=== PATIENT | female | born 1960 | race Two or more races ===

== ENCOUNTER 2024-10-13 14:08 | Outpatient (AMB) | payer MEDICARE, SELFPAY ==
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
[2024-10-13 14:12] VITALS: BP 139/61; PULSE 82; O2SAT 99; BMI 36.8
--- OUTSIDE RECORDS SUMMARY | 2024-10-13 17:10 | XMS_ITS | Encounter Summary ---
Author Organization [facility] Address [address] [place] [address] Care Team Providers Care Senior Staff Consultant Name Role Phone Milka Cueva APRN Primary Care Provider [phone] Vilma Hollis Unavailable Milka Cueva APRN Unavailable [phone] Raisa Pittman MD Primary Care Provid er Anay Chandra MD Primary Care Provider [phone] Andrei Ruby APRN Unavailable Unavailabl e Barry Cornell MD Unavailable [phone] Bakari Camilo MD Unavailable Brenda Almeida APRN Primary Care Provider [phone] Anay Chandra MD Unavailable [phone] Anay Chandra MD Primary Care Provider [phone] Brenda Almeida APRN Unavailable [phone] Babak Pickard MD Unavailable [phone] Anay Chandra MD Primary Care Provider [phone] Encounter Details Date Type Department Care Team (Late st Contact Info) Description 05/14/2018 Scanned Document [address] [address] Wound Care, Scan Social History Tobacco Use Types Packs/Day Years Used Date Smoking Tobacco: Former Cigarettes 1 30 0 04/02/1988 - 04/02/2018 Smokeless Tobacco: Never Alcohol Use Standard Drinks/Week Comments No 0 (1 standard drink = 0.6 oz pur e alcohol) Sex and Gender Information Value Date Recorded Sex Assigned at Female 12/16/2022 9:28 AM EDT Gender Identity Female 12/16/2022 9:28 AM EDT Sexual Orientation Heterosexual (straight) 12/16 9:28 AM EDT documented as of this encounter Plan of Treatment Upcoming Encounters Date Type Department Care Team (Late st Contact Info) Description 12/05/2024 1:30 PM EDT Office Visit [address] [address] Anay Chandra MD [address] [place] [address] 01/04/2025 1:00 PM EDT Office Visit [facility] Endocrinology [place] [address] [phone] Vishnu Hernandez MD [address] [address] documented as of this encounter Visit Diagnoses Not on filedocumented in this encounter Care Teams Senior Staff Consultant Relationship Specialty Start Date End Date Milka Cueva APRN [address] [place] [address] PCP - General Internal Medicine 03/10/17 05/22/19 Milka Cueva APRN 5 [facility] [address] [address] PCP - MSSP Attributed 02/14/19 9 Raisa Pittman MD [address] [place] [address] PCP - General Family Medicine 05/23/19 06/28/19 Anay Chandra MD [address] [place] [address] PCP - General Internal Medicine 06/29/19 10/22/21 Brenda Almeida, HAND PAINTER [address] [place], [place] [address] PCP - General Adult Health - PA/APNP/PRODUCTION DESIGNER/HAND PAINTER 10/23/21 12/25/21 Anay Chandra MD [address] [place] [address] PCP - [facility]+ Attributed 08/17/21 2 Anay Chandra MD [address] [place] [address] PCP - General Family Medicine 12/26/21 12/30/23 Brenda Almeida, HAND PAINTER [address] [place], [place] [id number] PCP - [facility] [place] Attributed 09/17/22 06/16/23 Anay Chandra MD [address] [place] [address] PCP - General Family Medicine 12/31/23 Vilma Hollis [facility] [phone] Emergency Medicine 04/28/18 Andrei Ruby APRN 5 [facility] [address] [place] [address] Nurse Practitioner Endocrinology 07/21/19 12/29/23 Barry Cornell MD 5 [facility] [address] [place] [address] Anesthesiologist Anesthesiology 10/03/19 10/03/19 Bakari Camilo MD 5 [facility] [address] [place] [address] Physician Ophthalmology 01/10/20 Babak Pickard MD [address] [place] [address] [place] [address] Surgery, Neurosurgery 02/16/23 documented as of this encounter
--- OUTSIDE RECORDS SUMMARY | 2024-10-13 17:10 | XMS_ITS | Encounter Summary ---
Author Organization [facility] Address [address] [place] [address] Care Team Providers Care Research Quality Assurance Specialist Name Role Phone Vilma Hollis Unavailable Andrei Ruby EVENT CREW TECHNICIAN Unavailable Unavailabl e Bakari Camilo MD Unavailable [phone] Anay Chandra MD Primary Care Provider [phone] Brenda Almeida EVENT CREW TECHNICIAN Unavailable [phone] Babak Pickard MD Unavailable [phone] Anay Chandra MD Primary Care Provider [phone] Encounter Details Date Type Department Care Team (Late st Contact Info) Description 09/11/2022 Scanned Document [facility] PRIMARY CARE SCAN Primary Care, Scan Social History Tobacco Use Types Packs/Day Years Used Date Smoking Tobacco: Former Cigarettes 1 30 Smokeless Tobacco: Former Alcohol Use Standard Drinks/Week Comments No 0 (1 standard drink = 0.6 oz pur e alcohol) Sex and Gender Information Value Date Recorded Sex Assigned at Female 12/16/2022 9:28 AM EDT Gender Identity Female 12/16/2022 9:28 AM EDT Sexual Orientation Heterosexual (straight) 12/16 9:28 AM EDT COVID-19 Exposure Response Date Recorded In the last 10 days, have yo u been in contact with someone who was confirmed or suspected to have Coronavirus/COVID-19? No / Unsure 09/12/2022 2:29 PM EST documented as of this encounter Plan of Treatment Upcoming Encounters Date Type Department Care Team (Late st Contact Info) Description 12/05/2024 1:30 PM EDT Office Visit [facility] [address] [facility] [place] [phone] Anay Chandra MD 445 [facility], [place] [id number] 01/04/2025 1:00 PM EDT Office Visit [facility] Endocrinology [place] [address] [place] [address] Vishnu Hernandez MD [address] [place] [address] [place] [address] documented as of this encounter Goals Goal Patient Goal Type Associated Problems Recent Progress Patient-Stated? Author <enter goal here> General On track(2018 2:36 PM EST) Yes Norma Junior RN Note: Problem- smoking on Chantix- down to 5 cigarettes per day. Goal- Pt's quit date is 08/17/18 Intervention- continue on Chantix per prescribing by Milka Cueva APRN. <enter goal here> General Improving( 2:36 PM EST) Yes Norma Junior RN Note: Problem- new onset of pain where closed wound is. Goal- concerns of pain to be addressed CICI. Intervention- to be seen today by INGE and appt at the wound clinic in [place] on 08/23/18. OT LTG 1 Occupational Therapy No Karina Pendleton, MICHAEL Note: Patient will demonstrate 10 lb increase in hospital wellness coordinator strength B for improved ability to open containers in 6 weeks. OT LTG 2 Occupational Therapy No Karina Pendleton, MICHAEL Note: QD score will improve by 10% in 6 weeks. OT LTG 3 Occupational Therapy No Karina Pendleton, MICHAEL Note: Patient will demonstrate independence with HEP including education in 6 weeks. documented as of this encounter Visit Diagnoses Not on filedocumented in this encounter Care Teams Research Quality Assurance Specialist Relationship Specialty Start Date End Date Anay Chandra MD PCP - General Family Medicine 12/26/21 12/30/23 Brenda Almeida APRN [address] [place] [address] PCP - [facility] Attributed 09/17/22 06/16/23 Anay Chandra MD [address] [place] [address] PCP - General Family Medicine 12/31/23 Vilma Hollis Emergency Medicine 04/28/18 Andrei Ruby APRN Nurse Practitioner Endocrinology 07/21/19 12/29/23 Bakari Camilo MD Physician Ophthalmology 01/10/20 Babak Pickard MD [address] [place] [address] [place] [address] Surgery, Neurosurgery 02/16/23 documented as of this encounter
--- OUTSIDE RECORDS SUMMARY | 2024-10-13 17:10 | XMS_ITS | Encounter Summary ---
Author Organization [facility] Address [address] [place] [address] Care Team Providers Care Reel Repairer Name Role Phone Vilma Hollis Unavailable Andrei Ruby COLLECTION DEVELOPMENT LIBRARIAN Unavailable Unavailabl e Bakari Camilo MD Unavailable [phone] Anay Chandra MD Primary Care Provider [phone] Brenda Almeida COLLECTION DEVELOPMENT LIBRARIAN Unavailable [phone] Babak Pickard MD Unavailable [phone] Anay Chandra MD Primary Care Provider [phone] Encounter Details Date Type Department Care Team (Late st Contact Info) Description 05/22/[address] [facility] PRIMARY CARE SCAN Primary Care, Scan Social History Tobacco Use Types Packs/Day Years Used Date Smoking Tobacco: Every Day Cigarettes 1 30 Smokeless Tobacco: Former Alcohol [...] Description 12/05/2024 1:30 PM EDT Office Visit [address] [address] Anay Chandra MD [address] [place] [address] 01/04/2025 1:00 PM EDT Office Visit [facility] Endocrinology [place] [address] [place] [address] Vishnu Hernandez MD [address] [place] [address] documented as of this encounter Goals Goal Patient Goal Type Associated Problems Recent Progress Patient-Stated? Author <enter goal here> General On track(2018 2:36 PM EST) Yes Norma Junior, RN Note: Problem- smoking on Chantix- down to 5 cigarettes per day. Goal- Pt's quit date is 08/17/18 Intervention- continue on Chantix per prescribing by Milka Cueva APRN. <enter goal here> General Improving( 2:36 PM EST) Yes Norma Junior, RN Note: Problem- new onset of pain where closed wound is. Goal- concerns of pain to be addressed CICI. Intervention- to be seen today by COLLECTION DEVELOPMENT LIBRARIAN and appt at the wound clinic in [place] on 08/23/18. OT LTG 1 Occupational Therapy No Karina Pendleton, MICHAEL Note: Patient will demonstrate 10 lb increase in winderman strength B for improved ability to open [...] on filedocumented in this encounter Care Teams Reel Repairer Relationship Specialty Start Date End Date Anay Chandra MD PCP - General Family Medicine 12/26/21 12/30/23 Brenda Almeida APRN [address] [place] [address] PCP - [facility] Attributed 09/17/22 06/16/23 Anay Chandra MD [address] [place] [address] PCP - General Family Medicine 12/31/23 Vilma Hollis Emergency Medicine 04/28/18 Andrei Ruby APRN Nurse Practitioner Endocrinology 07/21/19 12/29/23 Bakari Camilo MD Physician Ophthalmology 01/10/20 Babak Pickard MD [address] [place] [address] Surgery, Neurosurgery 02/16/23 documented as of this encounter
--- OUTSIDE RECORDS SUMMARY | 2024-10-13 17:10 | XMS_ITS | Encounter Summary ---
Author Organization [facility] Address [address] [place] [address] Care Team Providers Care Buffing Line Set Up Worker Name Role Phone Milka Cueva APRN Primary Care Provider [phone] Vilma Hollis Unavailable Milka Cueva APRN Unavailable [phone] Raisa Pittman MD Primary Care Provid er Anay Chandra MD Primary Care Provider [phone] Andrei Ruby APRN Unavailable Unavailabl e Barry Cornell MD Unavailable [phone] Bakari Camilo MD Unavailable [phone] Brenda Almeida APRN Primary Care Provider [phone] Anay Chandra MD Unavailable [phone] Anay Chandra MD Primary Care Provider [phone] Brenda Almeida APRN Unavailable [phone] Babak Pickard MD Unavailable [phone] Anay Chandra MD Primary Care Provider [phone] Encounter Details Date Type Department Care Team (Late st Contact Info) Description 04/12/2018 Scanned Document [address] [address] Provider, Generic Social History Tobacco Use Types Packs/Day Years [...] Description 12/05/2024 1:30 PM EDT Office Visit [address] [address] Anay Chandra MD [address] [place] [address] 01/04/2025 1:00 PM EDT Office Visit [facility] Endocrinology [place] [address] [phone] Vishnu Hernandez MD [address] [address] documented as of this encounter Visit Diagnoses Not on filedocumented in this encounter Care Teams Buffing Line Set Up Worker Relationship Specialty Start Date End Date Milka Cueva APRN [address] [place] [address] PCP - General Internal Medicine 03/10/17 05/22/19 Milka Cueva APRN 5 [facility] [address] [address] PCP - MSSP Attributed 02/14/19 9 Raisa Pittman MD [address] [place] [address] PCP - General Family Medicine 05/23/19 06/28/19 Anay Chandra MD [address] [place] [address] PCP - General Internal Medicine 06/29/19 10/22/21 Brenda Almeida, PATIENT FINANCIAL SERVICES MANAGER [address] [place], [place] [address] PCP - General Adult Health - PA/APNP/WREATH MACHINE OPERATOR/PATIENT FINANCIAL SERVICES MANAGER 10/23/21 12/25/21 Anay Chandra MD [address] [place] [id number] PCP - [facility]+ Attributed 08/17/21 2 Anay Chandra MD [address] [place] [address] PCP - General Family Medicine 12/26/21 12/30/23 Brenda Almeida, PATIENT FINANCIAL SERVICES MANAGER [address] [place], [place] [phone] PCP - [facility] [place] Attributed 09/17/22 06/16/23 Anay Chandra MD [address] [place] [address] PCP - General Family Medicine 12/31/23 Vilma Hollis [address], [place] [id number] Emergency Medicine 04/28/18 Andrei Ruby APRN 5 [facility] [address] [place] [address] Nurse Practitioner Endocrinology 07/21/19 12/29/23 Barry Cornell MD 5 [facility] [address] [place] [address] Anesthesiologist Anesthesiology 10/03/19 10/03/19 Bakari Camilo MD 5 [facility] [address] [place] [address] Physician Ophthalmology 01/10/20 Babak Pickard MD [address] [place] [address] [address] [place] [address] Surgery, Neurosurgery 02/16/23 documented as of this encounter
--- OUTSIDE RECORDS SUMMARY | 2024-10-13 17:10 | XMS_ITS | Encounter Summary ---
Author Organization [facility] Address [address] [place] [address] Care Team Providers Care Mold Operator Name Role Phone Vilma Hollis Unavailable Andrei Ruby WORKERS COMPENSATION EXAMINER Unavailable Unavailabl e Bakari Camilo MD Unavailable [phone] Anay Chandra MD Primary Care Provider Brenda Almeida WORKERS COMPENSATION EXAMINER Unavailable [phone] Babak Pickard MD Unavailable [phone] Anay Chandra MD Primary Care Provider [phone] Reason for Visit * Reason Comments Medication Refill Encounter Details Date Type Department Care Team (Late st Contact Info) Description 08/27/[address] [phone] Anay Chandra MD [address] [place] [phone] Gastroesophageal reflux disease, unspecified whether esophagitis present Social History Tobacco Use Types Packs/Day Years [...] suspected to have Coronavirus/COVID-19? No / Unsure 08/29/2022 2:07 PM EST documented as of this encounter Plan of Treatment Upcoming Encounters Date Type Department Care Team (Late st Contact Info) Description 12/05/2024 1:30 PM EDT Office Visit [address] [address] Anay Chandra MD [address] [place] [address] 01/04/2025 1:00 PM EDT Office Visit [facility] 100 [facility] [address] [place] [address] Vishnu Hernandez MD [address] [place] [address] documented as of this encounter Goals Goal [...] Improving( 2:36 PM EST) Yes Norma Junior, ISIDRA Note: Problem- new onset of pain where closed wound is. Goal- concerns of pain to be addressed CICI. Intervention- to be seen today by WORKERS COMPENSATION EXAMINER and appt at the wound clinic in [place] on 08/23/18. OT LTG 1 Occupational Therapy No Karina Pendleton, MICHAEL Note: Patient will demonstrate 10 lb increase in senior business process analyst strength B for improved ability to open containers in 6 weeks. OT LTG 2 Occupational Therapy No Karina Pendleton OT Note: QD score will improve by 10% in 6 weeks. OT LTG 3 Occupational Therapy No Karina Pendleton OT Note: Patient will demonstrate independence with HEP including education in 6 weeks. documented as of this encounter Visit Diagnoses Diagnosis Gastroesophageal reflux disease, unspecified whether esophagitis present documented in this encounter Care Teams Mold Operator Relationship Specialty Start Date End Date Anay Chandra MD PCP - General Family Medicine 12/26/21 12/30/23 Brenda Almeida APRN [address] [place] [address] PCP - [facility] MA Attributed 09/17/22 06/16/23 Anay Chandra MD [address] [place] [address] PCP - General Family Medicine 12/31/23 Vilma Hollis Emergency Medicine 04/28/18 Andrei Ruby APRN Nurse Practitioner Endocrinology 07/21/19 12/29/23 Bakari Camilo MD Physician Ophthalmology 01/10/20 Babak Pickard MD [address] [place] [address] Surgery, Neurosurgery 02/16/23 documented as of this encounter
--- OUTSIDE RECORDS SUMMARY | 2024-10-13 17:10 | XMS_ITS | Encounter Summary ---
Author Organization [facility] Address [address] [place] [address] Care Team Providers Care Stage Hand Name Role Phone Vilma Hollis Unavailable Anay Chandra MD Primary Care Provider [phone] Andrei Ruby APRN Unavailable Unavailabl Barry Ceron MD Unavailable [phone] Bakari Camilo MD Unavailable Brenda Almeida APRN Primary Care Provider Anay Chandra MD Unavailable [phone] Anay Chandra MD Primary Care Provider [phone] Brenda Almeida APRN Unavailable [phone] Babak Pickard MD Unavailable [phone] Anay Chandra MD Primary Care Provider [phone] Reason for Visit * Reason Comments Medication Refill Encounter Details Date Type Department Care Team (Late st Contact Info) Description 10/02/2019 Refill [facility] Endocrinology [address] [phone] Andrei Ruby APRN Type 2 diabetes mellitus without complication, without long-term current use of insulin (HCC) Social History Tobacco Use Types Packs/Day Years Used Date Smoking Tobacco: Some Days Cigarettes 09 15 Started: 04/02/1988; Last attempted to quit: 04/02/2018 Smokeless Tobacco: Former Alcohol Use Standard Drinks/Week [...] Description 12/05/2024 1:30 PM EDT Office Visit [address] [address] Anay Chandra MD [address] [place] [address] 01/04/2025 1:00 PM EDT Office Visit [facility] [address] [place] [address] Vishnu Hernandez MD [address] [place] [address] documented as of this encounter Goals Goal Patient Goal Type Associated Problems Recent Progress Patient-Stated? Author <enter goal here> General On track( 019 2:36 PM EST) Yes Norma Junior RN [...] and appt at the wound clinic in [place] on 08/23/18. documented as of this encounter Visit Diagnoses Diagnosis Type 2 diabetes mellitus without complication, without long-term current use of insulin (HCC) documented in this encounter Care Teams Stage Hand Relationship Specialty Start Date End Date Anay Chandra MD PCP - General Internal Medicine 06/29/19 10/22/21 Brenda Almeida, REFUGE WORKER [address] [place] [address] PCP - [facility] - PA/APNP/COOLER DELIVERER/REFUGE WORKER 10/23/21 12/25/21 Anay Chandra MD [address] [place] [address] PCP - [facility]+ Attributed 08/17/21 2 Anay Chandra MD PCP - General Family Medicine 12/26/21 12/30/23 Brenda Almeida, REFUGE WORKER [address] [place] [address] PCP - [facility] [place] Attributed 09/17/22 06/16/23 Anay Chandra MD [address] [place] [address] PCP - General Family Medicine 12/31/23 Vilma Hollis Emergency Medicine 04/28/18 Andrei Ruby APRN Nurse Practitioner Endocrinology 07/21/19 12/29/23 Barry Cornell MD Anesthesiologist Anesthesiology 10/03/19 10/03/19 Bakari Camilo MD Physician Ophthalmology 01/10/20 Babak Pickard MD [address] [place] [address] [place] [address] Surgery, Neurosurgery 02/16/23 documented as of this encounter
--- OUTSIDE RECORDS SUMMARY | 2024-10-13 17:10 | XMS_ITS | Encounter Summary ---
Author Organization [facility] Address [address] [place] [address] Care Team Providers Care Modeling Instructor Name Role Phone Vilma Hollis Unavailable Anay Chandra MD Primary Care Provider [phone] Andrei Ruby APRN Unavailable Unavailabl e Bakari Camilo MD Unavailable [phone] Brenda Almeida APRN Primary Care Provider Anay Chandra MD Unavailable [phone] Anay Chandra MD Primary Care Provider Brenda Almeida APRN Unavailable [phone] Babak Pickard MD Unavailable [phone] Anay Chandra MD Primary Care Provider [phone] Encounter Details Date Type Department Care Team (Late st Contact Info) Description 10/21/[address] [address] Anay Chandra MD [address] [place] [address] Social History Tobacco Use Types Packs/Day Years Used Date Smoking Tobacco: Some Days Cigarettes 1 30 Started: 04/02/1988; Last attempted to quit: 04/02/2018 Smokeless Tobacco: Former Alcohol Use Standard Drinks/Week Comments No 0 (1 standard drink = 0.6 oz pur e alcohol) Sex and Gender Information Value Date Recorded Sex Assigned at Female 12/16/2022 9:28 AM EDT Gender Identity Female 12/16/2022 9:28 AM EDT Sexual Orientation Heterosexual (straight) 12/16 9:28 AM EDT documented as of this encounter Miscellaneous Notes * Telephone Encounter - Ciarra Pathak - 10/21/2019 3:42 PM EST Pt is stating that her appt with Dermatology has been scheduled for 10/25/19 @ 9:30am. documented in this encounter Plan of Treatment Upcoming Encounters Date Type Department Care Team (Late st Contact Info) Description 12/05/2024 1:30 PM EDT Office Visit [address] [address] Anay Chandra MD [address] [place] [address] 01/04/2025 1:00 PM EDT Office Visit [address] [address] Vishnu Hernandez MD [address] [place] [address] documented as of this encounter Goals Goal Patient Goal Type Associated Problems Recent Progress Patient-Stated? Author <enter goal here> General On track( 019 2:36 PM EST) Yes Norma Junior, RN Note: Problem- smoking on Chantix- down to 5 cigarettes per day. Goal- Pt's quit date is 08/17/18 Intervention- continue on Chantix per prescribing by Milka Cueva APRN. <enter goal here> General Improving(01/ 2:36 PM EST) Yes Norma Junior, ISIDRA Note: Problem- new onset of pain where closed wound is. Goal- concerns of pain to be addressed CICI. Intervention- to be seen today by APPIAN DEVELOPER and appt at the wound clinic in [place] on 08/23/18. documented as of this encounter Visit Diagnoses Not on filedocumented in this encounter Care Teams Modeling Instructor Relationship Specialty Start Date End Date Anay Chandra MD PCP - General Internal Medicine 06/29/19 10/22/21 Brenda Almeida APRN [address] [place] [address] PCP - General Adult Health - PA/APNP/SAMPLE CARD MAKER/APPIAN DEVELOPER 10/23/21 12/25/21 Anay Chandra MD [address] [place] [address] PCP - [facility]+ Attributed 08/17/21 2 Anay Chandra MD PCP - General Family Medicine 12/26/21 12/30/23 Brenda Almeida APRN [address] [place] [address] PCP - [facility] [place] Attributed 09/17/22 06/16/23 Anay Chandra MD [address] [place] [address] PCP - General Family Medicine 12/31/23 Vilma Hollis Emergency Medicine 04/28/18 Andrei Ruby APRN Nurse Practitioner Endocrinology 07/21/19 12/29/23 Bakari Camilo MD Physician Ophthalmology 01/10/20 Babak Pickard MD [address] [place] [address] [place] [address] Surgery, Neurosurgery 02/16/23 documented as of this encounter
--- OUTSIDE RECORDS SUMMARY | 2024-10-13 17:10 | XMS_ITS | Encounter Summary ---
Author Organization [facility] Address [address] [place] [address] Care Team Providers Care Alligator Shear Operator Name Role Phone Vilma Hollis Unavailable Anay Chandra MD Primary Care Provider [phone] Andrei Ruby APRN Unavailable Unavailabl e Bakari Camilo MD Unavailable [phone] Brenda Almeida APRN Primary Care Provider Anay Chandra MD Unavailable [phone] Anay Chandra MD Primary Care Provider [phone] Brenda Almeida APRN Unavailable [phone] Babak Pickard MD Unavailable [phone] Anay Chandra MD Primary Care Provider [phone] Encounter Details Date Type Department Care Team (Late st Contact Info) Description 10/28/2019 Scanned Document [address] [address] Podiatry, Scan Social History Tobacco Use Types Packs/Day [...] Description 12/05/2024 1:30 PM EDT Office Visit [address] [place] [address] Anay Chandra MD [address] [place] [address], [place] [address] 01/04/2025 1:00 PM EDT Office Visit [facility] Endocrinology [place] [address] [facility] [address] [place] [address] Vishnu Hernandez MD [address] [place] [address] documented as of this encounter Goals Goal [...] and appt at the wound clinic in [place] on 08/23/18. 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 maid cleaning cooking strength B for improved ability to open [...] on filedocumented in this encounter Care Teams Alligator Shear Operator Relationship Specialty Start Date End Date Anay Chandra MD PCP - General Internal Medicine 06/29/19 10/22/21 Brenda Almeida APRN [address] [place] [address] PCP - General Adult Health - PA/APNP/ACUPUNCTURIST/CANAL EQUIPMENT MECHANIC 10/23/21 12/25/21 Anay Chandra MD [address] [place] [address] PCP - [facility]+ Attributed 08/17/21 2 Anay Chandra MD PCP - General Family Medicine 12/26/21 12/30/23 Brenda Almeida, INGE [address] [place] [address] PCP - [facility] [place] Attributed 09/17/22 06/16/23 Anay Chandra MD [address] [place] [address] PCP - General Family Medicine 12/31/23 Vilma Hollis Emergency Medicine 04/28/18 Andrei Ruby APRN Nurse Practitioner Endocrinology 07/21/19 12/29/23 Bakari Camilo MD Physician Ophthalmology 01/10/20 Babak Pickard MD [address] [place] [address] [place] [address] Surgery, Neurosurgery 02/16/23 documented as of this encounter
--- OUTSIDE RECORDS SUMMARY | 2024-10-13 17:10 | XMS_ITS | Encounter Summary ---
Author Organization [facility] Address [address] [place] [address] Care Team Providers Care Inhalation Therapy Teacher Name Role Phone Vilma Hollis Unavailable Anay Chandra MD Primary Care Provider [phone] Andrei Ruby APRN Unavailable Unavailabl e Bakari Camilo MD Unavailable [phone] Brenda Almeida APRN Primary Care Provider Anay Chandra MD Unavailable [phone] Anay Chandra MD Primary Care Provider [phone] Brenda Almeida APRN Unavailable [phone] Babak Pickrad MD Unavailable [phone] Anay Chandra MD Primary Care Provider [phone] Reason for Visit * Reason Comments Medication Refill Encounter Details Date Type Department Care Team (Late st Contact Info) Description 11/01/2019 Refill [facility] Endocrinology [address] [phone] Andrei Ruby APRN Type 2 diabetes mellitus [...] Description 12/05/2024 1:30 PM EDT Office Visit [address] [address] Anay Chandra MD [address] [place] [address] 01/04/2025 1:00 PM EDT Office Visit [facility] 100 [facility] [address] [place] [address] Vishnu Hernandez MD [address] [place] [address] documented as of this encounter Goals Goal [...] CICI. Intervention- to be seen today by AIRFIELD DEFENCE GUARD and appt at the wound clinic in [place] on 08/23/18. OT LTG 1 Occupational Therapy No Karina Pendleton, MICHAEL Note: Patient will demonstrate 10 lb increase in account consultant strength B for improved ability to open containers in 6 weeks. OT LTG 2 Occupational Therapy No Karina Pendleton OT Note: QD score will improve by 10% in 6 weeks. OT LTG 3 Occupational Therapy Karina Rodriguez OT Note: Patient will demonstrate independence with HEP including education in 6 weeks. documented as of this encounter Visit Diagnoses Diagnosis Type 2 diabetes mellitus without complication, without long-term current use of insulin (HCC) documented in this encounter Care Teams Inhalation Therapy Teacher Relationship Specialty Start Date End Date Anay Chandra MD PCP - General Internal Medicine 06/29/19 10/22/21 Brenda Almeida APRN [address] [place] [address] PCP - General Adult Health - PA/APNP/YOUTH DEVELOPMENT PROFESSIONAL/AIRFIELD DEFENCE GUARD 10/23/21 12/25/21 Anay Chandra MD [address] [place] [address] PCP - [facility]+ Attributed 08/17/21 2 Anay Chandra MD PCP - General Family Medicine 12/26/21 12/30/23 Brenda Almeida APRN [address] [place] [address] PCP - [facility] [place] Attributed 09/17/22 06/16/23 Anay Chandra MD [address] [place] [address] PCP - General Family Medicine 12/31/23 Vilma Hollis Emergency Medicine 04/28/18 Andrei Ruby APRN Nurse Practitioner Endocrinology 07/21/19 12/29/23 Bakari Camilo MD Physician Ophthalmology 01/10/20 Babak Pickard MD [address] [place] [address] [place] [address] Surgery, Neurosurgery 02/16/23 documented as of this encounter
--- OUTSIDE RECORDS SUMMARY | 2024-10-13 17:10 | XMS_ITS | Encounter Summary ---
Author Organization [facility] Address [address] [place] [address] Care Team Providers Care Retail Leader Name Role Phone Vilma Hollis Unavailable Anay Chandra MD Primary Care Provider [phone] Andrei Ruby APRN Unavailable Unavailabl e Bakari Camilo MD Unavailable [phone] Brenda Almeida APRN Primary Care Provider Anay Chandra MD Unavailable [phone] Anay Chandra MD Primary Care Provider [phone] Brenda Almeida APRN Unavailable [phone] Babak Pickard MD Unavailable [phone] Anay Chandra MD Primary Care Provider [phone] Reason for Visit * Reason Comments Medication Refill Encounter Details Date Type Department Care Team (Late st Contact Info) Description 11/22/2019 Refill [facility] Endocrinology [address] [phone] Andrei Ruby APRN Type 2 diabetes mellitus without complication, without long-term current use of insulin (HCC) (Primary Dx) Social History Tobacco Use Types Packs/Day Years [...] encounter Miscellaneous Notes * Telephone Encounter - Dulce Maria Montes De Oca LPN - 11/23/2019 8:52 AM EDT Telephone call to [facility] their phone system is down.Will try again later.Pt was using Accu-chek Softclix before. documented in this encounter Plan of Treatment Upcoming Encounters Date Type Department Care Team (Late st Contact Info) Description 12/05/2024 1:30 PM EDT Office Visit [address] [address] Anay Chandra MD [address] [place] [address] 01/04/2025 1:00 PM EDT Office Visit [facility] Endocrinology [address] [address] Vishnu Hernandez MD [address] [place] [address] documented as of this encounter Goals Goal Patient Goal Type Associated Problems Recent Progress Patient-Stated? Author <enter goal here> General On track(2018 2:36 PM EST) Yes Norma Junior RN Note: Problem- smoking on Chantix- down to 5 cigarettes per day. Goal- Pt's quit date is 08/17/18 Intervention- continue on Chantix per prescribing by Milka uCeva APRN. <enter goal here> General Improving( 2:36 PM EST) Yes Norma Junior, RN Note: Problem- new onset of pain where closed wound is. Goal- concerns of pain to be addressed CICI. Intervention- to be seen today by RECLAMATION SUPERVISOR and appt at the wound clinic in [place] on 08/23/18. 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 food and beverage coordinator strength B for improved ability to [...] complication, without long-term current use of insulin (HCC)- Primary documented in this encounter Care Teams Retail Leader Relationship Specialty Start Date End Date Anay Chandra MD PCP - General Internal Medicine 06/29/19 10/22/21 Brenda Almeida APRN [address] [place] [address] PCP - General Adult Health - PA/APALLIE/SENIOR NET SOFTWARE DEVELOPER/RECLAMATION SUPERVISOR 10/23/21 12/25/21 Anay Chandra MD [address] [place] [address] PCP - [facility]+ Attributed 08/17/21 2 Anay Chandra MD PCP - General Family Medicine 12/26/21 12/30/23 Brenda Almeida APRN [address] [place] [address] PCP - [facility] [place] Attributed 09/17/22 06/16/23 Anay Chandra MD [address] [place] [address] PCP - General Family Medicine 12/31/23 Vilma Hollis Emergency Medicine 04/28/18 Andrei Ruby APRN Nurse Practitioner Endocrinology 07/21/19 12/29/23 Bakari Camilo MD Physician Ophthalmology 01/10/20 Babak Pickard MD [address] [place] [address] [address] [place] [address] Surgery, Neurosurgery 02/16/23 documented as of this encounter
--- OUTSIDE RECORDS SUMMARY | 2024-10-13 17:10 | XMS_ITS | Encounter Summary ---
Author Organization [facility] Address [address] [place] [address] Care Team Providers Care Wares Sorter Name Role Phone Vilma Hollis Unavailable Andrei Ruby ANCHOR TACK PULLER Unavailable Unavailabl e Bakari Camilo MD Unavailable [phone] Anay Chandra MD Primary Care Provider [phone] Brenda Almeida ANCHOR TACK PULLER Unavailable [phone] Babak Pickard MD Unavailable [phone] Anay Chandra MD Primary Care Provider [phone] Encounter Details Date Type Department Care Team (Late st Contact Info) Description 06/09/2022 Scanned Document [facility] PRIMARY CARE SCAN Primary Care, Scan [...] suspected to have Coronavirus/COVID-19? No / Unsure 05/30/2022 11:14 AM EDT documented as of this encounter Plan of Treatment Upcoming Encounters Date Type Department Care Team (Late st Contact Info) Description 12/05/2024 1:30 PM EDT Office Visit [facility] [address] [place] [phone] Anay Chandra MD [address] [facility], [place] [address] 01/04/2025 1:00 PM EDT Office Visit [facility] Endocrinology [place] [address] [place] [address] Vishnu Hernandez MD [address] [place] [address] documented as of this encounter Goals Goal [...] CICI. Intervention- to be seen today by ANCHOR TACK PULLER and appt at the wound clinic in [place] on 08/23/18. OT LTG 1 Occupational Therapy No Karina Pendleton, MICHAEL Note: Patient will demonstrate 10 lb increase in district manager postal service strength B for improved ability to open [...] on filedocumented in this encounter Care Teams Wares Sorter Relationship Specialty Start Date End Date Anay Chandra MD PCP - General Family Medicine 12/26/21 12/30/23 Brenda Almeida APRN [address] [place] [address] PCP - [facility] Attributed 09/17/22 06/16/23 Anay Chandra MD [address] [place] [address] PCP - General Family Medicine 12/31/23 Vilma Hollis Emergency Medicine 04/28/18 Andrei Ruby APRN Nurse Practitioner Endocrinology 07/21/19 12/29/23 Bakari Camilo MD Physician Ophthalmology 01/10/20 Babak Pickard MD [address] [place] [address] [place] [address] Surgery, Neurosurgery 02/16/23 documented as of this encounter
--- OUTSIDE RECORDS SUMMARY | 2024-10-13 17:10 | XMS_ITS | Encounter Summary ---
Author Organization [facility] Address [address] [place] [address] Care Team Providers Care Logistics Clerk Name Role Phone Milka Cueva APRN Primary Care Provider [phone] Vilma Hollis Unavailable Milka Cueva APRN Unavailable [phone] Raisa Pittman MD Primary Care Provid er Anay Chandra MD Primary Care Provider [phone] Andrei Ruby APRN Unavailable Unavailabl e Barry Cornell MD Unavailable [phone] Bakari Camilo MD Unavailable [phone] Brenda Almeida APRN Primary Care Provider [phone] Anay Chandra MD Unavailable [phone] Anay Chandra MD Primary Care Provider [phone] Brenda Almeida APRN Unavailable [phone] Babak Pickard MD Unavailable [phone] Anay Chandra MD Primary Care Provider [phone] Encounter Details Date Type Department Care Team (Late st Contact Info) Description 03/28/2018 Scanned Document [address] [address] Provider, Generic Social History Tobacco Use Types Packs/Day Years Used Date Smoking Tobacco: Every Day Cigarettes 1 30 Smokeless Tobacco: Never Alcohol Use Standard Drinks/Week [...] Description 12/05/2024 1:30 PM EDT Office Visit [address] [address] Anay Chandra MD [address] [place] [address] 01/04/2025 1:00 PM EDT Office Visit [facility] Endocrinology [address] [address] Vishnu Hernandez MD [address] [place] [address] documented as of this encounter Visit Diagnoses Not on filedocumented in this encounter Care Teams Logistics Clerk Relationship Specialty Start Date End Date Milka Cueva APRN [address] [place] [address] PCP - General Internal Medicine 03/10/17 05/22/19 Milka Cueva APRN [address] [address] PCP - [facility] Attributed 02/14/19 9 Raisa Pittman MD [address] [address] PCP - General Family Medicine 05/23/19 06/28/19 Anay Chandra MD [address] [place] [address] PCP - General Internal Medicine 06/29/19 10/22/21 Brenda Almeida, CATERING STAFF MEMBER [address] [place], [place] [address] PCP - General Adult Health - PA/APNP/SUBSTITUTE NURSE/CATERING STAFF MEMBER 10/23/21 12/25/21 Anay Chandra MD [address] [place] [address] PCP - [facility]+ Attributed 08/17/21 2 Anay Chandra MD 5 [facility] [address] [address] PCP - General Family Medicine 12/26/21 12/30/23 Brenda Almeida, CATERING STAFF MEMBER [address] [place], [place] [address] PCP - [facility] [place] Attributed 09/17/22 06/16/23 Anay Chandra MD [address] [place] [address] PCP - General Family Medicine 12/31/23 Vilma Hollis [address] [place], [place] [id number] Emergency Medicine 04/28/18 Andrei Ruby APRN 5 [facility] [address] [place] [address] Nurse Practitioner Endocrinology 07/21/19 12/29/23 Barry Cornell MD 5 [facility] [address] [place] [address] Anesthesiologist Anesthesiology 10/03/19 10/03/19 Bakari Camilo MD 5 [facility] [address] [address] Physician Ophthalmology 01/10/20 Babak Pickard MD [address] [place] [address] [address] [place] [address] Surgery, Neurosurgery 02/16/23 documented as of this encounter
--- OUTSIDE RECORDS SUMMARY | 2024-10-13 17:10 | XMS_ITS | Encounter Summary ---
Author Organization [facility] Address [address] [place] [address] Care Team Providers Care Stapler Coil Unit Name Role Phone Milka Cueva APRN Primary Care Provider [phone] Vilma Hollis Unavailable Milka Cueva APRN Unavailable [phone] Raisa Pittman MD Primary Care Provid er Anay Chandra MD Primary Care Provider [phone] Andrei Ruby APRN Unavailable Unavailabl e Barry Cornell MD Unavailable [phone] Bakari Camilo MD Unavailable [phone] Brenda Almeida APRN Primary Care Provider [phone] Anay Chandra MD Unavailable [phone] Anay Chandra MD Primary Care Provider [phone] Brenda Almeida APRN Unavailable [phone] Babak Pickard MD Unavailable [phone] Anay Chandra MD Primary Care Provider [phone] Encounter Details Date Type Department Care Team (Late st Contact Info) Description 2018 Scanned Document [address] [address] Provider, Generic Social History Tobacco Use Types [...] Description 12/05/2024 1:30 PM EDT Office Visit [address] [address] Anay Chandra MD [address] [place] [address] 01/04/2025 1:00 PM EDT Office Visit [facility] Endocrinology [place] [address] [phone] Vishnu Hernandez MD [address] [address] documented as of this encounter Visit Diagnoses Not on filedocumented in this encounter Care Teams Stapler Coil Unit Relationship Specialty Start Date End Date Milka Cueva APRN [address] [place] [address] PCP - General Internal Medicine 03/10/17 05/22/19 Milka Cueva APRN 5 [facility] [address] [address] PCP - MSSP Attributed 02/14/19 9 Raisa Pittman MD [address] [place] [address] PCP - General Family Medicine 05/23/19 06/28/19 Anay Chandra MD [address] [place] [address] PCP - General Internal Medicine 06/29/19 10/22/21 Brenda Almeida, MANUFACTURING ASSOCIATE [address] [place], [place] [address] PCP - General Adult Health - PA/APNP/POOL FINISHER/MANUFACTURING ASSOCIATE 10/23/21 12/25/21 Anay Chandra MD [address] [place] [id number] PCP - PCMH+ Attributed 08/17/21 2 Anay Chandra MD [address] [place] [address] PCP - General Family Medicine 12/26/21 12/30/23 Brenda Almeida, MANUFACTURING ASSOCIATE [address] [place], [place] [id number] PCP - [facility] [place] Attributed 09/17/22 06/16/23 Anay Chandra MD [address] [place] [address] PCP - General Family Medicine 12/31/23 Vilma Hollis [address] [place], [place] [phone] Emergency Medicine 04/28/18 Andrei Ruby APRN 5 [facility] [address] [place] [address] Nurse Practitioner Endocrinology 07/21/19 12/29/23 Barry Cornell MD 5 [facility] [address] [place] [address] Anesthesiologist Anesthesiology 10/03/19 10/03/19 Bakari Camilo MD 5 [facility] [address] [place] [address] Physician Ophthalmology 01/10/20 Babak Pickard MD [address] [place] [address] [address] [place] [address] Surgery, Neurosurgery 02/16/23 documented as of this encounter
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
--- OUTSIDE RECORDS SUMMARY | 2024-10-13 17:10 | XMS_ITS | Encounter Summary ---
Author Organization [facility] Address [address] [place] [address] Care Team Providers Care Molder Automobile Carpets Name Role Phone Vilma Hollis Unavailable Anay Chandra MD Primary Care Provider [phone] Andrei Ruby APRN Unavailable Unavailabl e Bakari Camilo MD Unavailable [phone] Brenda Almeida APRN Primary Care Provider Anay Chandra MD Unavailable [phone] Anay Chandra MD Primary Care Provider [phone] Brenda Almeida APRN Unavailable [phone] Babak Pickard MD Unavailable [phone] Anay Chandra MD Primary Care Provider [phone] Encounter Details Date Type Department Care Team (Late st Contact Info) Description 10/07/2019 Scanned Document [address] [place] [address] Provider, Generic Social History Tobacco Use Types [...] Description 12/05/2024 1:30 PM EDT Office Visit [address] [address] Anay Chandra MD [address] [place] [address] 01/04/2025 1:00 PM EDT Office Visit [facility] Endocrinology [place] [address] [place] [address] Vishnu Hernandez MD [address] [place] [address] documented as of this encounter Goals Goal Patient Goal Type Associated Problems Recent Progress Patient-Stated? Author <enter goal here> General On track( 019 2:36 PM EST) Yes Norma Junior, ISIDRA Note: Problem- smoking on Chantix- down to [...] and appt at the wound clinic in [place] on 08/23/18. documented as of this encounter Procedures Procedure Name Priority Date/Time Associated Diagnosis Comments HOME CARE SIGNED ORDERS 10/07/2019 documented in this encounter Results * HOME CARE SIGNED ORDERS (10/07/2019) Narrative 10/07/2019 Ordered by an unspecified provider. Generic Provider HX AMB PROCEDURES NO RESULTS ROUTING documented in this encounter Visit Diagnoses Not on filedocumented in this encounter Care Teams Molder Automobile Carpets Relationship Specialty Start Date End Date Anay Chandra MD PCP - General Internal Medicine 06/29/19 10/22/21 Brenda Almeida, ELECTRONIC DEVICE REPAIRER [address] [place] [address] PCP - General Adult Health - PA/APNP/RESAW TAILER/ELECTRONIC DEVICE REPAIRER 10/23/21 12/25/21 Anay Chandra MD [address] [place], [place] [phone] PCP - PCMH+ Attributed 08/17/21 2 Anay Chandra MD PCP - General Family Medicine 12/26/21 12/30/23 Brenda Almeida, ELECTRONIC DEVICE REPAIRER [address] [place] [address] PCP - [facility] [place] Attributed 09/17/22 06/16/23 Anay Chandra MD [address] [place] [id number] PCP - General Family Medicine 12/31/23 Vilma Hollis Emergency Medicine 04/28/18 Andrei Ruby APRN Nurse Practitioner Endocrinology 07/21/19 12/29/23 Bakari Camilo MD Physician Ophthalmology 01/10/20 Babak Pickard MD [address] [place] [address] Surgery, Neurosurgery 02/16/23 documented as of this encounter
--- OUTSIDE RECORDS SUMMARY | 2024-10-13 17:10 | XMS_ITS | Encounter Summary ---
Author Organization [facility] Address [address] [place] [address] Care Team Providers Care Firer Retort Name Role Phone Milka Cueva APRN Primary Care Provider [phone] Vilma Hollis Unavailable Milka Cueva APRN Unavailable [phone] Raisa Pittman MD Primary Care Provid er Anay Chandra MD Primary Care Provider [phone] Andrei Ruby APRN Unavailable Unavailabl e Barry Cornell MD Unavailable [phone] Bakari Camilo MD Unavailable [phone] Brenda Almeida APRN Primary Care Provider [phone] Anay Chandra MD Unavailable [phone] Anay Chandra MD Primary Care Provider [phone] Brenda Almeida APRN Unavailable [phone] Babak Pickard MD Unavailable [phone] Anay Chandra MD Primary Care Provider [phone] Encounter Details Date Type Department Care Team (Late st Contact Info) Description 05/14/2018 Scanned Document [address] [address] Provider, Generic Social History Tobacco Use Types [...] Description 12/05/2024 1:30 PM EDT Office Visit [address] [address] Anay Chandra MD [address] [place] [address] 01/04/2025 1:00 PM EDT Office Visit [facility] Endocrinology [place] [address] [address] Vishnu Hernandez MD [address] [address] documented as of this encounter Visit Diagnoses Not on filedocumented in this encounter Care Teams Firer Retort Relationship Specialty Start Date End Date Milka Cueva APRN [address] [place] [address] PCP - General Internal Medicine 03/10/17 05/22/19 Milka Cueva APRN 5 [facility] [place] [address] [address] PCP - MSSP Attributed 02/14/19 9 Raisa Pittman MD [address] [place] [address] PCP - General Family Medicine 05/23/19 06/28/19 Anay Chandra MD [address] [place] [address] PCP - General Internal Medicine 06/29/19 10/22/21 Brenda Almeida, TODDLER LEAD TEACHER [address] [place], [place] [address] PCP - General Adult Health - PA/APNP/RETAIL COSMETICS SALES BEAUTY ADVISOR/TODDLER LEAD TEACHER 10/23/21 12/25/21 Anay Chandra MD [address] [place] [id number] PCP - PCMH+ Attributed 08/17/21 2 Anay Chandra MD [address] [place] [address] PCP - General Family Medicine 12/26/21 12/30/23 Brenda Almeida, TODDLER LEAD TEACHER [address] [place], [place] [phone] PCP - [facility] [place] Attributed 09/17/22 06/16/23 Anay Chandra MD [address] [place] [address] PCP - General Family Medicine 12/31/23 Vilma Hollis [address], [place] [address] Emergency Medicine 04/28/18 Andrei Ruby APRN 5 [facility] [place] [address] [place] [address] Nurse Practitioner Endocrinology 07/21/19 12/29/23 Barry Cornell MD 5 [facility] [place] [address] [place] [address] Anesthesiologist Anesthesiology 10/03/19 10/03/19 Bakari Camilo MD 5 [facility] [place] [address] [place] [address] Physician Ophthalmology 01/10/20 Babak Pickard MD [address] [place] [address] [address] [place] [address] Surgery, Neurosurgery 02/16/23 documented as of this encounter
--- OUTSIDE RECORDS SUMMARY | 2024-10-13 17:10 | XMS_ITS | Encounter Summary ---
Author Organization [facility] Address [address] [place] [address] Care Team Providers Care Mint Wafer Depositor Name Role Phone Milka Cueva APRN Primary Care Provider [phone] Vilma Hollis Unavailable Milka Cueva APRN Unavailable [phone] Raisa Pittman MD Primary Care Provid er Anay Chandra MD Primary Care Provider [phone] Andrei Ruby APRN Unavailable Unavailabl e Barry Cornell MD Unavailable [phone] Bakari Camilo MD Unavailable [phone] Brenda Almeida APRN Primary Care Provider [phone] Anay Chandra MD Unavailable [phone] Anay Chandra MD Primary Care Provider [phone] Brenda Almeida APRN Unavailable [phone] Babak Pickard MD Unavailable [phone] Anay Chandra MD Primary Care Provider [phone] Encounter Details Date Type Department Care Team (Late st Contact Info) Description 03/28/2018 Scanned Document [address] [address] Provider, Generic Social History Tobacco Use Types [...] Description 12/05/2024 1:30 PM EDT Office Visit [address] [address] Anay Chandra MD [address] [place] [address] 01/04/2025 1:00 PM EDT Office Visit [facility] Endocrinology [address] [address] Vishnu Hernandez MD [address] [place] [address] documented as of this encounter Visit Diagnoses Not on filedocumented in this encounter Care Teams Mint Wafer Depositor Relationship Specialty Start Date End Date Milka Cueva APRN [address] [place] [address] PCP - General Internal Medicine 03/10/17 05/22/19 Milka Cueva APRN [address] [address] PCP - MSSP Attributed 02/14/19 9 Raisa Pittman MD [address] [address] PCP - General Family Medicine 05/23/19 06/28/19 Anay Chandra MD [address] [place] [address] PCP - General Internal Medicine 06/29/19 10/22/21 Brenda Almeida, SOCIAL STUDIES TEACHER [address] [place], [place] [phone] PCP - General Adult Health - PA/APNP/CASHIER GREETER/SOCIAL STUDIES TEACHER 10/23/21 12/25/21 Anay Chandra MD [address] [place] [address] PCP - PCMH+ Attributed 08/17/21 2 Anay Chandra MD 5 [facility] [address] [address] PCP - General Family Medicine 12/26/21 12/30/23 Brenda Almeida, SOCIAL STUDIES TEACHER [address] [place], [place] [address] PCP - [facility] [place] Attributed 09/17/22 06/16/23 Anay Chandra MD [address] [place] [address] PCP - General Family Medicine 12/31/23 Vilma Hollis [address], [place] [id number] Emergency Medicine 04/28/18 Andrei Ruby APRN 5 [facility] [address] [place] [address] Nurse Practitioner Endocrinology 07/21/19 12/29/23 Barry Cornell MD 5 [facility] [address] [place] [address] Anesthesiologist Anesthesiology 10/03/19 10/03/19 Bakari Camilo MD 5 [facility] [address] [address] Physician Ophthalmology 01/10/20 Babak Pickard MD [address] [place] [address] [address] [place] [address] Surgery, Neurosurgery 02/16/23 documented as of this encounter
--- OUTSIDE RECORDS SUMMARY | 2024-10-13 17:10 | XMS_ITS | Encounter Summary ---
Author Organization [facility] Address [address] [place] [address] Care Team Providers Care Assembler Tester Name Role Phone Vilma Hollis Unavailable Andrei Ruby SIGN PAINTER HELPER Unavailable Unavailabl e Bakari Camilo MD Unavailable [phone] Anay Chandra MD Primary Care Provider [phone] Brenda Almeida SIGN PAINTER HELPER Unavailable [phone] Babak Pickard MD Unavailable [phone] Anay Chandra MD Primary Care Provider [phone] Encounter Details Date Type Department Care Team (Late st Contact Info) Description 08/29/2022 Scanned Document [facility] PRIMARY CARE SCAN Primary Care, Scan [...] Description 12/05/2024 1:30 PM EDT Office Visit [facility] 445 [place] [address] Anay Chandra MD 445 [facility], [place] [address] 01/04/2025 1:00 PM EDT Office Visit [facility] Endocrinology [place] [address] [place] [address] Vishnu Hernandez MD [address] [place] [address] documented as of this encounter Goals Goal [...] and appt at the wound clinic in [place] on 08/23/18. OT LTG 1 Occupational Therapy No Karina Pendleton, MICHAEL Note: Patient will demonstrate 10 lb increase in field artillery targeting technician strength B for improved ability to open [...] on filedocumented in this encounter Care Teams Assembler Tester Relationship Specialty Start Date End Date Anay Chandra MD PCP - General Family Medicine 12/26/21 12/30/23 Brenda Almeida APRN [address] [place] [address] PCP - [facility] Attributed 09/17/22 06/16/23 Anay Chandra MD [address] [place] [address] PCP - General Family Medicine 12/31/23 Vilma Hollis Emergency Medicine 04/28/18 Andrei Ruby APRN Nurse Practitioner Endocrinology 07/21/19 12/29/23 Bakair Camilo MD Physician Ophthalmology 01/10/20 Babak Pickard MD [address] [place] [address] [place] [address] Surgery, Neurosurgery 02/16/23 documented as of this encounter
--- OUTSIDE RECORDS SUMMARY | 2024-10-13 17:10 | XMS_ITS | Encounter Summary ---
Author Organization [facility] Address [address] [place] [address] Care Team Providers Care Biostatistics Teacher Name Role Phone Vilma Hollis Unavailable Anay Chandra MD Primary Care Provider Andrei Ruby APRN Unavailable Unavailabl e Bakari Camilo MD Unavailable Brenda Almeida APRN Primary Care Provider Anay Chandra MD Unavailable [phone] Anay Chandra MD Primary Care Provider Brenda Almeida APRN Unavailable [phone] Babak Pickard MD Unavailable [phone] Anay Chandra MD Primary Care Provider [phone] Encounter Details Date Type Department Care Team (Late st Contact Info) Description 11/15/[address] [address] Anay Chandra MD [address] [place] [address] Social History Tobacco Use Types Packs/Day [...] Description 12/05/2024 1:30 PM EDT Office Visit [address] [place] [address] Anay Chandra MD [address] [place] [address] 01/04/2025 1:00 PM EDT Office Visit [facility] 100 [facility] [address] [place] [address] Vishnu Hernandez MD [address] [place] [address] documented as of this encounter Goals Goal Patient Goal Type Associated Problems Recent Progress Patient-Stated? Author <enter goal here> General On track(2018 2:36 PM EST) Yes Norma Junior, ISIDRA [...] CICI. Intervention- to be seen today by TROLLEY CLEANER and appt at the wound clinic in [place] on 08/23/18. OT LTG 1 Occupational Therapy No Karina Pendleton, OT Note: Patient will demonstrate 10 lb increase in mine foreman strength B for improved ability to open [...] on filedocumented in this encounter Care Teams Biostatistics Teacher Relationship Specialty Start Date End Date Anay Chandra MD PCP - General Internal Medicine 06/29/19 10/22/21 Brenda Almeida, TROLLEY CLEANER [address] [place] [address] PCP - General Adult Health - PA/APNP/GLASS ETCHER HELPER/TROLLEY CLEANER 10/23/21 12/25/21 Anay Chandra MD [address] [place] [address] PCP - PCM+ Attributed 08/17/21 2 Anay Chandra MD PCP - General Family Medicine 12/26/21 12/30/23 Brenda Almeida, TROLLEY CLEANER [address] [place] [address] PCP - [facility] [place] Attributed 09/17/22 06/16/23 Anay Chandra MD [address] [place], [place] [address] PCP - General Family Medicine 12/31/23 Vilma Hollis Emergency Medicine 04/28/18 Andrei Ruby APRN Nurse Practitioner Endocrinology 07/21/19 12/29/23 Bakari Camilo MD Physician Ophthalmology 01/10/20 Babak Pickard MD [address] [place] [address] [place] [address] Surgery, Neurosurgery 02/16/23 documented as of this encounter
--- OUTSIDE RECORDS SUMMARY | 2024-10-13 17:11 | XMS_ITS | Encounter Summary ---
Author Organization [facility] Address [address] [place] [address] Care Team Providers Care Needle Loom Operator Helper Name Role Phone Vilma Hollis Unavailable Bakari Camilo MD Unavailable [phone] Babak Pickard MD Unavailable [phone] Anay Chandra MD Primary Care Provider [phone] Encounter Details Date Type Department Care Team (Late st Contact Info) Description 08/29/2024 Scanned Document [address] [phone] [facility] [address] [place] [address] Social History Tobacco Use Types Packs/Day Years Used Date Smoking Tobacco: Former Cigarettes 30 Passive Smoke Exposure: Current Smokeless Tobacco: Former Alcohol Use Standard Drinks/Week [...] Description 12/05/2024 1:30 PM EDT Office Visit [address] [place] [address] Anay Chandra MD [address] [place] [address] 01/04/2025 1:00 PM EDT Office Visit [facility] Endocrinology [place] [address] [place] [address] Vishnu Hernandez MD [address] [place] [address] documented as of this encounter Goals Goal [...] CICI. Intervention- to be seen today by CERTIFIED INDUSTRIAL HYGIENIST and appt at the wound clinic in [place] on 08/23/18. 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 radio time salesperson strength B for improved ability to open containers in 6 weeks. OT LTG 2 Occupational Therapy No Karina Pendleton OT Note: QD score will improve by 10% in 6 weeks. OT LTG 3 Occupational Therapy Karina Rodriguez, MICHAEL Note: Patient will demonstrate independence with HEP including education in 6 weeks. documented as of this encounter Visit Diagnoses Not on filedocumented in this encounter Care Teams Needle Loom Operator Helper Relationship Specialty Start Date End Date Anay Chandra MD [address] [place] [address] PCP - General Family Medicine 12/31/23 Vilma Hollis Emergency Medicine 04/28/18 Bakari Camilo MD Physician Ophthalmology 01/10/20 Babak Pickard MD [address] [place] [address] [place] [address] Surgery, Neurosurgery 02/16/23 documented as of this encounter
--- OUTSIDE RECORDS SUMMARY | 2024-10-13 17:11 | XMS_ITS | Encounter Summary ---
Author Organization [facility] Address [address] [place] [address] Care Team Providers Care Back Sewer Name Role Phone Vilma Hollis Unavailable Anay Chandra MD Primary Care Provider Andrei Ruby APRN Unavailable Unavailabl e Bakari Camilo MD Unavailable [phone] Brenda Almeida APRN Primary Care Provider Anay Chandra MD Unavailable [phone] Anay Chandra MD Primary Care Provider Brenda Almeida APRN Unavailable [phone] Babak Pickard MD Unavailable [phone] Anay Chandra MD Primary Care Provider [phone] Reason for Visit * Reason Comments Medication Refill Encounter Details Date Type Department Care Team ([facility] st Contact Info) Description 06/28/2021 Refill [facility] [place] [address] [place] [address] Bri Valdes PA-C [facility] 56 [facility] Dental infection Social History Tobacco Use Types Packs/Day Years [...] Exposure Response Date Recorded In the last month, have you been in contact with someone who was confirmed or suspected to have Coronavirus / COVID-19? Unable to assess 07/01/2021 3:06 PM EST documented as of this encounter Plan of Treatment Upcoming Encounters Date Type Department Care Team (Late st Contact Info) Description 12/05/2024 1:30 PM EDT Office Visit [address] [address] Anay Chandra MD [address] [place] [address] 01/04/2025 1:00 PM EDT Office Visit [facility] Endocrinology [place] 100 [facility] [address] [place] [address] Vishnu Hernandez MD [address] [facility] [address] [place] [address] documented as of this encounter Goals Goal [...] CICI. Intervention- to be seen today by DISPENSING LEAD and appt at the wound clinic in [place] on 08/23/18. 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 special procedure tech strength B for improved ability to open containers in 6 weeks. OT LTG 2 Occupational Therapy No Karina Pendleton OT Note: QD score will improve by 10% in 6 weeks. OT LTG 3 Occupational Therapy No Karina Pendleton OT Note: Patient will demonstrate independence with HEP including education in 6 weeks. documented as of this encounter Visit Diagnoses Diagnosis Dental infection documented in this encounter Care Teams Back Sewer Relationship Specialty Start Date End Date Anay Chandra MD PCP - General Internal Medicine 06/29/19 10/22/21 Brenda Almeida APRN [address] [place] [address] PCP - General Adult Health - PA/APNP/INSPECTOR STRUCTURAL BONDING/DISPENSING LEAD 10/23/21 12/25/21 Anay Chandra MD [address] [place] [address] PCP - PCMH+ Attributed 08/17/21 2 Anay Chandar MD PCP - General Family Medicine 12/26/21 12/30/23 Brenda Almeida APRN [address] [place] [address] PCP - [facility] [place] Attributed 09/17/22 06/16/23 Anay Chandra MD [address] [place] [address] PCP - General Family Medicine 12/31/23 Vilma Hollis Emergency Medicine 04/28/18 Andrei Ruby APRN Nurse Practitioner Endocrinology 07/21/19 12/29/23 Bakari Camilo MD Physician Ophthalmology 01/10/20 Babak Pickard MD [address] [place] [address] [address] [place] [address] Surgery, Neurosurgery 02/16/23 documented as of this encounter
--- OUTSIDE RECORDS SUMMARY | 2024-10-13 17:11 | XMS_ITS | Encounter Summary ---
Author Organization [facility] Address [address] [place] [address] Care Team Providers Care Academic Services Professional Name Role Phone Milka Cueva APRN Primary Care Provider [phone] Vilma Hollis Unavailable Milka Cueva APRN Unavailable [phone] Raisa Pittman MD Primary Care Provid er Anay Chandra MD Primary Care Provider [phone] Andrei Ruby APRN Unavailable Unavailabl e Barry Cornell MD Unavailable [phone] Bakari Camilo MD Unavailable Brenda Almeida APRN Primary Care Provider [phone] Anay Chandra MD Unavailable [phone] Anay Chandra MD Primary Care Provider [phone] Brenda Almeida APRN Unavailable [phone] Babak Pickard MD Unavailable [phone] Anay Chandra MD Primary Care Provider [phone] Encounter Details Date Type Department Care Team (Late st Contact Info) Description 11/26/2017 Scanned Document [address] [address] Provider, Generic Social History Tobacco Use Types [...] Description 12/05/2024 1:30 PM EDT Office Visit [address] [address] Anay Chandra MD [address] [place] [address] 01/04/2025 1:00 PM EDT Office Visit [facility] Endocrinology [address] [address] Vishnu Hernandez MD [address] [place] [address] documented as of this encounter Visit Diagnoses Not on filedocumented in this encounter Care Teams Academic Services Professional Relationship Specialty Start Date End Date Milka Cueva APRN [address] [place] [address] PCP - General Internal Medicine 03/10/17 05/22/19 Milka Cueva APRN [address] [address] PCP - [facility] Attributed 02/14/19 9 Raisa Pittman MD [address] [address] PCP - General Family Medicine 05/23/19 06/28/19 Anay Chandra MD [address] [place] [address] PCP - General Internal Medicine 06/29/19 10/22/21 Brenda Almeida, CHARGE ACCOUNT AUTHORIZER [address] [place], [place] [id number] PCP - General Adult Health - PA/APNP/OBSTETRICIAN GYNECOLOGIST/CHARGE ACCOUNT AUTHORIZER 10/23/21 12/25/21 Anay Chandra MD [address] [place] [address] PCP - PCMH+ Attributed 08/17/21 2 Anay Chandra MD 5 [facility] [address] [address] PCP - General Family Medicine 12/26/21 12/30/23 Brenda Almeida, CHARGE ACCOUNT AUTHORIZER [address] [place], [place] [id number] PCP - [facility] [place] Attributed 09/17/22 06/16/23 Anay Chandra MD [address] [place] [address] PCP - General Family Medicine 12/31/23 Vilma Hollis [address] [place], [place] [id number] Emergency Medicine 04/28/18 Andrei Ruby APRN 5 [facility] [address] [place] [address] Nurse Practitioner Endocrinology 07/21/19 12/29/23 Barry Cornell MD 5 [facility] [address] [place] [address] Anesthesiologist Anesthesiology 10/03/19 10/03/19 Bakari Camilo MD 5 [facility] [address] [address] Physician Ophthalmology 01/10/20 Babak Pickard MD [address] [place] [address] [address] [place] [address] Surgery, Neurosurgery 02/16/23 documented as of this encounter
--- OUTSIDE RECORDS SUMMARY | 2024-10-13 17:11 | XMS_ITS | Encounter Summary ---
Author Organization [facility] Address [address] [place] [address] Care Team Providers Care Roguer Name Role Phone Vilma Hollis Unavailable Bakari Camilo MD Unavailable [phone] Babak Pickard MD Unavailable [phone] Anay Chandra MD Primary Care Provider [phone] Reason for Visit * Reason Comments Referral Encounter Details Date Type Department Care Team (Late st Contact Info) Description 09/20/2024 Telephone [facility] [address] [place] [address] Anay Chandra MD [address] [place] [phone] Referral Social History Tobacco Use Types Packs/Day Years Used Date Smoking Tobacco: Former Cigarettes 1 30 Passive Smoke Exposure: Current Smokeless Tobacco: [...] encounter Miscellaneous Notes * Telephone Encounter - Zo Britton MA - 09/21/2024 1:15 PM EST Referral was placed, tried faxed it but fax not going through. Phone call placed to pain managementwas given email of receptionist/telephone operator [email or web address] Referral was emailed. Spoke with patient and let her know, she states that pain management in [place] was an 1 and half for her and was told if she didn't show tomorrow they won't be able to see her after that, which prompt patient to look for a closer office. * Telephone Encounter - Anay Chandra MD - 09/21/2024 12:22 PM EST Ok to send referral, diagnosis code--MS and lumbar radiculopathy Thanks * Telephone Encounter - Zo Britton MA - 09/21/2024 12:15 PM EST Ok to [address] referral? documented in this encounter Plan of Treatment Upcoming Encounters Date Type Department Care Team (Late st Contact Info) Description 12/05/2024 1:30 PM EDT Office Visit [address] [address] Anay Chandra MD [address] [place] [address] 01/04/2025 1:00 PM EDT Office Visit [facility] Endocrinology [address] [phone] Vishnu Hernandez MD [address] [place] [address] [address] [place] [address] documented as of this encounter Goals Goal [...] CICI. Intervention- to be seen today by ECONOMICS LECTURER and appt at the wound clinic in [place] on 08/23/18. 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 museum registrar strength B for improved ability to open [...] on filedocumented in this encounter Care Teams Roguer Relationship Specialty Start Date End Date Anay Chandra MD [address] [place] [address] PCP - General Family Medicine 12/31/23 Vilma Hollis Emergency Medicine 04/28/18 Bakari Camilo MD Physician Ophthalmology 01/10/20 Babak Pickard MD [address] [place] [address] Surgery, Neurosurgery 02/16/23 documented as of this encounter
--- OUTSIDE RECORDS SUMMARY | 2024-10-13 17:11 | XMS_ITS | Encounter Summary ---
Author Organization [facility] Address [address] [place] [address] Care Team Providers Care Senior Market Intelligence Consultant Name Role Phone Vilma Hollis Unavailable Anay Chandra MD Primary Care Provider [phone] Andrei Ruby APRN Unavailable Unavailabl e Bakari Camilo MD Unavailable [phone] Brenda Almeida APRN Primary Care Provider [phone] Anay Chandra MD Unavailable [phone] Anay Chandra MD Primary Care Provider [phone] Brenda Almeida APRN Unavailable [phone] Babak Pickard MD Unavailable [phone] Anay Chandra MD Primary Care Provider [phone] Encounter Details Date Type Department Care Team (Late st Contact Info) Description 10/21/2021 Scanned Document [facility] EMERGENCY [facility] SCAN Emergency Medicine, Scan Social History Tobacco Use Types Packs/Day [...] Description 12/05/2024 1:30 PM EDT Office Visit [address] [place] [address] Anay Chandra MD [address] [place] [address], [place] [address] 01/04/2025 1:00 PM EDT Office Visit [facility] Endocrinology [place] [address] [place] [address] Vishnu Hernandez MD [address] [place] [address] [place] [address] documented as of this encounter Goals Goal [...] CICI. Intervention- to be seen today by ELECTRONIC INSTRUMENT TRADES WORKER and appt at the wound clinic in [place] on 08/23/18. 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 generator repairer strength B for improved ability to open [...] filedocumented in this encounter Care Teams Senior Market Intelligence Consultant Relationship Specialty Start Date End Date Anay Chandra MD PCP - General Internal Medicine 06/29/19 10/22/21 Brenda Almeida, INGE [address] [place] [address] PCP - General Adult Health - PA/APNP/CAMPUS SUPERVISOR/ELECTRONIC INSTRUMENT TRADES WORKER 10/23/21 12/25/21 Anay Chandra MD [address] [place], [place] [id number] PCP - PC[facility]+ Attributed 08/17/21 2 Anay Chandra MD PCP - General Family Medicine 12/26/21 12/30/23 Brenda Almeida APRN [address] [place] [address] PCP - [facility] [place] Attributed 09/17/22 06/16/23 Anay Chandra MD [address] [place] [id number] PCP - General Family Medicine 12/31/23 Vilma Hollis Emergency Medicine 04/28/18 Andrei Ruby APRN Nurse Practitioner Endocrinology 07/21/19 12/29/23 Bakari Camilo MD Physician Ophthalmology 01/10/20 Babak Pickard MD [address] [place] [address] Surgery, Neurosurgery 02/16/23 documented as of this encounter
--- OUTSIDE RECORDS SUMMARY | 2024-10-13 17:11 | XMS_ITS | Encounter Summary ---
Author Organization [facility] Address [address] [place] [address] Care Team Providers Care Automatic Drilling Machine Operator Name Role Phone Vilma Hollis Unavailable Bakari Camilo MD Unavailable [phone] Babak Pickard MD Unavailable [phone] Anay Blair MD Primary Care Provider [phone] Encounter Details Date Type Department Care Team (Late st Contact Info) Description 10/07/2024 Orders Only [facility] [address] [place] [address] Jesusita Neff MD [address] [place] [address] Social History Tobacco Use Types Packs/Day Years [...] 12/05/2024 1:30 PM EDT Office Visit [address] [address] Anay Blair MD [address] [place] [address] 01/04/2025 1:00 PM EDT Office Visit [facility] Endocrinology [place] [address] [place] [address] [place] [address] Vishnu Hernandez MD [address] [place] [address] [place] [address] documented as of this encounter Goals Goal [...] CICI. Intervention- to be seen today by AUTOMOTIVE SERVICE MANAGEMENT TEACHER and appt at the wound clinic in [place] on 08/23/18. OT LTG 1 Occupational Therapy No Karina Pendleton, MICHAEL Note: Patient will demonstrate 10 lb increase in information systems operator strength B for improved ability to open containers in 6 weeks. OT LTG 2 Occupational Therapy No Karina Pendleton, MICHAEL Note: QD score will improve by 10% in 6 weeks. OT LTG 3 Occupational Therapy No Karina Pendleton, MICHAEL Note: Patient will demonstrate independence with HEP including education in 6 weeks. documented as of this encounter Procedures Procedure Name Priority Date/Time Associated Diagnosis Comments MG SCREENING DIGITAL BREAST VINCENT- BILATERAL Routine 10/07/2024 11:45 AM EST documented in this encounter Results * MG SCREENING DIGITAL BREAST VINCENT- BILATERAL (10/07/2024 11:45 AM EST) Anatomical Region Laterality Modality Other 10/07/2024 11:3 0 AM EST 10/07/2024 11:30 AM EST Impressions 10/10/2024 1:01 PM EST NO EVIDENCE OF MALIGNANCY IN EITHER BREAST. ??SCREENING MAMMOGRAPHY IN ONE YEAR IS RECOMMENDED. BI-RADS CATEGORY 1: NEGATIVE This examination was interpreted by a fellowship-trained breast data processing specialist. Information is entered into a reminder system for a target due date for the next mammogram. The results and recommendations were sent to the patient by mail. Physician/Physician offices only: ??We appreciate the opportunity to participate in the care of your patient. ??Patients should contact the referring physician that ordered their exam for clarification or questions concerning their report. ?? Electronically signed by: ??Talha Gonzalez MD ??10/10/2024 01:01 PM EST Thank you for referring your patient to us, Talha Gonzalez MD [id number] (Electronically Signed - 10/10/2024 13:01) Copy: ANAY BLAIR MD [facility]- [address] [address] Narrative 10/10/2024 1:01 PM EST BILATERAL SCREENING MAMMOGRAM ??DIGITAL WITH CAD WITH 3D TOMOSYNTHESIS INDICATION: Screening. COMPARISONS: Multiple prior breast images with most recent performed in 2022 FINDINGS: 2D and 3D craniocaudal and mediolateral oblique views of both breasts were obtained utilizing digital acquisition. There are scattered areas of fibroglandular density. No suspicious findings are noted in either breast. There is no change from prior. In addition to standard review, the examination was analyzed for possible abnormalities using a computer-assisted detection device. Procedure Note Talha Gonzalez MD - 10/10/2024 BILATERAL SCREENING MAMMOGRAM DIGITAL WITH CAD WITH 3D TOMOSYNTHESIS INDICATION: Screening. COMPARISONS: Multiple prior breast images with most recent performed [id number] FINDINGS: 2D and 3D craniocaudal and mediolateral oblique views of bothbreasts were obtained utilizing digital acquisition. There are scattered areas of fibroglandular density. No suspicious findings are noted in either breast. There is no change from prior. In addition to standard review, the examination was analyzed for possibleabnormalities using a computer-assisted detection device. IMPRESSION: NO EVIDENCE OF MALIGNANCY IN EITHER BREAST. SCREENING MAMMOGRAPHY IN ONEYEAR IS RECOMMENDED. BI-RADS CATEGORY 1: NEGATIVE This examination was interpreted by a fellowship-trained breast imagingspecialist. Information is entered into a reminder system for a target due date forthe next mammogram. The results and recommendations were sent to thepatient by mail. Physician/Physician offices only: We appreciate the opportunity toparticipate in the care of your patient. Patients should contact thereferring physician that ordered their exam for clarification or questionsconcerning their report. Electronically signed by: Talha Gonzalez MD 10/10/2024 01:01 PM EST RPWorkstation: [id number] Thank you for referring your patient to us, Talha Gonzalez MD [id number] (Electronically Signed - 10/10/2024 13:01) Copy: ANAY BLAIR MD [facility]- [address] [address] Generic Provider IMG LEGACY PROCEDURE S documented in this encounter Visit Diagnoses Not on filedocumented in this encounter Care Teams Automatic Drilling Machine Operator Relationship Specialty Start Date End Date Anay Blair MD [address] [place] [address] PCP - General Family Medicine 12/31/23 Vilma Hollis Emergency Medicine 04/28/18 Bakari Camilo MD Physician Ophthalmology 01/10/20 Babak Pickard MD [address] [place] [address] [place], [place] [id number] Surgery, Neurosurgery 02/16/23 documented as of this encounter
--- OUTSIDE RECORDS SUMMARY | 2024-10-13 17:11 | XMS_ITS | Encounter Summary ---
Author Organization [facility] Address [address] [place] [address] Care Team Providers Care Cognos Architect Name Role Phone Vilma Hollis Unavailable Anay Chandra MD Primary Care Provider [phone] Andrei Ruby APRN Unavailable Unavailabl e Bakari Camilo MD Unavailable [phone] Brenda Almeida APRN Primary Care Provider Anay Chandra MD Unavailable [phone] Anay Chandra MD Primary Care Provider [phone] Brenda Almeida APRN Unavailable [phone] Babak Pickrad MD Unavailable [phone] Anay Chandra MD Primary Care Provider [phone] Encounter Details Date Type Department Care Team (Late st Contact Info) Description 09/21/2021 Scanned Document [address] [address] Primary Care, Scan Social History Tobacco Use [...] Description 12/05/2024 1:30 PM EDT Office Visit [address] [place] [address] Anay Chandra MD [address] [place] [address], [place] [address] 01/04/2025 1:00 PM EDT Office Visit [facility] [address] [place] [address] Vishnu Hernandez MD [address] [place] [address] [place] [address] documented as of this encounter Goals Goal [...] CICI. Intervention- to be seen today by MEDIATOR and appt at the wound clinic in [place] on 08/23/18. OT LTG 1 Occupational Therapy No Karina Pendleton, MICHAEL Note: Patient will demonstrate 10 lb increase in collar turner strength B for improved ability to open [...] on filedocumented in this encounter Care Teams Cognos Architect Relationship Specialty Start Date End Date Anay Chandra MD PCP - General Internal Medicine 06/29/19 10/22/21 Brenda Almeida, MEDIATOR [address] [place] [address] PCP - General Adult Health - PA/APNP/CHEMICAL DETECTION EXPERT/MEDIATOR 10/23/21 12/25/21 Anay Chandra MD [address] [place] [address] PCP - [facility]+ Attributed 08/17/21 2 Anay Chandra MD PCP - General Family Medicine 12/26/21 12/30/23 Brenda Almeida, MEDIATOR [address] [place] [address] PCP - [facility] [place] Attributed 09/17/22 06/16/23 Anay Chandra MD [address] [place], [place] [address] PCP - General Family Medicine 12/31/23 Vilma Hollis Emergency Medicine 04/28/18 Andrei Ruby APRN Nurse Practitioner Endocrinology 07/21/19 12/29/23 Bakari Camilo MD Physician Ophthalmology 01/10/20 Babak Pickard MD [address] [place] [address] Surgery, Neurosurgery 02/16/23 documented as of this encounter
--- OUTSIDE RECORDS SUMMARY | 2024-10-13 17:11 | XMS_ITS | Encounter Summary ---
Author Organization [facility] Address [address] [place] [address] Care Team Providers Care Comber Operator Name Role Phone Vilma Hollis Unavailable Bakari Camilo MD Unavailable [phone] Babak Pickard MD Unavailable [phone] Anay Chandra MD Primary Care Provider [phone] Encounter Details Date Type Department Care Team (Late st Contact Info) Description 09/27/[address] [address] Anay Chandra MD [address] [place] [phone] Social History Tobacco Use Types Packs/Day Years [...] Telephone Encounter - Zo Britton MA - 09/27/2024 3:23 PM EST Form was faxed (confirmed), scanned. Spoke with patient and let her know form was faxed. Patient will be calling [place] tomorrow to verify if received. * Telephone Encounter - Anay Chandra MD - 09/27/2024 2:53 PM EST Form signed, back in my blue folder/outbox * Telephone Encounter - Zo Britton MA - 09/27/2024 2:38 PM EST I will leave in your blue folder for review and signature. * Telephone Encounter - Esdras Cooper - 09/27/2024 1:36 PM EST Forms faxed in Type of form:NEMT Form Location of form in office:red folder Date requested to be completed by:with in 5 days How to process form once completed ( fax , pickling drum operator, mail):fax Contact name and number for any questions: patient front desk coordinator- please make sure the patient has completed their section of the form prior to dropping it off. documented in this encounter Plan of Treatment Upcoming Encounters Date Type Department Care Team (Late st Contact Info) Description 12/05/2024 1:30 PM EDT Office Visit [address] [address] Anay Chandra MD [address] [place] [address] 01/04/2025 1:00 PM EDT Office Visit [facility] Endocrinology [address] [address] Vishnu Hernandez MD [address] [place] [address] documented as of this encounter Goals Goal [...] CICI. Intervention- to be seen today by LOG CLERK and appt at the wound clinic in [place] on 08/23/18. 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 brickmason helper strength B for improved ability to open [...] on filedocumented in this encounter Care Teams Comber Operator Relationship Specialty Start Date End Date Anay Chandra MD [address] [place] [address] PCP - General Family Medicine 12/31/23 Vilma Hollis Emergency Medicine 04/28/18 Bakari Camilo MD Physician Ophthalmology 01/10/20 Babak Pickard MD [address] [place] [address] Surgery, Neurosurgery 02/16/23 documented as of this encounter
--- OUTSIDE RECORDS SUMMARY | 2024-10-13 17:11 | XMS_ITS | Encounter Summary ---
Author Organization Formerly [facility] Address [address] [place] [address] Care Team Providers Care Plc Engineer Name Role Phone Vilma Hollis Unavailable Bakari Camilo MD Unavailable Babak Pickard MD Unavailable [phone] Anay Chandra MD Primary Care Provider [phone] Reason for Referral * Pain Management (Routine) - Authorized Specialty Diagnoses / Procedures Referred By Contac t Referred To Contact Pain Medicine Diagnoses MS (multiple sclerosis) (HCC) Lumbar radiculopathy Anay Chandra MD [address] [place] [phone] Hunter Qiu MD [address] [place] [address] Referral ID Status Reason Start Date Expiration Date V isits Requested Visits Authorized [id number] Authorized Consult 09/21/2024 09/22/2025 1 1 Question Answer Is the patient? s pain related to an ACTIVE cancer diagnosis? No Comments [facility] Pain Management [address] [facility], [address] [place] [address] Encounter Details Date Type Department Care Team (Late st Contact Info) Description 09/21/2024 Orders Only [address] [place] [address] Anay Chandra MD [address] [place] [phone] MS (multiple sclerosis) (HCC) (Primary Dx); Lumbar radiculopathy Social History Tobacco Use Types Packs/Day Years [...] 12/05/2024 1:30 PM EDT Office Visit [address] [place] [address] Anay Chandra MD [address] [place] [phone] 01/04/2025 1:00 PM EDT Office Visit [facility] Endocrinology [address] [phone] Vishnu Hernandez MD [address] [place] [phone] Scheduled Referrals Name Type Priority Associated Diagnoses Orde r Schedule Amb referral to Pain Management Outpatient Referral Routine MS (multiple sclerosis) (HCC) Lumbar radiculopathy Ordered: 09/21/2024 documented as of this encounter Goals Goal [...] and appt at the wound clinic in [place] on 08/23/18. 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 buyer grain strength B for improved ability to open containers in 6 weeks. OT LTG 2 Occupational Therapy No Karina Pendleton OT Note: QD score will improve by 10% in 6 weeks. OT LTG 3 Occupational Therapy No Karina Pendleton OT Note: Patient will demonstrate independence with HEP including education in 6 weeks. documented as of this encounter Visit Diagnoses Diagnosis MS (multiple sclerosis) (HCC)- Primary Multiple sclerosis Lumbar radiculopathy Thoracic or lumbosacral neuritis or radiculitis, unspecified documented in this encounter Care Teams Plc Engineer Relationship Specialty Start Date End Date Anay Chandra MD [address] [place] [address] PCP - General Family Medicine 12/31/23 Vilma Hollis Emergency Medicine 04/28/18 Bakari Camilo MD Physician Ophthalmology 01/10/20 Babak Pickard MD [address] [place] [address] Surgery, Neurosurgery 02/16/23 documented as of this encounter
--- OUTSIDE RECORDS SUMMARY | 2024-10-13 17:11 | XMS_ITS | Encounter Summary ---
Author Organization [facility] Address [address] [place] [address] Care Team Providers Care Manager Of Procurement Name Role Phone Prateek Anay Primary Care Provider [phone] Latrice Norris MD Unavailable [phone] Tom Adame MD Unavailable [phone] Anay Chandra Unavailable Encounter Details Date Type Department Care Team (Late st Contact Info) Description 12/07/2020 Orders Only [facility] Department of Women's Health Services [place] [address] [facility] [address] [place] [address] Latrice Norris MD [address] [facility] [address] [facility] [place] [address] Social History Tobacco Use Types Packs/Day Years Used Date Smoking Tobacco: Former Cigarettes Q uit: 02/29/2020 Smokeless Tobacco: Never Alcohol Use Standard Drinks/Week Comments Yes 0 (1 standard drink = 0.6 oz pur e alcohol) seldomly Comments No Sex and Gender Information Value Date Recorded Sex Assigned at Not on file Legal Sex Female 1:54 AM EST Gender Identity Not on file Sexual Orientation Not on file COVID-19 Exposure Response Date Recorded In the last month, have you been in contact with someone who was confirmed or suspected to have Coronavirus / COVID-19? No / Unsure 12/06/2020 12:56 PM EDT documented as of this encounter Plan of Treatment Upcoming Encounters Date Type Department Care Team (Late st Contact Info) Description 11/29/2024 1:20 PM EDT Office Visit [facility] Department of Neurology [address] [place] [address] Tom Adame MD [address] [place] [address] [place] [address] documented as of this encounter Visit Diagnoses Not on filedocumented in this encounter Additional Health Concerns Infection Onset Date Last Indicated Resolved Time (Rule out) COVID-19 03/26/2021 03/26/2021 03/26/20 10:51 PM EDT documented as of this encounter Care Teams Manager Of Procurement Relationship Specialty Start Date End Date Anay Chandra [address] [place] [phone] PCP - General 09/01/19 Anay Chandra [address] [place] [phone] PCP - Insurance Payer PCP 06/15/23 Latrice Norris MD [address] [place] [address] Consulting Physician Obstetrics and Gynecology 04/19/21 Tom Adame MD [address] [place] [address] [place] [address] Consulting Physician Neurology 08/19/21 documented as of this encounter
--- OUTSIDE RECORDS SUMMARY | 2024-10-13 17:11 | XMS_ITS | Clinical Summary ---
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 (10/07/2024 11:45 AM EST) Anatomical Region Laterality Modality Other 10/07/2024 11:3 0 AM EST 10/07/2024 11:30 AM EST Impressions 10/10/2024 1:01 PM EST NO EVIDENCE OF MALIGNANCY IN EITHER BREAST. ??SCREENING MAMMOGRAPHY IN ONE YEAR IS RECOMMENDED. BI-RADS CATEGORY 1: NEGATIVE This examination was interpreted by a fellowship-trained breast sales product specialist. Information is entered into a reminder [...] your patient to us, Talha Gonzalez MD [phone] (Electronically Signed - 10/10/2024 13:01) Copy: ANAY BLAIR MD [facility]- [address] [address] Narrative 10/10/2024 1:01 PM EST BILATERAL SCREENING [...] prior breast images with most recent performed [id number] FINDINGS: 2D and 3D craniocaudal and mediolateral [...] Gonzalez MD 10/10/2024 01:01 PM EST RPWorkstation: [id number] Thank you for referring your patient to us, Talha Gonzalez MD [phone] (Electronically Signed - 10/10/2024 13:01) Copy: ANAY BLAIR MD [address] [address] Generic Provider IMG LEGACY PROCEDURE S * ThinPrep Pap Test (Perch Machine Inspector) (09/13/2024 1:49 PM EST) 09/13/2024 1:49 PM EST Narrative PC - 09/20/2024 5:27 PM EST To view the final report click the scan hyperlink below. Edi Fountain MD LAB AMB PATH/CYTO O RDERABLES [facility] [address] [place] [address], * Physician Order (08/02/2024 3:45 PM EST) External Provider HX AMB PROCEDURES * Lipid Panel Reflex Direct LDL (04/05/2024 3:36 PM EDT) Cholesterol, Total 123 <200 mg/dL [facility] Cholesterol, HDL 62 > OR = 50 mg/dL [facility] Triglycerides 108 <150 mg/dL [facility] LDL Cholesterol 42 mg/dL (calc) [facility] Comment: Reference range: <100 Desirable range <100 mg/dL for primary prevention; ?? <70 mg/dL for patients with CHD or diabetic patients with > or = 2 CHD risk factors. LDL-C is now calculated using the Kenny-Arceo calculation, which is a validated novel method providing better accuracy than the Friedewald equation in the estimation of LDL-C. Kenny SS et al. GISELA. 2013;310(19): 2066-5326 (http://education.Socset./faq/FAM680) Cholesterol/HDL Ratio 2.0 <5.0 (calc) [facility] Non HDL Chol. (LDL+VLDL) 61 <130 mg/dL (calc) [facility] Comment: For patients with diabetes plus 1 major ASCVD risk factor, treating to a non-HDL-C goal of <100 mg/dL (LDL-C of <70 mg/dL) is considered a therapeutic option. Blood specimen (specimen) Blood specimen / Unknown 04/05/2024 3:36 PM EDT 04/05/2024 3:36 PM EDT Narrative [facility] - 04/06/2024 8:39 PM EDT FASTING:YES FASTING: YES Vishnu Hernandez MD LAB BLOOD ORDERABLES [facility] [address] [place] [phone] * Microalbumin, Creatinine, Urine, Random (04/05/2024 3:36 PM EDT) Creatinine, Urine, Random 162 20 - 275 mg/dL [facility] Microalbumin, Urine, Random 0.2 See Note: mg/dL [facility] Comment: Reference Range: Reference Range Not established Microalbumin/Creat inine Ratio 1 <30 mg/g creat [facility] Comment: NOTE: The urine albumin value is less than 0.2 mg/dL therefore we are unable to calculate excretion and/or creatinine ratio. The ADA defines abnormalities in albumin excretion as follows: Albuminuria Category ?Result (mg/g creatinine) Normal to Mildly increased ?? <30 Moderately increased ? 30-299 Severely increased ? > OR = 300 The ADA recommends that at least two of three specimens collected within a 3-6 month period be abnormal before considering a patient to be within a diagnostic category. Urine Voided urine specimen / Unknown 04/05/2024 3:36 PM EDT 04/05/2024 3:36 PM EDT Narrative [facility] - 04/06/2024 8:39 PM EDT FASTING:YES FASTING: YES Vishnu Hernandez MD URINE ORDERABLES Performing Organization Address City/State/[facility] Co de Phone Number [facility] [address] [place] [phone] * (ABNORMAL) Hemoglobin A1C (04/05/2024 3:36 PM EDT) Hemoglobin A1C 5.7(H) <5.7 % of total Hgb [facility] Comment: For someone without known diabetes, a hemoglobin A1c value between 5.7% and 6.4% is consistent with prediabetes and should be confirmed with a follow-up test. For someone with known diabetes, a value <7% indicates that their diabetes is well controlled. A1c targets should be individualized based on duration of diabetes, age, comorbid conditions, and other considerations. This assay result is consistent with an increased risk of diabetes. Currently, no consensus exists regarding use of hemoglobin A1c for diagnosis of diabetes for children. ? This test was performed on the Justin masood c503 platform. Effective 10/19/23, a change in test platforms from the Maria Rotary Saw Operator to the Justin masood c503 may have shifted HbA1c results compared to historical results. Based on laboratory validation testing conducted at [facility], the Justin platform relative to the Maria platform had an average increase in HbA1c value of < or = 0.3%. This difference is within accepted variability established by the National Glycohemoglobin Standardization Program. Note that not all individuals will have had a shift in their results and direct comparisons between historical and current results for testing conducted on different platforms is not recommended. Blood specimen (specimen) Blood specimen / Unknown 04/05/2024 3:36 PM EDT 04/05/2024 3:36 PM EDT Narrative [facility] - 04/06/2024 8:39 PM EDT FASTING:YES FASTING: YES Vishnu Hernandez MD LAB BLOOD ORDERABLES [facility] [address] [place] [phone] * (ABNORMAL) Comprehensive Metabolic Panel (04/05/2024 3:36 PM EDT) Glucose 115(H) 65 - 99 mg/dL [facility] Comment: ? Fasting reference interval For someone without known diabetes, a glucose value between 100 and 125 mg/dL is consistent with prediabetes and should be confirmed with a follow-up test. Blood Urea Nitrogen (BUN) 13 7 - 25 mg/dL [facility] Creatinine 0.81 0.50 - 1.05 mg/dL [facility] Creatinine w/ eGFR 83 > OR = 60 mL/min/1. 73m2 [facility] BUN/Creatinine Ratio SEE NOTE: (calc) [facility] Comment: ?? Not Reported: BUN and Creatinine are within ?? reference range. ? Sodium 136 135 - 146 mmol/L [facility] Potassium 4.5 3.5 - 5.3 mmol/L [facility] Chloride 104 98 - 110 mmol/L [facility] CO2 25 20 - 32 mmol/L [facility] Calcium 9.3 8.6 - 10.4 mg/dL [facility] Protein, Total 6.3 6.1 - 8.1 g/dL [facility] Albumin 4.1 3.6 - 5.1 g/dL [facility] Globulin 2.2 1.9 - 3.7 g/dL (calc) [facility] Albumin/Globuli n Ratio 1.9 1.0 - 2.5 (calc) [facility] Bilirubin, Total 0.5 0.2 - 1.2 mg/dL [facility] Alkaline Phosphatase 61 37 - 153 U/L [facility] Aspartate Aminotrans (AST) 10 10 - 35 U/L [facility] Alanine Aminotrans (ALT) 14 6 - 29 U/L [facility] Blood specimen (specimen) Blood specimen / Unknown 04/05/2024 3:36 PM EDT 04/05/2024 3:36 PM EDT Narrative [facility] - 04/06/2024 8:39 PM EDT FASTING:YES FASTING: YES Vishnu Hernandez MD LAB BLOOD ORDERABLES Performing Organization Address City/State/[facility] Co de Phone Number [facility] [address] [place] [phone] * OPHTHALMOLOGY TESTING PROCEDURES (02/24/2023) Unknown HX AMB PROCEDURES * CT Thorax w/o contrast (08/09/2019 9:26 AM EST) Anatomical Region Laterality Modality Chest Computed Tomogra phy 08/09/2019 10:0 6 AM EST Impressions 08/09/2019 10:14 AM EST 1. Stable bilateral lung nodules. 2. No new significant thoracic abnormality. Narrative 08/09/2019 10:14 AM EST CLINICAL: History of pulmonary nodules COMPARISON: 05/17/2018 CT chest CONTRAST: None. TECHNIQUE: Axial CT images of the chest were obtained. Sagittal and coronal reformatted images were created. Iterative reconstruction was employed to reduce patient radiation exposure. FINDINGS: POULTRY PICKING MACHINE TENDER: Cervical fusion hardware AXILLAE: No axillary mass or pathologic adenopathy. MEDIASTINUM: No pathologic adenopathy or mass. HEART: ??Normal in size. No coronary artery calcification. No pericardial effusion. VASCULATURE: No thoracic aortic aneurysm. Main pulmonary artery caliber 2.6 cm. TRACHEA/BRONCHI: Normal in caliber. LUNGS: No focal infiltrate. No emphysematous changes. Medial right lower lobe lung nodule 4.8 x 8.3 mm (image 151 of 208). Unchanged from previous Stable left lower lobe 3.5 mm nodule medially (image 100 of 208). PLEURA: ??No effusion CHEST WALL: Chest wall without significant abnormality. BONES: ??Mild degenerative changes in the spine. UPPER ABDOMEN: No abnormality. Procedure Note Edi Sun MD - 08/09/2019 CLINICAL: History of pulmonary nodules COMPARISON: 05/17/2018 CT chest CONTRAST: None. TECHNIQUE: Axial CT images of the chest were obtained. Sagittal andcoronal reformatted images were created. Iterative reconstruction wasemployed to reduce patient radiation exposure. FINDINGS: POULTRY PICKING MACHINE TENDER: Cervical fusion hardware AXILLAE: No axillary mass or pathologic adenopathy. MEDIASTINUM: No pathologic adenopathy or mass. HEART: Normal in size. No coronary artery calcification. No pericardialeffusion. VASCULATURE: No thoracic aortic aneurysm. Main pulmonary artery caliber2.6 cm. TRACHEA/BRONCHI: Normal in caliber. LUNGS: No focal infiltrate. No emphysematous changes. Medial right lower lobe lung nodule 4.8 x 8.3 mm (image 151 of 208).Unchanged from previous Stable left lower lobe 3.5 mm nodule medially (image 100 of 208). PLEURA: No effusion CHEST WALL: Chest wall without significant abnormality. BONES: Mild degenerative changes in the spine. UPPER ABDOMEN: No abnormality. IMPRESSION: 1. Stable bilateral lung nodules. 2. No new significant thoracic abnormality. Anay Blair MD [facility] CT ORDERABLES * HIV 1/2 Ag/Ab CMIA Reflex to Confirmation (06/12/2017 12:24 PM EDT) HIV Ag/Ab, 4th Gen NON-REACT BENSON NON-REACT BENSON [facility] Comment: HIV-1 antigen and HIV-1/HIV-2 antibodies were not detected. There is no laboratory evidence of HIV infection. PLEASE NOTE: This information has been disclosed to you from records whose confidentiality may be protected by state law. ??If your state requires such protection, then the state law prohibits you from making any further disclosure of the information without the specific written consent of the person to whom it pertains, or as otherwise permitted by law. A general authorization for the release of medical or other information is NOT sufficient for this purpose. ?? For additional information please refer to http://education.NextDigest/faq/PQS002 (This link is being provided for informational/ educational purposes only.) The performance of this assay has not been clinically validated in patients less than 2 years old. 06/12/2017 12:2 4 PM EDT 06/12/2017 12:25 PM EDT Narrative [facility] - 06/13/2017 7:57 AM EDT FASTING:YES Resulting Agency Comment Performing Organization Information: ?Site ID: [id number] ?Name: [facility] ?Address: [address] [place] [phone] ?Director: Jonathan Serrano MD Milka Cueva APRN LAB BLOOD ORDERABLES Performing Organization Address [facility] de Phone Number [facility] [address] [place] [address] * Hepatitis C Virus (HCV) Antibody (06/12/2017 12:24 PM EDT) Hepatitis C Antibody NON-REACTI VE NON-REACT BENSON [facility] Hepatitis C Antibody (s/co) 0.03 <1.00 [facility] 06/12/2017 12:2 4 PM EDT 06/12/2017 12:25 PM EDT Narrative [facility] - 06/13/2017 7:57 AM EDT FASTING:YES Resulting Agency Comment Performing Organization Information: ?Site ID: [id number] ?Name: [facility] ?Address: [address] [place] [phone] ?Director: Jonathan Serrano MD Milka Cueva APRN LAB BLOOD ORDERABLES [facility] [address] [facility] [address], [place] [address] from Last 3 Months or Most Recently Relevant to Health Maintenance Care Teams Band Saw Marker Relationship Specialty Start Date End Date Anay Blair MD [address] [place] [address] PCP - General Family Medicine 12/31/23 Vilma Hollis Emergency Medicine 04/28/18 Bakari Camilo MD Physician Ophthalmology 01/10/20 Babak Pickard MD [address] [place] [address] Surgery, Neurosurgery 02/16/23
--- OUTSIDE RECORDS SUMMARY | 2024-10-13 17:11 | XMS_ITS | Encounter Summary ---
Author Organization [facility] Address [address] [place] [address] Care Team Providers Care Automatic Seamer Name Role Phone Vilma Hollis Unavailable Anay Chandra MD Primary Care Provider [phone] Andrei Ruby APRN Unavailable Unavailabl e Bakari Camilo MD Unavailable [phone] Brenda Almeida APRN Primary Care Provider Anay Chandra MD Unavailable [phone] Anay Chandra MD Primary Care Provider [phone] Brenda Almeida APRN Unavailable [phone] Babak Pickard MD Unavailable [phone] Anay Chandra MD Primary Care Provider [phone] Encounter Details Date Type Department Care Team (Late st Contact Info) Description 07/02/2021 Scanned Document [facility] ENDOCRINOLOGY SCAN Endocrinology, Scan Social History Tobacco Use Types Packs/Day Years Used Date Smoking Tobacco: Every Day Cigarettes 1 30 Smokeless Tobacco: Former Alcohol Use Standard Drinks/Week Comments No 0 (1 standard drink = 0.6 oz pur e alcohol) Sex and Gender Information Value Date Recorded Sex Assigned at Female 12/16/2022 9:28 AM EDT Gender Identity Female 12/16/2022 9:28 AM EDT Sexual Orientation Heterosexual (straight) 05/02 /2023 9:28 AM EDT COVID-19 Exposure Response Date Recorded In the last month, have you been in contact with someone who was confirmed or suspected to have Coronavirus / COVID-19? Unable to assess 07/01/2021 3:06 PM EST documented as of this encounter Plan of Treatment Upcoming Encounters Date Type Department Care Team (Late st Contact Info) Description 12/05/2024 1:30 PM EDT Office Visit [address] [phone] Anay Chandra MD [address] [place] [address] 01/04/2025 1:00 PM EDT Office Visit [facility] [address] [place] [address] Vishnu Hernandez MD [address] [place] [address] documented as of this encounter Goals Goal [...] and appt at the wound clinic in [place] on 08/23/18. OT LTG 1 Occupational Therapy No Karina Pendleton, MICHAEL Note: Patient will demonstrate 10 lb increase in biopsychologist strength B for improved ability to open [...] filedocumented in this encounter Care Teams Automatic Seamer Relationship Specialty Start Date End Date Anay Chandra MD PCP - General Internal Medicine 06/29/19 10/22/21 Brenda Almeida, INGE [address] [place] [address] PCP - General Adult Health - PA/APNP/EVALUATION ADVISOR/CAR DUMPER OPERATOR 10/23/21 12/25/21 Anay Chandra MD [address] [place] [address] PCP - PCMH+ Attributed 08/17/21 2 Anay Chandra MD PCP - General Family Medicine 12/26/21 12/30/23 Brenda Almeida, CAR DUMPER OPERATOR [address] [place] [address] PCP - [facility] [place] Attributed 09/17/22 06/16/23 Anay Chandra MD [address] [place] [address] PCP - General Family Medicine 12/31/23 Vilma Hollis Emergency Medicine 04/28/18 Andrei Ruby APRN Nurse Practitioner Endocrinology 07/21/19 12/29/23 Bakari Camilo MD Physician Ophthalmology 01/10/20 Babak Pickard MD [address] [place] [address] [place] [address] Surgery, Neurosurgery 02/16/23 documented as of this encounter
--- OUTSIDE RECORDS SUMMARY | 2024-10-13 17:11 | XMS_ITS | Encounter Summary ---
Author Organization [facility] Address [address] [place] [address] Care Team Providers Care Seismograph Recorder Name Role Phone Vilma Hollis Unavailable Andrei Ruby CINDER SNAPPER Unavailable Unavailabl e Bakari Camilo MD Unavailable [phone] Anay Chandra MD Unavailable [phone] Anay Chandra MD Primary Care Provider Brenda Almeida CINDER SNAPPER Unavailable [phone] Babak Pickard MD Unavailable [phone] Anay Chandra MD Primary Care Provider [phone] Reason for Visit * Reason Comments Medication Refill Encounter Details Date Type Department Care Team (Late st Contact Info) Description 03/20/2022 Refill [facility] Endocrinology [address] [phone] Edi Blanchard MD Needs valid address Type 2 diabetes mellitus with hyperglycemia, without [...] encounter Miscellaneous Notes * Telephone Encounter - Laurita Araya MA - 03/21/2022 12:46 PM EDT Too soon documented in this encounter Plan of Treatment Upcoming Encounters Date Type Department Care Team (Late st Contact Info) Description 12/05/2024 1:30 PM EDT Office Visit [address] [address] Anay Chandra MD [address] [place] [address] 01/04/2025 1:00 PM EDT Office Visit [facility] [address] [facility] [address] [place] [address] Vishnu Hernandez MD [address] [place] [address] documented as of this encounter Goals Goal [...] CICI. Intervention- to be seen today by CINDER SNAPPER and appt at the wound clinic in [place] on 08/23/18. 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 cemetery manager strength B for improved ability to open containers in 6 weeks. OT LTG 2 Occupational Therapy No Karina Pendleton OT Note: QD score will improve by 10% in 6 weeks. OT LTG 3 Occupational Therapy No Karina Pendleton OT Note: Patient will demonstrate independence with HEP including education in 6 weeks. documented as of this encounter Visit Diagnoses Diagnosis Type 2 diabetes mellitus with hyperglycemia, without long-term current use of insulin (HCC) documented in this encounter Care Teams Seismograph Recorder Relationship Specialty Start Date End Date Anay Chandra MD [address] [place] [address] PCP - PCMH+ Attributed 08/17/21 2 Anay Chandra MD [address] [place] [address] PCP - General Family Medicine 12/26/21 12/30/23 Brenda Almeida APRN [address] [place] [address] PCP - [facility] Attributed 09/17/22 06/16/23 Anay Chandra MD [address] [place] [address] PCP - General Family Medicine 12/31/23 Vilma Hollis Emergency Medicine 04/28/18 Andrei Ruby APRN Nurse Practitioner Endocrinology 07/21/19 12/29/23 Bakari Camilo MD Physician Ophthalmology 01/10/20 Babak Pickard MD [address] [place] [address] Surgery, Neurosurgery 02/16/23 documented as of this encounter
--- OUTSIDE RECORDS SUMMARY | 2024-10-13 17:11 | XMS_ITS | Encounter Summary ---
Author Organization [facility] Address [address] [place] [address] Care Team Providers Care Jewel Staker Name Role Phone Vilma Hollis Unavailable Bakari Camilo MD Unavailable [phone] Babak Pickard MD Unavailable [phone] Anay Chandra MD Primary Care Provider [phone] Encounter Details Date Type Department Care Team (Late st Contact Info) Description 06/21/2024 Scanned Document [address] [phone] [facility] [address] [place] [address] Social History Tobacco Use Types Packs/Day Years [...] Description 12/05/2024 1:30 PM EDT Office Visit [address] [place] [address] Anay Chandra MD [address] [place] [address] 01/04/2025 1:00 PM EDT Office Visit [facility] Endocrinology [place] [address] [place] [address] Vishnu Hernandez MD [address] [place] [address] documented as of this encounter Goals Goal [...] CICI. Intervention- to be seen today by ADJUNCT INSTRUCTOR and appt at the wound clinic in [place] on 08/23/18. 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 grinder and plater strength B for improved ability to open [...] on filedocumented in this encounter Care Teams Jewel Staker Relationship Specialty Start Date End Date Anay Chandra MD [address] [place] [address] PCP - General Family Medicine 12/31/23 Vilma Hollis Emergency Medicine 04/28/18 Bakari Camilo MD Physician Ophthalmology 01/10/20 Babak Pickard MD [address] [place] [address] [place] [address] Surgery, Neurosurgery 02/16/23 documented as of this encounter
--- OUTSIDE RECORDS SUMMARY | 2024-10-13 17:11 | XMS_ITS | Encounter Summary ---
Author Organization [facility] Address [address] [place] [address] Care Team Providers Care Food Service Assistant Name Role Phone Vilma Hollis Unavailable Bakari Camilo MD Unavailable [phone] Babak Pickard MD Unavailable [phone] Anay Chandra MD Primary Care Provider [phone] Encounter Details Date Type Department Care Team (Late st Contact Info) Description 10/05/2024 Refill [facility] Crusher And Binder Operator [place] [address] [place] [address] Edi Fountain MD [address] [place] [address] Social History Tobacco Use Types Packs/Day Years [...] Description 12/05/2024 1:30 PM EDT Office Visit [address] [place] [address] Anay Chandra MD [address] [place] [address], [place] [address] 01/04/2025 1:00 PM EDT Office Visit [facility] Endocrinology [place] [address] [place] [phone] Vishnu Hernandez MD [address] [place] [address] documented as of this encounter Goals Goal [...] CICI. Intervention- to be seen today by PRE K TEACHER and appt at the wound clinic in [place] on 08/23/18. OT LTG 1 Occupational Therapy No Karina Pendleton, MICHAEL Note: Patient will demonstrate 10 lb increase in language pathologist strength B for improved ability to open [...] on filedocumented in this encounter Care Teams Food Service Assistant Relationship Specialty Start Date End Date Anay Chandra MD [address] [place] [address] PCP - General Family Medicine 12/31/23 Vilma Hollis Emergency Medicine 04/28/18 Bakari Camilo MD Physician Ophthalmology 01/10/20 Babak Pickard MD [address] [place] [address] [place] [address] Surgery, Neurosurgery 02/16/23 documented as of this encounter
--- OUTSIDE RECORDS SUMMARY | 2024-10-13 17:11 | XMS_ITS | Encounter Summary ---
Author Organization [facility] Address [address] [place] [address] Care Team Providers Care Three Dimensional Art Instructor Name Role Phone Vilma Hollis Unavailable Bakari Camilo MD Unavailable [phone] Babak Pickard MD Unavailable [phone] Anay Chandra MD Primary Care Provider [phone] Reason for Visit * Reason Comments Medication Refill Encounter Details Date Type Department Care Team (Late st Contact Info) Description 10/04/[address] [phone] Anay Chandra MD [address] [place] [address] Lumbar radiculopathy; Other chronic pain Social History Tobacco Use Types Packs/Day Years [...] Description 12/05/2024 1:30 PM EDT Office Visit [facility] [address] [place] [address] Anay Chandra MD [address] [facility] [place] [address] 01/04/2025 1:00 PM EDT Office Visit [facility] Endocrinology [place] [address] [place] [address] Vishnu Hernandez MD [address] [place] [address] documented as of this encounter Goals Goal [...] CICI. Intervention- to be seen today by SERVICE STATION CONSOLE OPERATOR and appt at the wound clinic in [place] on 08/23/18. OT LTG 1 Occupational Therapy No Karina Pendleton, MICHAEL Note: Patient will demonstrate 10 lb increase in mushroom laborer strength B for improved ability to open containers in 6 weeks. OT LTG 2 Occupational Therapy No Karina Pendleton OT Note: QD score will improve by 10% in 6 weeks. OT LTG 3 Occupational Therapy No Karina Pendleton, MICHAEL Note: Patient will demonstrate independence with HEP including education in 6 weeks. documented as of this encounter Visit Diagnoses Diagnosis Lumbar radiculopathy Thoracic or lumbosacral neuritis or radiculitis, unspecified Other chronic pain documented in this encounter Care Teams Three Dimensional Art Instructor Relationship Specialty Start Date End Date Anay Chandra MD [address] [place] [address] PCP - General Family Medicine 12/31/23 Vilma Hollis Emergency Medicine 04/28/18 Bakari Camilo MD Physician Ophthalmology 01/10/20 Babak Pickard MD [address] [place] [address] [place] [address] Surgery, Neurosurgery 02/16/23 documented as of this encounter
--- OUTSIDE RECORDS SUMMARY | 2024-10-13 17:11 | XMS_ITS | Encounter Summary ---
Author Organization [facility] Address [address] [place] [address] Care Team Providers Care Informatics Scientist Name Role Phone Vilma Hollis Unavailable Bakari Camilo MD Unavailable [phone] Babak Pickard MD Unavailable [phone] Anay Chandra MD Primary Care Provider [phone] Reason for Visit * Reason Comments Medication Refill Encounter Details Date Type Department Care Team (Late st Contact Info) Description 10/02/2024 Refill [facility] [place] [address] [facility] [address] [place] [phone] Edi Fountain MD [address] [place] [address] Encounter for surveillance of contraceptive pills Social History Tobacco Use Types Packs/Day Years [...] Description 12/05/2024 1:30 PM EDT Office Visit [facility] [address] [facility] [address] Anay Chandra MD [address] [place] [address] 01/04/2025 1:00 PM EDT Office Visit [facility] Endocrinology [place] [address] [place] [address] Vishnu Hernandez MD [address] [place] [address] documented as of this encounter Goals Goal [...] CICI. Intervention- to be seen today by TIRE RECAPPER and appt at the wound clinic in [place] on 08/23/18. OT LTG 1 Occupational Therapy No Karina Pednleton, MICHAEL Note: Patient will demonstrate 10 lb increase in pattern chain builder strength B for improved ability to open containers in 6 weeks. OT LTG 2 Occupational Therapy No Karina Pendleton OT Note: QD score will improve by 10% in 6 weeks. OT LTG 3 Occupational Therapy No Karina Pendleton, MICHAEL Note: Patient will demonstrate independence with HEP including education in 6 weeks. documented as of this encounter Visit Diagnoses Diagnosis Encounter for surveillance of contraceptive pills documented in this encounter Care Teams Informatics Scientist Relationship Specialty Start Date End Date Anay Chandra MD [address] [place] [address] PCP - General Family Medicine 12/31/23 Vilma Hollis Emergency Medicine 04/28/18 Bakari Camilo MD Physician Ophthalmology 01/10/20 Babak Pickard MD [address] [place] [address] Surgery, Neurosurgery 02/16/23 documented as of this encounter
--- OUTSIDE RECORDS SUMMARY | 2024-10-13 17:11 | XMS_ITS | Encounter Summary ---
Author Organization [facility] Address [address] [place] [address] Care Team Providers Care Hog Scalder Name Role Phone Milka Cueva APRN Primary Care Provider [phone] Vilma Hollis Unavailable Milka Cueva APRN Unavailable [phone] Raisa Pittman MD Primary Care Provid er Anay Chandra MD Primary Care Provider [phone] Andrei Ruby APRN Unavailable Unavailabl e Barry Cornell MD Unavailable [phone] Bakari Camilo MD Unavailable [phone] Brenda Almeida APRN Primary Care Provider [phone] Anay Chandra MD Unavailable [phone] Anay Chandra MD Primary Care Provider [phone] Brenda Almeida APRN Unavailable [phone] Babak Pickard MD Unavailable [phone] Anay Chandra MD Primary Care Provider [phone] Encounter Details Date Type Department Care Team (Late st Contact Info) Description 11/26/2017 Scanned Document [address] [address] Provider, Generic Social History Tobacco Use Types [...] 12/05/2024 1:30 PM EDT Office Visit [address] [address] Anay Chandra MD [address] [place] [address] 01/04/2025 1:00 PM EDT Office Visit [facility] Endocrinology [address] [address] Vishnu Hernandez MD [address] [place] [address] documented as of this encounter Visit Diagnoses Not on filedocumented in this encounter Care Teams Hog Scalder Relationship Specialty Start Date End Date Milka Cueva APRN [address] [place] [address] PCP - General Internal Medicine 03/10/17 05/22/19 Milka Cueva APRN [address] [address] PCP - MSSP Attributed 02/14/19 9 Raisa [place] MD [address] [address] PCP - General Family Medicine 05/23/19 06/28/19 Anay Chandra MD [address] [place] [address] PCP - General Internal Medicine 06/29/19 10/22/21 Brenda Almeida, MASK DESIGNER [address] [place], [place] [id number] PCP - General Adult Health - PA/APNP/EXECUTIVE STAFF ASSISTANT/MASK DESIGNER 10/23/21 12/25/21 Anay Chandra MD [address] [place] [address] PCP - [facility]+ Attributed 08/17/21 2 Anay Chandra MD [address] [address] PCP - General Family Medicine 12/26/21 12/30/23 Brenda Almeida, MASK DESIGNER [address] [place], [place] [id number] PCP - [facility] [place] Attributed 09/17/22 06/16/23 Anay Chandra MD [address] [place] [address] PCP - General Family Medicine 12/31/23 Vilma Hollis [address] [place], [place] [id number] Emergency Medicine 04/28/18 Andrei Ruby APRN [address] [place] [address] Nurse Practitioner Endocrinology 07/21/19 12/29/23 Barry Cornell MD [address] [place] [address] Anesthesiologist Anesthesiology 10/03/19 10/03/19 Bakari Camilo MD [address] [address] Physician Ophthalmology 01/10/20 Babak Pickard MD [address] [place] [address] [address] [place] [address] Surgery, Neurosurgery 02/16/23 documented as of this encounter
--- OUTSIDE RECORDS SUMMARY | 2024-10-13 17:11 | XMS_ITS | Encounter Summary ---
Author Organization [facility] Address [address] [place] [address] Care Team Providers Care System Trainer Name Role Phone Vilma Hollis Unavailable Bakari Camilo MD Unavailable [phone] Babak Pickard MD Unavailable [phone] Anay Chandra MD Primary Care Provider [phone] Reason for Visit * Reason Comments Follow-up Housing Accomodation - requesting letter Encounter Details Date Type Department Care Team (Late st Contact Info) Description 10/03/2024 10:00 AM EST Office Visit [address] [phone] Anay Chandra MD [address] [place] [address] Housing instability (Primary Dx) Social History Tobacco Use Types [...] AM EDT documented as of this encounter Last Filed Vital Signs Vital Sign Reading Time Taken Comments Blood Pressure 126/84 10/03/2024 9:39 AM EST Pulse 71 10/03/2024 9:39 AM EST Temperature 36.8 ??C (98.2 ??F) 10/03/2024 9:39 AM ES T Respiratory Rate - - Oxygen Saturation 95% 10/03/2024 9:39 AM EST Inhaled Oxygen Concentration - - Weight 103 kg (228 lb) 10/03/2024 9:39 AM EST Height - - Body Mass Index 36.8 06/14/2024 3:29 PM EDT documented in this encounter Progress Notes * Anay Chandra MD - 10/03/2024 9:57 AM EST [facility] - [address] [facility] Assessment & Plan Daysi Washburn was seen in the office today for Chief Complaint Patient presents with Follow-up Housing Accomodation- requesting letter 1. Housing instability Does not have appropriate paperwork with her today, will fax to us. I am not entirely sure what pt is referring to exactly however will review paperwork once received. Future Appointments Date Time Provider Department Center 12/05/2024 1:30 PM Anay Chandra MD MG [facility] AC [facility] R 01/04/2025 1:00 PM Vishnu Hernandez MD S ENDO [facility] Communication barriers and lifestyle preferences were addressed with the patient. The care plan including medications and self-management goals were reviewed to the best of the patient???s abilities.All questions and concerns were answered. Patient and/or family verbalized understanding of the plan of care. Subjective Subjective Chief Complaint Patient presents with Follow-up Housing Accomodation- requesting letter HPI Patient ID: Daysi Washburn is a 64 y.o. female who presents to clinic for housing accommodations - partner present during visit today. Received a notification last month that she would need to set up appropriate safety accommodations at home in order to remain in her current house (grab bars). Deadline for paperwork is at the end ofthis month. Additionally mentioning landlord cannot be living on the same premises. Rules/regulations seem to have changed several months ago. Lives in [place], has been in touch with a staff member through the Housing [employer]. If unable to appeal then pt will be evicted and possibly transferred to an assisted living facility. Did not pass initial home inspection however made appropriate updates and then passed - unclear if this is contributing? Is independent with bathing/grooming. Her partner helps to clasp her bra and put ointment on her feet and socks. Walks around the home w/ a cane, is able to stand at the kitchen sink and wash dishes. Had to reschedule hand procedure. Will be meeting with a new pain management provider in [place], currently seeing a pain management provider [place] however travels [address] [place] significantly closer. Review of Systems Constitutional: Negative for chills and fever. HENT: Negative for congestion and sore throat. Respiratory: Negative for cough and shortness of breath. Cardiovascular: Negative for chest pain. Gastrointestinal: Negative for abdominal pain, constipation and vomiting. Musculoskeletal: Negative for arthralgias. Skin: Negative for rash. Neurological: Negative for dizziness and weakness. Objective Objective Vitals: 10/03/24 0939 BP: 126/84 Pulse: 71 Temp: 98.2 ??F (36.8 ??C) SpO2: 95% Weight: 103 kg (228 lb) Physical Exam Vitals and nursing note reviewed. Constitutional: General: She is not in acute distress. Appearance: She is not diaphoretic. Comments: Seated in electric wheelchair HENT: Head: Atraumatic. Eyes: General: No scleral icterus. Conjunctiva/sclera: Conjunctivae normal. Pulmonary: Effort: Pulmonary effort is normal. No respiratory distress. Musculoskeletal: General: No deformity. Skin: General: Skin is warm and dry. Neurological: Mental Status: She is alert and oriented to person, place, and time. Psychiatric: Behavior: Behavior normal. Thought Content: Thought content normal. Anay Chandra MD Family Medicine [facility] Primary Care documented in this encounter Plan of Treatment Upcoming Encounters Date Type Department Care Team (Late st Contact Info) Description 12/05/2024 1:30 PM EDT Office Visit [facility] [address] [facility] [address] Anay Chandra MD [address] [place] [address], [place] [id number] 01/04/2025 1:00 PM EDT Office Visit [facility] Endocrinology [place] [address] [place] [address] Vishnu Hernandez MD [address] [place] [address] documented as of this encounter Goals Goal [...] CICI. Intervention- to be seen today by HORSER UP and appt at the wound clinic in [place] on 08/23/18. OT LTG 1 Occupational Therapy No Karina Pendleton, MICHAEL Note: Patient will demonstrate 10 lb increase in electrotherapist strength B for improved ability to open containers in 6 weeks. OT LTG 2 Occupational Therapy No Karina Pendleton, MICHAEL Note: QD score will improve by 10% in 6 weeks. OT LTG 3 Occupational Therapy No Karina Pendleton, MICHAEL Note: Patient will demonstrate independence with HEP including education in 6 weeks. documented as of this encounter Visit Diagnoses Diagnosis Housing instability- Primary documented in this encounter Care Teams System Trainer Relationship Specialty Start Date End Date Anay Chandra MD [address] [place] [address] PCP - General Family Medicine 12/31/23 Vilma Hollis Emergency Medicine 04/28/18 Bakari Camilo MD Physician Ophthalmology 01/10/20 Babak Pickard MD [address] [place] [address] [place] [address] Surgery, Neurosurgery 02/16/23 documented as of this encounter
--- OUTSIDE RECORDS SUMMARY | 2024-10-13 17:11 | XMS_ITS | Encounter Summary ---
Author Organization [facility] Address [address] [place] [address] Care Team Providers Care Bed And Breakfast Operator Name Role Phone Vilma Hollis Unavailable Anay Chandra MD Primary Care Provider Andrei Ruby APRN Unavailable Unavailabl e Bakari Camilo MD Unavailable [phone] Brenda Almeida APRN Primary Care Provider Anay Chandra MD Unavailable Anay Chandra MD Primary Care Provider Brenda Almeida APRN Unavailable [phone] Babak Pickard MD Unavailable [phone] Anay Chandra MD Primary Care Provider [phone] Encounter Details Date Type Department Care Team (Late st Contact Info) Description 07/26/2021 Scanned Document [facility] EMERGENCY MED SCAN Gennaro Silva PA [address] [place] [address] Social History Tobacco Use Types Packs/Day Years [...] have Coronavirus / COVID-19? No / Unsure 07/08/2021 9:45 AM EST documented as of this encounter Plan of Treatment Upcoming Encounters Date Type Department Care Team (Late st Contact Info) Description 12/05/2024 1:30 PM EDT Office Visit [address] [address] Anay Chandra MD [address] [place] [address] 01/04/2025 1:00 PM EDT Office Visit [facility] [address] [facility] [address] [place] [address] Vishnu Hernandez MD [address] [place] [address] documented as of this encounter Goals Goal [...] CICI. Intervention- to be seen today by TEMPLE MEAT CUTTER and appt at the wound clinic in [place] on 08/23/18. OT LTG 1 Occupational Therapy No Karina Pendleton, OT Note: Patient will demonstrate 10 lb increase in unit tender strength B for improved ability to open [...] on filedocumented in this encounter Care Teams Bed And Breakfast Operator Relationship Specialty Start Date End Date Anay Chandra MD PCP - General Internal Medicine 06/29/19 10/22/21 Brenda Almeida, TEMPLE MEAT CUTTER [address] [place] [address] PCP - General Adult Health - PA/APNP/HEAVY EQUIPMENT FIELD MECHANIC/TEMPLE MEAT CUTTER 10/23/21 12/25/21 Anay Chandra MD [address] [place] [address] PCP - PCM+ Attributed 08/17/21 2 Anay Chandra MD PCP - General Family Medicine 12/26/21 12/30/23 Brenda Almeida, TEMPLE MEAT CUTTER [address] [place] [address] PCP - [facility] [place] Attributed 09/17/22 06/16/23 Anay Chandra MD [address] [place], [place] [phone] PCP - General Family Medicine 12/31/23 Vilam Hollis Emergency Medicine 04/28/18 Andrei Ruby APRN Nurse Practitioner Endocrinology 07/21/19 12/29/23 Bakari Camilo MD Physician Ophthalmology 01/10/20 Babak Pickard MD [address] [place] [address] [place] [address] Surgery, Neurosurgery 02/16/23 documented as of this encounter
--- OUTSIDE RECORDS SUMMARY | 2024-10-13 17:11 | XMS_ITS | Encounter Summary ---
Author Organization [facility] Address [address] [place] [address] Care Team Providers Care Associate Sales Representative Name Role Phone Vilma Hollis Unavailable Anay Chandra MD Primary Care Provider Andrei Ruby APRN Unavailable Unavailabl e Bakari Camilo MD Unavailable [phone] Brenda Almeida APRN Primary Care Provider Anay Chandra MD Unavailable Anay Chandra MD Primary Care Provider Brenda Almeida APRN Unavailable [phone] Babak Pickard MD Unavailable [phone] Anay Chandra MD Primary Care Provider [phone] Encounter Details Date Type Department Care Team (Late st Contact Info) Description 06/18/2021 Scanned Document [facility] EMERGENCY MED SCAN Kye Lock MD [address] [place] [address] Social History Tobacco Use Types Packs/Day Years [...] have Coronavirus / COVID-19? No / Unsure 06/17/2021 10:34 AM EDT documented as of this encounter Plan of Treatment Upcoming Encounters Date Type Department Care Team (Late st Contact Info) Description 12/05/2024 1:30 PM EDT Office Visit [address] [address] Anay Chandra MD [address] [place] [address] 01/04/2025 1:00 PM EDT Office Visit [facility] 100 [facility] [address] [place] [address] Vishnu Hernandez MD [address] [place] [address] documented as of this encounter Goals Goal [...] CICI. Intervention- to be seen today by CRACKING MACHINE OPERATOR and appt at the wound clinic in [place] on 08/23/18. OT LTG 1 Occupational Therapy No Karina Pendleton, OT Note: Patient will demonstrate 10 lb increase in preparation supervisor freezing strength B for improved ability to open [...] on filedocumented in this encounter Care Teams Associate Sales Representative Relationship Specialty Start Date End Date Anay Chandra MD PCP - General Internal Medicine 06/29/19 10/22/21 Brenda Almeida, CRACKING MACHINE OPERATOR [address] [place] [address] PCP - General Adult Health - PA/APNP/TRACK SWEEPER/CRACKING MACHINE OPERATOR 10/23/21 12/25/21 Anay Chandra MD [address] [place] [address] PCP - PCM+ Attributed 08/17/21 2 Anay Chandra MD PCP - General Family Medicine 12/26/21 12/30/23 Brenda Almeida, CRACKING MACHINE OPERATOR [address] [place] [address] PCP - [facility] [place] Attributed 09/17/22 06/16/23 Anay Chandra MD [address] [place] [address] PCP - General Family Medicine 12/31/23 Vilma Hollis Emergency Medicine 04/28/18 Andrei Ruby APRN Nurse Practitioner Endocrinology 07/21/19 12/29/23 Bakari Camilo MD Physician Ophthalmology 01/10/20 Babak Pickard MD [address] [place] [address] [place] [address] Surgery, Neurosurgery 02/16/23 documented as of this encounter
--- OUTSIDE RECORDS SUMMARY | 2024-10-13 17:11 | XMS_ITS | Encounter Summary ---
Author Organization [facility] Address [address] [place] [address] Care Team Providers Care Special Officer Name Role Phone Vilma Hollis Unavailable Anay Chandra MD Primary Care Provider Andrei Ruby APRN Unavailable Unavailabl e Bakari Camilo MD Unavailable [phone] Brenda Almeida APRN Primary Care Provider Anay Chandra MD Unavailable Anay Chandra MD Primary Care Provider [phone] Brenda Almeida APRN Unavailable [phone] Babak Pickard MD Unavailable [phone] Anay Chandra MD Primary Care Provider [phone] Encounter Details Date Type Department Care Team (Late st Contact Info) Description 10/01/2021 Scanned Document [facility] ORTHO SURGERY SCAN Anay Chandra MD [address] [place] [address] Social History Tobacco Use Types Packs/Day Years [...] Description 12/05/2024 1:30 PM EDT Office Visit [address] [address] Anay Chandra MD [address] [place] [address] 01/04/2025 1:00 PM EDT Office Visit [facility] [address] [place] [address] Vishnu Hernandez MD [address] [place] [address] documented as of this encounter Goals Goal [...] CICI. Intervention- to be seen today by ANALOG IC DESIGN ARCHITECT and appt at the wound clinic in [place] on 08/23/18. OT LTG 1 Occupational Therapy No Karina Pendleton, MICHAEL Note: Patient will demonstrate 10 lb increase in systems integration engineer strength B for improved ability to open [...] on filedocumented in this encounter Care Teams Special Officer Relationship Specialty Start Date End Date Anay Chandra MD PCP - General Internal Medicine 06/29/19 10/22/21 Brenda Almeida, ANALOG IC DESIGN ARCHITECT [address] [place] [address] PCP - General Adult Health - PA/APNP/THROAT CUTTER/ANALOG IC DESIGN ARCHITECT 10/23/21 12/25/21 Anay Chandra MD [address] [place], [place] [phone] PCP - [facility]+ Attributed 08/17/21 2 Anay Chandra MD PCP - General Family Medicine 12/26/21 12/30/23 Brenda Almeida, ANALOG IC DESIGN ARCHITECT [address] [place] [address] PCP - [facility] [place] Attributed 09/17/22 06/16/23 Anay Chandra MD [address] [place], [place] [phone] PCP - General Family Medicine 12/31/23 Vilma Hollis Emergency Medicine 04/28/18 Andrei Ruby APRN Nurse Practitioner Endocrinology 07/21/19 12/29/23 Bakari Camilo MD Physician Ophthalmology 01/10/20 Babak Pickard MD [address] [place] [address] Surgery, Neurosurgery 02/16/23 documented as of this encounter
--- OUTSIDE RECORDS SUMMARY | 2024-10-13 17:11 | XMS_ITS | Encounter Summary ---
Author Organization [facility] Address [address] [place] [address] Care Team Providers Care Hand Wrapper Operator Name Role Phone Vilma Hollis Unavailable Bakari Camilo MD Unavailable [phone] Babak Pickard MD Unavailable [phone] Anay Chandra MD Primary Care Provider [phone] Reason for Visit * Reason Comments Medication Refill Encounter Details Date Type Department Care Team (Late Contact Info) Description 09/23/[address] [phone] Anay Chandra MD [address] [place] [address] [phone] Type 2 diabetes mellitus without complication, without [...] Description 12/05/2024 1:30 PM EDT Office Visit [facility] [address] [place] [phone] Anay Chandra MD [address] [place] [address] 01/04/2025 1:00 PM EDT Office Visit [facility] Endocrinology [place] [address] [place] [address] Vishnu Hernandez MD [address] [place] [address] documented as of this encounter Goals Goal [...] CICI. Intervention- to be seen today by INTERNATIONAL NURSE and appt at the wound clinic in [place] on 08/23/18. OT LTG 1 Occupational Therapy No Karina Pendleton, MICHAEL Note: Patient will demonstrate 10 lb increase in front man strength B for improved ability to open [...] (HCC) documented in this encounter Care Teams Hand Wrapper Operator Relationship Specialty Start Date End Date Anay Chandra MD [address] [place] [address] PCP - General Family Medicine 12/31/23 Vilma Hollis Emergency Medicine 04/28/18 Bakari Camilo MD Physician Ophthalmology 01/10/20 Babak Pickard MD [address] [place] [address] [place] [address] Surgery, Neurosurgery 02/16/23 documented as of this encounter
--- OUTSIDE RECORDS SUMMARY | 2024-10-13 17:11 | XMS_ITS | Encounter Summary ---
Author Organization [facility] Address [address] [place] [address] Care Team Providers Care Tafe Lecturer Name Role Phone Vilma Hollis Unavailable Bakari Camilo MD Unavailable [phone] Babak Pickard MD Unavailable [phone] Anay Chandra MD Primary Care Provider [phone] Reason for Visit * Reason Comments Gynecologic Exam Encounter Details Date Type Department Care Team (Latest Contact Info) Description 09/13/2024 2:00 PM EST Office Visit [facility] Department Of Stitching Department Supervisor [place] [address] [facility] [address] [place] [phone] Edi Fountain MD [address] [place] [address] Well female exam with routine gynecological exam (Primary Dx); Papanicolaou smear; Visit for screening mammogram Social History Tobacco Use Types Packs/Day Years [...] Sign Reading Time Taken Comments Blood Pressure 128/84 09/13/2024 1:58 PM EST Pulse - - Temperature - - Respiratory Rate - - Oxygen Saturation - - Inhaled Oxygen Concentration - - Weight - - Height - - Body Mass Index - - documented in this encounter Progress Notes * Edi Fountain MD - 09/13/2024 1:58 PM EST Images from the original note were not included. EX ASSISTANT/PROGRAM DIRECTOR Annual Visit Gynecologic Exam The patient's pertinent negatives include no pelvic pain. Pertinent negatives include no abdominal pain, back pain, constipation, diarrhea, dysuria, fever, frequency, headaches, rash or sore throat. 64-year-old female presents for annual EX ASSISTANT/PROGRAM DIRECTOR exam No LMP recorded. Patient is postmenopausal. OB History 0 Para 0 Term 0 0 AB 0 Living 0 SAB 0 IAB 0 Ectopic 0 Molar Multiple 0 Live Births Vitals: 09/13/24 1358 BP: 128/84 Review of Systems Constitutional: Negative for activity change, appetite change and fever. HENT: Negative for hearing loss and sore throat. Eyes: Negative for pain. Respiratory: Negative for apnea and cough. Cardiovascular: Negative for chest pain and palpitations. Gastrointestinal: Negative for abdominal pain, constipation and diarrhea. Endocrine: Negative. Genitourinary: Negative for dysuria, frequency, menstrual problem and pelvic pain. Musculoskeletal: Positive for gait problem. Negative for back pain. Skin: Negative for rash. Allergic/Immunologic: Negative for immunocompromised state. Neurological: Negative for seizures and headaches. Hematological: Does not bruise/bleed easily. Psychiatric/Behavioral: Negative for confusion, hallucinations and sleep disturbance. Physical Exam Constitutional: Appearance: Normal appearance. HENT: Head: Normocephalic. Nose: Nose normal. Mouth/Throat: Mouth: Mucous membranes are moist. Eyes: Pupils: Pupils are equal, round, and reactive to light. Cardiovascular: Rate and Rhythm: Normal rate and regular rhythm. Pulmonary: Effort: Pulmonary effort is normal. Breath sounds: Normal breath sounds. Abdominal: General: Abdomen is flat. Palpations: Abdomen is soft. Genitourinary: Labia: Right: No rash. Left: No rash. Urethra: No urethral pain. Vagina: Normal. Cervix: Normal. Uterus: Normal. Adnexa: Right adnexa normal and left adnexa normal. Rectum: Normal. Guaiac result negative. Musculoskeletal: General: Normal range of motion. Cervical back: Neck supple. Skin: General: Skin is warm and dry. Neurological: General: No focal deficit present. Mental Status: She is alert. Psychiatric: Mood and Affect: Mood normal. Past Medical History: Diagnosis Date Anxiety Arthritis Asthma Bladder incontinence Chronic pain Diabetes mellitus (HCC) Diabetes mellitus, type II (HCC) Morbid obesity with BMI of 45.0-49.9, adult (HCC) Multiple sclerosis (HCC) Schizoaffective disorder (HCC) Vision problems Past Surgical History: Procedure Laterality Date BACK SURGERY CHOLECYSTECTOMY LEG SURGERY NECK SURGERY ORTHOPEDIC SURGERY SPINE SURGERY Family History Problem Relation Age of Onset Cervical cancer Mother Depression Mother Heart disease Mother Hypertension Mother Stroke Father Diabetes Father Hypertension Father Lung cancer Sister Diabetes Sister Diabetes Brother Multiple sclerosis Sister Diabetes Sister Bipolar disorder Sister Skin cancer Brother Social History Social History Narrative Not on file Patient has no known allergies. Immunization History Administered Date(s) Administered Covid-19 MRNA Primary Series Vaccine - Pfizer 12+ Farzad-Sucrose 01/03/2022 Covid-19 MRNA Vaccine - Pfizer 12+ (Purple Cap) 09/30/2020, 11/07/2020, 11/28/2020, 06/24/2021 Covid-19 mRNA Bivalent Vaccine - Pfizer 30 mcg/0.3mL 12+ 05/28/2022 Covid-19 mRNA Farzad-sucrose Seasonal Vaccine - Pfizer 30 mcg/0.3 mL 12 years and older 06/25/2023 Influenza (AFLURIA/FLUZONE) Inactivated/Split Quadrivalent with Preservative IM 06/17/2017, 05/19/2018 Influenza Inactivated/Split Preservative Free IM 06/17/2017, 05/19/2018, 08/04/2019, 04/20/2020 Influenza Split Preservative Free ID 06/24/2021 Influenza Virus Trivalent Split Vaccine (MDV) IM 06/17/2017, 05/19/2018, 08/04/2019 Influenza, Quadrivalent (FLUAD) Adjuvanted Preservative Free IM 65 years and older 04/20/2020 Influenza, Quadrivalent (FLUARIX, AFLURIA, FLULAVAL, FLUZONE) Preservative Free IM 04/20/2020, 06/24/2021, 05/22/2022 Influenza, Quadrivalent (FLUCELVAX) MDCK, Preservative Free IM 05/22/2022, 06/25/2023 Influenza, Unspecified 07/17/2014, 05/26/2016 Pneumococcal Conjugate 13-Valent 05/26/2016, 12/20/2018 Pneumococcal Polysaccharide 23-Valent 07/08/2019 RSV, Recombinant, Protein Subunit RSV Prefusion F (AREXVY), Adjuvant Recon 0.5 mL PF 08/25/2023 Tdap 04/01/2021, 11/30/2023 Zoster Vaccine Recombinant (Shingrix) 08/08/2020, 12/31/2020 Daysi was seen today for gynecologic exam. Diagnoses and all orders for this visit: Well female exam with routine gynecological exam Papanicolaou smear - ThinPrep Pap Test (Funeral Home Makeup Artist) Visit for screening mammogram - MM Mammogram screening-Bilateral; Future - MM Mammogram screening-Bilateral ASSESSMENT Assessment Annual EX ASSISTANT/PROGRAM DIRECTOR Encounter for gynecological examination without abnormal finding Plan: Get mammogram and return to office in 1 year documented in this encounter Plan of Treatment Upcoming Encounters Date Type Department Care Team (Late st Contact Info) Description 12/05/2024 1:30 PM EDT Office Visit [address] [phone] Anay Chandra MD [address] [place] [address] 01/04/2025 1:00 PM EDT Office Visit [facility] Endocrinology [address] [place] [address] Vishnu Hernandez MD [address] [place] [address] Scheduled Orders Name Type Priority Associated Diagnoses Orde r Schedule MM Mammogram screening-Bilateral Imaging Routine Visit for screening mammogram Expected: 09/13/2024, Expires: 03/13/2026 documented as of this encounter Goals Goal [...] and appt at the wound clinic in [place] on 08/23/18. 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 seam stayer strength B for improved ability to open [...] Procedure Name Priority Date/Time Associated Diagnosis Comments THINPREP PAP TEST (PHARMACY OPERATIONS MANAGER) Routine 09/13/2024 1:49 PM EST Papanicolaou smear documented in this encounter Results * ThinPrep Pap Test (Funeral Home Makeup Artist) (09/13/2024 1:49 PM EST) 09/13/2024 1:49 PM EST Narrative [facility] - 09/20/2024 5:27 PM EST To view the final report click the scan hyperlink below. Edi Fountain MD LAB AMB PATH/CYTO O RDERABLES [facility] [address] [place] [address], documented in this encounter Visit Diagnoses Diagnosis Well female exam with routine gynecological exam- Primary Routine gynecological examination Papanicolaou smear Screening for malignant neoplasm of the cervix Visit for screening mammogram documented in this encounter Care Teams Tafe Lecturer Relationship Specialty Start Date End Date Anay Chandra MD [address] [place] [address] PCP - General Family Medicine 12/31/23 Vilma Hollis Emergency Medicine 04/28/18 Bakari Camilo MD Physician Ophthalmology 01/10/20 Babak Pickard MD [address] [place] [address] [place] [address] Surgery, Neurosurgery 02/16/23 documented as of this encounter
--- OUTSIDE RECORDS SUMMARY | 2024-10-13 17:11 | XMS_ITS | Encounter Summary ---
Author Organization [facility] Address [address] [place] [address] Care Team Providers Care Nursing Care Partner Name Role Phone Vilma Hollis Unavailable Bakari Camilo MD Unavailable [phone] Babak Pickard MD Unavailable [phone] Anay Chandra MD Primary Care Provider [phone] Encounter Details Date Type Department Care Team (Latest Contact Info) Description 10/03/2024 Travel Social History Tobacco Use Types Packs/Day Years Used Date Smoking Tobacco: Former Cigarettes 09 15 Passive Smoke Exposure: Current Smokeless Tobacco: Former [...] Description 12/05/2024 1:30 PM EDT Office Visit [address] [phone] Anay Chandra MD [address] [place] [address] 01/04/2025 1:00 PM EDT Office Visit [facility] Endocrinology [place] [address] [facility] [address] [place] [address] Vishnu Hernandez MD [address] [place] [address] documented as of this encounter Goals Goal [...] CICI. Intervention- to be seen today by DIGITAL COLOR PRESS OPERATOR and appt at the wound clinic in [place] on 08/23/18. 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 metal tank erector strength B for improved ability to open containers in 6 weeks. OT LTG 2 Occupational Therapy No Karina Pendleton OT Note: QD score will improve by 10% in 6 weeks. OT LTG 3 Occupational Therapy No Karina Pendleton, OT Note: Patient will demonstrate independence with HEP including education in 6 weeks. documented as of this encounter Visit Diagnoses Not on filedocumented in this encounter Care Teams Nursing Care Partner Relationship Specialty Start Date End Date Anay Chandra MD [address] [place] [address] PCP - General Family Medicine 12/31/23 Vilma Hollis Emergency Medicine 04/28/18 Bakari Camilo MD Physician Ophthalmology 01/10/20 Babak Pickard MD [address] [place] [address] [address] [place] [address] Surgery, Neurosurgery 02/16/23 documented as of this encounter
--- OUTSIDE RECORDS SUMMARY | 2024-10-13 17:11 | XMS_ITS | Encounter Summary ---
Author Organization [facility] Address [address] [place] [address] Care Team Providers Care Preparole Counseling Aide Name Role Phone Vilma Hollis Unavailable Andrei Ruby CAR TRIMMER Unavailable Unavailabl e Bakari Camilo MD Unavailable [phone] Anay Chandra MD Unavailable [phone] Anay Chandra MD Primary Care Provider Brenda Almeida CAR TRIMMER Unavailable [phone] Babak Pickard MD Unavailable [phone] Anay Chandra MD Primary Care Provider [phone] Encounter Details Date Type Department Care Team (Late st Contact Info) Description 05/02/2022 Scanned Document [address] [place] [phone] Gastroenterology, Scan Social History Tobacco Use Types Packs/Day [...] Description 12/05/2024 1:30 PM EDT Office Visit [facility] [address] [place] [phone] Anay Chandra MD [address] [place] [address] 01/04/2025 1:00 PM EDT Office Visit [facility] Endocrinology [place] [address] [place] [address] Vishnu Hernandez MD [address] [place] [address] documented as of this encounter Goals Goal [...] CICI. Intervention- to be seen today by CAR TRIMMER and appt at the wound clinic in [place] on 08/23/18. OT LTG 1 Occupational Therapy No Karina Pendleton, MICHAEL Note: Patient will demonstrate 10 lb increase in plumbing foreman strength B for improved ability to [...] Procedure Name Priority Date/Time Associated Diagnosis Comments HX GASTROENTEROLOGY OTHER TEST/PROCEDURES-SCAN 05/02/2022 HX GASTROENTEROLOGY OTHER TEST/PROCEDURES-SCAN 05/02/2022 documented in this encounter Results * HX GASTROENTEROLOGY OTHER TEST/PROCEDURES-SCAN (05/02/2022) 05/02/2022 Scan Gastroenterology HX AMB PROCEDURES * HX GASTROENTEROLOGY OTHER TEST/PROCEDURES-SCAN (05/02/2022) 05/02/2022 Scan Gastroenterology HX AMB PROCEDURES documented in this encounter Visit Diagnoses Not on filedocumented in this encounter Care Teams Preparole Counseling Aide Relationship Specialty Start Date End Date Anay Chandra MD [address] [place] [address] PCP - PCM+ Attributed 08/17/21 2 Anay Chandra MD [address] [place] [address] PCP - General Family Medicine 12/26/21 12/30/23 Brenda Almeida APRN [address] [place] [address] PCP - [facility] Attributed 09/17/22 06/16/23 Anay Chandra MD [address] [place] [address] PCP - General Family Medicine 12/31/23 Vilma Hollis Emergency Medicine 04/28/18 Andrei Ruby APRN Nurse Practitioner Endocrinology 07/21/19 12/29/23 Bakari Camilo MD Physician Ophthalmology 01/10/20 Babak Pickard MD [address] [place] [address] Surgery, Neurosurgery 02/16/23 documented as of this encounter
--- OUTSIDE RECORDS SUMMARY | 2024-10-13 17:11 | XMS_ITS | Encounter Summary ---
Author Organization [facility] Address [address] [place] [address] Care Team Providers Care Tea Plantation Worker Name Role Phone Vilma Hollis Unavailable Anay Chandra MD Primary Care Provider Andrei Ruby APRN Unavailable Unavailabl e Bakari Camilo MD Unavailable [phone] Brenda Almeida APRN Primary Care Provider [phone] Anay Chandra MD Unavailable [phone] Anay Chandra MD Primary Care Provider Brenda Almeida APRN Unavailable [phone] Babak Pickard MD Unavailable [phone] Anay Chandra MD Primary Care Provider [phone] Reason for Visit * Reason Comments Medication Refill Encounter Details Date Type Department Care Team (Late st Contact Info) Description 09/05/[address] [phone] Anay Chandra MD [address] [place] [phone] Tobacco use Social History Tobacco Use Types Packs/Day Years [...] have Coronavirus / COVID-19? No / Unsure 08/06/2021 4:34 PM EST documented as of this encounter Plan of Treatment Upcoming Encounters Date Type Department Care Team (Late st Contact Info) Description 12/05/2024 1:30 PM EDT Office Visit [address] [phone] Anay Chandra MD [address] [place] [address] 01/04/2025 1:00 PM EDT Office Visit [facility] [address] [facility] [address] [place] [phone] Vishnu Hernandez MD 100 [facility] [address] [place] [address] documented as of this encounter Goals Goal [...] CICI. Intervention- to be seen today by ENTRY LEVEL ELECTRICIAN and appt at the wound clinic in [place] on 08/23/18. 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 consulting business developer strength B for improved ability to open containers in 6 weeks. OT LTG 2 Occupational Therapy No Karina Pendleton OT Note: QD score will improve by 10% in 6 weeks. OT LTG 3 Occupational Therapy No Karina Pendleton OT Note: Patient will demonstrate independence with HEP including education in 6 weeks. documented as of this encounter Visit Diagnoses Diagnosis Tobacco use documented in this encounter Care Teams Tea Plantation Worker Relationship Specialty Start Date End Date Anay Chandra MD PCP - General Internal Medicine 06/29/19 10/22/21 Brenda Almeida APRN [address] [place] [address] PCP - General Adult Health - PA/APNP/SALES AND SERVICE TECHNICIAN/ENTRY LEVEL ELECTRICIAN 10/23/21 12/25/21 Anay Chandra MD [address] [place] [address] PCP - [facility]+ Attributed 08/17/21 2 Anay Chandra MD PCP - General Family Medicine 12/26/21 12/30/23 Brenda Almeida APRN [address] [place] [address] PCP - [facility] [place] Attributed 09/17/22 06/16/23 Anay Chandra MD [address] [place] [address] PCP - General Family Medicine 12/31/23 Vilma Hollis Emergency Medicine 04/28/18 Andrei Ruby APRN Nurse Practitioner Endocrinology 07/21/19 12/29/23 Bakari Camilo MD Physician Ophthalmology 01/10/20 Babak Pickard MD [address] [place] [address] [place] [address] Surgery, Neurosurgery 02/16/23 documented as of this encounter
--- OUTSIDE RECORDS SUMMARY | 2024-10-13 17:11 | XMS_ITS | Encounter Summary ---
Author Organization [facility] Address [address] [place] [address] Care Team Providers Care Ivory Polisher Name Role Phone Anay Chandra Primary Care Provider [phone] Latrice Norris MD Unavailable [phone] Tom Adame MD Unavailable [phone] Anay Chandra Unavailable Encounter Details Date Type Department Care Team (Late st Contact Info) Description 03/14/2021 Orders Only [facility] Department of Otolaryngology [address] [place] [address] [place], [place] [address] [place] [address] Oropharyngeal mass Social History Tobacco Use Types Packs/Day Years [...] have Coronavirus / COVID-19? No / Unsure 03/14/2021 10:39 AM EDT documented as of this encounter Plan of Treatment Upcoming Encounters Date Type Department Care Team (Late st Contact Info) Description 11/29/2024 1:20 PM EDT Office Visit [facility] Department of Neurology [address] [phone] Tom Adame MD [address] [facility] Neurology [place], [place] documented as of this encounter Procedures Procedure Name Priority Date/Time Associated Diagnosis Comments SURGICAL SPECIMEN EXAM Routine 03/14/2021 11:17 AM EDT Oropharyngeal mass documented in this encounter Results * Surgical Specimen Exam (03/14/2021 11:17 AM EDT) Case Report Surgical Pathology ?Case: [id number] ? Authorizing Provider: ??Kye Lock MD ?Collected: ? 03/14/2021 1117 ? Ordering Location: ? [facility] of Received: ?03/15/2021 0829 ? Otolaryngology ? Pathologist: ? Stuart Connolly MD ? Specimen: ?Oropharynx ? 03/18/2021 12:56 PM EDT [facility] Final Diagnosis A. (Lesion, Right Oropharynx, Excision): - Squamous papilloma. 03/18/2021 12:56 PM EDT [facility] Gross Description VE - The specimen is labeled with the patient's name. A. Received in formalin labeled oropharynx is a 0.8 x 0.7 x 0.5 cm rubbery, carter-evans, polypoid tissue. The resection margin is inked blue, the tissue is bisected, and entirely submitted as A1. 03/18/2021 12:56 PM EDT [facility] Embedded Images 03/18/2021 12:56 PM EDT [facility] Tissue specimen (specimen) Oropharyngeal structure / Unknown Non-blood Collection / Unknown 03/14/2021 11:17 AM EDT 03/15/2021 8:29 AM EDT Comment:Right tonsil wart us Kye Lock MD LAB PATHOLOGY (NO SOURCE) Jadyn brown Result [facility] [address] [place] [address], documented in this encounter Visit Diagnoses Diagnosis Oropharyngeal mass documented in this encounter Additional Health Concerns Infection Onset Date Last Indicated Resolved Time (Rule out) COVID-19 03/26/2021 03/26/2021 03/26/20 21 10:51 PM EDT documented as of this encounter Care Teams Ivory Polisher Relationship Specialty Start Date End Date Anay Chandra [address] [place] [address] PCP - General 09/01/19 Anay Chandra [address] [place] [address] PCP - Insurance Payer PCP 06/15/23 Latrice Norris MD [address] [place] [address] Consulting Physician Obstetrics and Gynecology 04/19/21 Tom Adame MD [address] [facility] [place] [address] Consulting Physician Neurology 08/19/21 documented as of this encounter
--- OUTSIDE RECORDS SUMMARY | 2024-10-13 17:11 | XMS_ITS | Encounter Summary ---
Author Organization [facility] Address [address] [place] [address] Care Team Providers Care Evaluation Advisor Name Role Phone Prateek Anay Primary Care Provider Latrice Norris MD Unavailable [phone] Tom Adame MD Unavailable [phone] Anay Chandra Unavailable Encounter Details Date Type Department Care Team (Late st Contact Info) Description 12/06/2020 Orders Only [facility] Department of Ultrasound Imaging [address] [facility] [place] [address] Edi Guzman MD [address] [facility] [place] [address] Social History Tobacco Use Types Packs/Day Years [...] Description 11/29/2024 1:20 PM EDT [facility] Visit [facility] Department of Neurology [address] [place] [address] Tom Adame MD [address] [facility] [place] [address] documented as of this encounter Visit Diagnoses Not on filedocumented in this encounter Additional Health Concerns Infection Onset Date Last Indicated Resolved Time (Rule out) COVID-19 03/26/2021 03/26/2021 03/26/20 10:51 PM EDT documented as of this encounter Care Teams Evaluation Advisor Relationship Specialty Start Date End Date Anay Chandra [address] [place] [phone] PCP - General 09/01/19 Anay Chandra [address] [place] [phone] PCP - Insurance Payer PCP 06/15/23 Latrice Norris MD [address] [place] [place] [address] Consulting Physician Obstetrics and Gynecology 04/19/21 Tom Adame MD [address] [place] [address] [place] [address] Consulting Physician Neurology 08/19/21 documented as of this encounter
--- OUTSIDE RECORDS SUMMARY | 2024-10-13 17:11 | XMS_ITS | Encounter Summary ---
Author Organization [facility] Address [address] [place] [address] Care Team Providers Care Exhaust And Muffler Fitter Name Role Phone Vilma Hollis Unavailable Anay Chandra MD Primary Care Provider [phone] Andrei Ruby APRN Unavailable Unavailabl e Bakari Camilo MD Unavailable [phone] Brenda Almeida APRN Primary Care Provider [phone] Anay Chandra MD Unavailable [phone] Anay Chandra MD Primary Care Provider [phone] Brenda Almeida APRN Unavailable [phone] Babak Pickard MD Unavailable [phone] Anay Chandra MD Primary Care Provider [phone] Encounter Details Date Type Department Care Team (Late st Contact Info) Description 09/12/2021 Erroneous Encounter [facility] [address] [place] [address] Provider, MD Mookie Social History Tobacco Use Types Packs/Day Years [...] Description 12/05/2024 1:30 PM EDT Office Visit [address] [place] [address] Anay Chandra MD [address] [place] [address] 01/04/2025 1:00 PM EDT Office Visit [facility] Endocrinology [place] [address] [place] [address] Vishnu Hernandez MD [address] [place] [address] documented as of this encounter Goals Goal [...] CICI. Intervention- to be seen today by WET END HELPER and appt at the wound clinic in [place] on 08/23/18. OT LTG 1 Occupational Therapy No Karina Pendleton, MICHAEL Note: Patient will demonstrate 10 lb increase in shop mechanic helper strength B for improved ability to [...] on filedocumented in this encounter Care Teams Exhaust And Muffler Fitter Relationship Specialty Start Date End Date Anay Chandra MD PCP - General Internal Medicine 06/29/19 10/22/21 Brenda Almeida, WET END HELPER [address] [place] [address] PCP - General Adult Health - PA/APNP/DRUM REEL CUTTER/WET END HELPER 10/23/21 12/25/21 Anay Chandra MD [address] [place], [place] [id number] PCP - PCMH+ Attributed 08/17/21 2 Anay Chandra MD PCP - General Family Medicine 12/26/21 12/30/23 Brenda Almeida, WET END HELPER [address] [place] [address] PCP - [facility] [place] Attributed 09/17/22 06/16/23 Anay Chandra MD [address] [place] [address] PCP - General Family Medicine 12/31/23 Vilma Hollis Emergency Medicine 04/28/18 Andrei Ruby APRN Nurse Practitioner Endocrinology 07/21/19 12/29/23 Bakari Camilo MD Physician Ophthalmology 01/10/20 Babak Pickard MD [address] [place] [address] Surgery, Neurosurgery 02/16/23 documented as of this encounter
--- OUTSIDE RECORDS SUMMARY | 2024-10-13 17:11 | XMS_ITS | Encounter Summary ---
Author Organization [facility] Address [address] [place] [address] Care Team Providers Care Registered Nurse Supervisor Name Role Phone Vilma Hollis Unavailable Bakari Camilo MD Unavailable [phone] Babak Pickard MD Unavailable [phone] Anay Chandra MD Primary Care Provider [phone] Encounter Details Date Type Department Care Team (Late st Contact Info) Description 08/05/2024 Scanned Document [facility] PULMONOLGY SCAN Pulmonary, Scan Social History Tobacco Use Types Packs/Day [...] 12/05/2024 1:30 PM EDT Office Visit [address] [phone] Anay Chandra MD [address] [place] [phone] 01/04/2025 1:00 PM EDT Office Visit [facility] Endocrinology [place] [address] [place] [phone] Vishnu Hernandez MD [address] [place] [address] documented as of this encounter Goals Goal [...] CICI. Intervention- to be seen today by SEAL EXTRUSION OPERATOR and appt at the wound clinic in [place] on 08/23/18. OT LTG 1 Occupational Therapy No Karina Pendleton, MICHAEL Note: Patient will demonstrate 10 lb increase in roller print tender strength B for improved ability to open containers in 6 weeks. OT LTG 2 Occupational Therapy No Karina Pendleton, OT Note: QD score will improve by 10% in 6 weeks. OT LTG 3 Occupational Therapy No Karina Pendleton, MICHAEL Note: Patient will demonstrate independence with HEP including education in 6 weeks. documented as of this encounter Visit Diagnoses Not on filedocumented in this encounter Care Teams Registered Nurse Supervisor Relationship Specialty Start Date End Date Anay Chandra MD [address] [place] [address] PCP - General Family Medicine 12/31/23 Vilma Hollis Emergency Medicine 04/28/18 Bakari Camilo MD Physician Ophthalmology 01/10/20 Babak Pickard MD [address] [place] [address] [place] [address] Surgery, Neurosurgery 02/16/23 documented as of this encounter
--- OUTSIDE RECORDS SUMMARY | 2024-10-13 17:11 | XMS_ITS | Encounter Summary ---
Author Organization [facility] Address [address] [place] [address] Care Team Providers Care Wallpaper Cleaner Name Role Phone Vilma Hollis Unavailable Bakari Camilo MD Unavailable [phone] Babak Pickard MD Unavailable [phone] Anay Chandra MD Primary Care Provider [phone] Encounter Details Date Type Department Care Team (Late st Contact Info) Description 09/27/[address] [address] Anay Chandra MD [address] [place] [phone] Social History Tobacco Use Types Packs/Day Years [...] encounter Miscellaneous Notes * Telephone Encounter - Cami Yung - 09/27/2024 1:49 PM EST error documented in this encounter Plan of Treatment Upcoming Encounters Date Type Department Care Team (Late st Contact Info) Description 12/05/2024 1:30 PM EDT Office Visit [address] [address] Anay Chandra MD [address] [place] [address] 01/04/2025 1:00 PM EDT Office Visit [facility] Endocrinology [place] [address] [place] [phone] Vishnu Hernandez MD [address] [place] [address] documented as of this encounter Goals Goal [...] CICI. Intervention- to be seen today by CARDIAC CATHETERIZATION TECHNICIAN and appt at the wound clinic in [place] on 08/23/18. 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 line maintainer section strength B for improved ability to open [...] on filedocumented in this encounter Care Teams Wallpaper Cleaner Relationship Specialty Start Date End Date Anay Chandra MD [address] [place] [address] PCP - General Family Medicine 12/31/23 Vilma Hollis Emergency Medicine 04/28/18 Bakari Camilo MD Physician Ophthalmology 01/10/20 Babak Pickard MD [address] [place] [address] [address] [place] [address] Surgery, Neurosurgery 02/16/23 documented as of this encounter
--- OUTSIDE RECORDS SUMMARY | 2024-10-13 17:11 | XMS_ITS | Encounter Summary ---
Author Organization [facility] Address [address] [place] [address] Care Team Providers Care Mutton Puncher Name Role Phone Vilma Hollis Unavailable Anay Chandra MD Primary Care Provider Andrei Ruby APRN Unavailable Unavailabl e Bakari Camilo MD Unavailable [phone] Brenda Almeida APRN Primary Care Provider Anay Chandra MD Unavailable [phone] Anay Chandra MD Primary Care Provider Brenda Almeida APRN Unavailable [phone] Babak Pickard MD Unavailable [phone] Anay Chandra MD Primary Care Provider [phone] Reason for Visit * Reason Comments Medication Refill Encounter Details Date Type Department Care Team ([facility] st Contact Info) Description 06/30/[address] [facility] [place] [address] [place] [address] Bri Valdes PA-C [place] [facility] Dental infection Social History Tobacco Use Types [...] Description 12/05/2024 1:30 PM EDT Office Visit [address] [address] Anay Chandra MD [address] [place] [address] 01/04/2025 1:00 PM EDT Office Visit [facility] Endocrinology [place] [address] [facility] [address] [place] [address] Vishnu Hernandez MD [address] [facility] [address] [place] [address] documented as of this encounter Goals Goal [...] CICI. Intervention- to be seen today by PILOT BOAT DECKHAND and appt at the wound clinic in [place] on 08/23/18. 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 hide sorter strength B for improved ability to open [...] infection documented in this encounter Care Teams Mutton Puncher Relationship Specialty Start Date End Date Anay Chandra MD PCP - General Internal Medicine 06/29/19 10/22/21 Brenda Almeida APRN [address] [place] [address] PCP - General Adult Health - PA/APNP/SENIOR SYSTEMS ARCHITECT/PILOT BOAT DECKHAND 10/23/21 12/25/21 Anay Chandra MD [address] [place] [address] PCP - PCMH+ Attributed 08/17/21 2 Anay Chandra MD PCP - General Family Medicine 12/26/21 12/30/23 Brenda Almeida APRN [address] [place] [address] PCP - [facility] [place] Attributed 09/17/22 06/16/23 Anay Chandra MD [address] [place] [address] PCP - General Family Medicine 12/31/23 Vilma Hollis Emergency Medicine 04/28/18 Andrei Ruby APRN Nurse Practitioner Endocrinology 07/21/19 12/29/23 Bakari Camilo MD Physician Ophthalmology 01/10/20 Babak Pickard MD [address] [place] [address] [address] [place] [address] Surgery, Neurosurgery 02/16/23 documented as of this encounter
--- OUTSIDE RECORDS SUMMARY | 2024-10-13 17:11 | XMS_ITS | Encounter Summary ---
Author Organization [facility] Address [address] [place] [address] Care Team Providers Care Balance Sheet Analyst Name Role Phone Prateek Anay Primary Care Provider Latrice Norris MD Unavailable [phone] Tom Adame MD Unavailable [phone] Anay Chandra Unavailable Encounter Details Date Type Department Care Team (Late st Contact Info) Description 11/09/2020 Orders Only [facility] Department of Ultrasound Imaging [address] [facility] [place] [address] Edi Guzman MD [address] [facility] [place] [address] Social History Tobacco Use Types Packs/Day Years [...] have Coronavirus / COVID-19? No / Unsure 11/09/2020 11:07 AM EDT documented as of this encounter Plan of Treatment Upcoming Encounters Date Type Department Care Team (Late st Contact Info) Description 11/29/2024 1:20 PM EDT Office Visit [facility] Department of Neurology [address] [place] [address] Tom Adame MD [address] [facility] [place] [address] documented as of this encounter Visit Diagnoses Not on filedocumented in this encounter Additional Health Concerns Infection Onset Date Last Indicated Resolved Time (Rule out) COVID-19 03/26/2021 03/26/2021 03/26/20 10:51 PM EDT documented as of this encounter Care Teams Balance Sheet Analyst Relationship Specialty Start Date End Date Anay Chandra [address] [place] [phone] PCP - General 09/01/19 Anay Chandra [address] [place] [phone] PCP - Insurance Payer PCP 06/15/23 Latrice Norris MD [address] [place] [address] Consulting Physician Obstetrics and Gynecology 04/19/21 Tom Adame MD [address] [place] [address] [place] [address] Consulting Physician Neurology 08/19/21 documented as of this encounter
--- OUTSIDE RECORDS SUMMARY | 2024-10-13 17:11 | XMS_ITS | Encounter Summary ---
Author Organization [facility] Address [address] [place] [address] Care Team Providers Care Network Lead Name Role Phone Vilma Hollis Unavailable Andrei Ruby DX BOARD OPERATOR Unavailable Unavailabl e Bakari Camilo MD Unavailable [phone] Anay Chandra MD Unavailable [phone] Anay Chandra MD Primary Care Provider Brenda Almeida DX BOARD OPERATOR Unavailable [phone] Babak Pickard MD Unavailable [phone] Anay Chandra MD Primary Care Provider [phone] Encounter Details Date Type Department Care Team (Late st Contact Info) Description 01/15/2022 Scanned Document [address] [phone] Provider, Generic Social History Tobacco Use Types [...] Recorded In the last 10 days, have mina u been in contact with someone who was confirmed or suspected to have Coronavirus/COVID-19? No / Unsure 12/26/2021 3:05 PM EDT documented as of this encounter Plan of Treatment Upcoming Encounters Date Type Department Care Team (Late st Contact Info) Description 12/05/2024 1:30 PM EDT Office Visit [address] [address] Anay Chandra MD [address] [place] [address] 01/04/2025 1:00 PM EDT Office Visit [facility] [address] [place] [address] Vishnu Hernandez MD [address] [place] [address] documented as of this encounter Goals Goal [...] CICI. Intervention- to be seen today by DX BOARD OPERATOR and appt at the wound clinic in [place] on 08/23/18. OT LTG 1 Occupational Therapy No Karina Pendleton, MICHAEL Note: Patient will demonstrate 10 lb increase in recruiting consultant strength B for improved ability to [...] Name Priority Date/Time Associated Diagnosis Comments HX OPHTHALMOLOGY TESTING PROCEDURES 01/15/2022 documented in this encounter Results * HX OPHTHALMOLOGY TESTING PROCEDURES (01/15/2022) 01/15/2022 Narrative Shawna Amador - 01/15/2022 Ordered by an unspecified provider. Generic Provider HX AMB PROCEDURES documented in this encounter Visit Diagnoses Not on filedocumented in this encounter Care Teams Network Lead Relationship Specialty Start Date End Date Anay Chandra MD [address] [place] [address] PCP - PCMH+ Attributed 08/17/21 2 Anay Chandra MD [address] [place] [address] PCP - General Family Medicine 12/26/21 12/30/23 Brenda Almeida APRN [address] [place] [address] PCP - [place] [facility] MA Attributed 09/17/22 06/16/23 Anay Chandra MD [address] [place] [address] PCP - General Family Medicine 12/31/23 Vilma Hollis Emergency Medicine 04/28/18 Andrei Ruby APRN Nurse Practitioner Endocrinology 07/21/19 12/29/23 Bakari Camilo MD Physician Ophthalmology 01/10/20 Babak Pickard MD [address] [place] [address] [place] [address] Surgery, Neurosurgery 02/16/23 documented as of this encounter
--- OUTSIDE RECORDS SUMMARY | 2024-10-13 17:12 | XMS_ITS | Encounter Summary ---
Author Organization [facility] Address [address] [place] [address] Care Team Providers Care Consumer Advocate Name Role Phone Milka Cueva APRN Primary Care Provider [phone] Vilma Hollis Unavailable Milka Cueva APRN Unavailable [phone] Raisa Pittman MD Primary Care Provid er Anay Chandra MD Primary Care Provider [phone] Andrei Ruby APRN Unavailable Unavailabl e Barry Cornell MD Unavailable [phone] Bakari Camilo MD Unavailable [phone] Brenda Almeida APRN Primary Care Provider [phone] Anay Chandra MD Unavailable [phone] Anay Chandra MD Primary Care Provider [phone] Brenda Almeida APRN Unavailable [phone] Babak Pickard MD Unavailable [phone] Anay Chandra MD Primary Care Provider [phone] Encounter Details Date Type Department Care Team (Late st Contact Info) Description 10/30/2017 Scanned Document [address] [address] Provider, Generic Social History Tobacco Use Types Packs/Day Years Used Date Smoking Tobacco: Former Cigarettes 1 30 Smokeless Tobacco: Never Alcohol [...] Description 12/05/2024 1:30 PM EDT Office Visit [address] [address] Anay Chandra MD [address] [place] [address] 01/04/2025 1:00 PM EDT Office Visit [facility] Endocrinology [address] [address] Vishnu Hernandez MD [address] [place] [address] documented as of this encounter Visit Diagnoses Not on filedocumented in this encounter Care Teams Consumer Advocate Relationship Specialty Start Date End Date Milka Cueva APRN [address] [place] [address] PCP - General Internal Medicine 03/10/17 05/22/19 Milka Cueva APRN [address] [address] PCP - [facility] Attributed 02/14/19 9 Raisa Pittman MD [address] [address] PCP - General Family Medicine 05/23/19 06/28/19 Anay Chandra MD 5 [facility] [address] [place] [address] PCP - General Internal Medicine 06/29/19 10/22/21 Brenda Almeida, RETURNED GOODS INSPECTOR [address] [place], [place] [phone] PCP - General Adult Health - PA/APNP/HAT BRUSHER MACHINE/RETURNED GOODS INSPECTOR 10/23/21 12/25/21 Anay Chandra MD [address] [place] [address] PCP - PCMH+ Attributed 08/17/21 2 Anay Chandra MD 5 [facility] [address] [place] [address] PCP - General Family Medicine 12/26/21 12/30/23 Brenda Almeida, RETURNED GOODS INSPECTOR [address] [place], [place] [phone] PCP - [facility] MA Attributed 09/17/22 06/16/23 Anay Chandra MD [address] [place] [address] PCP - General Family Medicine 12/31/23 Vilma Hollis [address] [place], [place] [phone] Emergency Medicine 04/28/18 Andrei Ruby APRN 5 [facility] [address] [place] [address] Nurse Practitioner Endocrinology 07/21/19 12/29/23 Barry Cornell MD 5 [facility] [address] [place] [address] Anesthesiologist Anesthesiology 10/03/19 10/03/19 Bakari Camilo MD 5 [facility] [address] [address] Physician Ophthalmology 01/10/20 Babak Pickard MD [address] [place] [address] [address] [place] [address] Surgery, Neurosurgery 02/16/23 documented as of this encounter
--- OUTSIDE RECORDS SUMMARY | 2024-10-13 17:12 | XMS_ITS | Clinical Summary ---
Author Organization [facility] Address [address] [place] [address] Phone Care Team Providers Care Exercise Rider Name Role Phone Anay Chandra MD Primary Care Provider [phone] Encounters Date Type Department Care Team Description 09/26/2024 1:00 PM EST - 09/26/2024 11:59 PM EST Hospital Encounter [facility] Pulmonary Lab [address] [place] [address] Asthma; COPD (chronic obstructive pulmonary disease) ([facility]) Discharge Disposition: Home or Self Care from Last 3 Months Immunizations Name Administration Dates Next Due Pfizer SARS-CoV-2 COVID-19, mRNA, LNP-S, preservative free 06/24/2021,11/28/2020,11/07/2020 Surgical History Surgery Date Site/Laterality Comments FRACTURE SURGERY PROCEDURE:FRACTURE SURGERY;COMMENT:reconstruction of face BACK SURGERY PROCEDURE:BACK SURGERY;COMMENT:total of 3 OTHER SURGICAL HISTORY PROCEDURE:vaginal cyst removal;COMMENT:20 REMOVED PER PATIENT OTHER SURGICAL HISTORY PROCEDURE:cyst removed on belly CHOLECYSTECTOMY PROCEDURE:CHOLECYSTECTOMY ULNAR NERVE TRANSPOSITION 04/08/2016 Right PROCEDURE:ULNAR NERVE TRANSPOSITION;COMMENT:Procedure: TRANSPOSITION ULNAR NERVE AT ELBOW; Surgeon: Edi Alcaraz MD; Location: [facility]; Service: Orthopedics; Laterality: Right; ULNAR NERVE TRANSPOSITION 09/25/2015 Left PROCEDURE:ULNAR NERVE TRANSPOSITION;COMMENT:Procedure: TRANSPOSITION ULNAR NERVE AT ELBOW; Surgeon: Edi Alcaraz MD; Location: [facility]; Service: Orthopedics; Laterality: Left; Medical History Medical History Date Comments MS (multiple sclerosis) ([facility]) 1992 DX:MS (multiple sclerosis) ([facility]) Depression DX:Depression Anxiety DX:Anxiety Gait difficulty DX:Gait difficul ty Hand numbness DX:Hand numbness Infection 04/07/2016 DX:Infection;COM MENT:Buttocks. Taking Cleocin 04/07/2016 Substance abuse ([facility]) DX:Sub stance abuse ([facility]) Family History Medical History Relation Name Comments Diabetes Brother 1 Harsha Stroke Father Juan Daniel Cancer Mother Syklar Arthritis Other Hypertension Other Cancer Sister 1 Gene Multiple sclerosis Sister 2 Yi Diabetes Sister 3 Leatha Relation Name Status Comments Brother 1 Harsha Alive Brother 2 Kyaw Alive Father Juan Daniel Mother Skylar Other Sister 1 Gene Alive Sister 2 Yi Alive Sister 3 Leatha Alive Social History Tobacco Use Types Packs/Day Years Used Date Smoking Tobacco: Former Cigarettes Smokeless Tobacco: Never Alcohol Use Standard Drinks/Week Comments Yes 0 (1 standard drink = 0.6 oz pur e alcohol) Comments Unknown Sex and Gender Information Value Date Recorded Sex Assigned at Female 09/21/2024 10:27 AM EST Legal Sex Female 4:22 AM EST Gender Identity Female 09/21/2024 10:27 AM EST Sexual Orientation Straight 09/21/2024 10 :27 AM EST Obstetrics History Last Filed Vital Signs Vital Sign Reading Time Taken Comments Blood Pressure 132/86 04/14/2022 11:00 AM EDT Pulse 75 04/09/2022 2:37 PM EDT Temperature - - Respiratory Rate - - Oxygen Saturation - - Inhaled Oxygen Concentration - - Weight 119 kg (261 lb 14.5 oz) 04/14/2022 10:50 AM EDT Height 167.6 cm (5' 6 ) 04/14/2022 10:50 AM EDT Body Mass Index 42.27 04/14/2022 10:50 AM EDT Plan of Treatment Health Maintenance Due Date Last Done Comments Diabetes: Annual Foot Exam 1972 Diabetes: Annual Retina Eye Exam 1972 Hepatitis A Vaccines (1 of 2 - Risk 2-dose series) 1981 Cholesterol Screening (Lipid Panel) 07/20/2022 Colorectal Cancer Screening: Colonoscopy 07/20/2022 Depression Screening 07/20/2022 HIV Screening 07/20/2022 Hepatitis C Screening 07/20/2022 Lung Cancer Screening (Low Dose CT) 07/20/2022 Medicare Annual Wellness Visit 07/20/2022 Social Influencers of Health Screening 07/20/2022 Diabetes: Blood Sugar Control Test (HGBA1C) 07/26/2022 COVID-19 Vaccine ( season) 2024 06/25/2023, 05/28/2022, 01/03/2022, Additional history exists Influenza Vaccine (#1) 2024 , 05/22/2022, 06/24/2021, Additional history exists Pneumococcal Vaccine: 50+ Years (3 of 3 - PCV20 or PCV21) 07/08/2024 07/08/2019, 12/20/2018, 05/26/2016 Pneumococcal Vaccine: Pediatrics (0 to 5 Years) and At-Risk Patients (6 to 64 Years) (3 of 3 - PCV20 or PCV21) 07/08/2024 07/08/2019, 12/20/2018, 05/26/2016 Cervical Cancer Screening: HPV 08/22/2024 08/22/2019 Diabetes: Annual Urine Albumin-Creatinine Ratio (uACR) 04/05/2025 04/05/2024, 08/27/2023, 10/17/2021, Additional history exists Diabetes: Annual GFR (Glomerular Filtration Rate) 04/05/2025 04/05/2024, 04/25/2022, 04/24/2022, Additional history exists Breast Cancer Screening 07/07/2025 07/07/2023 DTaP,Tdap,and Td Vaccines (3 - Td or Tdap) 11/29/2033 11/30/2023, 04/01/2021 Zoster Vaccines Completed 12/31/2020, 08/08/2020 RSV Immunization Patients 60+ Years Old Completed 08/25/2023 HIB Vaccines Aged Out No longer eligi ble based on patient's age to complete this topic HPV Vaccines Aged Out No longer eligi ble based on patient's age to complete this topic Hepatitis B Vaccines Aged Out No long er eligible based on patient's age to complete this topic IPV Vaccines Aged Out No longer eligi ble based on patient's age to complete this topic MMR Vaccines Aged Out No longer eligi ble based on patient's age to complete this topic Meningococcal ACWY Vaccine Aged Out N o longer eligible based on patient's age to complete this topic Meningococcal B Vacine Aged Out No lo nger eligible based on patient's age to complete this topic RSV Immunization Patients Under 20 months Aged Out No longer eligible based on patient's age to complete this topic Varicella Vaccines Aged Out No longer eligible based on patient's age to complete this topic Insurance [place]ICA[place] [address] Care Teams Exercise Rider Relationship Specialty Start Date End Date Anay Chandra MD [address] [facility] [address] [place] [address] PCP - General 12/16/19
--- OUTSIDE RECORDS SUMMARY | 2024-10-13 17:12 | XMS_ITS | Encounter Summary ---
Author Organization [facility] Address [address] [place] [address] Care Team Providers Care Aviation Safety Officer Name Role Phone Milka Cueva APRN Primary Care Provider [phone] Vilma Hollis Unavailable Milka Cueva APRN Unavailable [phone] Raisa Pittman MD Primary Care Provid er Anay Chandra MD Primary Care Provider [phone] Andrei Ruby APRN Unavailable Unavailabl e Barry Cornell MD Unavailable [phone] Bakari Camilo MD Unavailable [phone] Brenda Almeida APRN Primary Care Provider [phone] Anay Chandra MD Unavailable [phone] Anay Chandra MD Primary Care Provider [phone] Brenda Almeida APRN Unavailable [phone] Babak Pickard MD Unavailable [phone] Anay Chandra MD Primary Care Provider [phone] Encounter Details Date Type Department Care Team (Late st Contact Info) Description 07/27/2017 Scanned Document [address] [address] Provider, Generic Social History Tobacco Use Types [...] Description 12/05/2024 1:30 PM EDT Office Visit [address] [address] Anay Chandra MD [address] [place] [address] 01/04/2025 1:00 PM EDT Office Visit [facility] Endocrinology [address] [address] Vishnu Hernandez MD [address] [place] [address] documented as of this encounter Visit Diagnoses Not on filedocumented in this encounter Care Teams Aviation Safety Officer Relationship Specialty Start Date End Date Milka Cueva APRN [address] [place] [address] PCP - General Internal Medicine 03/10/17 05/22/19 Milka Cueva APRN [address] [address] PCP - MSSP Attributed 02/14/19 9 Raisa Pittman MD [address] [address] PCP - General Family Medicine 05/23/19 06/28/19 Anay Chandra MD 5 [facility] [address] [place] [address] PCP - General Internal Medicine 06/29/19 10/22/21 Brenda Almeida, MONITORING MANAGER [address] [place], [place] [address] PCP - General Adult Health - PA/APNP/BAR ASSISTANT/MONITORING MANAGER 10/23/21 12/25/21 Anay Chandra MD [address] [place] [address] PCP - PCMH+ Attributed 08/17/21 2 Anya Chandra MD 5 [facility] [address] [place] [address] PCP - General Family Medicine 12/26/21 12/30/23 Brenda Almeida, MONITORING MANAGER [address] [place], [place] [id number] PCP - [facility] [place] Attributed 09/17/22 06/16/23 Anay Chandra MD [address] [place] [address] PCP - General Family Medicine 12/31/23 Vilma Hollis [address], [place] [id number] Emergency Medicine 04/28/18 Andrei Ruby APRN 5 [facility] [address] [place] [address] Nurse Practitioner Endocrinology 07/21/19 12/29/23 Barry Cornell MD 5 [facility] [address] [place] [address] Anesthesiologist Anesthesiology 10/03/19 10/03/19 Bakari Camilo MD 5 [facility] [address] [address] Physician Ophthalmology 01/10/20 Babak Pickard MD [address] [place] [address] [address] [place] [address] Surgery, Neurosurgery 02/16/23 documented as of this encounter
--- OUTSIDE RECORDS SUMMARY | 2024-10-13 17:12 | XMS_ITS | Encounter Summary ---
Author Organization [facility] Address [address] [place] [address] Care Team Providers Care Forepart Laster Name Role Phone Milka Cueva APRN Primary Care Provider [phone] Vilma Hollis Unavailable Milka Cueva APRN Unavailable [phone] Raisa Pittman MD Primary Care Provid er Anay Chandra MD Primary Care Provider [phone] Andrei Ruby APRN Unavailable Unavailabl e Barry Cornell MD Unavailable [phone] Bakari Camilo MD Unavailable [phone] Brenda Almeida APRN Primary Care Provider [phone] Anay Chandra MD Unavailable [phone] Anay Chandra MD Primary Care Provider [phone] Brenda Almeida APRN Unavailable [phone] Babak Pickard MD Unavailable [phone] Anay Chandra MD Primary Care Provider [phone] Encounter Details Date Type Department Care Team (Late st Contact Info) Description 11/15/2017 Scanned Document [address] [address] Provider, Generic Social History Tobacco Use Types [...] 12/05/2024 1:30 PM EDT Office Visit [address] [address] Anay Chandra MD [address] [place] [address] 01/04/2025 1:00 PM EDT Office Visit [facility] Endocrinology [address] [address] Vishnu Hernandez MD [address] [place] [address] documented as of this encounter Visit Diagnoses Not on filedocumented in this encounter Care Teams Forepart Laster Relationship Specialty Start Date End Date Milka Cueva APRN [address] [place] [address] PCP - General Internal Medicine 03/10/17 05/22/19 Milka Cueva APRN [address] [address] PCP - MSSP Attributed 02/14/19 9 Raisa Pittman MD [address] [address] PCP - General Family Medicine 05/23/19 06/28/19 Anay Chandra MD [address] [place] [address] PCP - General Internal Medicine 06/29/19 10/22/21 Brenda Almeida, SUBSURFACE AUGMENTEE OPERATOR [address] [place], [place] [phone] PCP - General Adult Health - PA/APNP/NUTRITIONAL SERVICES HOST/SUBSURFACE AUGMENTEE OPERATOR 10/23/21 12/25/21 Anay Chandra MD [address] [place] [address] PCP - PCMH+ Attributed 08/17/21 2 Anay Chandra MD 5 [facility] [address] [address] PCP - General Family Medicine 12/26/21 12/30/23 Brenda Almeida, SUBSURFACE AUGMENTEE OPERATOR [address] [place], [place] [address] PCP - [facility] [place] Attributed 09/17/22 06/16/23 Anay Chandra MD [address] [place] [address] PCP - General Family Medicine 12/31/23 Vilma Hollis [address], [place] [phone] Emergency Medicine 04/28/18 Andrei Ruby APRN 5 [facility] [address] [place] [address] Nurse Practitioner Endocrinology 07/21/19 12/29/23 Barry Cornell MD 5 [facility] [address] [place] [address] Anesthesiologist Anesthesiology 10/03/19 10/03/19 Bakari Camilo MD 5 [facility] [address] [address] Physician Ophthalmology 01/10/20 Babak Pickard MD [address] [place] [address] [address] [place] [address] Surgery, Neurosurgery 02/16/23 documented as of this encounter
--- OUTSIDE RECORDS SUMMARY | 2024-10-13 17:12 | XMS_ITS | Encounter Summary ---
Author Organization [facility] Address [address] [place] [address] Care Team Providers Care Census Enumerator Name Role Phone Milka Cueva APRN Primary Care Provider [phone] Vilma Hollis Unavailable Milka Cueva APRN Unavailable [phone] Raisa Pittman MD Primary Care Provid er Anay Chandra MD Primary Care Provider [phone] Andrei Ruby APRN Unavailable Unavailabl e Barry Cornell MD Unavailable [phone] Bakari Camilo MD Unavailable [phone] Brenda Almeida APRN Primary Care Provider [phone] Anay Chandra MD Unavailable [phone] Anay Chandra MD Primary Care Provider [phone] Brenda Almeida APRN Unavailable [phone] Babak Pickard MD Unavailable [phone] Anay Chandra MD Primary Care Provider [phone] Encounter Details Date Type Department Care Team (Late st Contact Info) Description 11/05/2017 Scanned Document [address] [address] Provider, Generic Social History Tobacco Use Types [...] Description 12/05/2024 1:30 PM EDT Office Visit [address] [address] Anay Chandra MD [address] [place] [address] 01/04/2025 1:00 PM EDT Office Visit [facility] Endocrinology [address] [address] Vishnu Hernandez MD [address] [place] [address] documented as of this encounter Visit Diagnoses Not on filedocumented in this encounter Care Teams Census Enumerator Relationship Specialty Start Date End Date Milka Cueva APRN [address] [place] [address] PCP - General Internal Medicine 03/10/17 05/22/19 Milka Cueva APRN [address] [address] PCP - MSSP Attributed 02/14/19 9 Raisa Pittman MD [address] [address] PCP - General Family Medicine 05/23/19 06/28/19 Anay Chandra MD [address] [address] [place] [address] PCP - General Internal Medicine 06/29/19 10/22/21 Brenda Almeida, TEXTILE SCIENCE TECHNICIAN [address] [place], [place] [address] PCP - General Adult Health - PA/APNP/MEDICAL OFFICE ASSISTANT/TEXTILE SCIENCE TECHNICIAN 10/23/21 12/25/21 Anay Chandra MD [address] [place] [address] PCP - PCMH+ Attributed 08/17/21 2 Anay Chandra MD 5 [facility] [address] [address] PCP - General Family Medicine 12/26/21 12/30/23 Brenda Almeida, TEXTILE SCIENCE TECHNICIAN [address] [place], [place] [address] PCP - [facility] [place] Attributed 09/17/22 06/16/23 Anay Chandra MD [address] [place] [address] PCP - General Family Medicine 12/31/23 Vilma Hollis [address], [place] [phone] Emergency Medicine 04/28/18 Andrei Ruby APRN 5 [facility] [address] [place] [address] Nurse Practitioner Endocrinology 07/21/19 12/29/23 Barry Cornell MD 5 [facility] [address] [place] [address] Anesthesiologist Anesthesiology 10/03/19 10/03/19 Bakari Camilo MD 5 [facility] [address] [address] Physician Ophthalmology 01/10/20 Babak Pickard MD [address] [place] [address] [address] [place] [address] Surgery, Neurosurgery 02/16/23 documented as of this encounter
--- OUTSIDE RECORDS SUMMARY | 2024-10-13 17:12 | XMS_ITS | Encounter Summary ---
Author Organization [facility] Address [address] [place] [address] Care Team Providers Care Regional Psychiatric Director Name Role Phone Milka Cueva APRN Primary Care Provider [phone] Vilma Hollis Unavailable Milka Cueva APRN Unavailable [phone] Raisa Pittman MD Primary Care Provid er Anay Chandra MD Primary Care Provider [phone] Andrei Ruby APRN Unavailable Unavailabl e Barry Cornell MD Unavailable [phone] Bakari Camilo MD Unavailable [phone] Brenda Almeida APRN Primary Care Provider [phone] Anay Chandra MD Unavailable [phone] Anay Chandra MD Primary Care Provider [phone] Brenda Almeida APRN Unavailable [phone] Babak Pickard MD Unavailable [phone] Anay Chandra MD Primary Care Provider [phone] Encounter Details Date Type Department Care Team (Late st Contact Info) Description 12/14/2017 Scanned Document [address] [address] Milka Cueva APRN 5 [facility] [address] [address] Social History Tobacco Use Types Packs/Day Years [...] Description 12/05/2024 1:30 PM EDT Office Visit [address] [address] Anay Chandra MD [address] [place] [address] 01/04/2025 1:00 PM EDT Office Visit [facility] Endocrinology [address] [phone] Vishnu Hernandez MD [address] [address] documented as of this encounter Visit Diagnoses Not on filedocumented in this encounter Care Teams Regional Psychiatric Director Relationship Specialty Start Date End Date Milka Cueva APRN [address] [place] [address] PCP - General Internal Medicine 03/10/17 05/22/19 Milka Cueva APRN 5 [facility] [address] [address] PCP - MSSP Attributed 02/14/19 9 Raisa Pittman MD [address] [place] [address] PCP - General Family Medicine 05/23/19 06/28/19 Anay Chandra MD [address] [facility] [address] [place] [address] PCP - General Internal Medicine 06/29/19 10/22/21 Brenda Almeida, SUPPORT TECHNICIAN [address] [place] [address] PCP - General Adult Health - PA/APNP/TEST DRIVER/SUPPORT TECHNICIAN 10/23/21 12/25/21 Anay Chandra MD [address] [place], [place] [address] PCP - PCMH+ Attributed 08/17/21 2 Anay Chandra MD [address] [facility] [address] [place] [address] PCP - General Family Medicine 12/26/21 12/30/23 Brenda Almeida, SUPPORT TECHNICIAN [address] [place], [place] [address] PCP - [facility] [place] Attributed 09/17/22 06/16/23 Anay Chandra MD [address] [place] [address] PCP - General Family Medicine 12/31/23 Vilma Hollis [facility] [place] [address] Emergency Medicine 04/28/18 Andrei Ruby APRN [address] [facility] [address] [place] [address] Nurse Practitioner Endocrinology 07/21/19 12/29/23 Barry Cornell MD 5 [facility] [address] [address] Anesthesiologist Anesthesiology 10/03/19 10/03/19 Bakari Camilo MD 5 [facility] [address] [address] Physician Ophthalmology 01/10/20 Babak Pickard MD [address] [place] [address] [address] [place] [address] Surgery, Neurosurgery 02/16/23 documented as of this encounter
--- OUTSIDE RECORDS SUMMARY | 2024-10-13 17:12 | XMS_ITS | Encounter Summary ---
Author Organization [facility] Address [address] [place] [address] Care Team Providers Care Well Blower Name Role Phone Vilma Hollis Unavailable Anay Chandra MD Primary Care Provider Andrei Ruby APRN Unavailable Unavailabl Barry Ceron MD Unavailable [phone] Bakari Camilo MD Unavailable [phone] Brenda Almeida APRN Primary Care Provider Anay Chandra MD Unavailable Anay Chandra MD Primary Care Provider [phone] Brenda Almeida APRN Unavailable [phone] Babak Pickard MD Unavailable [phone] Anay Chandra MD Primary Care Provider Encounter Details Date Type Department Care Team (Late st Contact Info) Description 09/02/2019 Scanned Document [address] [phone] Anay Chandra MD [address] [place] [id number] Social History Tobacco Use Types Packs/Day Years Used Date Smoking Tobacco: Former Cigarettes 1 30 0 04/02/1988 - 04/02/2018 Smokeless Tobacco: Former Alcohol Use Standard [...] Description 12/05/2024 1:30 PM EDT Office Visit [address] [address] Anay Chandra MD [address] [place] [address] 01/04/2025 1:00 PM EDT Office Visit [facility] [address] [place] [address] Vishnu Hernandez MD [address] [place] [address] documented as of this encounter Goals Goal [...] and appt at the wound clinic in [place] on 08/23/18. documented as of this encounter Visit Diagnoses Not on filedocumented in this encounter Care Teams Well Blower Relationship Specialty Start Date End Date Anay Chandra MD PCP - General Internal Medicine 06/29/19 10/22/21 Brenda Almeida, SECTION REPAIRER [address] [place] [address] PCP - General Adult Health - PA/APNP/CONTRACT NEGOTIATION MANAGER/SECTION REPAIRER 10/23/21 12/25/21 Anay Chandra MD [address] [place] [address] PCP - PCMH+ Attributed 08/17/21 2 Anay Chandra MD PCP - General Family Medicine 12/26/21 12/30/23 Brenda Almeida, SECTION REPAIRER [address] [place] [address] PCP - [facility] [place] Attributed 09/17/22 06/16/23 Anay Chandra MD [address] [place] [address] PCP - General Family Medicine 12/31/23 Vilma Hollis Emergency Medicine 04/28/18 Andrei Ruby APRN Nurse Practitioner Endocrinology 07/21/19 12/29/23 Barry Cornell MD Anesthesiologist Anesthesiology 10/03/19 10/03/19 Bakari Camilo MD Physician Ophthalmology 01/10/20 Babak Pickard MD [address] [place] [address] [address] [place] [address] Surgery, Neurosurgery 02/16/23 documented as of this encounter
--- OUTSIDE RECORDS SUMMARY | 2024-10-13 17:12 | XMS_ITS | Encounter Summary ---
Author Organization [facility] Address [address] [place] [address] Care Team Providers Care High Wire Artist Name Role Phone Milka Cueva APRN Primary Care Provider [phone] Vilma Hollis Unavailable Milka Cueva APRN Unavailable [phone] Raisa Pittman MD Primary Care Provid er Anay Chandra MD Primary Care Provider [phone] Andrei Ruby APRN Unavailable Unavailabl e Barry Cornell MD Unavailable [phone] Bakari Camilo MD Unavailable [phone] Brenda Almeida APRN Primary Care Provider [phone] Anay Chandra MD Unavailable [phone] Anay Chandra MD Primary Care Provider [phone] Brenda Almeida APRN Unavailable [phone] Babak Pickard MD Unavailable [phone] Anay Chandra MD Primary Care Provider [phone] Reason for Visit * Reason Onset Date Comments PT order 08/28/2017 Encounter Details Date Type Department Care Team (Late st Contact Info) Description 08/28/[address] [place] [address] Milka Cueva APRN [address] [address] PT order Social History Tobacco Use Types Packs/Day Years [...] encounter Miscellaneous Notes * Telephone Encounter - Kristine Dean - 08/28/2017 3:50 PM EST This was already faxed over * Telephone Encounter - Stormy Burks - 08/28/2017 3:46 PM EST Please send over a PT order to [facility]. , documented in this encounter Plan of Treatment Upcoming Encounters Date Type Department Care Team (Late st Contact Info) Description 12/05/2024 1:30 PM EDT Office Visit [address] [address] Anay Chandra MD [address] [place] [address] 01/04/2025 1:00 PM EDT Office Visit [facility] Endocrinology [address] [place] [address] Vishnu Hernandez MD [address] [place] [address] documented as of this encounter Visit Diagnoses Not on filedocumented in this encounter Care Teams High Wire Artist Relationship Specialty Start Date End Date Milka Cueva APRN [address] [place] [address] PCP - General Internal Medicine 03/10/17 05/22/19 Milka Cueva APRN [address] [facility] [address] [place] [address] PCP - MSSP Attributed 02/14/19 9 Raisa Pittman MD 5 [facility] [address] [place] [address] PCP - General Family Medicine 05/23/19 06/28/19 Anay Chandra MD 5 [facility] [address] [place] [address] PCP - General Internal Medicine 06/29/19 10/22/21 Brenda Almeida, TRAY ROOM WORKER [address] [place] [address] PCP - General Adult Health - PA/APNP/PATHOLOGY LABORATORY AIDES TEACHER/TRAY ROOM WORKER 10/23/21 12/25/21 Anay Chandra MD [address] [place] [address] PCP - PCMH+ Attributed 08/17/21 2 Anay Chandra MD 5 [facility] [address] [place] [address] PCP - General Family Medicine 12/26/21 12/30/23 Brenda Almeida APRN [address] [place] [address] PCP - [facility] [place] Attributed 09/17/22 06/16/23 Anay Chandra MD [address] [place] [address] PCP - General Family Medicine 12/31/23 Vilma Hollis [address] [place] [address] Emergency Medicine 04/28/18 Andrei Ruby APRN [address] [address] Nurse Practitioner Endocrinology 07/21/19 12/29/23 Barry Cornell MD [address] [address] Anesthesiologist Anesthesiology 10/03/19 10/03/19 Bakari Camilo MD [address] [address] Physician Ophthalmology 01/10/20 Babak Pickard MD [address] [place] [address] [address] [place] [address] Surgery, Neurosurgery 02/16/23 documented as of this encounter
--- OUTSIDE RECORDS SUMMARY | 2024-10-13 17:12 | XMS_ITS | Encounter Summary ---
Author Organization [facility] Address [address] [place] [address] Care Team Providers Care Rail Tractor Operator Name Role Phone Milka Cueva APRN Primary Care Provider [phone] Vilma Hollis Unavailable Milka Cueva APRN Unavailable [phone] Raisa Pittman MD Primary Care Provid er Anay Chandra MD Primary Care Provider [phone] Andrei Ruby APRN Unavailable Unavailabl e Barry Cornell MD Unavailable [phone] Bakari Camilo MD Unavailable [phone] Brenda Almeida APRN Primary Care Provider [phone] Anay Chandra MD Unavailable [phone] Anay Chandra MD Primary Care Provider [phone] Brenda Almeida APRN Unavailable [phone] Babak Pickard MD Unavailable [phone] Anay Chandra MD Primary Care Provider [phone] Encounter Details Date Type Department Care Team (Late st Contact Info) Description 11/26/2017 Scanned Document [address] [address] Provider, Generic Social History Tobacco Use Types [...] Description 12/05/2024 1:30 PM EDT Office Visit [address] [address] Anay Chandra MD [address] [place] [address] 01/04/2025 1:00 PM EDT Office Visit [facility] Endocrinology [address] [address] Vishnu Hernandez MD [address] [place] [address] documented as of this encounter Visit Diagnoses Not on filedocumented in this encounter Care Teams Rail Tractor Operator Relationship Specialty Start Date End Date Milka Cueva APRN [address] [place] [address] PCP - General Internal Medicine 03/10/17 05/22/19 Milka Cueva APRN [address] [address] PCP - MSSP Attributed 02/14/19 9 Raisa Pittman MD [address] [address] PCP - General Family Medicine 05/23/19 06/28/19 Anay Chandra MD [address] [place] [address] PCP - General Internal Medicine 06/29/19 10/22/21 Brenda Almeida, WATER RECLAMATION SYSTEMS OPERATOR [address] [place], [place] [address] PCP - General Adult Health - PA/APNP/TRANSIT BUS OPERATOR/WATER RECLAMATION SYSTEMS OPERATOR 10/23/21 12/25/21 Anay Chandra MD [address] [place] [address] PCP - PCMH+ Attributed 08/17/21 2 Anay Chandra MD 5 [facility] [address] [address] PCP - General Family Medicine 12/26/21 12/30/23 Brenda Almeida, WATER RECLAMATION SYSTEMS OPERATOR [address] [place], [place] [address] PCP - [facility] [place] Attributed 09/17/22 06/16/23 Anay Chandra MD [address] [place] [address] PCP - General Family Medicine 12/31/23 Vilma Hollis [address], [place] [phone] Emergency Medicine 04/28/18 Andrei Ruby APRN 5 [facility] [address] [place] [address] Nurse Practitioner Endocrinology 07/21/19 12/29/23 Barry Cornell MD 5 [facility] [address] [place] [address] Anesthesiologist Anesthesiology 10/03/19 10/03/19 Bakari Camilo MD 5 [facility] [address] [address] Physician Ophthalmology 01/10/20 Babak Pickard MD [address] [place] [address] [address] [place] [address] Surgery, Neurosurgery 02/16/23 documented as of this encounter
--- OUTSIDE RECORDS SUMMARY | 2024-10-13 17:12 | XMS_ITS | Encounter Summary ---
Author Organization [facility] Address [address] [place] [address] Care Team Providers Care Director Of Student Affairs Name Role Phone Milka Cueva APRN Primary Care Provider [phone] Vilma Hollis Unavailable Milka Cueva APRN Unavailable [phone] Raisa Pittman MD Primary Care Provid er Anay Chandra MD Primary Care Provider [phone] Andrei Ruby APRN Unavailable Unavailabl e Barry Cornell MD Unavailable [phone] Bakari Camilo MD Unavailable [phone] Brenda Almeida APRN Primary Care Provider [phone] Anay Chandra MD Unavailable [phone] Anay Chandra MD Primary Care Provider [phone] Brenda Almeida APRN Unavailable [phone] Babak Pickard MD Unavailable [phone] Anay Chandra MD Primary Care Provider [phone] Encounter Details Date Type Department Care Team (Late st Contact Info) Description 12/30/2017 Scanned Document [address] [address] Provider, Generic Social History Tobacco Use Types [...] Description 12/05/2024 1:30 PM EDT Office Visit [address] [address] Anay Chandra MD [address] [place] [address] 01/04/2025 1:00 PM EDT Office Visit [facility] Endocrinology [address] [address] Vishnu Hernandez MD [address] [place] [address] documented as of this encounter Visit Diagnoses Not on filedocumented in this encounter Care Teams Director Of Student Affairs Relationship Specialty Start Date End Date Milka Cueva APRN [address] [place] [address] PCP - General Internal Medicine 03/10/17 05/22/19 Milka Cueva APRN [address] [address] PCP - MSSP Attributed 02/14/19 9 Raisa Pittman MD [address] [address] PCP - General Family Medicine 05/23/19 06/28/19 Anay Chandra MD [address] [place] [address] PCP - General Internal Medicine 06/29/19 10/22/21 Brenda Almeida, ELECTRICAL CAD DESIGNER [address] [place], [place] [id number] PCP - General Adult Health - PA/APNP/WAX POURER/ELECTRICAL CAD DESIGNER 10/23/21 12/25/21 Anay Chandra MD [address] [place] [address] PCP - PCMH+ Attributed 08/17/21 2 Anay Chandra MD 5 [facility] [address] [address] PCP - General Family Medicine 12/26/21 12/30/23 Brenda Almeida, ELECTRICAL CAD DESIGNER [address] [place], [place] [id number] PCP - [facility] [place] Attributed 09/17/22 06/16/23 Anay Chandra MD [address] [place] [address] PCP - General Family Medicine 12/31/23 Vilma Hollis [address] [place], [place] [id number] Emergency Medicine 04/28/18 Andrei Ruby APRN 5 [facility] [address] [place] [address] Nurse Practitioner Endocrinology 07/21/19 12/29/23 Barry Cornell MD 5 [facility] [address] [place] [address] Anesthesiologist Anesthesiology 10/03/19 10/03/19 Bakari Camilo MD 5 [facility] [address] [address] Physician Ophthalmology 01/10/20 Babak Pickard MD [address] [place] [address] [address] [place] [address] Surgery, Neurosurgery 02/16/23 documented as of this encounter
--- OUTSIDE RECORDS SUMMARY | 2024-10-13 17:12 | XMS_ITS | Encounter Summary ---
Author Organization [facility] Address [address] [place] [address] Care Team Providers Care Consultant Nurse Name Role Phone Milka Cueva APRN Primary Care Provider [phone] Vilma Hollis Unavailable Milka Cueva APRN Unavailable [phone] Raisa Pittman MD Primary Care Provid er Anay Chandra MD Primary Care Provider [phone] Andrei Ruby APRN Unavailable Unavailabl e Barry Cornell MD Unavailable [phone] Bakari Camilo MD Unavailable [phone] Brenda Almeida APRN Primary Care Provider [phone] Anay Chandra MD Unavailable [phone] Anay Chandra MD Primary Care Provider [phone] Brenda Almeida APRN Unavailable [phone] Babka Pickard MD Unavailable [phone] Anay Chandra MD Primary Care Provider [phone] Encounter Details Date Type Department Care Team (Late st Contact Info) Description 06/17/2017 Scanned Document [address] [address] Provider, Generic Social History Tobacco Use Types [...] 12/05/2024 1:30 PM EDT Office Visit [address] [address] Anay Chandra MD [address] [place] [address] 01/04/2025 1:00 PM EDT Office Visit [facility] Endocrinology [address] [address] Vishnu Hernandez MD [address] [place] [address] documented as of this encounter Visit Diagnoses Not on filedocumented in this encounter Care Teams Consultant Nurse Relationship Specialty Start Date End Date Milka Cueva APRN [address] [place] [address] PCP - General Internal Medicine 03/10/17 05/22/19 Milka Cueva APRN [address] [address] PCP - MSSP Attributed 02/14/19 9 Raisa Pittman MD [address] [address] PCP - General Family Medicine 05/23/19 06/28/19 Anay Chandra MD [address] [place] [address] PCP - General Internal Medicine 06/29/19 10/22/21 Brenda Almeida, HIGH SCHOOL BAND TEACHER [address] [place], [place] [phone] PCP - General Adult Health - PA/APNP/RETAIL SUPPORT MANAGER/HIGH SCHOOL BAND TEACHER 10/23/21 12/25/21 Anay Chandra MD [address] [place] [address] PCP - PCMH+ Attributed 08/17/21 2 Anay Chandra MD 5 [facility] [address] [address] PCP - General Family Medicine 12/26/21 12/30/23 Brenda Almeida, HIGH SCHOOL BAND TEACHER [address] [place], [place] [phone] PCP - [facility] [place] Attributed 09/17/22 06/16/23 Anay Chandra MD [address] [place] [address] PCP - General Family Medicine 12/31/23 Vilma Hollis [address], [place] [phone] Emergency Medicine 04/28/18 Andrei Ruby APRN 5 [facility] [address] [place] [address] Nurse Practitioner Endocrinology 07/21/19 12/29/23 Barry Cornell MD 5 [facility] [address] [place] [address] Anesthesiologist Anesthesiology 10/03/19 10/03/19 Bakari Camilo MD 5 [facility] [address] [address] Physician Ophthalmology 01/10/20 Babak Pickard MD [address] [place] [address] [address] [place] [address] Surgery, Neurosurgery 02/16/23 documented as of this encounter
--- OUTSIDE RECORDS SUMMARY | 2024-10-13 17:12 | XMS_ITS | Encounter Summary ---
Author Organization [facility] Address [address] [place] [address] Care Team Providers Care Property Coordinator Name Role Phone Anay Chandra Primary Care Provider [phone] Latrice Norris MD Unavailable [phone] Tom Adame MD Unavailable [phone] Anay Chandra Unavailable Reason for Referral * (Routine) - Closed Specialty Diagnoses / Procedures Referred By Rosalio haddad Referred To Contact Diagnoses Diabetic polyneuropathy associated with type 2 diabetes mellitus (HCC) Procedures Bariatric drop arm commode Sp Hernandez MD [address] [place] [address] Phone: tel: fax: Referral ID Status Reason Start Date Expiration Date Visits Re quested Visits Authorized [id number] Closed 07/18/2022 08/22/2023 1 1 Encounter Details Date Type Department Care Team (Late st Contact Info) Description 07/18/2022 Orders Only [facility] Department of Neurology [address] [place] [address] Sp Hernandez MD [address] [place] [address] Diabetic polyneuropathy associated with type 2 diabetes mellitus (HCC) (Primary Dx) Social History Tobacco Use Types Packs/Day Years Used Date Smoking Tobacco: Former Cigarettes Q uit: 02/29/2020 Smokeless Tobacco: Never Alcohol Use Standard Drinks/Week Comments Yes 0 (1 standard drink = 0.6 oz pur e alcohol) seldomly Hunger Vital Sign Answer Date Recorded Within the past 12 months, y ou worried that your food would run out before you got the money to buy more. Never true 03/27/20 21 Within the past 12 months, t he food you bought just didn't last and you didn't have money to get more. Never true 03/27/2021 Comments No Sex and Gender Information Value Date Recorded Sex Assigned at Not on file Legal Sex Female 1:54 AM EST Gender Identity Not on file Sexual Orientation Not on file COVID-19 Exposure Response Date Recorded In the last 10 days, have yo u been in contact with someone who was confirmed or suspected to have Coronavirus/COVID-19? No / Unsure 07/04/2022 10:36 AM EST documented as of this encounter Plan of Treatment Upcoming Encounters Date Type Department Care Team (Late st Contact Info) Description 11/29/2024 1:20 PM EDT Office Visit [facility] Department of Neurology [address] [place] [address] Tom Adame MD [address] [facility] [place] [address] documented as of this encounter Visit Diagnoses Diagnosis Diabetic polyneuropathy associated with type 2 diabetes mellitus (HCC)- Primary documented in this encounter Care Teams Property Coordinator Relationship Specialty Start Date End Date Anay Chandra [address] [place] [address] PCP - General 09/01/19 Anay Chandra [address] [place] [address] PCP - Insurance Payer PCP 06/15/23 Latrice Norris MD [address] [facility] [facility] [place] [address] Consulting Physician Obstetrics and Gynecology 04/19/21 Tom Adame MD [address] [place] [address] [place] [address] Consulting Physician Neurology 08/19/21 documented as of this encounter
--- OUTSIDE RECORDS SUMMARY | 2024-10-13 17:12 | XMS_ITS | Encounter Summary ---
Author Organization [facility] Address [address] [place] [address] Care Team Providers Care Hooker Up Name Role Phone Milka Cueva APRN Primary Care Provider [phone] Vilma Hollis Unavailable Milka Cueva APRN Unavailable [phone] Raisa Pittman MD Primary Care Provid er Anay Chandra MD Primary Care Provider [phone] Andrei Ruby APRN Unavailable Unavailabl e Barry Cornell MD Unavailable [phone] Bakari Camilo MD Unavailable [phone] Brenda Almeida APRN Primary Care Provider [phone] Anay Chandra MD Unavailable [phone] Anay Chandra MD Primary Care Provider [phone] Brenda Almeida APRN Unavailable [phone] Babak Pickard MD Unavailable [phone] Anay Chandra MD Primary Care Provider [phone] Encounter Details Date Type Department Care Team (Late st Contact Info) Description 06/17/2017 Scanned Document [address] [address] Provider, Generic Social History Tobacco Use Types [...] Description 12/05/2024 1:30 PM EDT Office Visit [address] [address] Anay Chandra MD [address] [place] [address] 01/04/2025 1:00 PM EDT Office Visit [facility] Endocrinology [address] [address] Vishnu Hernandez MD [address] [place] [address] documented as of this encounter Visit Diagnoses Not on filedocumented in this encounter Care Teams Hooker Up Relationship Specialty Start Date End Date Milka Cueva APRN [address] [place] [address] PCP - General Internal Medicine 03/10/17 05/22/19 Milka Cueva APRN [address] [address] PCP - MSSP Attributed 02/14/19 9 Raisa Pittman MD [address] [address] PCP - General Family Medicine 05/23/19 06/28/19 Anay Chandra MD [address] [place] [address] PCP - General Internal Medicine 06/29/19 10/22/21 Brenda Almeida, BAIL BONDSMAN [address] [place], [place] [phone] PCP - General Adult Health - PA/APNP/BOILING TUB OPERATOR/BAIL BONDSMAN 10/23/21 12/25/21 Anay Chandra MD [address] [place] [address] PCP - PCMH+ Attributed 08/17/21 2 Anay Chandra MD 5 [facility] [address] [address] PCP - General Family Medicine 12/26/21 12/30/23 Brenda Almeida, BAIL BONDSMAN [address] [place], [place] [phone] PCP - [facility] [place] Attributed 09/17/22 06/16/23 Anay Chandra MD [address] [place] [address] PCP - General Family Medicine 12/31/23 Vilma Hollis [address], [place] [id number] Emergency Medicine 04/28/18 Andrei Ruby APRN 5 [facility] [address] [place] [address] Nurse Practitioner Endocrinology 07/21/19 12/29/23 Barry Cornell MD 5 [facility] [address] [place] [address] Anesthesiologist Anesthesiology 10/03/19 10/03/19 Bakari Camilo MD 5 [facility] [address] [address] Physician Ophthalmology 01/10/20 Babak Pickard MD [address] [place] [address] [address] [place] [address] Surgery, Neurosurgery 02/16/23 documented as of this encounter
--- OUTSIDE RECORDS SUMMARY | 2024-10-13 17:12 | XMS_ITS | Encounter Summary ---
Author Organization [facility] Address [address] [place] [address] Care Team Providers Care Geriatric Nursing Assistant Name Role Phone Vilma Hollis Unavailable Bakari Camilo MD Unavailable [phone] Babak Pickard MD Unavailable [phone] Anay Chandra MD Primary Care Provider [phone] Reason for Visit * Reason Comments Other Encounter Details Date Type Department Care Team (Late st Contact Info) Description 05/02/2024 Telephone [facility] [address] [place] [address] Anay Chandra MD [address] [place] [id number] Other Social History Tobacco Use Types Packs/Day Years [...] encounter Miscellaneous Notes * Telephone Encounter - Nelida Chowdary LPN - 05/04/2024 3:17 PM EDT Return call placed vm left documented in this encounter Plan of Treatment Upcoming Encounters Date Type Department Care Team (Late st Contact Info) Description 12/05/2024 1:30 PM EDT Office Visit [address] [address] Anay Chandra MD [address] [place] [address] 01/04/2025 1:00 PM EDT Office Visit [facility] [address] [place] [address] Vishnu Hernandez MD [address] [place] [address] documented as of this encounter Goals Goal [...] CICI. Intervention- to be seen today by CENTER HOLE REAMER and appt at the wound clinic in [place] on 08/23/18. OT LTG 1 Occupational Therapy No Karina Pendleton, MICHAEL Note: Patient will demonstrate 10 lb increase in industrial relations counselor strength B for improved ability to open [...] on filedocumented in this encounter Care Teams Geriatric Nursing Assistant Relationship Specialty Start Date End Date Anay Chandra MD [address] [place] [address] PCP - General Family Medicine 12/31/23 Vilma Hollis Emergency Medicine 04/28/18 Bakari Camilo MD Physician Ophthalmology 01/10/20 Babak Pickard MD [address] [place] [address] [address] [place] [address] Surgery, Neurosurgery 02/16/23 documented as of this encounter
--- OUTSIDE RECORDS SUMMARY | 2024-10-13 17:12 | XMS_ITS | Encounter Summary ---
Author Organization [facility] Address [address] [place] [address] Care Team Providers Care Back Seam Stitcher Name Role Phone Milka Cueva APRN Primary Care Provider [phone] Vilma Hollis Unavailable Milka Cueva APRN Unavailable [phone] Raisa Pittman MD Primary Care Provid er Anay Chandra MD Primary Care Provider [phone] Andrei Ruby APRN Unavailable Unavailabl e Barry Cornell MD Unavailable [phone] Bakari Camilo MD Unavailable [phone] Brenda Almeida APRN Primary Care Provider [phone] Anay Chandra MD Unavailable [phone] Anay Chandra MD Primary Care Provider [phone] Brenda Almeida APRN Unavailable [phone] Babak Pickard MD Unavailable [phone] Anay Chandra MD Primary Care Provider [phone] Reason for Visit * Reason Onset Date Comments Call Patient 08/24/2017 Encounter Details Date Type Department Care Team (Late st Contact Info) Description 08/24/2017 Telephone [facility] [address] [address] Milka Cueva APRN 5 [facility] [address] [address] Call Patient Social History Tobacco Use Types Packs/Day Years [...] Dulce Maria Montes De Oca LPN - 08/27/2017 12:50 PM EST Faxed Form requesting office notes to [facility] with last office note. Fax confirmation received. Called pt and advised form and office note faxed. * Telephone Encounter - Kristine Dean - 08/26/2017 5:08 PM EST Formed placed on your desk * Telephone Encounter - Mary Corral LPN - 08/25/2017 2:16 PM EST Please be on the look out for a form from [facility] sophie * Telephone Encounter - Mary Corral LPN - 08/25/2017 1:54 PM EST Called pt lmtcb * Telephone Encounter - Dulce Maria Montes De Oca LPN - 08/25/2017 9:41 AM EST Telephone call to pt. Unable to leave message to call back as this number is currently suspended. Please try again later. * Telephone Encounter - Mary Corral LPN - 08/24/2017 1:42 PM EST tct pt lmtcb * Telephone Encounter - Shannon Matajesus - 08/24/2017 11:45 AM EST Patient called to inform her PCP Milka Cueva APRN that she needs a form to be completed so that shecan get the Hover round. Please contact this patient as she stated that the company will be seekingmore PCP information for approval. documented in this encounter Plan of Treatment Upcoming Encounters Date Type Department Care Team (Late st Contact Info) Description 12/05/2024 1:30 PM EDT Office Visit [address] [address] Anay Chandra MD [address] [place] [address] 01/04/2025 1:00 PM EDT Office Visit [facility] Endocrinology [address] [address] Vishnu Hernandez MD [facility] [address] [place] [address] documented as of this encounter Visit Diagnoses Not on filedocumented in this encounter Care Teams Back Seam Stitcher Relationship Specialty Start Date End Date Milka Cueva APRN [address] [place] [address] PCP - General Internal Medicine 03/10/17 05/22/19 Milka Cueva APRN [address] [place] [address] PCP - MSSP Attributed 02/14/19 9 Raisa Pittman MD [address] [place] [address] PCP - General Family Medicine 05/23/19 06/28/19 Anay Chandra MD [address] [place] [address] PCP - General Internal Medicine 06/29/19 10/22/21 Brenda Almeida, ASPHALT DISTRIBUTOR OPERATOR [address] [place] [address] PCP - General Adult Health - PA/APNP/CONCRETE TILE MACHINE OPERATOR/ASPHALT DISTRIBUTOR OPERATOR 10/23/21 12/25/21 Anay Chandra MD [address] [place] [address] PCP - PCMH+ Attributed 08/17/21 2 Anay Chandra MD [address] [facility] [address] [place] [address] PCP - General Family Medicine 12/26/21 12/30/23 Brenda Almeida, ASPHALT DISTRIBUTOR OPERATOR [address] [place] [address] PCP - [facility] [place] Attributed 09/17/22 06/16/23 Anay Chandra MD [address] [place] [address] PCP - General Family Medicine 12/31/23 Vilma Hollis [address] [place] [address] Emergency Medicine 04/28/18 Andrei Ruby APRN 5 [facility] [address] [place] [address] Nurse Practitioner Endocrinology 07/21/19 12/29/23 Barry Cornell MD 5 [facility] [address] [address] Anesthesiologist Anesthesiology 10/03/19 10/03/19 Bakari Camilo MD [address] [address] Physician Ophthalmology 01/10/20 Babak Pickard MD [address] [place] [address] Ave [address] [place] [address] Surgery, Neurosurgery 02/16/23 documented as of this encounter
--- OUTSIDE RECORDS SUMMARY | 2024-10-13 17:12 | XMS_ITS | Encounter Summary ---
Author Organization [facility] Address [address] [place] [address] Care Team Providers Care Steel Turner Name Role Phone Vilma Hollis Unavailable Anay Chandra MD Primary Care Provider Andrei Ruby APRN Unavailable Unavailabl Barry Ceron MD Unavailable Bakari Camilo MD Unavailable Brenda Almeida APRN Primary Care Provider Anay Chandra MD Unavailable Anay Chandra MD Primary Care Provider [phone] Brenda Almeida APRN Unavailable [phone] Babak Pickard MD Unavailable [phone] Anay Chandra MD Primary Care Provider Encounter Details Date Type Department Care Team (Late st Contact Info) Description 09/12/[address] [address] Anay Chandra MD [address] [place] [id number] Social History Tobacco Use Types Packs/Day Years [...] encounter Miscellaneous Notes * Telephone Encounter - Marlena Curry LPN - 09/12/2019 5:28 PM EST Pt made aware Of rx sent to pharmacy * Telephone Encounter - Anay Chandra MD - 09/12/2019 5:20 PM EST Diflucan and nicorette gum sent to pharmacy. Thank you * Telephone Encounter - Marlena Curry LPN - 09/12/2019 5:17 PM EST Pt on niotro furontoin mono-mac 100MG capsules and also requesting nicotine gum prescription as well it has been 3 days and wants to buy herself cigarettes. * Telephone Encounter - Anay Chandra MD - 09/12/2019 12:12 PM EST Valtrex sent to the pharmacy (I have previously prescribed this for her). I do not see any recent antibiotics that were prescribed from our office or in her medication list?What antibiotic is she taking? Thanks documented in this encounter Plan of Treatment Upcoming Encounters Date Type Department Care Team (Late st Contact Info) Description 12/05/2024 1:30 PM EDT Office Visit [address] [address] Anay Chandra MD [address] [place] [address] 01/04/2025 1:00 PM EDT Office Visit [facility] Endocrinology [place] [address] [facility] [address] [place] [address] Vishnu Hernandez MD [address] [place] [address] documented as of this encounter Goals Goal [...] CICI. Intervention- to be seen today by WIRELESS DEVELOPMENT MANAGER and appt at the wound clinic in [place] on 08/23/18. documented as of this encounter Visit Diagnoses Not on filedocumented in this encounter Care Teams Steel Turner Relationship Specialty Start Date End Date Anay Chandra MD PCP - General Internal Medicine 06/29/19 10/22/21 Brenda Almeida APRN [address] [place] [address] PCP - General Adult Health - PA/APNP/REAL ESTATE UTILIZATION OFFICER/WIRELESS DEVELOPMENT MANAGER 10/23/21 12/25/21 Anay Chandra MD [address] [place] [address] PCP - PCMH+ Attributed 08/17/21 2 Anay Chandra MD PCP - General Family Medicine 12/26/21 12/30/23 Brenda Almeida APRN [address] [place] [address] PCP - [facility] [place] Attributed 09/17/22 06/16/23 Anay Chandra MD [address] [place] [address] PCP - General Family Medicine 12/31/23 Vilma Hollis Emergency Medicine 04/28/18 Andrei Ruby APRN Nurse Practitioner Endocrinology 07/21/19 12/29/23 Barry Cornell MD Anesthesiologist Anesthesiology 10/03/19 10/03/19 Bakari Camilo MD Physician Ophthalmology 01/10/20 Babak Pickard MD [address] [place] [address] Surgery, Neurosurgery 02/16/23 documented as of this encounter
--- OUTSIDE RECORDS SUMMARY | 2024-10-13 17:12 | XMS_ITS | Encounter Summary ---
Author Organization Formerly [facility] Address [address] [place] [address] Care Team Providers Care License Distributor Name Role Phone Vilma Hollis Unavailable Bakari Camilo MD Unavailable [phone] Babak Pickard MD Unavailable [phone] Anay Chandra MD Primary Care Provider [phone] Encounter Details Date Type Department Care Team (Late st Contact Info) Description 01/15/2024 Scanned Document [facility] PRIMARY CARE SCAN Primary Care, Scan [...] Description 12/05/2024 1:30 PM EDT Office Visit [address] [phone] Anay hCandra MD [address] [place] [id number] 01/04/2025 1:00 PM EDT Office Visit [facility] Endocrinology [place] 100 [facility] [address] [place] [address] Vishnu Hernandez MD [address] [place] [address] documented as of this encounter Goals Goal [...] CICI. Intervention- to be seen today by ONLINE PRODUCER and appt at the wound clinic in [place] on 08/23/18. 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 assistant professor of english strength B for improved ability to open [...] on filedocumented in this encounter Care Teams License Distributor Relationship Specialty Start Date End Date Anay Chandra MD [address] [place] [address] PCP - General Family Medicine 12/31/23 Vilma Hollis Emergency Medicine 04/28/18 Bakari Camilo MD Physician Ophthalmology 01/10/20 Babak Pcikard MD [address] [place] [address] [place] [address] Surgery, Neurosurgery 02/16/23 documented as of this encounter
--- OUTSIDE RECORDS SUMMARY | 2024-10-13 17:12 | XMS_ITS | Encounter Summary ---
Author Organization [facility] Address [address] [place] [address] Care Team Providers Care Rapid Outsole Stitcher Name Role Phone Milka Cueva APRN Primary Care Provider [phone] Vilma Hollis Unavailable Milka Cueva APRN Unavailable [phone] Raisa Pittman MD Primary Care Provid er Anay Chandra MD Primary Care Provider [phone] Andrei Ruby APRN Unavailable Unavailabl Barry Ceron MD Unavailable [phone] Bakari Camilo MD Unavailable [phone] Brenda Almeida APRN Primary Care Provider [phone] Anay Chandra MD Unavailable [phone] Anay Chandra MD Primary Care Provider [phone] Brenda Almeida APRN Unavailable [phone] Babak Pickard MD Unavailable [phone] Anay Chandra MD Primary Care Provider [phone] Reason for Visit * Reason Onset Date Comments MRI 09/21/2017 Encounter Details Date Type Department Care Team (Late st Contact Info) Description 09/21/[address] [place] [address] Milka Cueva APRN 5 [facility] [address] [address] MRI Social History Tobacco Use Types Packs/Day Years [...] Dulce Maria Montes De Oca LPN - 09/23/2017 5:45 PM EST Telephone call from pt. Pt reports edema to bilateral ankles. Pt also report LLE redness, severe pain, swelling, warmth and tenderness to touch, as well as tingling to BLE. Pt reports no SOB or chestpain. Advised pt of need for ED evaluation. Offered to call for EMS transport to ED. Pt declined stating she will contact her sister to see if she is available to transport pt home from the hospital.Discussed with pt need for immediate evaluation. Pt states she will consider ED evaluation and willcontact her sister now. * Telephone Encounter - Mary Corral LPN - 09/21/2017 3:04 PM EST Spoke with pt went to [facility] ED and they did advise an MRI per ED no break advised to askPCP if we can order * Telephone Encounter - Stormy Burks - 09/21/2017 2:43 PM EST Patient went to er after her visit here for her hurt leg, they told her she should get an MRI, is this something we can order? Patient states that her knee keeps giving out and she has fell in her house about 6 times since. Please call patient back [phone] documented in this encounter Plan of Treatment Upcoming Encounters Date Type Department Care Team (Late st Contact Info) Description 12/05/2024 1:30 PM EDT Office Visit [facility] [address] [place] [phone] Anay Chandra MD [address] [facility], [place] [id number] 01/04/2025 1:00 PM EDT Office Visit [facility] Endocrinology [place] [address] [address] Vishnu Hernandez MD [address] [address] documented as of this encounter Visit Diagnoses Not on filedocumented in this encounter Care Teams Rapid Outsole Stitcher Relationship Specialty Start Date End Date Milka Cueva APRN [address] [place] [address] PCP - General Internal Medicine 03/10/17 05/22/19 Milka Cueva APRN [address] [address] PCP - MSSP Attributed 02/14/19 9 Raisa Pittman MD 5 [facility] [address] [address] PCP - General Family Medicine 05/23/19 06/28/19 Anay Chandra MD 5 [facility] [address] [place] [address] PCP - General Internal Medicine 06/29/19 10/22/21 Brenda Almeida, ELASTIC YARN TWISTER HELPER [address] [place], [place] [address] PCP - General Adult Health - PA/APNP/OLIVE BRINE TESTER/ELASTIC YARN TWISTER HELPER 10/23/21 12/25/21 Anay Chandra MD [address] [place] [address] PCP - PCMH+ Attributed 08/17/21 2 Anay Chandra MD 5 [facility] [address] [address] PCP - General Family Medicine 12/26/21 12/30/23 Brenda Almeida, ELASTIC YARN TWISTER HELPER [address] [place] [address] PCP - [facility] [place] Attributed 09/17/22 06/16/23 Anay Chandra MD [address] [place] [address] PCP - General Family Medicine 12/31/23 Vilma Hollis [address] [place] [address], [place] [phone] Emergency Medicine 04/28/18 Andrei Ruby APRN [address] [facility] [address] [place] [address] Nurse Practitioner Endocrinology 07/21/19 12/29/23 Barry Cornell MD 5 [facility] [address] [place] [address] Anesthesiologist Anesthesiology 10/03/19 10/03/19 Bakari Camilo MD [address] [address] Physician Ophthalmology 01/10/20 Babak Pickard MD [address] [place] [address] [address] [place] [address] Surgery, Neurosurgery 02/16/23 documented as of this encounter
--- OUTSIDE RECORDS SUMMARY | 2024-10-13 17:12 | XMS_ITS | Encounter Summary ---
Author Organization [facility] Address [address] [place] [address] Care Team Providers Care Blasting Helper Name Role Phone Milka Cueva APRN Primary Care Provider [phone] Vilma Hollis Unavailable Milka Cueva APRN Unavailable [phone] Raisa Pittman MD Primary Care Provid er Aany Chandra MD Primary Care Provider [phone] Andrei Ruby APRN Unavailable Unavailabl e Barry Cornell MD Unavailable [phone] Bakari Camilo MD Unavailable [phone] Brenda Almeida APRN Primary Care Provider [phone] Anay Chandra MD Unavailable [phone] Anay Chandra MD Primary Care Provider [phone] Brenda Almeida APRN Unavailable [phone] Babak Pickard MD Unavailable [phone] Anay Chandra MD Primary Care Provider [phone] Reason for Visit * Reason Onset Date Comments Call back 09/03/2017 Encounter Details Date Type Department Care Team (Late st Contact Info) Description 09/03/[address] [place] [address] Milka Cueva APRN 5 [facility] [address] [address] Call back Social History Tobacco Use Types Packs/Day Years [...] encounter Miscellaneous Notes * Telephone Encounter - Mary Corral LPN - 09/03/2017 4:24 PM EST Hari barrios requested the word power added to the front of wheel chair and signed off as well as a signed progress note information updated and refaxed * Telephone Encounter - Stormy Burks - 09/03/2017 11:16 AM EST Елена from Hari Barrios would like a call back [phone] reff Order # [id number] documented in this encounter Plan of Treatment Upcoming Encounters Date Type Department Care Team (Late st Contact Info) Description 12/05/2024 1:30 PM EDT Office Visit [address] [place] [address] [phone] Anay Chandra MD [address] [place] [address] 01/04/2025 1:00 PM EDT Office Visit [facility] Endocrinology [address] [place] [phone] Vishnu Hernandez MD [address] [place] [address] documented as of this encounter Visit Diagnoses Not on filedocumented in this encounter Care Teams Blasting Helper Relationship Specialty Start Date End Date Milka Cueva APRN 12[address] [place] [address] PCP - General Internal Medicine 03/10/17 05/22/19 Milka Cueva APRN 5 [facility] [address] [place] [address] PCP - MSSP Attributed 02/14/19 9 Raisa Pittman MD 5 [facility] [address] [place] [address] PCP - General Family Medicine 05/23/19 06/28/19 Anay Chandra MD 5 [facility] [address] [place] [address] PCP - General Internal Medicine 06/29/19 10/22/21 Brenda Almeida, MICA LAYER [address] [place] [address] PCP - General Adult Health - PA/APNP/MANAGER TELEMARKETING/MICA LAYER 10/23/21 12/25/21 Anay Chandra MD [address] [place] [address] PCP - PCMH+ Attributed 08/17/21 2 Anay Chandra MD [address] [address] PCP - General Family Medicine 12/26/21 12/30/23 Brenda Almeida APRN [address] [place] [address] PCP - [facility] MA Attributed 09/17/22 06/16/23 Anay Chandra MD [address] [place] [address] PCP - General Family Medicine 12/31/23 Vilma Hollis [address] [place] [address] Emergency Medicine 04/28/18 Andrei Ruby APRN [address] [address] Nurse Practitioner Endocrinology 07/21/19 12/29/23 Barry Cornell MD [address] [address] Anesthesiologist Anesthesiology 10/03/19 10/03/19 Bakari Camilo MD [address] [address] Physician Ophthalmology 01/10/20 Babak Pickard MD [address] [place] [address] [address] [place] [address] Surgery, Neurosurgery 02/16/23 documented as of this encounter
--- OUTSIDE RECORDS SUMMARY | 2024-10-13 17:12 | XMS_ITS | Encounter Summary ---
Author Organization [facility] Address [address] [place] [address] Care Team Providers Care Webbing Weaver Name Role Phone Milka Cueva APRN Primary Care Provider [phone] Vilma Hollis Unavailable Milka Cueva APRN Unavailable [phone] Raisa Pittman MD Primary Care Provid er Anay Chandra MD Primary Care Provider [phone] Andrei Ruby APRN Unavailable Unavailabl e Barry Cornell MD Unavailable [phone] Bakari Camilo MD Unavailable Brenda Almeida APRN Primary Care Provider [phone] Anay Chandra MD Unavailable [phone] Anay Chandra MD Primary Care Provider [phone] Brenda Almeida APRN Unavailable [phone] Babak Pickard MD Unavailable [phone] Anay Chandra MD Primary Care Provider [phone] Reason for Visit * Reason Onset Date Comments call back 11/30/2017 Encounter Details Date Type Department Care Team (Late st Contact Info) Description 11/30/[address] [place] [address] Milka Cueva APRN 5 [facility] [address] [address] call back Social History Tobacco Use Types Packs/Day [...] Telephone Encounter - Mary Corral LPN - 11/30/2017 10:30 AM EDT tct pt aware she will call if no changes * Telephone Encounter - Milka Cueva APRN - 11/30/2017 10:13 AM EDT I sent a script - if she is not better after treatment, she needs to be seen * Telephone Encounter - Mary Corral LPN - 11/30/2017 9:53 AM EDT tct pt she is having burning and redness in area boyfriend is applying cream on the outside but nowits inside having white discharge per pt she needs a pill please advise * Telephone Encounter - Stormy Burks - 11/30/2017 9:07 AM EDT Patient has a yeast infection and would like something called in. [facility]. documented in this encounter Plan of Treatment Upcoming Encounters Date Type Department Care Team (Late st Contact Info) Description 12/05/2024 1:30 PM EDT Office Visit [address] [place] [address] Anay Chandra MD [address] [place] [address], [place] [address] 01/04/2025 1:00 PM EDT Office Visit [facility] Endocrinology [place] [address] [place] [address] Vishnu Hernandez MD [address] [place] [address] documented as of this encounter Visit Diagnoses Not on filedocumented in this encounter Care Teams Webbing Weaver Relationship Specialty Start Date End Date Milka Cueva APRN [address] [place] [address] PCP - General Internal Medicine 03/10/17 05/22/19 Milka Cueva APRN 5 [facility] [address] [address] PCP - MSSP Attributed 02/14/19 9 Raisa Pittman MD 5 [facility] [address] [place] [address] PCP - General Family Medicine 05/23/19 06/28/19 Anay Chandra MD 5 [facility] [address] [address] PCP - General Internal Medicine 06/29/19 10/22/21 Brenda Almeida, ORNAMENTAL IRONWORKING SUPERVISOR [address] [place] [phone] PCP - General Adult Health - PA/APNP/REMOTE ADVISOR/ORNAMENTAL IRONWORKING SUPERVISOR 10/23/21 12/25/21 Anay Chandra MD [address] [place] [address] PCP - PCMH+ Attributed 08/17/21 2 Anay Chandra MD 5 [facility] [address] [place] [address] PCP - General Family Medicine 12/26/21 12/30/23 Brenda Almeida, ORNAMENTAL IRONWORKING SUPERVISOR [address] [place] [address] PCP - [facility] MA Attributed 09/17/22 06/16/23 Anay Chandra MD [address] [place] [address] PCP - General Family Medicine 12/31/23 Vilma Hollis [address] [place] [address] Emergency Medicine 04/28/18 Andrei Ruby APRN 5 [facility] [address] [place] [address] Nurse Practitioner Endocrinology 07/21/19 12/29/23 Barry Cornell MD 5 [facility] [address] [place] [address] Anesthesiologist Anesthesiology 10/03/19 10/03/19 Bakari Camilo MD [address] [facility] [address] [address] Physician Ophthalmology 01/10/20 Babak Pickard MD [address] [place] [address] [address] [place] [address] Surgery, Neurosurgery 02/16/23 documented as of this encounter
--- OUTSIDE RECORDS SUMMARY | 2024-10-13 17:12 | XMS_ITS | Encounter Summary ---
Author Organization [facility] Address [address] [place] [address] Care Team Providers Care Missile Facilities Repairer Name Role Phone Milka Cueva APRN Primary Care Provider [phone] Vilma Hollis Unavailable Milka Cueva APRN Unavailable [phone] Raisa Pittman MD Primary Care Provid er Anay Chandra MD Primary Care Provider [phone] Andrei Ruby APRN Unavailable Unavailabl e Barry Cornell MD Unavailable [phone] Bakari Camilo MD Unavailable [phone] Brenda Almeida APRN Primary Care Provider [phone] Anay Chandra MD Unavailable [phone] Anay Cahndra MD Primary Care Provider [phone] Brenda Almeida APRN Unavailable [phone] Babak Pickard MD Unavailable [phone] Anay Chandra MD Primary Care Provider [phone] Encounter Details Date Type Department Care Team (Late st Contact Info) Description 11/15/2017 Scanned Document [address] [address] Provider, Generic Social History Tobacco Use Types [...] Description 12/05/2024 1:30 PM EDT Office Visit [address] [address] Anay Chandra MD [address] [place] [address] 01/04/2025 1:00 PM EDT Office Visit [facility] Endocrinology [address] [address] Vishnu Hernandez MD [address] [place] [address] documented as of this encounter Visit Diagnoses Not on filedocumented in this encounter Care Teams Missile Facilities Repairer Relationship Specialty Start Date End Date Milka Cueva APRN [address] [place] [address] PCP - General Internal Medicine 03/10/17 05/22/19 Milka Cueva APRN [address] [address] PCP - MSSP Attributed 02/14/19 9 Raisa Pittman MD [address] [address] PCP - General Family Medicine 05/23/19 06/28/19 Anay Chandra MD [address] [facility] [address] [place] [address] PCP - General Internal Medicine 06/29/19 10/22/21 Brenda Almeida, SUPPLY CONTROLLER [address] [place], [place] [phone] PCP - General Adult Health - PA/APNP/SKEIN YARN DRIER/SUPPLY CONTROLLER 10/23/21 12/25/21 Anay Chandra MD [address] [place] [address] PCP - PCMH+ Attributed 08/17/21 2 Anay Chandra MD 5 [facility] [address] [address] PCP - General Family Medicine 12/26/21 12/30/23 Brenda Almeida, SUPPLY CONTROLLER [address] [place], [place] [phone] PCP - [facility] MA Attributed 09/17/22 06/16/23 Anay Chandra MD [address] [place] [address] PCP - General Family Medicine 12/31/23 Vilma Hollis [address] [place], [place] [phone] Emergency Medicine 04/28/18 Andrei Ruby APRN 5 [facility] [address] [place] [address] Nurse Practitioner Endocrinology 07/21/19 12/29/23 Barry Cornell MD 5 [facility] [address] [place] [address] Anesthesiologist Anesthesiology 10/03/19 10/03/19 Bakari Camilo MD 5 [facility] [address] [address] Physician Ophthalmology 01/10/20 Babak Pickard MD [address] [place] [address] [address] [place] [address] Surgery, Neurosurgery 02/16/23 documented as of this encounter
--- OUTSIDE RECORDS SUMMARY | 2024-10-13 17:12 | XMS_ITS | Encounter Summary ---
Author Organization [facility] Address [address] [place] [address] Care Team Providers Care Commercial Loan Assistant Name Role Phone Anay Chandra Primary Care Provider Latrice Norris MD Unavailable [phone] Tom Adame MD Unavailable [phone] Anay Chandra Unavailable Encounter Details Date Type Department Care Team (Late st Contact Info) Description 02/04/2023 Orders Only [facility] Department of Urology [address] [place], [place] [phone] Cari Quiñones, LEAD ASSISTANT MANAGER [address] [facility] [place] [address] Urge incontinence Social History Tobacco Use Types Packs/Day Years [...] on file Sexual Orientation Not on file documented as of this encounter Plan of Treatment Upcoming Encounters Date Type Department Care Team (Late st Contact Info) Description 11/29/2024 1:20 PM EDT Office Visit [facility] Department of Neurology [address] [place] [address] Tom Adame MD [address] [place] [address] [place] [address] documented as of this encounter Visit Diagnoses Diagnosis Urge incontinence documented in this encounter Care Teams Commercial Loan Assistant Relationship Specialty Start Date End Date Anay Chandra [address] [place] [phone] PCP - General 09/01/19 Anay Chandra [address] [place] [phone] PCP - Insurance Payer PCP 06/15/23 Latrice Norris MD [address] [place] [address] Consulting Physician Obstetrics and Gynecology 04/19/21 Tom Adame MD [address] [place] [address] [place] [address] Consulting Physician Neurology 08/19/21 documented as of this encounter
--- OUTSIDE RECORDS SUMMARY | 2024-10-13 17:12 | XMS_ITS | Encounter Summary ---
Author Organization [facility] Address [address] [place] [address] Care Team Providers Care Vehicle Assembler Name Role Phone Milka Cueva APRN Primary Care Provider [phone] Vilma Hollis Unavailable Milka Cueva APRN Unavailable [phone] Raisa Pittman MD Primary Care Provid er Anay Chandra MD Primary Care Provider [phone] Andrei Ruby APRN Unavailable Unavailabl e Barry Cornell MD Unavailable [phone] Bakari Camilo MD Unavailable [phone] Brenda Almeida APRN Primary Care Provider [phone] Anay Chandra MD Unavailable [phone] Anay Chandra MD Primary Care Provider [phone] Brenda Almeida APRN Unavailable [phone] Babak Pickard MD Unavailable [phone] Anay Chandra MD Primary Care Provider [phone] Reason for Visit * Reason Onset Date Comments Refill 12/24/2017 Encounter Details Date Type Department Care Team (Late st Contact Info) Description 12/24/[address] [place] [address] Milka Cueva APRN 5 [facility] [address] [address] Refill Social History Tobacco Use Types Packs/Day Years [...] Telephone Encounter - Mary Corral LPN - 12/30/2017 10:30 AM EDT Pt is all set * Telephone Encounter - Sherice Longo RN - 12/29/2017 11:49 AM EDT s/w pharm - stated that a prior auth is needed - faxing over information * Telephone Encounter - Stormy Burks - 12/29/2017 11:26 AM EDT Patient called, the pharm told her that the office needs to do an over ride in order for her to recieve her rx. She was not able to pick this up yet * Telephone Encounter - Stormy Burks - 12/24/2017 2:41 PM EDT Patient called back, she would like the starter pack * Telephone Encounter - Sherice Longo RN - 12/24/2017 2:26 PM EDT lmom to cb * Telephone Encounter - Milka Cueva APRN - 12/24/2017 1:48 PM EDT Does she need the starter pack or a refill? The refill would be for 1.0 mg BID #60 * Telephone Encounter - Stormy Burks - 12/24/2017 12:54 PM EDT varenicline (CHANTIX JARRED) 0.5 MG X 11 & 1 MG X 42 tablet [facility] documented in this encounter Plan of Treatment Upcoming Encounters Date Type Department Care Team (Late st Contact Info) Description 12/05/2024 1:30 PM EDT Office Visit [address] [address] Anay Chandra MD [address] [place] [address] 01/04/2025 1:00 PM EDT Office Visit [facility] Endocrinology [place] 100 [facility] [address] [place] [address] Vishnu Hernandez MD [address] [place] [address] documented as of this encounter Visit Diagnoses Diagnosis Tobacco abuse Tobacco use disorder documented in this encounter Care Teams Vehicle Assembler Relationship Specialty Start Date End Date Milka Cueva APRN [address] [place] [address] PCP - General Internal Medicine 03/10/17 05/22/19 Milka Cueva APRN [address] [address] [place] [address] PCP - MSSP Attributed 02/14/19 9 Raisa Pittman MD [address] [place] [address] PCP - General Family Medicine 05/23/19 06/28/19 Anay Chandra MD [address], [facility] PCP - General Internal Medicine 06/29/19 10/22/21 Brenda Almeida, BARN HAND [address] [place] [address] PCP - General Adult Health - PA/APNP/FOREST SCIENTIST/BARN HAND 10/23/21 12/25/21 Anay Chandra MD [address] [place] [address] PCP - PCMH+ Attributed 08/17/21 2 Anay Chandra MD 5 [facility] [address] [place] [address] PCP - General Family Medicine 12/26/21 12/30/23 Brenda Almeida, BARN HAND [address] [place] [address] PCP - [facility] MA Attributed 09/17/22 06/16/23 Anay Chandra MD [address] [place] [address] PCP - General Family Medicine 12/31/23 Vilma Hollis [address] [place] [address] Emergency Medicine 04/28/18 Andrei Ruby APRN 5 [facility] [address] [address] Nurse Practitioner Endocrinology 07/21/19 12/29/23 Barry Cornell MD 5 [facility] [address] [address] Anesthesiologist Anesthesiology 10/03/19 10/03/19 Bakari Camilo MD 5 [facility] [address] [address] Physician Ophthalmology 01/10/20 Babak Pickard MD [address] [place] [address] [address] [place] [address] Surgery, Neurosurgery 02/16/23 documented as of this encounter
--- OUTSIDE RECORDS SUMMARY | 2024-10-13 17:12 | XMS_ITS | Encounter Summary ---
Author Organization [facility] Address [address] [place] [address] Care Team Providers Care Mail Handler Name Role Phone Milka Cueva APRN Primary Care Provider [phone] Vilma Hollis Unavailable Milka Cueva APRN Unavailable [phone] Raisa Pittman MD Primary Care Provid er Anay Chandra MD Primary Care Provider [phone] Andrei Ruby APRN Unavailable Unavailabl e Barry Cornell MD Unavailable [phone] Bakari Camilo MD Unavailable [phone] Brenda Almeida APRN Primary Care Provider [phone] Anay Chandra MD Unavailable [phone] Anay Chandra MD Primary Care Provider [phone] Brenda Almeida APRN Unavailable [phone] Babak Pickard MD Unavailable [phone] Anay Chandra MD Primary Care Provider [phone] Encounter Details Date Type Department Care Team (Late st Contact Info) Description 09/10/2017 Scanned Document [address] [address] Provider, Generic Social History Tobacco Use Types [...] 12/05/2024 1:30 PM EDT Office Visit [address] [address] Anay Chandra MD [address] [place] [address] 01/04/2025 1:00 PM EDT Office Visit [facility] Endocrinology [address] [address] Vishnu Hernandez MD [address] [place] [address] documented as of this encounter Visit Diagnoses Not on filedocumented in this encounter Care Teams Mail Handler Relationship Specialty Start Date End Date Milka Cueva APRN [address] [place] [address] PCP - General Internal Medicine 03/10/17 05/22/19 Milka Cueva APRN [address] [address] PCP - MSSP Attributed 02/14/19 9 Raisa Pittman MD [address] [address] PCP - General Family Medicine 05/23/19 06/28/19 Anay Chandra MD 5 [facility] [address] [place] [address] PCP - General Internal Medicine 06/29/19 10/22/21 Brenda Almeida, LINER REROLL TENDER [address] [place], [place] [address] PCP - General Adult Health - PA/APNP/JAVA TECHNICAL ARCHITECT/LINER REROLL TENDER 10/23/21 12/25/21 Anay Chandra MD [address] [place] [address] PCP - PCMH+ Attributed 08/17/21 2 Anay Chandra MD 5 [facility] [address] [place] [address] PCP - General Family Medicine 12/26/21 12/30/23 Brenda Almeida, LINER REROLL TENDER [address] [place], [place] [id number] PCP - [facility] MA Attributed 09/17/22 06/16/23 Anay Chandra MD [address] [place] [address] PCP - General Family Medicine 12/31/23 Vilma Hollis [address] [place], [place] [id number] Emergency Medicine 04/28/18 Andrei Ruby APRN 5 [facility] [address] [place] [address] Nurse Practitioner Endocrinology 07/21/19 12/29/23 Barry Cornell MD 5 [facility] [address] [place] [address] Anesthesiologist Anesthesiology 10/03/19 10/03/19 Bakari Camilo MD 5 [facility] [address] [address] Physician Ophthalmology 01/10/20 Babak Pickard MD [address] [place] [address] [address] [place] [address] Surgery, Neurosurgery 02/16/23 documented as of this encounter
--- OUTSIDE RECORDS SUMMARY | 2024-10-13 17:12 | XMS_ITS | Encounter Summary ---
Author Organization [facility] Address [address] [place] [address] Care Team Providers Care Physics Technical Officer Name Role Phone Vilma Hollis Unavailable Bakari Camilo MD Unavailable [phone] Babak Pickard MD Unavailable [phone] Anay Chandra MD Primary Care Provider [phone] Reason for Visit * Reason Comments Form Completion Encounter Details Date Type Department Care Team (Late st Contact Info) Description 05/06/2024 Telephone [facility] Center [address] [place] [address] Anay Chandra MD [address] [place] [id number] Form Completion Social History Tobacco Use Types Packs/Day Years [...] encounter Miscellaneous Notes * Telephone Encounter - Esdras Cooper - 05/06/2024 2:08 PM EDT Spoke with patient and gave her our fax number so that she can have transportation fax over form for mileage. documented in this encounter Plan of Treatment Upcoming Encounters Date Type Department Care Team (Late st Contact Info) Description 12/05/2024 1:30 PM EDT Office Visit [address] [place] [address] Anay Chandra MD [address] [place] [address] 01/04/2025 1:00 PM EDT Office Visit [facility] 100 [facility] [address] [place] [address] Vishnu Hernandez MD [address] [place] [address] documented as of this encounter Goals Goal [...] and appt at the wound clinic in [place] on 08/23/18. OT LTG 1 Occupational Therapy Karina Rodriguez, MICHAEL Note: Patient will demonstrate 10 lb increase in supervisory it specialist strength B for improved ability to open [...] on filedocumented in this encounter Care Teams Physics Technical Officer Relationship Specialty Start Date End Date Anay Chandra MD [address] [place] [address] PCP - General Family Medicine 12/31/23 Vilma Hollis Emergency Medicine 04/28/18 Bakari Camilo MD Physician Ophthalmology 01/10/20 Babak Pickard MD [address] [place] [address] [address] [place] [address] Surgery, Neurosurgery 02/16/23 documented as of this encounter
--- OUTSIDE RECORDS SUMMARY | 2024-10-13 17:12 | XMS_ITS | Encounter Summary ---
Author Organization [facility] Address [address] [place] [address] Care Team Providers Care Sludge Filtration Attendant Name Role Phone Milka Cueva APRN Primary Care Provider [phone] Vilma Hollis Unavailable Milka Cueva APRN Unavailable [phone] Raisa Pittman MD Primary Care Provid er Anay Chandra MD Primary Care Provider [phone] Andrei Ruby APRN Unavailable Unavailabl e Barry Cornell MD Unavailable [phone] Bakari Camilo MD Unavailable [phone] Brenda Almeida APRN Primary Care Provider [phone] Anay Chandra MD Unavailable [phone] Anay Chandra MD Primary Care Provider [phone] Brenda Almeida APRN Unavailable [phone] Babak Pickard MD Unavailable [phone] Anay Chandra MD Primary Care Provider [phone] Encounter Details Date Type Department Care Team (Late st Contact Info) Description 09/01/2017 Scanned Document [address] [address] Provider, Generic Social History Tobacco Use Types [...] 12/05/2024 1:30 PM EDT Office Visit [address] [address] Anay Chandra MD [address] [place] [address] 01/04/2025 1:00 PM EDT Office Visit [facility] Endocrinology [address] [address] Vishnu Hernandez MD [address] [place] [address] documented as of this encounter Visit Diagnoses Not on filedocumented in this encounter Care Teams Sludge Filtration Attendant Relationship Specialty Start Date End Date Milka Cueva APRN [address] [place] [address] PCP - General Internal Medicine 03/10/17 05/22/19 Milka Cueva APRN [address] [address] PCP - MSSP Attributed 02/14/19 9 Raisa Pittman MD [address] [address] PCP - General Family Medicine 05/23/19 06/28/19 Anay Chandra MD [address] [facility] [address] [place] [address] PCP - General Internal Medicine 06/29/19 10/22/21 Bernda Almeida, LAYOUT DESIGNER [address] [place], [place] [address] PCP - General Adult Health - PA/APNP/CLINICAL BIOCHEMIST/LAYOUT DESIGNER 10/23/21 12/25/21 Anay Chandra MD [address] [place] [address] PCP - PCMH+ Attributed 08/17/21 2 Anay Chandra MD [address] [facility] [address] [place] [address] PCP - General Family Medicine 12/26/21 12/30/23 Brenda Almeida, LAYOUT DESIGNER [address] [place], [place] [id number] PCP - [facility] MA Attributed 09/17/22 06/16/23 Anay Chandra MD [address] [place] [address] PCP - General Family Medicine 12/31/23 Vilma Hollis [address] [place], [place] [phone] Emergency Medicine 04/28/18 Andrei Ruby APRN [address] [facility] [address] [place] [address] Nurse Practitioner Endocrinology 07/21/19 12/29/23 Barry Cornell MD [address] [facility] [address] [place] [address] Anesthesiologist Anesthesiology 10/03/19 10/03/19 Bakari Camilo MD [address] [facility] [address] [address] Physician Ophthalmology 01/10/20 Babak Pickard MD [address] [place] [address] [address] [place] [address] Surgery, Neurosurgery 02/16/23 documented as of this encounter
--- OUTSIDE RECORDS SUMMARY | 2024-10-13 17:12 | XMS_ITS | Encounter Summary ---
Author Organization [facility] Address [address] [place] [address] Care Team Providers Care Rat Breeder Name Role Phone Vilma Hollis Unavailable Anay Chandra MD Primary Care Provider Andrei Ruby APRN Unavailable Unavailabl Barry Ceron MD Unavailable Bakari Camilo MD Unavailable [phone] Brenda Almeida APRN Primary Care Provider Anya Chandra MD Unavailable [phone] Anay Chandra MD Primary Care Provider [phone] Brenda Almeida APRN Unavailable Babak Pickard MD Unavailable [phone] Anay Chandra MD Primary Care Provider [phone] Encounter Details Date Type Department Care Team (Late st Contact Info) Description 09/06/2019 Scanned Document [address] [phone] Anay Chandra MD [address] [place] [id number] Social History Tobacco Use Types Packs/Day Years [...] Description 12/05/2024 1:30 PM EDT Office Visit [address] [address] Anay Chandra MD [address] [place] [address] 01/04/2025 1:00 PM EDT Office Visit [facility] [address] [place] [address] Vishnu Hernandez MD [address] [place] [address] documented as of this encounter Goals Goal [...] and appt at the wound clinic in [place] on 08/23/18. documented as of this encounter Visit Diagnoses Not on filedocumented in this encounter Care Teams Rat Breeder Relationship Specialty Start Date End Date Anay Chandra MD PCP - General Internal Medicine 06/29/19 10/22/21 Brenda Almeida, MORTGAGE LOAN FUNDER [address] [place] [address] PCP - General Adult Health - PA/APNP/ANIMAL LABORATORY TECHNICIAN/MORTGAGE LOAN FUNDER 10/23/21 12/25/21 Anay Chandra MD [address] [place] [address] PCP - PCMH+ Attributed 08/17/21 2 Anay Chandra MD PCP - General Family Medicine 12/26/21 12/30/23 Brenda Almeida, MORTGAGE LOAN FUNDER [address] [place] [address] PCP - [facility] [place] Attributed 09/17/22 06/16/23 Anay Chandra MD [address] [place] [address] PCP - General Family Medicine 12/31/23 Vilma Hollis Emergency Medicine 04/28/18 Andrei Ruby APRN Nurse Practitioner Endocrinology 07/21/19 12/29/23 Barry Cornell MD Anesthesiologist Anesthesiology 10/03/19 10/03/19 Bakari Camilo MD Physician Ophthalmology 01/10/20 Babak Pickard MD [address] [place] [address] [address] [place] [address] Surgery, Neurosurgery 02/16/23 documented as of this encounter
--- OUTSIDE RECORDS SUMMARY | 2024-10-13 17:12 | XMS_ITS | Encounter Summary ---
Author Organization [facility] Address [address] [place] [address] Care Team Providers Care Rotoprinter Name Role Phone Vilma Hollis Unavailable Bakari Camilo MD Unavailable [phone] Babak Pickard MD Unavailable [phone] Anay Chandra MD Primary Care Provider [phone] Reason for Visit * Reason Comments Appointment Encounter Details Date Type Department Care Team (Late Contact Info) Description 04/25/[address] [address] Anay Chandra MD [address] [place], [place] [phone] Appointment Social History Tobacco Use Types Packs/Day Years [...] Encounters Date Type Department Care Team (Late Contact Info) Description 12/05/2024 1:30 PM EDT Office Visit [facility] [address] [facility] [place] [address] Anay Chandra MD [address] [place] [address] 01/04/2025 1:00 PM EDT Office Visit [facility] [place] [address] [place] [address] Vishnu Hernandez MD [address] [place] [address] documented as of this encounter Goals Goal [...] CICI. Intervention- to be seen today by COMMUNITY PROGRAM ASSISTANT and appt at the wound clinic in [place] on 08/23/18. 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
--- OUTSIDE RECORDS SUMMARY | 2024-10-13 17:12 | XMS_ITS | Encounter Summary ---
Author Organization [facility] Address [address] [place] [address] Care Team Providers Care Dental Services Director Name Role Phone Vilma Hollis Unavailable Bakari Camilo MD Unavailable [phone] Babak Pickard MD Unavailable [phone] Anay Chandra MD Primary Care Provider [phone] Encounter Details Date Type Department Care Team (Late st Contact Info) Description 04/28/2024 Telephone [facility] [address] [place] [address] Anay Chandra MD [address] [place] [id number] Social History Tobacco Use Types Packs/Day Years [...] encounter Miscellaneous Notes * Telephone Encounter - Anay Chandra MD - 05/27/2024 7:58 AM EDT Noted, thanks * Telephone Encounter - Nelida Chowdary LPN - 05/26/2024 1:26 PM EDT Letter needed by PCP because this is for replacement dentures, I had to add her dx of DM that's sheneeds to eat proper diet to maintain her diet . Letter sent to [place] [facility] to their emailas requested * Telephone Encounter - Anay Chandra MD - 05/26/2024 10:33 AM EDT I was under the impression her dentist was going to manage this, can we call them to clarify? I did write a letter in case they cannot, ok to print/send if needed Thanks * Telephone Encounter - Nelida Chowdary LPN - 05/26/2024 9:11 AM EDT Is this something you would like nursing to provide? Or do you want to set up a visit to discuss? * Telephone Encounter - Nelida Chowdary LPN - 05/04/2024 3:19 PM EDT Dvm left for pt ,asking her to call back to let nurse know the name and phone number to the dentis so nursing can call and see what is needed and why * Telephone Encounter - Nelida Chowdary LPN - 04/29/2024 9:43 AM EDT Vm left for pt regarding transport * Telephone Encounter - Anay Chandra MD - 04/29/2024 9:12 AM EDT Yes, transportation would need to be arranged by that specific office Thanks * Telephone Encounter - [place] Tee RN - 04/28/2024 3:30 PM EDT Duplicate- PCP comment re: replacement dentures: Needs to get a letter from dentist, this is not something I manage Thanks Called pt, LM to contact dentistb for appeal for dentures. Re: transportation, would that come from surgeon since its for a pre op appt? (LM for her to call surgeon and call us back if any issues) documented in this encounter Plan of Treatment Upcoming Encounters Date Type Department Care Team (Late st Contact Info) Description 12/05/2024 1:30 PM EDT Office Visit [address] [address] Anay Chandra MD [address] [place] [address] 01/04/2025 1:00 PM EDT Office Visit [facility] Endocrinology [address] [address] Vishnu Hernandez MD [address] [facility] [address] [place] [address] documented as of this encounter Goals Goal [...] CICI. Intervention- to be seen today by AIRLINE DISPATCHER and appt at the wound clinic in [place] on 08/23/18. 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 forepart laster strength B for improved ability to open [...] on filedocumented in this encounter Care Teams Dental Services Director Relationship Specialty Start Date End Date Anay Chandra MD [address] [place] [address] PCP - General Family Medicine 12/31/23 Vilma Hollis Emergency Medicine 04/28/18 Bakari Camilo MD Physician Ophthalmology 01/10/20 Babak Pickard MD [address] [place] [address] Surgery, Neurosurgery 02/16/23 documented as of this encounter
--- OUTSIDE RECORDS SUMMARY | 2024-10-13 17:12 | XMS_ITS | Encounter Summary ---
Author Organization [facility] Address [address] [place] [address] Care Team Providers Care Television News Video Editor Name Role Phone Anay Chandra MD Primary Care Provider [phone] Reason for Referral * Therapy (Routine) - Closed Specialty Diagnoses / Procedures Referred By Contac t Referred To Contact Pulmonology Diagnoses Asthma COPD (chronic obstructive pulmonary disease) ([facility]) Procedures Pulmonary function testing: Carbon Monoxide Diffusing Capacity, Maximum Voluntary Ventilation, Plethysmography, Spirometry with Bronchodilator Rajiv Segovia MD [address] [place] [address] Phone: tel: fax: [facility] [address] [place] [address] Phone: tel: Referral ID Status Reason Start Date Expiration Date Visits Re quested Visits Authorized [id number] Closed 09/09/2024 09/09/2025 1 1 Reason for Visit * Therapy (Routine) - Closed Specialty Diagnoses / Procedures Referred By Contac t Referred To Contact Pulmonology Diagnoses Asthma COPD (chronic obstructive pulmonary disease) ([facility]) Procedures Pulmonary function testing: Carbon Monoxide Diffusing Capacity, Maximum Voluntary Ventilation, Plethysmography, Spirometry with Bronchodilator Rajiv Segovia MD [address] [place] [address] Phone: tel: fax: [facility] [address] [place] [address] Phone: tel: Referral ID Status Reason Start Date Expiration Date Visits Re quested Visits Authorized [id number] Closed 09/09/2024 09/09/2025 1 1 Encounter Details Date Type Department Care Team (Latest Contact Info) Description 09/26/2024 1:00 PM EST - 09/26/2024 11:59 PM EST Hospital Encounter [facility] [address] [place] [address] Asthma; COPD (chronic obstructive pulmonary disease) ([facility]) Discharge Disposition: Home or Self Care Social History Tobacco Use Types Packs/Day Years [...] Orientation Straight 09/21/2024 10 :27 AM EST documented as of this encounter Discharge Disposition Disposition Code Departure Means Destination Home or Self Care documented in this encounter Procedure Notes * Rajiv Segovia MD - 09/26/2024 1:00 PM EST Daysi Washburn : 1960 Date of Study: 09/26/24 Pulmonary Function Test 1) Spirometry: Spirometry results in the shape of the flow-volume loop are within normal limits. The response to bronchodilators was not considered significant this does not preclude their use. 2) Lung Volumes: Lung volume results show an increased total lung capacity consistent with hyperinflation. There was an increase for some residual capacity and increased residual volume consistent with air trapping. 3) Diffusion: Diffusion is mildly decreased but corrects when considering alveolar volume. Interpretation: Hyperinflation with good pulmonary function Comments: Rajiv Segovia MD 10/01/2024 2:56 PM EST documented in this encounter Plan of Treatment Pending Results Name Type Priority Associated Diagnoses Date /Time Pulmonary function testing: Carbon Monoxide Diffusing Capacity, Maximum Voluntary Ventilation, Plethysmography, Spirometry with Bronchodilator PFT Routine Asthma COPD (chronic obstructive pulmonary disease) ([facility]) 09/26/2024 2:00 PM EST Scheduled Orders Name Type Priority Associated Diagnoses Orde r Schedule Pulmonary function testing: Carbon Monoxide Diffusing Capacity, Maximum Voluntary Ventilation, Plethysmography, Spirometry with Bronchodilator PFT Routine Asthma COPD (chronic obstructive pulmonary disease) ([facility]) Once for 1 Occurrences starting 09/26/2024 until 09/26/2024 documented as of this encounter Visit Diagnoses Diagnosis Asthma Unspecified asthma COPD (chronic obstructive pulmonary disease) ([facility]) Chronic airway obstruction, not elsewhere classified documented in this encounter Orders Medications Ordered That Homer ht Not Have Been Administered Count Last Ordered Date First Ordered Date albuterol 2.5 mg /3 mL (0.08 3 %) nebulizer solution - ADS Override Pull 1 09/26/2024 documented in this encounter Care Teams Television News Video Editor Relationship Specialty Start Date End Date Anay Chandra MD [address] [facility] [address] [place] [address] PCP - General 12/16/19 documented as of this encounter
--- OUTSIDE RECORDS SUMMARY | 2024-10-13 17:12 | XMS_ITS | Encounter Summary ---
Author Organization [facility] Address [address] [place] [address] Care Team Providers Care Edge Inker Uppers Name Role Phone Milka Cueva APRN Primary Care Provider [phone] Vilma Hollis Unavailable Milka Cueva APRN Unavailable [phone] Raisa Pittman MD Primary Care Provid er Anay Chandra MD Primary Care Provider [phone] Andrei Ruby APRN Unavailable Unavailabl e Barry Cornell MD Unavailable [phone] Bakari Camilo MD Unavailable [phone] Brenda Almeida APRN Primary Care Provider [phone] Anay Chandra MD Unavailable [phone] Anay Chandra MD Primary Care Provider [phone] Brenda Almeida APRN Unavailable [phone] Babak Pickard MD Unavailable [phone] Anay Chandra MD Primary Care Provider [phone] Encounter Details Date Type Department Care Team (Late st Contact Info) Description 11/16/2017 Scanned Document [address] [address] Provider, Generic Social History Tobacco Use Types [...] Description 12/05/2024 1:30 PM EDT Office Visit [address] [address] Anay Chandra MD [address] [place] [address] 01/04/2025 1:00 PM EDT Office Visit [facility] Endocrinology [address] [address] Vishnu Hernandez MD [address] [place] [address] documented as of this encounter Visit Diagnoses Not on filedocumented in this encounter Care Teams Edge Inker Uppers Relationship Specialty Start Date End Date Milka Cueva APRN [address] [place] [address] PCP - General Internal Medicine 03/10/17 05/22/19 Milka Cueva APRN [address] [address] PCP - MSSP Attributed 02/14/19 9 Raisa Pittman MD [address] [address] PCP - General Family Medicine 05/23/19 06/28/19 Anay Chandra MD [address] [place] [address] PCP - General Internal Medicine 06/29/19 10/22/21 Brenda Almeida, CASTING AND PASTING SUPERVISOR [address] [place], [place] [id number] PCP - General Adult Health - PA/APNP/POLLUTION CONTROL ENGINEER/CASTING AND PASTING SUPERVISOR 10/23/21 12/25/21 Anay Chandra MD [address] [place] [address] PCP - PCMH+ Attributed 08/17/21 2 Anay Chandra MD 5 [facility] [address] [address] PCP - General Family Medicine 12/26/21 12/30/23 Brenda Almeida, CASTING AND PASTING SUPERVISOR [address] [place], [place] [address] PCP - [facility] [place] Attributed 09/17/22 06/16/23 Anay Chandra MD [address] [place] [address] PCP - General Family Medicine 12/31/23 Vilma Hollis [address] [place], [place] [id number] Emergency Medicine 04/28/18 Andrei Ruby APRN 5 [facility] [address] [place] [address] Nurse Practitioner Endocrinology 07/21/19 12/29/23 Barry Cornell MD 5 [facility] [address] [place] [address] Anesthesiologist Anesthesiology 10/03/19 10/03/19 Bakari Camilo MD 5 [facility] [address] [address] Physician Ophthalmology 01/10/20 Babak Pickard MD [address] [place] [address] [address] [place] [address] Surgery, Neurosurgery 02/16/23 documented as of this encounter
--- OUTSIDE RECORDS SUMMARY | 2024-10-13 17:12 | XMS_ITS | Encounter Summary ---
Author Organization [facility] Address [address] [place] [address] Care Team Providers Care Parish Worker Name Role Phone Milka Cueva APRN Primary Care Provider [phone] Vilma Hollis Unavailable Milka uCeva APRN Unavailable [phone] Raisa Pittman MD Primary Care Provid er Anay Chandra MD Primary Care Provider [phone] Andrei Ruby APRN Unavailable Unavailabl e Barry Cornell MD Unavailable [phone] Bakari Camilo MD Unavailable [phone] Brenda Almeida APRN Primary Care Provider [phone] Anay Chandra MD Unavailable [phone] Anay Chandra MD Primary Care Provider [phone] Brenda Almeida APRN Unavailable [phone] Babak Pickard MD Unavailable [phone] Anay Chandra MD Primary Care Provider [phone] Encounter Details Date Type Department Care Team (Late st Contact Info) Description 05/21/2017 Scanned Document [address] [address] Provider, Generic Social History Tobacco Use Types [...] Description 12/05/2024 1:30 PM EDT Office Visit [address] [address] Anay Chandra MD [address] [place] [address] 01/04/2025 1:00 PM EDT Office Visit [facility] Endocrinology [address] [address] Vishnu Hernandez MD [address] [place] [address] documented as of this encounter Visit Diagnoses Not on filedocumented in this encounter Care Teams Parish Worker Relationship Specialty Start Date End Date Milka Cueva APRN [address] [place] [address] PCP - General Internal Medicine 03/10/17 05/22/19 Milka Cueva APRN [address] [address] PCP - MSSP Attributed 02/14/19 9 Raisa Pittman MD [address] [address] PCP - General Family Medicine 05/23/19 06/28/19 Anay Chandra MD [address] [place] [address] PCP - General Internal Medicine 06/29/19 10/22/21 Brenda Almeida, TOOL CRIB SUPERVISOR [address] [place], [place] [address] PCP - General Adult Health - PA/APNP/ORACLE ADF CONSULTANT/TOOL CRIB SUPERVISOR 10/23/21 12/25/21 Anay Chandra MD [address] [place] [address] PCP - PCMH+ Attributed 08/17/21 2 Anay Chandra MD 5 [facility] [address] [address] PCP - General Family Medicine 12/26/21 12/30/23 Brenda Almeida, TOOL CRIB SUPERVISOR [address] [place], [place] [address] PCP - [facility] [place] Attributed 09/17/22 06/16/23 Anay Chandra MD [address] [place] [address] PCP - General Family Medicine 12/31/23 Vilma Hollis [address], [place] [phone] Emergency Medicine 04/28/18 Andrei Ruby APRN 5 [facility] [address] [place] [address] Nurse Practitioner Endocrinology 07/21/19 12/29/23 Barry Cornell MD 5 [facility] [address] [place] [address] Anesthesiologist Anesthesiology 10/03/19 10/03/19 Bakari Camilo MD 5 [facility] [address] [address] Physician Ophthalmology 01/10/20 Babak Pickard MD [address] [place] [address] [address] [place] [address] Surgery, Neurosurgery 02/16/23 documented as of this encounter
--- OUTSIDE RECORDS SUMMARY | 2024-10-13 17:12 | XMS_ITS | Encounter Summary ---
Author Organization [facility] Address [address] [place] [address] Care Team Providers Care Blind Eyeletter Name Role Phone Milka Cueva APRN Primary Care Provider [phone] Vilma Hollis Unavailable Milka Cueva APRN Unavailable [phone] Raisa Pittman MD Primary Care Provid er Anay Chandra MD Primary Care Provider [phone] Andrei Ruby APRN Unavailable Unavailabl e Barry Cornell MD Unavailable [phone] Bakari Camilo MD Unavailable Brenda Almeida APRN Primary Care Provider [phone] Anay Chandra MD Unavailable [phone] Anay Chandra MD Primary Care Provider [phone] Brenda Almeida APRN Unavailable [phone] Babak Pickard MD Unavailable [phone] Anay Chandra MD Primary Care Provider [phone] Reason for Visit * Reason Onset Date Comments [facility] 06/24/2017 Encounter Details Date Type Department Care Team (Late st Contact Info) Description 06/24/2017 Telephone [facility] [address] [place] [address] Milka Cueva APRN [address] [address] [facility] Social History Tobacco Use Types Packs/Day Years [...] Telephone Encounter - Mary Corral LPN - 06/24/2017 10:24 AM EST Pretty at [facility] aware that Wang is the physician * Telephone Encounter - Shannon Man - 06/24/2017 9:49 AM EST [facility], Pretty, called in reference to her receiving a call from Mary from [facility] [place]. [facility] , Pretty stated she wants to speak to [facility] [place] in reference to This patients plan of care orders please contact Pretty [facility] , lavinia at [phone] documented in this encounter Plan of Treatment Upcoming Encounters Date Type Department Care Team (Late st Contact Info) Description 12/05/2024 1:30 PM EDT Office Visit [address] [phone] Anay Chandra MD [address] [place] [address] 01/04/2025 1:00 PM EDT Office Visit [facility] Endocrinology [place] 100 [facility] [address] [place] [address] Vishnu Hernandez MD [address] [facility] [address] [place] [address] documented as of this encounter Visit Diagnoses Not on filedocumented in this encounter Care Teams Blind Eyeletter Relationship Specialty Start Date End Date Milka Cueva APRN [address] [place] [address] PCP - General Internal Medicine 03/10/17 05/22/19 Milka Cueva APRN 5 [facility] [address] [address] PCP - MSSP Attributed 02/14/19 9 Raisa Pittman MD 5 [facility] [address] [address] PCP - General Family Medicine 05/23/19 06/28/19 Anay Chandra MD 5 [facility] [address] [address] PCP - General Internal Medicine 06/29/19 10/22/21 Brenda Almeida APRN [address] [place] [address] PCP - General Adult Health - PA/APNP/COUNTY JUDGE/REGULATORY AND COMPLIANCE TECHNICIAN 10/23/21 12/25/21 Anay Chandra MD [address] [place] [address] PCP - PCMH+ Attributed 08/17/21 2 Anay Chandra MD [address] [place] [address] PCP - General Family Medicine 12/26/21 12/30/23 Brenda Almeida APRN [address] [place] [address] PCP - [facility] [place] Attributed 09/17/22 06/16/23 Anay Chandra MD [address] [place] [address] PCP - General Family Medicine 12/31/23 Vilma Hollis [address] [place] [address] Emergency Medicine 04/28/18 Andrei Ruby APRN 5 [facility] [address] [place] [address] Nurse Practitioner Endocrinology 07/21/19 12/29/23 Barry Cornell MD 5 [facility] [address] [place] [address] Anesthesiologist Anesthesiology 10/03/19 10/03/19 Bakari Camilo MD [address] [place] [address] Physician Ophthalmology 01/10/20 Babak Pickard MD [address] [place] [address] [address] [place] [address] Surgery, Neurosurgery 02/16/23 documented as of this encounter
--- OUTSIDE RECORDS SUMMARY | 2024-10-13 17:12 | XMS_ITS | Encounter Summary ---
Author Organization [facility] Address [address] [place] [address] Care Team Providers Care Clay Processing Labourer Name Role Phone Vilma Hollis Unavailable Bakari Camilo MD Unavailable [phone] Babak Pickard MD Unavailable [phone] Anay Chandra MD Primary Care Provider [phone] Encounter Details Date Type Department Care Team (Late st Contact Info) Description 01/22/2024 Scanned Document [facility] PRIMARY CARE SCAN Primary Care, Scan [...] 12/05/2024 1:30 PM EDT Office Visit [address] [phone] Anay Chandra MD [address] [place] [phone] 01/04/2025 1:00 PM EDT [facility] Visit [facility] Endocrinology [place] 100 [facility] [address] [place] [address] Vishnu Hernandez MD [address] [place] [address] [place] [address] documented as of this encounter Goals Goal [...] Intervention- to be seen today by CERTIFIED SURGICAL TECH/FIRST ASSISTANT and appt at the wound clinic in [place] on 08/23/18. 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
--- OUTSIDE RECORDS SUMMARY | 2024-10-13 17:12 | XMS_ITS | Encounter Summary ---
Author Organization [facility] Address [address] [place] [address] Care Team Providers Care Systems Programmer Name Role Phone Vilma Hollis Unavailable Bakari Camilo MD Unavailable [phone] Babak Pickard MD Unavailable [phone] Anay Chandra MD Primary Care Provider [phone] Reason for Visit * Reason Comments Letter for School/Work Other Encounter Details Date Type Department Care Team (Late st Contact Info) Description 04/27/[address] [address] Anay Chandra MD [address] [place] [address] Letter for School/Work; Other Social History Tobacco Use Types Packs/Day [...] encounter Miscellaneous Notes * Telephone Encounter - Kathleen Tee RN - 04/28/2024 3:31 PM EDT Duplicate, see other encounter * Telephone Encounter - Anay Chandra MD - 04/28/2024 10:55 AM EDT Needs to get a letter from dentist, this is not something I manage Thanks * Telephone Encounter - Kathleen Tee RN - 04/27/2024 1:20 PM EDT Appropriate to try to appeal for replacement dentures? documented in this encounter Plan of Treatment Upcoming Encounters Date Type Department Care Team (Late st Contact Info) Description 12/05/2024 1:30 PM EDT Office Visit [address] [address] Aany Chandra MD [address] [place] [address] 01/04/2025 1:00 PM EDT Office Visit [facility] Endocrinology [address] [address] Vishnu Hernandez MD [address] [place] [address] [place] [address] documented as of this encounter Goals Goal [...] CICI. Intervention- to be seen today by SHOW JUMPING INSTRUCTOR and appt at the wound clinic in [place] on 08/23/18. 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 nuclear medicine tech strength B for improved ability to [...] on filedocumented in this encounter Care Teams Systems Programmer Relationship Specialty Start Date End Date Anay Chandra MD [address] [place] [address] PCP - General Family Medicine 12/31/23 Vilma Hollis Emergency Medicine 04/28/18 Bakari Camilo MD Physician Ophthalmology 01/10/20 Babak Pickard MD [address] [place] [address] Surgery, Neurosurgery 02/16/23 documented as of this encounter
--- OUTSIDE RECORDS SUMMARY | 2024-10-13 17:12 | XMS_ITS | Encounter Summary ---
Author Organization [facility] Address [address] [place] [address] Care Team Providers Care Chalk Molding Machine Operator Name Role Phone Milka Cueva APRN Primary Care Provider [phone] Vilma Hollsi Unavailable Milka Cueva APRN Unavailable [phone] Raisa Pittman MD Primary Care Provid er Anay Chandra MD Primary Care Provider [phone] Andrei Ruby APRN Unavailable Unavailabl e Barry Cornell MD Unavailable [phone] Bakari Camilo MD Unavailable [phone] Brenda Almeida APRN Primary Care Provider [phone] Anay Chandra MD Unavailable [phone] Anay Chandra MD Primary Care Provider [phone] Brenda Almeida APRN Unavailable [phone] Babak Pickard MD Unavailable [phone] Anay Chandra MD Primary Care Provider [phone] Encounter Details Date Type Department Care Team (Late st Contact Info) Description 08/27/2017 Scanned Document [address] [address] Provider, Generic Social History Tobacco Use Types [...] 12/05/2024 1:30 PM EDT Office Visit [address] [address] Anay Chandra MD [address] [place] [address] 01/04/2025 1:00 PM EDT Office Visit [facility] Endocrinology [address] [address] Vishnu Hernandez MD [address] [place] [address] documented as of this encounter Visit Diagnoses Not on filedocumented in this encounter Care Teams Chalk Molding Machine Operator Relationship Specialty Start Date End Date Milka Cueva APRN [address] [place] [address] PCP - General Internal Medicine 03/10/17 05/22/19 Milka Cueva APRN [address] [address] PCP - MSSP Attributed 02/14/19 9 Raisa Pittman MD [address] [address] PCP - General Family Medicine 05/23/19 06/28/19 Anay Chandra MD 5 [facility] [address] [place] [address] PCP - General Internal Medicine 06/29/19 10/22/21 Brenda Almeida, BIOSOLIDS MANAGEMENT TECHNICIAN [address] [place], [place] [address] PCP - General Adult Health - PA/APNP/CARPET INSTALLATION SPECIALIST/BIOSOLIDS MANAGEMENT TECHNICIAN 10/23/21 12/25/21 Anay Chandra MD [address] [place] [address] PCP - PCMH+ Attributed 08/17/21 2 Anay Chandra MD 5 [facility] [address] [place] [address] PCP - General Family Medicine 12/26/21 12/30/23 Brenda Almeida, BIOSOLIDS MANAGEMENT TECHNICIAN [address] [place], [place] [address] PCP - [facility] [place] Attributed 09/17/22 06/16/23 Anay Chandra MD [address] [place] [address] PCP - General Family Medicine 12/31/23 Vilma Hollis [address], [place] [phone] Emergency Medicine 04/28/18 Andrei Ruby APRN 5 [facility] [address] [place] [address] Nurse Practitioner Endocrinology 07/21/19 12/29/23 Barry Cornell MD 5 [facility] [address] [place] [address] Anesthesiologist Anesthesiology 10/03/19 10/03/19 Bakari Camilo MD 5 [facility] [address] [address] Physician Ophthalmology 01/10/20 Babak Pickard MD [address] [place] [address] [address] [place] [address] Surgery, Neurosurgery 02/16/23 documented as of this encounter
--- OUTSIDE RECORDS SUMMARY | 2024-10-13 17:12 | XMS_ITS | Encounter Summary ---
Author Organization [facility] Address [address] [place] [address] Care Team Providers Care Dining Room Helper Name Role Phone Milka Cueva APRN Primary Care Provider [phone] Vilma Hollis Unavailable Milka Cuvea APRN Unavailable [phone] Raisa Pittman MD Primary Care Provid er Anay Chandra MD Primary Care Provider [phone] Andrei Ruby APRN Unavailable Unavailabl e Barry Cornell MD Unavailable [phone] Bakari Camilo MD Unavailable [phone] Brenda Almeida APRN Primary Care Provider [phone] Anay Chandra MD Unavailable [phone] Anay Chandra MD Primary Care Provider [phone] Brenda Almeida APRN Unavailable [phone] Babak Pickard MD Unavailable [phone] Anay Chandra MD Primary Care Provider [phone] Encounter Details Date Type Department Care Team (Late st Contact Info) Description 06/02/2017 Scanned Document [address] [address] Provider, Generic Social History Tobacco Use Types [...] Description 12/05/2024 1:30 PM EDT Office Visit [address] [address] Anay Chandra MD [address] [place] [address] 01/04/2025 1:00 PM EDT Office Visit [facility] Endocrinology [place] 100 [facility] 101 [place] [address] Vishnu Hernandez MD 100 [facility] 101 [place] [address] documented as of this encounter Procedures Procedure Name Priority Date/Time Associated Diagnosis Comments HOME CARE SIGNED ORDERS 06/02/2017 documented in this encounter Results * HOME CARE SIGNED ORDERS (06/02/2017) Narrative 06/02/2017 Ordered by an unspecified provider. Generic Provider HX AMB PROCEDURES NO RESULTS ROUTING documented in this encounter Visit Diagnoses Not on filedocumented in this encounter Care Teams Dining Room Helper Relationship Specialty Start Date End Date Milka Cueva APRN [address] [facility] [place] [address] PCP - General Internal Medicine 03/10/17 05/22/19 Milka Cueva APRN [address] [place] [address] PCP - MSSP Attributed 02/14/19 9 Raisa Pittman MD [address] [place] [address] PCP - General Family Medicine 05/23/19 06/28/19 Anay Chandra MD [address] [place] [address] PCP - General Internal Medicine 06/29/19 10/22/21 Brenda Almeida, BUSINESS SYSTEM CONSULTANT [address] [place] [address] PCP - General Adult Health - PA/APNP/SAP PPM CONSULTANT/BUSINESS SYSTEM CONSULTANT 10/23/21 12/25/21 Anay Chandra MD [address] [place] [address] PCP - PCMH+ Attributed 08/17/21 2 Anay Chandra MD [address] [place] [address] PCP - General Family Medicine 12/26/21 12/30/23 Brenda Almeida, BUSINESS SYSTEM CONSULTANT [address] [place] [address] PCP - [facility] [place] Attributed 09/17/22 06/16/23 Anay Chandra MD [address] [place] [address] PCP - General Family Medicine 12/31/23 Vilma Hollis [address] [place] [address] Emergency Medicine 04/28/18 Andrei Ruby APRN 5 [facility] [address] [place] [address] Nurse Practitioner Endocrinology 07/21/19 12/29/23 Barry Cornell MD 5 [facility] [address] [address] Anesthesiologist Anesthesiology 10/03/19 10/03/19 Bakari Camilo MD [address] [address] Physician Ophthalmology 01/10/20 Babak Pickard MD [address] [place] [address] [address] [place] [address] Surgery, Neurosurgery 02/16/23 documented as of this encounter
--- OUTSIDE RECORDS SUMMARY | 2024-10-13 17:13 | XMS_ITS | Encounter Summary ---
Author Organization [facility] Address [address] [place] [address] Care Team Providers Care Decontamination Technician Name Role Phone Vilma Hollis Unavailable Milka Cueva APRN Unavailable [phone] Anay Chandra MD Primary Care Provider [phone] Andrei Ruby TURNING SANDER OPERATOR Unavailable Unavailabl e Barry Cornell MD Unavailable [phone] Bakari Camilo MD Unavailable [phone] Brenda Almeida APRN Primary Care Provider Anay Chandra MD Unavailable [phone] Anay Chandra MD Primary Care Provider [phone] Brenda Almeida APRN Unavailable [phone] Babak Pickard MD Unavailable [phone] Anay Chandra MD Primary Care Provider [phone] Reason for Visit * Reason Comments Medication Refill Encounter Details Date Type Department Care Team (Late st Contact Info) Description 07/23/[address] [address] Milka Cueva APRN [address] [address] Chronic non-seasonal allergic rhinitis Social History Tobacco Use Types Packs/Day Years [...] 12/05/2024 1:30 PM EDT Office Visit [address] [address] Anay Chandra MD [address] [place] [address] 01/04/2025 1:00 PM EDT Office Visit [facility] Endocrinology [place] 100 [facility] 101 [place] [address] Vishnu Hernandez MD [address] [place] [address] documented as of this encounter Goals Goal [...] CICI. Intervention- to be seen today by TURNING SANDER OPERATOR and appt at the wound clinic in [place] on 08/23/18. documented as of this encounter Visit Diagnoses Diagnosis Chronic non-seasonal allergic rhinitis documented in this encounter Care Teams Decontamination Technician Relationship Specialty Start Date End Date AnayMilka mirandaINGE 5 [facility] [place] [address] PCP - MSSP Attributed 02/14/19 9 Anay Chandra MD 5 [facility] [place] [phone] PCP - General Internal Medicine 06/29/19 10/22/21 Brenda Almeida APRN [address] [place] [address] PCP - General Adult Health - PA/APNP/HEEL ROOM SUPERVISOR/TURNING SANDER OPERATOR 10/23/21 12/25/21 Anay Chandra MD [address] [place], [place] [id number] PCP - PCMH+ Attributed 08/17/21 2 Anay Chandra MD [address] [place] [id number] PCP - General Family Medicine 12/26/21 12/30/23 Brenda Almeida APRN [address] [place] [address] PCP - [facility] [place] Attributed 09/17/22 06/16/23 Anay Chandra MD [address] [place], [place] [address] PCP - General Family Medicine 12/31/23 Vilma Hollis Emergency Medicine 04/28/18 Andrei Ruby APRN 5 [facility] [address] [place] [address] Nurse Practitioner Endocrinology 07/21/19 12/29/23 Barry Cornell MD 5 [facility] [address] [place] [address] Anesthesiologist Anesthesiology 10/03/19 10/03/19 Bakari Camilo MD 5 [facility] [address] [place] [address] Physician Ophthalmology 01/10/20 Babak Pickard MD [address] [place] [address] [address] [place] [address] Surgery, Neurosurgery 02/16/23 documented as of this encounter
--- OUTSIDE RECORDS SUMMARY | 2024-10-13 17:13 | XMS_ITS | Encounter Summary ---
Author Organization [facility] Address 100 [place] [address] Care Team Providers Care Microbiology Coordinator Name Role Phone Milka Cueva APRN Primary Care Provider [phone] Vilma Hollis Unavailable Milka Cueva APRN Unavailable [phone] Raisa Pittman MD Primary Care Provid er Anay Chandra MD Primary Care Provider [phone] Andrei Ruby APRN Unavailable Unavailabl e Barry Cornell MD Unavailable [phone] Bakari Camilo MD Unavailable [phone] Brenda Almeida APRN Primary Care Provider [phone] Anay Chandra MD Unavailable [phone] Anay Chandra MD Primary Care Provider [phone] Brenda Almeida APRN Unavailable [phone] Babak Pickard MD Unavailable [phone] Anay Chandra MD Primary Care Provider [phone] Encounter Details Date Type Department Care Team (Late st Contact Info) Description 09/10/2017 Scanned Document [address] [address] Provider, Generic Social History Tobacco Use Types [...] Description 12/05/2024 1:30 PM EDT Office Visit [address] [address] Anay Chandra MD [address] [place] [address] 01/04/2025 1:00 PM EDT Office Visit [facility] Endocrinology [address] [address] Vishnu Hernandez MD [address] [place] [address] documented as of this encounter Visit Diagnoses Not on filedocumented in this encounter Care Teams Microbiology Coordinator Relationship Specialty Start Date End Date Milka Cueva APRN [address] [place] [address] PCP - General Internal Medicine 03/10/17 05/22/19 Milka Cueva APRN [address] [address] PCP - MSSP Attributed 02/14/19 9 Raisa Pittman MD [address] [address] PCP - General Family Medicine 05/23/19 06/28/19 Anay Chandra MD 5 [facility] [address] [place] [address] PCP - General Internal Medicine 06/29/19 10/22/21 Brenda Almeida, ELEMENTARY SCHOOL TEACHER [address] [place], [place] [address] PCP - General Adult Health - PA/APNP/BUILD MANAGER/ELEMENTARY SCHOOL TEACHER 10/23/21 12/25/21 Anay Chandra MD [address] [place] [address] PCP - PCMH+ Attributed 08/17/21 2 Anay Chandra MD 5 [facility] [address] [place] [address] PCP - General Family Medicine 12/26/21 12/30/23 Brenda Almeida, ELEMENTARY SCHOOL TEACHER [address] [place], [place] [phone] PCP - [facility] [place] Attributed 09/17/22 06/16/23 Anay Chandra MD [address] [place] [address] PCP - General Family Medicine 12/31/23 Vilma Hollis [address] [place], [place] [phone] Emergency Medicine 04/28/18 Andrei Ruby APRN 5 [facility] [address] [place] [address] Nurse Practitioner Endocrinology 07/21/19 12/29/23 Barry Cornell MD 5 [facility] [address] [place] [address] Anesthesiologist Anesthesiology 10/03/19 10/03/19 Bakair Camilo MD 5 [facility] [address] [address] Physician Ophthalmology 01/10/20 Babak Pickard MD [address] [place] [address] [address] [place] [address] Surgery, Neurosurgery 02/16/23 documented as of this encounter
--- OUTSIDE RECORDS SUMMARY | 2024-10-13 17:13 | XMS_ITS | Encounter Summary ---
Author Organization [facility] Address [address] [place] [address] Care Team Providers Care Wallboard Worker Name Role Phone Anay Chandra Primary Care Provider [phone] Latrice Norris MD Unavailable [phone] Tom Adame MD Unavailable [phone] Anay Chandra Unavailable Encounter Details Date Type Department Care Team (Late st Contact Info) Description 11/21/2019 Orders Only [facility] Jossy and Marcel Hutson [facility]- Hematology Oncology [address] [place], [place] [address] Aileen Julien, ISIDRA [address] [place] [address] Social History Tobacco Use Types Packs/Day Years Used Date Smoking Tobacco: Every Day Cigarettes Last attempted to quit: 08/30/2018 Smokeless Tobacco: Never Alcohol Use Standard Drinks/Week Comments No 0 (1 standard drink = 0.6 oz pur e alcohol) Comments No Sex and Gender Information Value Date Recorded Sex Assigned at Not on file Legal Sex Female 1:54 AM EST Gender Identity Not on file Sexual Orientation Not on file COVID-19 Exposure Response Date Recorded In the last month, have you been in contact with someone who was confirmed or suspected to have Coronavirus / COVID-19? No / Unsure 11/22/2019 1:01 PM EDT documented as of this encounter Plan of Treatment Upcoming Encounters Date Type Department Care Team (Late st Contact Info) Description 11/29/2024 1:20 PM EDT Office Visit [facility] Department of Neurology [address] [phone] Tom Adame MD [address] [place] [address] [place] [address] documented as of this encounter Visit Diagnoses Not on filedocumented in this encounter Additional Health Concerns Infection Onset Date Last Indicated Resolved Time (Rule out) COVID-19 03/26/2021 03/26/2021 03/26/20 10:51 PM EDT documented as of this encounter Care Teams Wallboard Worker Relationship Specialty Start Date End Date Anay Chandra [address] [place] [address] PCP - General 09/01/19 Anay Chandra [address] [place] [address] PCP - Insurance Payer PCP 06/15/23 Latrice Norris MD [address] [place] [address] Consulting Physician Obstetrics and Gynecology 04/19/21 Tom Adame MD [address] [place] [address] Neurology [place], [place] Consulting Physician Neurology 08/19/21 documented as of this encounter
--- OUTSIDE RECORDS SUMMARY | 2024-10-13 17:13 | XMS_ITS | Encounter Summary ---
Author Organization [facility] Address [address] [place] [address] Care Team Providers Care Health Information Internship Name Role Phone Vilma Hollis Unavailable Milka Cueva APRN Unavailable [phone] Anay Chandra MD Primary Care Provider [phone] Andrei Ruby CAR GREASER Unavailable Unavailabl e Barry Cornell MD Unavailable Bakari Camilo MD Unavailable [phone] Brenda Almeida APRN Primary Care Provider Anay Chandra MD Unavailable [phone] Anay Chandra MD Primary Care Provider Brenda Almeida APRN Unavailable [phone] Babak Pickard MD Unavailable [phone] Anay Chandra MD Primary Care Provider [phone] Encounter Details Date Type Department Care Team (Late st Contact Info) Description 07/20/2019 Scanned Document [facility] [place] [address] 85 [facility] [address] [place] [phone] Melodie Chacon DO 85 [facility] [address] [place], [place] [phone] Social History Tobacco Use Types Packs/Day Years [...] 12/05/2024 1:30 PM EDT Office Visit [address] [address] Anay Chandra MD [address] [place] [address] 01/04/2025 1:00 PM EDT Office Visit [facility] Endocrinology [place] 100 [facility] 101 [place] [address] Vishnu Hernandez MD [address] [facility] [address] [place] [address] documented as of this encounter Goals Goal Patient Goal Type Associated Problems Recent Progress Patient-Stated? Author <enter goal here> General On track( 019 2:36 PM EST) Yes Norma Junior RN Note: Problem- smoking on Chantix- down to 5 cigarettes per day. Goal- Pt's quit date is 08/17/18 Intervention- continue on Chantix per prescribing by Mikla Cueva APRN. <enter goal here> General Improving( 2:36 PM EST) Yes Norma Junior RN Note: Problem- new onset of pain where closed wound is. Goal- concerns of pain to be addressed CICI. Intervention- to be seen today by INGE and appt at the wound clinic in [place] on 08/23/18. documented as of this encounter Visit Diagnoses Not on filedocumented in this encounter Care Teams Health Information Internship Relationship Specialty Start Date End Date Anay MilkaINGE 5 [facility] [place] [address] PCP - MSSP Attributed 02/14/19 9 Anay Chandra MD 5 [facility] [place] [address] [address] PCP - General Internal Medicine 06/29/19 10/22/21 Brenda Almeida, CAR GREASER [address] [place] [address] PCP - General Adult Health - PA/APNP/INDUSTRIAL GAS SERVICER/CAR GREASER 10/23/21 12/25/21 Anay Chandra MD [address] [place] [address] PCP - PCMH+ Attributed 08/17/21 2 Anay Chandra MD 5 [facility] [place] [phone] PCP - General Family Medicine 12/26/21 12/30/23 Brenda Almeida, CAR GREASER [address] [place] [address] PCP - [facility] [place] Attributed 09/17/22 06/16/23 Anay Chandra MD [address] [place] [address] PCP - General Family Medicine 12/31/23 Vilma Hollis Emergency Medicine 04/28/18 Andrei Ruby APRN 5 [facility] [place] [phone] Nurse Practitioner Endocrinology 07/21/19 12/29/23 Barry Cornell MD 5 [facility] [place] [address] [address] Anesthesiologist Anesthesiology 10/03/19 10/03/19 Bakari Camilo MD 5 [facility] [place] [address] [address] Physician Ophthalmology 01/10/20 Babak Pickard MD [address] [place] [address] [address] [place] [address] Surgery, Neurosurgery 02/16/23 documented as of this encounter
--- OUTSIDE RECORDS SUMMARY | 2024-10-13 17:13 | XMS_ITS | Encounter Summary ---
Author Organization [facility] Address [address] [place] [address] Care Team Providers Care Small Appliance Assembly Supervisor Name Role Phone Milka Cueva APRN Primary Care Provider [phone] Vilma Hollis Unavailable Milka Cueva APRN Unavailable [phone] Raisa Pittman MD Primary Care Provid er Anay Chandra MD Primary Care Provider [phone] Andrei Ruby APRN Unavailable Unavailabl e Barry Cornell MD Unavailable [phone] Bakari Camilo MD Unavailable [phone] Brenda Almeida APRN Primary Care Provider [phone] Anay Chandra MD Unavailable [phone] Aany Chandra MD Primary Care Provider [phone] Brenda Almeida APRN Unavailable [phone] Babak Pickard MD Unavailable [phone] Anay Chandra MD Primary Care Provider [phone] Encounter Details Date Type Department Care Team (Late st Contact Info) Description 05/16/2019 Scanned Document [address] [address] Provider, Generic Social History Tobacco Use Types [...] 12/05/2024 1:30 PM EDT Office Visit [address] [address] Anay Chandra MD [address] [place] [address] 01/04/2025 1:00 PM EDT Office Visit [facility] Endocrinology [place] 100 [facility] [address] [place] [address] Vishnu Hernandez MD [address] [place] [address] documented as of this encounter Goals Goal [...] CICI. Intervention- to be seen today by CARDIOLOGY MANAGER and appt at the wound clinic in [place] on 08/23/18. documented as of this encounter Visit Diagnoses Not on filedocumented in this encounter Care Teams Small Appliance Assembly Supervisor Relationship Specialty Start Date End Date Milka Cueva APRN [address] [place] [address] PCP - General Internal Medicine 03/10/17 05/22/19 Milka Cueva APRN 5 [facility] [address] [place] [address] PCP - MSSP Attributed 02/14/19 9 Raisa Pittman MD 5 [facility] [address] [place] [address] PCP - General Family Medicine 05/23/19 06/28/19 Anay Chandra MD 5 [facility] [address] [place] [address] PCP - General Internal Medicine 06/29/19 10/22/21 Brenda Almeida APRN [address] [place], [place] [address] PCP - General Adult Health - PA/APNP/MANAGER FLIGHT OPERATIONS/CARDIOLOGY MANAGER 10/23/21 12/25/21 Anay Chandra MD [address] [place] [address] PCP - PCMH+ Attributed 08/17/21 2 Anay Chandra MD 5 [facility] [address] [place] [address] PCP - General Family Medicine 12/26/21 12/30/23 Brenda Almeida APRN [address] [place] [address] PCP - [facility] [place] Attributed 09/17/22 06/16/23 Anay Chandra MD [address] [place] [address] PCP - General Family Medicine 12/31/23 Vilma Hollis [address] [place] [address] Emergency Medicine 04/28/18 Andrei Ruby APRN [address] [address] Nurse Practitioner Endocrinology 07/21/19 12/29/23 Barry Cornell MD 5 [facility] [address] [address] Anesthesiologist Anesthesiology 10/03/19 10/03/19 Bakari Camilo MD [address] [address] Physician Ophthalmology 01/10/20 Babak Pickard MD [address] [place] [address] [address] [place] [address] Surgery, Neurosurgery 02/16/23 documented as of this encounter
--- OUTSIDE RECORDS SUMMARY | 2024-10-13 17:13 | XMS_ITS | Encounter Summary ---
Author Organization [facility] Address [address] [place] [address] Care Team Providers Care Crane Helper Name Role Phone Milka Cueva APRN Primary Care Provider [phone] Vilma Hollis Unavailable Milka Cueva APRN Unavailable [phone] Raisa Pittman MD Primary Care Provid er Anay Chandra MD Primary Care Provider [phone] Andrei Ruby APRN Unavailable Unavailabl e Barry Cornell MD Unavailable [phone] Bakari Camilo MD Unavailable [phone] Brenda Almeida APRN Primary Care Provider [phone] Anay Chandra MD Unavailable [phone] Anay Chandra MD Primary Care Provider [phone] Brenda Almeida APRN Unavailable [phone] Babak Pickard MD Unavailable [phone] Anay Chandra MD Primary Care Provider [phone] Reason for Visit * Reason Onset Date Comments updated referral from 07/07/17 09/25/2017 Encounter Details Date Type Department Care Team (Late st Contact Info) Description 09/25/[address] [address] Milka Cueva APRN 5 [facility] [address] [address] updated referral from 07/07/17 Social History Tobacco Use Types Packs/Day Years [...] encounter Miscellaneous Notes * Telephone Encounter - Supriya Spicer - 10/02/2017 11:11 AM EST Spoke with patient , advised patient that the referral entered on 07.07.17 is good for one year forendo . Patient states that the place she has an appt at in [place] is too far and would like to go to [facility] . Waiting for patient to call back with phone and fax to fax over the referral to office patient wants to go to . * Telephone Encounter - Lisa Garcia MA - 09/25/2017 3:33 PM EST Is this request coming from pt or Diabetes Education? Referrals are good for a yr and this was placed on 07/13/17 * Telephone Encounter - Stormy Burks - 09/25/2017 12:09 PM EST Please update referral from 07/07/17 for endo, new year requires new referral. documented in this encounter Plan of Treatment Upcoming Encounters Date Type Department Care Team (Late st Contact Info) Description 12/05/2024 1:30 PM EDT Office Visit [facility] [address] [place] [address] Anay Chandra MD 445 [facility], [place] [address] 01/04/2025 1:00 PM EDT Office Visit [facility] Endocrinology [place] [address] [place] [address] Vishnu Hernandez MD [address] [facility] 101 [place], [place] [address] documented as of this encounter Visit Diagnoses Not on filedocumented in this encounter Care Teams Crane Helper Relationship Specialty Start Date End Date Milka Cueva APRN [facility]4 [place] [address] PCP - General Internal Medicine 03/10/17 05/22/19 Milka Cueva APRN 5 [facility] [address] [address] PCP - MSSP Attributed 02/14/19 9 Raisa Pittman MD 5 [facility] [address] [address] PCP - General Family Medicine 05/23/19 06/28/19 Anay Chandra MD 5 [facility] [address] [address] PCP - General Internal Medicine 06/29/19 10/22/21 Brenda Almeida APRN 160 [place] [address] PCP - General Adult Health - PA/APNP/DISABILITY AIDE/WIRE SETTER 10/23/21 12/25/21 Anay Chandra MD [address] [place] [address] PCP - PCMH+ Attributed 08/17/21 2 Anay Chandra MD 5 [facility] [address] [address] PCP - General Family Medicine 12/26/21 12/30/23 Brenda Almeida APRN [address] [place] [address] PCP - [facility] [place] Attributed 09/17/22 06/16/23 Anay Chandra MD [address] [place] [address] PCP - General Family Medicine 12/31/23 Vilma Hollis [address] [place] [address] Emergency Medicine 04/28/18 Andrei Ruby APRN 5 [facility] [address] [address] Nurse Practitioner Endocrinology 07/21/19 12/29/23 Barry Cornell MD 5 [facility] [address] [address] Anesthesiologist Anesthesiology 10/03/19 10/03/19 Bakari Camilo MD 5 [facility] [address] [address] Physician Ophthalmology 01/10/20 Babak Pickard MD [address] [place] [address] Surgery, Neurosurgery 02/16/23 documented as of this encounter
--- OUTSIDE RECORDS SUMMARY | 2024-10-13 17:13 | XMS_ITS | Encounter Summary ---
Author Organization [facility] Address [address] [place] [address] Care Team Providers Care Paper Inserter Name Role Phone Vilma Hollis Unavailable Anay Chandra MD Primary Care Provider [phone] Andrei Ruby APRN Unavailable Unavailabl e Bakari Camilo MD Unavailable Brenda Almeida APRN Primary Care Provider Anay Chandra MD Unavailable [phone] Anay Chandra MD Primary Care Provider [phone] Brenda Almeida APRN Unavailable [phone] Babak Pickard MD Unavailable [phone] Anay Chandra MD Primary Care Provider [phone] Encounter Details Date Type Department Care Team (Late st Contact Info) Description 04/15/2021 Scanned Document [facility] EMERGENCY MED SCAN Emergency Medicine, Scan Social History Tobacco Use Types Packs/Day Years Used Date Smoking Tobacco: Former Cigarettes 1 30 0 02/28/1990 - 02/29/2020 Smokeless Tobacco: Former Alcohol Use Standard Drinks/Week [...] have Coronavirus / COVID-19? No / Unsure 04/03/2021 2:37 PM EDT documented as of this encounter Plan of Treatment Upcoming Encounters Date Type Department Care Team (Late st Contact Info) Description 12/05/2024 1:30 PM EDT Office Visit [address] [place] [address] Anay Chandra MD [address] [place] [address] 01/04/2025 1:00 PM EDT Office Visit [facility] 100 [facility] [address] [place] [address] Vishnu Hernandez MD [address] [place] [address] documented as of this encounter Goals Goal [...] and appt at the wound clinic in [place] on 08/23/18. OT LTG 1 Occupational Therapy No Karina Pendleton, MICHAEL Note: Patient will demonstrate 10 lb increase in bridge manager strength B for improved ability to [...] on filedocumented in this encounter Care Teams Paper Inserter Relationship Specialty Start Date End Date Anay Chandra MD PCP - General Internal Medicine 06/29/19 10/22/21 Brenda Almeida, PRESS FEEDER BROOMCORN [address] [place] [address] PCP - General Adult Health - PA/APNP/SUPERVISOR PAPER TESTING/PRESS FEEDER BROOMCORN 10/23/21 12/25/21 Anay Chandra MD [address] [place] [address] PCP - PCM+ Attributed 08/17/21 2 Anay Chandra MD PCP - General Family Medicine 12/26/21 12/30/23 Brenda Almeida, PRESS FEEDER BROOMCORN [address] [place] [address] PCP - [facility] Attributed 09/17/22 06/16/23 Anay Chandra MD [address] [place] [address] PCP - General Family Medicine 12/31/23 Vilma Hollis Emergency Medicine 04/28/18 Andrei Ruby APRN Nurse Practitioner Endocrinology 07/21/19 12/29/23 Bakari Camilo MD Physician Ophthalmology 01/10/20 Babak Pickard MD [address] [place] [address] Surgery, Neurosurgery 02/16/23 documented as of this encounter
--- OUTSIDE RECORDS SUMMARY | 2024-10-13 17:13 | XMS_ITS | Encounter Summary ---
Author Organization [facility] Address [address] [place] [address] Care Team Providers Care Wind Plant Manager Name Role Phone Milka Cueva APRN Primary Care Provider [phone] [place] Barrera MD Primary Care Provider [phone] Milka Cueva APRN Primary Care Provider + [phone] Vilma Hollis Unavailable Milka Cueva APRN Unavailable [phone] Raisa Pittman MD Primary Care Provid er Anay Chandra MD Primary Care Provider [phone] Andrei Ruby APRN Unavailable Unavailabl e Barry Cornell MD Unavailable [phone] Bakari Camilo MD Unavailable [phone] Brenda Almeida APRN Primary Care Provider [phone] Anay Chandra MD Unavailable [phone] Anay Chandra MD Primary Care Provider [phone] Brenda Almeida APRN Unavailable [phone] Babak Pickard MD Unavailable [phone] Anay Chandra MD Primary Care Provider [phone] Encounter Details Date Type Department Care Team (Late st Contact Info) Description 10/25/2016 Scanned Document [facility] [address] [place] [id number] Provider, Generic Social History Tobacco Use Types Packs/Day Years Used Date Smoking Tobacco: Every Day Cigarettes 1 30 Alcohol Use Standard Drinks/Week Comments Yes 0 [...] 12/05/2024 1:30 PM EDT Office Visit [address] [address] Anay Chandra MD [address] [place] [address] 01/04/2025 1:00 PM EDT Office Visit [facility] Endocrinology [place] 100 [facility] [address] [place] [address] Vishnu Hernandez MD 100 [facility] 101 [place] [address] documented as of this encounter Procedures Procedure Name Priority Date/Time Associated Diagnosis Comments CT SCAN EXTERNAL RESULT 11/18/2016 CT SCAN EXTERNAL RESULT 11/18/2016 documented in this encounter Results * CT SCAN EXTERNAL RESULT (11/18/2016) Anatomical Region Laterality Modality Computed Tomogra phy Narrative 11/24/2016 2:14 AM EDT Ordered by an unspecified provider. Generic Provider IMG CT ORDERABLES * CT SCAN EXTERNAL RESULT (11/18/2016) Anatomical Region Laterality Modality Computed Tomogra phy Narrative 11/24/2016 2:14 AM EDT Ordered by an unspecified provider. Generic Provider IMG CT ORDERABLES documented in this encounter Visit Diagnoses Not on filedocumented in this encounter Care Teams Wind Plant Manager Relationship Specialty Start Date End Date Milka Cueva APRN [address] [place] [address] PCP - General Internal Medicine 10/06/16 12/31/16 [place] Barrera MD 800 [facility] [address] PCP - General Internal Medicine 01/01/17 03/09/17 Milka Cueva APRN [address] [place] [address] PCP - General Internal Medicine 03/10/17 05/22/19 Milka Cueva APRN [address] [address] PCP - MSSP Attributed 02/14/19 9 Raisa Pittman MD 5 [facility] [address] [address] PCP - General Family Medicine 05/23/19 06/28/19 Anay Chandra MD [address] [address] PCP - General Internal Medicine 06/29/19 10/22/21 Brenda Almeida APRN [address] [place] [address] PCP - General Adult Health - PA/APNP/TNT LINE SUPERVISOR/MUSEUM ARCHIVIST 10/23/21 12/25/21 Anay Chandra MD [address] [place] [address] PCP - PCM+ Attributed 08/17/21 2 Anay Chandra MD [address] [address] PCP - General Family Medicine 12/26/21 12/30/23 Brenda Almeida, MUSEUM ARCHIVIST [address] [place] [address] PCP - [facility] [place] Attributed 09/17/22 06/16/23 Anay Chandra MD [address] [place] [address] PCP - General Family Medicine 12/31/23 Vilma Hollis [address] [place] [address] [address] Emergency Medicine 04/28/18 Andrei Ruby, INGE [address] [place] [address] Nurse Practitioner Endocrinology 07/21/19 12/29/23 Barry Cornell MD [address] [place] [address] Anesthesiologist Anesthesiology 10/03/19 10/03/19 Bakari Camilo MD [address] [address] Physician Ophthalmology 01/10/20 Babak Pickard MD 360 [facility] [address] [place] [address] Surgery, Neurosurgery 02/16/23 documented as of this encounter
--- OUTSIDE RECORDS SUMMARY | 2024-10-13 17:13 | XMS_ITS | Encounter Summary ---
Author Organization [facility] Address [address] [place] [address] Care Team Providers Care Supervisor Concrete Block Plant Name Role Phone Milka Cueva APRN Primary Care Provider [phone] [place] Barrera MD Primary Care Provider [phone] Milka Cueva APRN Primary Care Provider + [phone] Vilma Hollis Unavailable Milka Cueva APRN Unavailable [phone] Raisa Pittman MD Primary Care Provid er Anay Chandra MD Primary Care Provider [phone] Andrei Ruby APRN Unavailable Unavailabl e Barry Cornell MD Unavailable [phone] Bakari Camilo MD Unavailable [phone] Brenda Almeida APRN Primary Care Provider [phone] Anay Chandra MD Unavailable [phone] Anay Chandra MD Primary Care Provider [phone] Brenda Almeida APRN Unavailable [phone] Bbaak Pickard MD Unavailable [phone] Anay Chandra MD Primary Care Provider [phone] Encounter Details Date Type Department Care Team (Late st Contact Info) Description 12/20/2016 Scanned Document [facility] [address] [place] [address] Milka Cueva APRN [address] [address] Social History Tobacco Use Types Packs/Day Years [...] Description 12/05/2024 1:30 PM EDT Office Visit [address] [address] Anay Chandra MD [address] [place] [address] 01/04/2025 1:00 PM EDT Office Visit [facility] Endocrinology [address] [address] Vishnu Hernandez MD [address] [place] [address] documented as of this encounter Visit Diagnoses Not on filedocumented in this encounter Care Teams Supervisor Concrete Block Plant Relationship Specialty Start Date End Date Milka Cueva APRN 1244 [facility] [place] [address] PCP - General Internal Medicine 10/06/16 12/31/16 [place] Barrera MD [address] [place], [place] [address] [address] PCP - General Internal Medicine 01/01/17 03/09/17 Milka Cueva APRN [address] [place] [address] PCP - General Internal Medicine 03/10/17 05/22/19 Milka Cueva, INGE [address] [place] [address] PCP - MSSP Attributed 02/14/19 9 Raisa Pittman MD 5 [facility] [address] [place] [address] PCP - General Family Medicine 05/23/19 06/28/19 Anay Chandra MD [address] [place] [address] PCP - General Internal Medicine 06/29/19 10/22/21 Brenda Almeida, PROGRAM ADVISOR [address] [place] [address] PCP - General Adult Health - PA/APNP/ORTHODONTIST SMALL BUSINESS OWNER/PROGRAM ADVISOR 10/23/21 12/25/21 Anay Chandra MD [address] [place] [address] PCP - PCMH+ Attributed 08/17/21 2 Anay Chandra MD 5 [facility] [address] [place] [address] PCP - General Family Medicine 12/26/21 12/30/23 Brenda Almeida APRN [address] [place] [address] PCP - [facility] [place] Attributed 09/17/22 06/16/23 Anay Chandra MD [address] [place] [address] PCP - General Family Medicine 12/31/23 Vilma Hollis [address] [place] [address]-[place] [address] Emergency Medicine 04/28/18 Andrei Ruby APRN 5 [facility] [address] [address] Nurse Practitioner Endocrinology 07/21/19 12/29/23 Barry Cornell MD [address] [address] Anesthesiologist Anesthesiology 10/03/19 10/03/19 Bakari Camilo MD [address] [address] Physician Ophthalmology 01/10/20 Babak Pickard MD [address] [place] [address] [address] [place] [address] Surgery, Neurosurgery 02/16/23 documented as of this encounter
--- OUTSIDE RECORDS SUMMARY | 2024-10-13 17:13 | XMS_ITS | Encounter Summary ---
Author Organization [facility] Address [address] [place] [address] Care Team Providers Care Cardiovascular Disease Specialist Name Role Phone Vilma Hollis Unavailable Anay Chandra MD Primary Care Provider [phone] Andrei Ruby APRN Unavailable Unavailabl e Bakari Camilo MD Unavailable [phone] Brenda Almeida APRN Primary Care Provider Anay Chandra MD Unavailable [phone] Anay Chandra MD Primary Care Provider [phone] Brenda Almeida APRN Unavailable [phone] Babak Pickard MD Unavailable [phone] Anay Chandra MD Primary Care Provider [phone] Encounter Details Date Type Department Care Team (Late st Contact Info) Description 11/30/2020 Scanned Document [facility] Endocrinology [address] [id number] Andrei Ruby APRN Social History Tobacco Use Types Packs/Day Years [...] have Coronavirus / COVID-19? No / Unsure 11/30/2020 10:22 AM EDT documented as of this encounter Plan of Treatment Upcoming Encounters Date Type Department Care Team (Late st Contact Info) Description 12/05/2024 1:30 PM EDT Office Visit [address] [address] Anay Chandra MD [address] [place] [address] 01/04/2025 1:00 PM EDT Office Visit [facility] 100 [facility] [address] [place] [address] Vishnu Hernandez MD [address] [place] [address] documented as of this encounter Goals Goal [...] CICI. Intervention- to be seen today by DELICATESSEN GOODS STOCK CLERK and appt at the wound clinic in [place] on 08/23/18. OT LTG 1 Occupational Therapy No Pendleton, Karina, OT Note: Patient will demonstrate 10 lb increase in space systems operations manager strength B for improved ability to [...] on filedocumented in this encounter Care Teams Cardiovascular Disease Specialist Relationship Specialty Start Date End Date Anay Chandra MD PCP - General Internal Medicine 06/29/19 10/22/21 Brenda Almeida, DELICATESSEN GOODS STOCK CLERK [address] [place] [address] PCP - General Adult Health - PA/APNP/CARE NAVIGATOR/DELICATESSEN GOODS STOCK CLERK 10/23/21 12/25/21 Anay Chandra MD [address] [place] [address] PCP - PCMH+ Attributed 08/17/21 2 Anay Chandra MD PCP - General Family Medicine 12/26/21 12/30/23 Brenda Almeida, DELICATESSEN GOODS STOCK CLERK [address] [place] [address] PCP - [facility] [place] Attributed 09/17/22 06/16/23 Anay Chandra MD [address] [place] [address] PCP - General Family Medicine 12/31/23 Vilma Hollis Emergency Medicine 04/28/18 Andrei Ruby APRN Nurse Practitioner Endocrinology 07/21/19 12/29/23 Bakari Camilo MD Physician Ophthalmology 01/10/20 Babak Pickard MD [address] [place] [address] [address] [place] [address] Surgery, Neurosurgery 02/16/23 documented as of this encounter
--- OUTSIDE RECORDS SUMMARY | 2024-10-13 17:13 | XMS_ITS | Encounter Summary ---
Author Organization [facility] Address [address] [place] [address] Care Team Providers Care Preparatory Technician Name Role Phone Milka Cueva APRN Primary Care Provider [phone] Vilma Hollis Unavailable Milka Cueva APRN Unavailable [phone] Raisa Pittman MD Primary Care Provid er Anay Chandra MD Primary Care Provider [phone] Andrei Ruby APRN Unavailable Unavailabl e Barry Cornell MD Unavailable [phone] Bakari Camilo MD Unavailable [phone] Brenda Almeida APRN Primary Care Provider [phone] Anay Chandra MD Unavailable [phone] Anay Chandra MD Primary Care Provider [phone] Brenda Almeida APRN Unavailable [phone] Babak Pickard MD Unavailable [phone] Anay Chandra MD Primary Care Provider [phone] Encounter Details Date Type Department Care Team (Late st Contact Info) Description 12/13/2018 Scanned Document [facility] [address] [place] [address] [address] [place] [address] Provider, Generic Social History Tobacco Use Types Packs/Day Years Used Date Smoking Tobacco: Some Days Cigarettes 1 30 Started: 04/02/1988; Last attempted to quit: 04/02/2018 Smokeless Tobacco: Never Alcohol Use Standard [...] Description 12/05/2024 1:30 PM EDT Office Visit [address] [address] Anay Chandra MD [address] [place] [address] 01/04/2025 1:00 PM EDT Office Visit [facility] 100 [facility] [address] [place] [address] Vishnu Hernandez MD [address] [place] [address] documented as of this encounter Goals Goal [...] CICI. Intervention- to be seen today by CRYSTALIZER OPERATOR and appt at the wound clinic in [place] on 08/23/18. documented as of this encounter Visit Diagnoses Not on filedocumented in this encounter Care Teams Preparatory Technician Relationship Specialty Start Date End Date Milka Cueva APRN [address] [place] [address] PCP - General Internal Medicine 03/10/17 05/22/19 Milka Cueva APRN 5 [facility] [address] [place] [address] PCP - MSSP Attributed 02/14/19 9 Raisa Pittman MD 5 [facility] [address] [place] [address] PCP - General Family Medicine 05/23/19 06/28/19 Anay Chandra MD 5 [facility] [address] [place] [address] PCP - General Internal Medicine 06/29/19 10/22/21 Brenda Almeida APRN [address] [place] [address] PCP - General Adult Health - PA/APNP/MANDREL PRESS HAND/CRYSTALIZER OPERATOR 10/23/21 12/25/21 Anay Chandra MD [address] [place] [address] PCP - PCMH+ Attributed 08/17/21 2 Anay Chandra MD 5 [facility] [address] [place] [address] PCP - General Family Medicine 12/26/21 12/30/23 Brenda Almeida APRN [address] [place] [address] PCP - [facility] [place] Attributed 09/17/22 06/16/23 Anay Chandra MD [address] [place] [address] PCP - General Family Medicine 12/31/23 Vilma Hollis [address] [place] [address] Emergency Medicine 04/28/18 Andrei Ruby APRN [address] [address] Nurse Practitioner Endocrinology 07/21/19 12/29/23 Barry Cornell MD [address] [address] Anesthesiologist Anesthesiology 10/03/19 10/03/19 Bakari Camilo MD [address] [address] Physician Ophthalmology 01/10/20 Babak Pickard MD [address] [place] [address] [address] [address] Surgery, Neurosurgery 02/16/23 documented as of this encounter
--- OUTSIDE RECORDS SUMMARY | 2024-10-13 17:13 | XMS_ITS | Encounter Summary ---
Author Organization [facility] Address [address] [place] [address] Care Team Providers Care Lead Caster Name Role Phone Milka Cueva APRN Primary Care Provider [phone] Vilma Hollis Unavailable Milka Cueva APRN Unavailable [phone] Raisa Pittman MD Primary Care Provid er Anay Chandra MD Primary Care Provider [phone] Andrei Ruby APRN Unavailable Unavailabl e Barry Cornell MD Unavailable [phone] Bakari Camilo MD Unavailable [phone] Brenda Almeida APRN Primary Care Provider [phone] Anay Chandra MD Unavailable [phone] Anay Chandra MD Primary Care Provider [phone] Brenda Almeida APRN Unavailable [phone] Babak Pickard MD Unavailable [phone] Anay Chandra MD Primary Care Provider [phone] Encounter Details Date Type Department Care Team (Late st Contact Info) Description 01/23/2019 Scanned Document [address] [address] Pharmacy, Scan Social History Tobacco Use Types Packs/Day Years Used Date Smoking Tobacco: Some Days Cigarettes 30 Started: 04/02/1988; Last attempted to quit: [...] Description 12/05/2024 1:30 PM EDT Office Visit [address] [address] Anay Chandra MD [address] [place] [address] 01/04/2025 1:00 PM EDT Office Visit [facility] Endocrinology [place] 100 [facility] [address] [place] [address] Vishnu Hernandez MD [address] [place] [address] documented as of this encounter Goals Goal [...] CICI. Intervention- to be seen today by TERRAZZO LAYER and appt at the wound clinic in [place] on 08/23/18. documented as of this encounter Visit Diagnoses Not on filedocumented in this encounter Care Teams Lead Caster Relationship Specialty Start Date End Date Milka Cueva APRN [address] [facility] [place] [address] PCP - General Internal Medicine 03/10/17 05/22/19 Milka Cueva APRN 5 [facility] [address] [place] [address] PCP - MSSP Attributed 02/14/19 9 Raisa Pittman MD 5 [facility] [address] [place] [address] PCP - General Family Medicine 05/23/19 06/28/19 Anay Chandra MD 5 [facility] [address] [place] [address] PCP - General Internal Medicine 06/29/19 10/22/21 Brenda Almeida APRN [address] [place] [address] PCP - General Adult Health - PA/APNP/DIMENSION QUARRY SUPERVISOR/TERRAZZO LAYER 10/23/21 12/25/21 Anay Chandra MD [address] [place] [address] PCP - PCMH+ Attributed 08/17/21 2 Anay Chandra MD 5 [facility] [address] [place] [address] PCP - General Family Medicine 12/26/21 12/30/23 Brenda Almeida APRN [address] [place] [address] PCP - [facility] [place] Attributed 09/17/22 06/16/23 Anay Chandra MD [address] [place] [address] PCP - General Family Medicine 12/31/23 Vilma Hollis [address] [place] [address], [place] [address] Emergency Medicine 04/28/18 Andrei Ruby APRN 5 [facility] [address] [place] [address] Nurse Practitioner Endocrinology 07/21/19 12/29/23 Barry Cornell MD 5 [facility] [address] [address] Anesthesiologist Anesthesiology 10/03/19 10/03/19 Bakari Camilo MD 5 [facility] [address] [address] Physician Ophthalmology 01/10/20 Babak Pickard MD [address] [place] [address] [address] [place] [address] Surgery, Neurosurgery 02/16/23 documented as of this encounter
--- OUTSIDE RECORDS SUMMARY | 2024-10-13 17:13 | XMS_ITS | Encounter Summary ---
Author Organization [facility] Address [address] [place] [address] Care Team Providers Care Transmission Builder Name Role Phone Vilma Hollis Unavailable Anay Chandra MD Primary Care Provider [phone] Andrei Ruby APRN Unavailable Unavailabl e Bakari Camilo MD Unavailable [phone] Brenda Almeida APRN Primary Care Provider [phone] Anay Chandra MD Unavailable [phone] Anay Chandra MD Primary Care Provider [phone] Brenda Almeida APRN Unavailable [phone] Babak Pickard MD Unavailable [phone] Anay Chandra MD Primary Care Provider [phone] Encounter Details Date Type Department Care Team (Late st Contact Info) Description 04/15/2021 Scanned Document [facility] EMERGENCY MED SCAN Emergency Medicine, Scan Social [...] 12/05/2024 1:30 PM EDT Office Visit [address] [place] [address] Anay Chandra MD [address] [place] [address] 01/04/2025 1:00 PM EDT Office Visit [facility] 100 [facility] [address] [place] [address] Vishnu Hernandez MD [address] [place] [address] documented as of this encounter Goals Goal [...] and appt at the wound clinic in [place] on 08/23/18. 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 Attributed 09/17/22 06/16/23 Anay Chandra MD [address] [place] [address] PCP - General Family Medicine 12/31/23 Vilma Hollis Emergency Medicine 04/28/18 Andrei Ruby APRN Nurse Practitioner Endocrinology 07/21/19 12/29/23 Bakari Camilo MD Physician Ophthalmology 01/10/20 Babak Pickard MD [address] [place] [address] Surgery, Neurosurgery 02/16/23 documented as of this encounter
--- OUTSIDE RECORDS SUMMARY | 2024-10-13 17:13 | XMS_ITS | Encounter Summary ---
Author Organization [facility] Address [address] [place] [address] Care Team Providers Care Folder Gluer Operator Name Role Phone Vilma Hollis Unavailable Milka Cueva APRN Unavailable [phone] Anay Chandra MD Primary Care Provider Andrei Ruby SEARCH ENGINE MARKETING SPECIALIST Unavailable Unavailabl e Barry Cornell MD Unavailable [phone] Bakari Camilo MD Unavailable [phone] Brenda Almeida APRN Primary Care Provider Anay Chandra MD Unavailable [phone] Anay Chandra MD Primary Care Provider [phone] Brenda Almeida APRN Unavailable [phone] Babak Pickard MD Unavailable [phone] Anay Chandra MD Primary Care Provider [phone] Encounter Details Date Type Department Care Team (Late st Contact Info) Description 07/07/2019 Scanned Document [address] [address] Anay Chandra MD [address] [place] [id number] Social History Tobacco Use Types Packs/Day Years [...] Description 12/05/2024 1:30 PM EDT Office Visit [address] [address] Anay Chandra MD [address] [place] [address] 01/04/2025 1:00 PM EDT Office Visit [facility] Endocrinology [place] 100 [facility] 101 [place] [address] Vishnu Hernandez MD 100 [facility] 101 [place] [address] documented as of this encounter Goals Goal [...] and appt at the wound clinic in [place] on 08/23/18. documented as of this encounter Visit Diagnoses Not on filedocumented in this encounter Care Teams Folder Gluer Operator Relationship Specialty Start Date End Date Emelyn CuevahINGE 5 [facility] [place] [address] PCP - MSSP Attributed 02/14/19 9 Anay Chandra MD 5 [facility] [place] [address] PCP - General Internal Medicine 06/29/19 10/22/21 rBenda Almeida APRN [address] [place] [address] PCP - General Adult Health - PA/APNP/HEARING AID MECHANIC/SEARCH ENGINE MARKETING SPECIALIST 10/23/21 12/25/21 Anay Chandra MD [address] [place], [place] [address] PCP - PCMH+ Attributed 08/17/21 2 Anay Chanrda MD 5 [facility] [place] [address] PCP - General Family Medicine 12/26/21 12/30/23 Brenda Almeida APRN [address] [place] [address] PCP - [facility] [place] Attributed 09/17/22 06/16/23 Anay Chandra MD [address] [place] [address] PCP - General Family Medicine 12/31/23 Vilma Hollis Emergency Medicine 04/28/18 Andrei Ruby APRN [address] [place] [address] Nurse Practitioner Endocrinology 07/21/19 12/29/23 Barry Cornell MD 5 [facility] [address] [place] [address] Anesthesiologist Anesthesiology 10/03/19 10/03/19 Bakari Camilo MD 5 [facility] [address] [address] Physician Ophthalmology 01/10/20 Babak Pickard MD [address] [place] [address] [address] [place] [address] Surgery, Neurosurgery 02/16/23 documented as of this encounter
--- OUTSIDE RECORDS SUMMARY | 2024-10-13 17:13 | XMS_ITS | Encounter Summary ---
Author Organization [facility] Address [address] [place] [address] Care Team Providers Care Vice President Of Nursing Name Role Phone Milka Cueva APRN Primary Care Provider [phone] Vilma Hollis Unavailable Milka Cueva APRN Unavailable [phone] Raisa Pittman MD Primary Care Provid er Anay Chandra MD Primary Care Provider [phone] Andrei Ruby APRN Unavailable Unavailabl e Barry Cornell MD Unavailable [phone] Bakari Camilo MD Unavailable [phone] Brenda Almeida APRN Primary Care Provider [phone] Anay Chandra MD Unavailable [phone] Anay Chandra MD Primary Care Provider [phone] Brenda Almeida APRN Unavailable [phone] Babak Pickard MD Unavailable [phone] Anay Chandra MD Primary Care Provider [phone] Encounter Details Date Type Department Care Team (Late st Contact Info) Description 10/23/2017 Scanned Document [address] [address] Provider, Generic Social History Tobacco Use Types [...] Description 12/05/2024 1:30 PM EDT Office Visit [address] [address] Anay Chandra MD [address] [place] [address] 01/04/2025 1:00 PM EDT Office Visit [facility] Endocrinology [address] [address] Vishnu Hernandez MD [address] [place] [address] documented as of this encounter Visit Diagnoses Not on filedocumented in this encounter Care Teams Vice President Of Nursing Relationship Specialty Start Date End Date Milka Cueva APRN [address] [place] [address] PCP - General Internal Medicine 03/10/17 05/22/19 Milka Cueva APRN [address] [address] PCP - MSSP Attributed 02/14/19 9 Raisa Pittman MD [address] [address] PCP - General Family Medicine 05/23/19 06/28/19 Anay Chandra MD 5 [facility] [address] [place] [address] PCP - General Internal Medicine 06/29/19 10/22/21 Brenda Almeida, BOX CHIPPER [address] [place], [place] [address] PCP - General Adult Health - PA/APNP/AG SERVICE MANAGER/BOX CHIPPER 10/23/21 12/25/21 Anay Chandra MD [address] [place] [address] PCP - PCMH+ Attributed 08/17/21 2 Anay Chandra MD 5 [facility] [address] [place] [address] PCP - General Family Medicine 12/26/21 12/30/23 Brenda Almeida, BOX CHIPPER [address] [place], [place] [id number] PCP - [facility] [place] Attributed 09/17/22 06/16/23 Anay Chandra MD [address] [place] [address] PCP - General Family Medicine 12/31/23 Vilma Hollis [address], [place] [phone] Emergency Medicine 04/28/18 Andrei Ruby APRN 5 [facility] [address] [place] [address] Nurse Practitioner Endocrinology 07/21/19 12/29/23 Barry Cornell MD 5 [facility] [address] [place] [address] Anesthesiologist Anesthesiology 10/03/19 10/03/19 Bakari Camilo MD 5 [facility] [address] [address] Physician Ophthalmology 01/10/20 Babak Pickard MD [address] [place] [address] [address] [place] [address] Surgery, Neurosurgery 02/16/23 documented as of this encounter
--- OUTSIDE RECORDS SUMMARY | 2024-10-13 17:13 | XMS_ITS | Encounter Summary ---
Author Organization [facility] Address [address] [place] [address] Care Team Providers Care Dormitory Maid Name Role Phone Milka Cueva APRN Primary Care Provider [phone] Vilma Hollis Unavailable Milka Cueva APRN Unavailable [phone] Raisa Pittman MD Primary Care Provid er Anay Chandra MD Primary Care Provider [phone] Andrei Ruby APRN Unavailable Unavailabl e Barry Cornell MD Unavailable [phone] Bakari Camilo MD Unavailable [phone] Brenda Almeida APRN Primary Care Provider [phone] Anay Chandra MD Unavailable [phone] Anay Chandra MD Primary Care Provider [phone] Brenda Almeida APRN Unavailable [phone] Babak Pickard MD Unavailable [phone] Anay Chandra MD Primary Care Provider [phone] Encounter Details Date Type Department Care Team (Late st Contact Info) Description 04/29/2019 Scanned Document [address] [address] Milka Cueva APRN 5 [facility] [address] [address] Social History Tobacco Use Types Packs/Day Years [...] 12/05/2024 1:30 PM EDT Office Visit [address] [address] Anay Chandra MD [address] [place] [address] 01/04/2025 1:00 PM EDT Office Visit [facility] Endocrinology [address] [address] Vishnu Hernandez MD [address] [address] documented as of this encounter Goals Goal [...] and appt at the wound clinic in [place] on 08/23/18. documented as of this encounter Visit Diagnoses Not on filedocumented in this encounter Care Teams Dormitory Maid Relationship Specialty Start Date End Date Milka Cueva APRN [facility] [place] [address] PCP - General Internal Medicine 03/10/17 05/22/19 Milka Cueva APRN [address] [address] PCP - MSSP Attributed 02/14/19 9 Raisa Pittman MD [address] [address] PCP - General Family Medicine 05/23/19 06/28/19 Anay Chandra MD [address] [address] PCP - General Internal Medicine 06/29/19 10/22/21 Brenda Almeida APRN [address] [place] [address] PCP - General Adult Health - PA/APNP/CLOTH GRADER SUPERVISOR/CAT HOOKER 10/23/21 12/25/21 Anay Chandra MD [address] [place] [address] PCP - PCMH+ Attributed 08/17/21 2 Anay Chandra MD 5 [facility] [address] [place] [address] PCP - General Family Medicine 12/26/21 12/30/23 Brenda Almeida APRN [address] [place] [address] PCP - [facility] Attributed 09/17/22 06/16/23 Anay Chandra MD [address] [place] [address] PCP - General Family Medicine 12/31/23 Vilma Hollis [address] [place] [address] Emergency Medicine 04/28/18 Andrei Ruby APRN 5 [facility] [address] [place] [address] Nurse Practitioner Endocrinology 07/21/19 12/29/23 Barry Cornell MD 5 [facility] [address] [place] [address] Anesthesiologist Anesthesiology 10/03/19 10/03/19 Bakari Camilo MD 5 [facility] [address] [place] [address] Physician Ophthalmology 01/10/20 Babak Pickard MD [address] [place] [address] [address] [place] [address] Surgery, Neurosurgery 02/16/23 documented as of this encounter
--- OUTSIDE RECORDS SUMMARY | 2024-10-13 17:13 | XMS_ITS | Encounter Summary ---
Author Organization [facility] Address [address] [place] [address] Care Team Providers Care Vp Genetic Name Role Phone Vilma Hollis Unavailable Bakari Camilo MD Unavailable [phone] Babak Pickard MD Unavailable [phone] Anay Chandra MD Primary Care Provider [phone] Encounter Details Date Type Department Care Team (Late st Contact Info) Description 01/07/2024 Telephone [facility] [address] [place] [address] Sp Sosa PA-C [address] [place] [id number] Social History Tobacco Use Types Packs/Day Years [...] 12/05/2024 1:30 PM EDT Office Visit [address] [address] Anay Chandra MD [address] [place] [address] 01/04/2025 1:00 PM EDT Office Visit [facility] Endocrinology [place] [address] [place] [address] Vishnu Hernandez MD [address] [place] [address] documented as of this encounter Goals Goal [...] and appt at the wound clinic in [place] on 08/23/18. 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
--- OUTSIDE RECORDS SUMMARY | 2024-10-13 17:13 | XMS_ITS | Encounter Summary ---
Author Organization [facility] Address [address] [place] [address] Care Team Providers Care Mining Engineer Name Role Phone Vilma Hollis Unavailable Milka Cueva APRN Unavailable [phone] Anay Chandra MD Primary Care Provider Andrei Ruby MEDICAL ASSISTANT INTERNAL MEDICINE Unavailable Unavailabl e Barry Cornell MD Unavailable [phone] Bakari Camilo MD Unavailable [phone] Brenda Almeida APRN Primary Care Provider [phone] Anay Chandra MD Unavailable [phone] Anay Chandra MD Primary Care Provider [phone] Brenda Almeida APRN Unavailable [phone] Babak Pickard MD Unavailable [phone] Anay Chandra MD Primary Care Provider [phone] Encounter Details Date Type Department Care Team (Late st Contact Info) Description 07/07/2019 Scanned Document [address] [address] Anay Chandra MD [address] [place] [id number] Social History Tobacco Use Types Packs/Day Years [...] Description 12/05/2024 1:30 PM EDT Office Visit [address] [address] Anay Chandra MD [address] [place] [address] 01/04/2025 1:00 PM EDT Office Visit [facility] Endocrinology [place] 100 [facility] [address] [place] [address] Vishnu Hernandez MD 100 [facility] [address] [place] [address] documented as of this encounter Goals Goal [...] and appt at the wound clinic in [place] on 08/23/18. documented as of this encounter Visit Diagnoses Not on filedocumented in this encounter Care Teams Mining Engineer Relationship Specialty Start Date End Date Emelyn CuevahINGE 5 [facility] [place] [address] PCP - MSSP Attributed 02/14/19 9 Anay Chandra MD 5 [facility] [place] [phone] PCP - General Internal Medicine 06/29/19 10/22/21 Brenda Almeida APRN [address] [place] [address] PCP - General Adult Health - PA/APNP/EXPERIMENTAL AIRCRAFT MECHANIC/MEDICAL ASSISTANT INTERNAL MEDICINE 10/23/21 12/25/21 Anay Chandra MD [address] [place], [place] [address] PCP - PCMH+ Attributed 08/17/21 2 Anay Chandra MD 5 [facility] [place] [address] PCP - General Family Medicine 12/26/21 12/30/23 Brenda Almeida APRN [address] [place] [address] PCP - [facility] [place] Attributed 09/17/22 06/16/23 Anay Chandra MD [address] [place] [address] PCP - General Family Medicine 12/31/23 Vilma Hollis Emergency Medicine 04/28/18 Andrei Ruby APRN [address] [facility] [address] [place] [address] Nurse Practitioner Endocrinology 07/21/19 12/29/23 Barry Cornell MD 5 [facility] [address] [place] [address] Anesthesiologist Anesthesiology 10/03/19 10/03/19 Bakari Camilo MD 5 [facility] [address] [address] Physician Ophthalmology 01/10/20 Babak Pickard MD [address] [place] [address] [address] [place] [address] Surgery, Neurosurgery 02/16/23 documented as of this encounter
--- OUTSIDE RECORDS SUMMARY | 2024-10-13 17:13 | XMS_ITS | Encounter Summary ---
Author Organization [facility] Address [address] [place] [address] Care Team Providers Care Fuel Oil Truck Driver Name Role Phone Milka Cueva APRN Primary Care Provider [phone] Vilma Hollis Unavailable Milka Cueva APRN Unavailable [phone] Raisa Pittman MD Primary Care Provid er Anay Chandra MD Primary Care Provider [phone] Andrei Ruby APRN Unavailable Unavailabl e Barry Cornell MD Unavailable [phone] Bakari Camilo MD Unavailable [phone] Brenda Almeida APRN Primary Care Provider [phone] Anay Chandra MD Unavailable [phone] Anay Chandra MD Primary Care Provider [phone] Brenda Almeida APRN Unavailable [phone] Babak Pickard MD Unavailable [phone] Anay Chandra MD Primary Care Provider [phone] Encounter Details Date Type Department Care Team (Late st Contact Info) Description 10/19/2017 Scanned Document [address] [address] Provider, Generic Social History Tobacco Use Types [...] 12/05/2024 1:30 PM EDT Office Visit [address] [address] Anay Chandra MD [address] [place] [address] 01/04/2025 1:00 PM EDT Office Visit [facility] Endocrinology [address] [address] Vishnu Hernandez MD [address] [place] [address] documented as of this encounter Visit Diagnoses Not on filedocumented in this encounter Care Teams Fuel Oil Truck Driver Relationship Specialty Start Date End Date Milka Cueva APRN [address] [place] [address] PCP - General Internal Medicine 03/10/17 05/22/19 Milka Cueva APRN [address] [address] PCP - MSSP Attributed 02/14/19 9 Raisa Pittman MD [address] [address] PCP - General Family Medicine 05/23/19 06/28/19 Anay Chandra MD 5 [facility] [address] [place] [address] PCP - General Internal Medicine 06/29/19 10/22/21 Brenda Almeida, CERAMIC ENGINEER [address] [place], [place] [address] PCP - General Adult Health - PA/APNP/SERVICE STATION CONSOLE OPERATOR/CERAMIC ENGINEER 10/23/21 12/25/21 Anay Chandra MD [address] [place] [address] PCP - PCMH+ Attributed 08/17/21 2 Anay Chandra MD 5 [facility] [address] [place] [address] PCP - General Family Medicine 12/26/21 12/30/23 Brenda Almeida, CERAMIC ENGINEER [address] [place], [place] [address] PCP - [facility] [place] Attributed 09/17/22 06/16/23 Anay Chandra MD [address] [place] [address] PCP - General Family Medicine 12/31/23 Vilma Hollis [address], [place] [id number] Emergency Medicine 04/28/18 Andrei Ruby APRN 5 [facility] [address] [place] [address] Nurse Practitioner Endocrinology 07/21/19 12/29/23 Barry Cornell MD 5 [facility] [address] [place] [address] Anesthesiologist Anesthesiology 10/03/19 10/03/19 Bakari Camilo MD 5 [facility] [address] [address] Physician Ophthalmology 01/10/20 Babak Pickard MD [address] [place] [address] [address] [place] [address] Surgery, Neurosurgery 02/16/23 documented as of this encounter
--- OUTSIDE RECORDS SUMMARY | 2024-10-13 17:13 | XMS_ITS | Encounter Summary ---
Author Organization [facility] Address [address] [place] [address] Care Team Providers Care Dial Mounter Name Role Phone Milka Cueva APRN Primary Care Provider [phone] Vilma Hollis Unavailable Milka Cueva APRN Unavailable [phone] Raisa Pittman MD Primary Care Provid er Anay Chandra MD Primary Care Provider [phone] Andrei Ruby APRN Unavailable Unavailabl e Barry Cornell MD Unavailable [phone] Bakari Camilo MD Unavailable [phone] Brenda Almeida APRN Primary Care Provider [phone] Anay Chandra MD Unavailable [phone] Anay Chandra MD Primary Care Provider [phone] Brenda Almeida APRN Unavailable [phone] Babak Pickard MD Unavailable [phone] Anay Chandra MD Primary Care Provider [phone] Encounter Details Date Type Department Care Team (Late st Contact Info) Description 10/19/2017 Scanned Document [address] [address] Provider, Generic Social History Tobacco Use Types [...] Description 12/05/2024 1:30 PM EDT Office Visit [address] [address] Anay Chandra MD [address] [place] [address] 01/04/2025 1:00 PM EDT Office Visit [facility] [place] [facility] Endocrinology [address] [address] Vishnu Hernandez MD [address] [place] [address] documented as of this encounter Visit Diagnoses Not on filedocumented in this encounter Care Teams Dial Mounter Relationship Specialty Start Date End Date Milka Cueva APRN [address] [place] [address] PCP - General Internal Medicine 03/10/17 05/22/19 Milka Cueva APRN [address] [address] PCP - MSSP Attributed 02/14/19 9 Raisa Pittman MD [address] [address] PCP - General Family Medicine 05/23/19 06/28/19 Anay Chandra MD 5 [facility] [address] [place] [address] PCP - General Internal Medicine 06/29/19 10/22/21 Brenda Almeida, CONSERVATION OR HERITAGE ARCHITECT [address] [place], [place] [address] PCP - General Adult Health - PA/APNP/HIGH SCHOOL LIBRARIAN/CONSERVATION OR HERITAGE ARCHITECT 10/23/21 12/25/21 Anay Chandra MD [address] [place] [address] PCP - PCMH+ Attributed 08/17/21 2 Anay Chandra MD 5 [facility] [address] [place] [address] PCP - General Family Medicine 12/26/21 12/30/23 Bredna Almeida, CONSERVATION OR HERITAGE ARCHITECT [address] [place], [place] [address] PCP - [facility] [place] Attributed 09/17/22 06/16/23 Anay Chandra MD [address] [place] [address] PCP - General Family Medicine 12/31/23 Vilma Hollis [address], [place] [phone] Emergency Medicine 04/28/18 Andrei Ruby APRN 5 [facility] [address] [place] [address] Nurse Practitioner Endocrinology 07/21/19 12/29/23 Barry Cornell MD 5 [facility] [address] [place] [address] Anesthesiologist Anesthesiology 10/03/19 10/03/19 Bakari Camilo MD 5 [facility] [address] [address] Physician Ophthalmology 01/10/20 Babak Pickard MD [address] [place] [address] [address] [place] [address] Surgery, Neurosurgery 02/16/23 documented as of this encounter
--- OUTSIDE RECORDS SUMMARY | 2024-10-13 17:13 | XMS_ITS | Encounter Summary ---
Author Organization [facility] Address [address] [place] [address] Care Team Providers Care Senior Informatica Etl Developer Name Role Phone Milka Cueva APRN Primary Care Provider [phone] Vilma Hollis Unavailable Milka Cueva APRN Unavailable [phone] Raisa Pittman MD Primary Care Provid er Anay Chandra MD Primary Care Provider [phone] Andrei Ruby APRN Unavailable Unavailabl e Barry Cornell MD Unavailable [phone] Bakari Camilo MD Unavailable [phone] Brenda Almeida APRN Primary Care Provider [phone] Anay Chandra MD Unavailable [phone] Anay Chandra MD Primary Care Provider [phone] Brenda Almeida APRN Unavailable [phone] Babak Pickard MD Unavailable [phone] Anay Chandra MD Primary Care Provider [phone] Encounter Details Date Type Department Care Team (Late st Contact Info) Description 11/12/2018 Scanned Document [facility] [address] [place] [address] [address] [place] [address] Provider, Generic Social History Tobacco [...] 12/05/2024 1:30 PM EDT Office Visit [address] [address] Anay Chandra MD [address] [place] [address] 01/04/2025 1:00 PM EDT Office Visit [facility] 100 [facility] [address] [place] [address] Vishnu Hernandez MD [address] [place] [address] documented as of this encounter Goals Goal [...] CICI. Intervention- to be seen today by FLOOR MANAGER and appt at the wound clinic in [place] on 08/23/18. documented as of this encounter Visit Diagnoses Not on filedocumented in this encounter Care Teams Senior Informatica Etl Developer Relationship Specialty Start Date End Date Milka Cueva APRN [address] [place] [address] PCP - General Internal Medicine 03/10/17 05/22/19 Milka Cueva APRN 5 [facility] [address] [place] [address] PCP - MSSP Attributed 02/14/19 9 Raisa Pittman MD 5 [facility] [address] [place] [address] PCP - General Family Medicine 05/23/19 06/28/19 Anay Chandra MD 5 [facility] [address] [place] [address] PCP - General Internal Medicine 06/29/19 10/22/21 Brenda Almeida APRN [address] [place] [address] PCP - General Adult Health - PA/APNP/SUPERVISOR DRILLING AND SHOOTING/FLOOR MANAGER 10/23/21 12/25/21 Anay Chandra MD [address] [place] [address] PCP - PCMH+ Attributed 08/17/21 2 Anay Chandra MD 5 [facility] [address] [place] [address] PCP - General Family Medicine 12/26/21 12/30/23 Brenda Almeida APRN [address] [place] [address] PCP - [facility] [place] Attributed 09/17/22 06/16/23 Anay Chandra MD [address] [place] [address] PCP - General Family Medicine 12/31/23 Vilma Hollis [address] [place] [address] Emergency Medicine 04/28/18 Andrei Ruby APRN [address] [address] Nurse Practitioner Endocrinology 07/21/19 12/29/23 Barry Cornell MD [address] [address] Anesthesiologist Anesthesiology 10/03/19 10/03/19 Bakari Camilo MD [address] [address] Physician Ophthalmology 01/10/20 Babak Pickard MD [address] [place] [address] [address] [place] [address] Surgery, Neurosurgery 02/16/23 documented as of this encounter
--- OUTSIDE RECORDS SUMMARY | 2024-10-13 17:13 | XMS_ITS | Encounter Summary ---
Author Organization Formerly [facility] Address [address] [place] [address] Care Team Providers Care Professional Development Manager Name Role Phone Milka Cueva APRN Primary Care Provider [phone] Vilma Hollis Unavailable Milka Cueva APRN Unavailable [phone] Raisa Pittman MD Primary Care Provid er Anay Chandra MD Primary Care Provider [phone] Andrei Ruby APRN Unavailable Unavailabl e Barry Cornell MD Unavailable [phone] Bakari Camilo MD Unavailable [phone] Brenda Almeida APRN Primary Care Provider [phone] Anay Chandra MD Unavailable [phone] Anay Chandra MD Primary Care Provider [phone] Brenda Almeida APRN Unavailable [phone] Babak Pickard MD Unavailable [phone] Anay Chandra MD Primary Care Provider [phone] Encounter Details Date Type Department Care Team (Late st Contact Info) Description 02/21/2019 Scanned Document [address] [address] Provider, Generic Social History Tobacco Use Types [...] 12/05/2024 1:30 PM EDT Office Visit [address] [address] Anay Chandra MD [address] [place] [address] 01/04/2025 1:00 PM EDT Office Visit [facility] End[facility] [place] 100 [facility] [address] [place] [address] Vishnu Hernandez MD [address] [place] [address] documented as of this encounter Goals Goal [...] CICI. Intervention- to be seen today by MANAGER BANKING and appt at the wound clinic in [place] on 08/23/18. documented as of this encounter Visit Diagnoses Not on filedocumented in this encounter Care Teams Professional Development Manager Relationship Specialty Start Date End Date Milka Cueva APRN [address] [place] [address] PCP - General Internal Medicine 03/10/17 05/22/19 Milka Cueva APRN 5 [facility] [address] [place] [address] PCP - MSSP Attributed 02/14/19 9 Raisa Pittman MD 5 [facility] [address] [place] [address] PCP - General Family Medicine 05/23/19 06/28/19 Anay Chandra MD 5 [facility] [address] [place] [address] PCP - General Internal Medicine 06/29/19 10/22/21 Brenda Almeida APRN [address] [place] [address] PCP - General Adult Health - PA/APNP/TOOL AND DIE TECHNICIAN/MANAGER BANKING 10/23/21 12/25/21 Anay Chandra MD [address] [place] [address] PCP - PCMH+ Attributed 08/17/21 2 Anay Chandra MD 5 [facility] [address] [place] [address] PCP - General Family Medicine 12/26/21 12/30/23 Brenda Almeida APRN [address] [place] [address] PCP - [facility] [place] Attributed 09/17/22 06/16/23 Anay Chandra MD [address] [place] [address] PCP - General Family Medicine 12/31/23 Vilma Hollis [address] [place] [address], [place] [address] Emergency Medicine 04/28/18 Andrei Ruby APRN 5 [facility] [address] [place] [address] Nurse Practitioner Endocrinology 07/21/19 12/29/23 Barry Cornell MD 5 [facility] [address] [address] Anesthesiologist Anesthesiology 10/03/19 10/03/19 Bakari Camilo MD 5 [facility] [address] [address] Physician Ophthalmology 01/10/20 Babak Pickard MD [address] [place] [address] [address] [place] [address] Surgery, Neurosurgery 02/16/23 documented as of this encounter
--- OUTSIDE RECORDS SUMMARY | 2024-10-13 17:13 | XMS_ITS | Encounter Summary ---
Author Organization Formerly [facility] Address [address] [place] [address] Care Team Providers Care Inside Sales Account Representative Name Role Phone Vilma Hollis Unavailable Bakari Camilo MD Unavailable [phone] Babak Pickard MD Unavailable [phone] Anay Chandra MD Primary Care Provider [phone] Reason for Visit * Reason Comments MSOT BI Encounter Details Date Type Department Care Team (Late st Contact Info) Description 01/12/[address] [address] Vishnu Hernandez MD [address] [place] [address] MSOT BI Social History Tobacco Use Types Packs/Day Years [...] encounter Miscellaneous Notes * Telephone Encounter - Cinda Wilson - 01/12/2024 1:03 PM EDT Releasing to phamacy on file due to stock issues documented in this encounter Plan of Treatment Upcoming Encounters Date Type Department Care Team (Late st Contact Info) Description 12/05/2024 1:30 PM EDT Office Visit [address] [place] [address] Anay Chandra MD [address] [place] [address], [place] [address] 01/04/2025 1:00 PM EDT Office Visit [facility] 100 [facility] [address] [place] [address] Vishnu Hernandez MD [address] [place] [address] documented as of this encounter Goals Goal [...] CICI. Intervention- to be seen today by AGILE SCRUM COACH and appt at the wound clinic in [place] on 08/23/18. OT LTG 1 Occupational Therapy No Karina Pendleton, OT Note: Patient will demonstrate 10 lb increase in lard mixer strength B for improved ability to open [...] on filedocumented in this encounter Care Teams Inside Sales Account Representative Relationship Specialty Start Date End Date Anay Chandra MD [address] [place] [address] PCP - General Family Medicine 12/31/23 Vilma Hollis Emergency Medicine 04/28/18 Bakari Camilo MD Physician Ophthalmology 01/10/20 Babak Pickard MD [address] [place] [address] [address] [place] [address] Surgery, Neurosurgery 02/16/23 documented as of this encounter
--- OUTSIDE RECORDS SUMMARY | 2024-10-13 17:13 | XMS_ITS | Encounter Summary ---
Author Organization [facility] Address [address] [place] [address] Care Team Providers Care Paper Cone Machine Tender Name Role Phone Milka Cueva APRN Primary Care Provider [phone] Vilma Hollis Unavailable Milka Cueva APRN Unavailable [phone] Raisa Pitt[place] MD Primary Care Provid er Anay Chandra MD Primary Care Provider [phone] Andrei Ruby APRN Unavailable Unavailabl e Barry Cornell MD Unavailable [phone] Bakari Camilo MD Unavailable [phone] Brenda Almeida APRN Primary Care Provider [phone] Anay Chandra MD Unavailable [phone] Anay Chandra MD Primary Care Provider [phone] Brenda Almeida APRN Unavailable [phone] Babak Pickard MD Unavailable [phone] Anay Chandra MD Primary Care Provider [phone] Encounter Details Date Type Department Care Team (Late st Contact Info) Description 02/16/2019 Scanned Document [address] [address] Gastroenterology, Scan Social History Tobacco Use Types [...] 12/05/2024 1:30 PM EDT Office Visit [address] [address] Anay Chandra MD [address] [place] [address] 01/04/2025 1:00 PM EDT Office Visit [facility] [place] 100 [facility] [address] [place] [address] Vishnu Hernandez MD [address] [place] [address] documented as of this encounter Goals Goal [...] CICI. Intervention- to be seen today by DOCTOR OF NATUROPATHIC MEDICINE and appt at the wound clinic in [place] on 08/23/18. documented as of this encounter Procedures Procedure Name Priority Date/Time Associated Diagnosis Comments PATHOLOGY GENERAL 02/16/2019 documented in this encounter Results * PATHOLOGY GENERAL (02/16/2019) Scan Gastroenterology [facility] HX PATH PROCED URES documented in this encounter Visit Diagnoses Not on filedocumented in this encounter Care Teams Paper Cone Machine Tender Relationship Specialty Start Date End Date Milka Cueva APRN [address] [place] [address] PCP - General Internal Medicine 03/10/17 05/22/19 Milka Cueva APRN 5 [facility] [place] [id number] PCP - MSSP Attributed 02/14/19 9 Raisa Pittamn MD 5 [facility] [address] [address] PCP - General Family Medicine 05/23/19 06/28/19 Anay Chandra MD 5 [facility] [address] [address] PCP - General Internal Medicine 06/29/19 10/22/21 Brenda Almeida APRN [address] [place], [place] [id number] PCP - General Adult Health - PA/APNP/POWER TRUCK DRIVER/DOCTOR OF NATUROPATHIC MEDICINE 10/23/21 12/25/21 Anay Chandra MD [address] [place] [address] PCP - PCMH+ Attributed 08/17/21 2 Anay Chandra MD [address] [facility] [address] [place] [address] PCP - General Family Medicine 12/26/21 12/30/23 Brenda Almeida, DOCTOR OF NATUROPATHIC MEDICINE [address] [place] [address] PCP - [facility] [place] Attributed 09/17/22 06/16/23 Anay Chandra MD [address] [place] [address] PCP - General Family Medicine 12/31/23 Vilma Hollis [address] [place] [address] Emergency Medicine 04/28/18 Andrei Ruby APRN 5 [facility] [address] [place] [address] Nurse Practitioner Endocrinology 07/21/19 12/29/23 Barry Cornell MD 5 [facility] [address] [place] [address] Anesthesiologist Anesthesiology 10/03/19 10/03/19 Bakari Camilo MD 5 [facility] [address] [place] [address] Physician Ophthalmology 01/10/20 Babak Pickard MD [address] [place] [address] [address] [place] [address] Surgery, Neurosurgery 02/16/23 documented as of this encounter
--- OUTSIDE RECORDS SUMMARY | 2024-10-13 17:13 | XMS_ITS | Encounter Summary ---
Author Organization [facility] Address [address] [place] [address] Care Team Providers Care On Site Soil Evaluator Name Role Phone Milka Cueva APRN Primary Care Provider [phone] Vilma Hollis Unavailable Milka Cueva APRN Unavailable [phone] Raisa Pittman MD Primary Care Provid er Anay Chandra MD Primary Care Provider [phone] Andrei Ruby APRN Unavailable Unavailabl e Barry Cornell MD Unavailable [phone] Bakari Camilo MD Unavailable [phone] Brenda Almeida APRN Primary Care Provider [phone] Anay Chandra MD Unavailable [phone] Anay Chandra MD Primary Care Provider [phone] Brenda Almeida APRN Unavailable [phone] Babak Pickard MD Unavailable [phone] Anay Chandra MD Primary Care Provider [phone] Encounter Details Date Type Department Care Team (Late st Contact Info) Description 01/20/2019 Scanned Document [address] [address] Spine Surgery, Scan Social History Tobacco Use Types Packs/Day [...] 12/05/2024 1:30 PM EDT Office Visit [address] [address] Anay Chandra MD [address] [place] [address] 01/04/2025 1:00 PM EDT Office Visit [facility] Endocrinology [place] 100 [facility] [address] [place] [address] Vishnu Hernandez MD [address] [place] [address] documented as of this encounter Goals Goal [...] CICI. Intervention- to be seen today by MAIL CLERKS SUPERVISOR and appt at the wound clinic in [place] on 08/23/18. documented as of this encounter Visit Diagnoses Not on filedocumented in this encounter Care Teams On Site Soil Evaluator Relationship Specialty Start Date End Date Milka Cueva APRN [address] [place] [address] PCP - General Internal Medicine 03/10/17 05/22/19 Milka Cueva APRN 5 [facility] [address] [place] [address] PCP - MSSP Attributed 02/14/19 9 Raisa [place] MD 5 [facility] [address] [place] [address] PCP - General Family Medicine 05/23/19 06/28/19 Anay Chandra MD 5 [facility] [address] [place] [address] PCP - General Internal Medicine 06/29/19 10/22/21 Brenda Almeida APRN [address] [place], [place] [phone] PCP - General Adult Health - PA/APNP/GREEN INSPECTOR/MAIL CLERKS SUPERVISOR 10/23/21 12/25/21 Aany Chandra MD [address] [place] [address] PCP - PCMH+ Attributed 08/17/21 2 Anay Chandra MD 5 [facility] [address] [place] [address] PCP - General Family Medicine 12/26/21 12/30/23 Brenda Almeida APRN [address] [place] [address] PCP - [facility] [place] Attributed 09/17/22 06/16/23 Anay Chandra MD [address] [place] [address] PCP - General Family Medicine 12/31/23 iVlma Hollis [address] [place] [address], [place] [address] Emergency Medicine 04/28/18 Andrei Ruby APRN 5 [facility] [address] [place] [address] Nurse Practitioner Endocrinology 07/21/19 12/29/23 Barry Cornell MD 5 [facility] [address] [address] Anesthesiologist Anesthesiology 10/03/19 10/03/19 Bakari Camilo MD 5 [facility] [address] [address] Physician Ophthalmology 01/10/20 Babak Pickard MD [address] [place], [place] [address] [address] [place] [address] Surgery, Neurosurgery 02/16/23 documented as of this encounter
--- OUTSIDE RECORDS SUMMARY | 2024-10-13 17:13 | XMS_ITS | Clinical Summary ---
Author Organization [facility] Address [address] [place] [address] Care Team Providers Care Milk Route Supervisor Name Role Phone Anay Chandra MD Primary Care Provider Allergies No known active allergies Medications Medication Sig Dispensed Refills Start Date End Date Status baclofen (LIORESAL) 20 MG tabletIndications:Mu scle Cramps Take 1 tablet (20 mg total) by mouth 3 (three) times a day. 42 tablet 0 03/26/2015 Active Vancleve-3 Fatty Acids (OMEGA-3 PO) Take 1 capsule by mouth daily. 0 Active folic acid (FOLVITE) tablet 1 mg Take 1 mg by mouth daily. 0 Active oxybutynin (DITROPAN-XL) 10 MG 24 hr tablet take 1 tablet by mouth twice a day 0 09/15/2016 Active vitamin C (ASCORBIC ACID) 250 MG tablet Take 250 mg by mouth. 0 Active busPIRone (BUSPAR) 15 MG tablet Take 15 mg by mouth. 0 Active clonazePAM (KLONOPIN) 1 MG tablet Take 1 mg by mouth. 0 Active montelukast (SINGULAIR) 10 MG tablet Take 10 mg by mouth. 0 Active progesterone (PROMETRIUM) capsule 200 mg Take 200 mg by mouth. 0 Active traZODone (DESYREL) 50 MG tablet Take 50 mg by mouth. 0 Active LYRICA 300 MG capsule 0 02/19/2017 Active buPROPion (WELLBUTRIN) 100 MG tablet Take 200 mg by mouth 2 (two) times a day. 0 Active Biotin 1 MG CAPS Take by mouth. 0 Acti ve Vitamin E (E 400 BLENDED PO) Take by mouth. 0 Active Cholecalciferol (D3 ADULT PO) Take by mouth. 0 Active Cyanocobalamin (B-12) 1000 MCG CAPS Take by mouth. 0 Active BBAXQSQ-ZAURPGLAY-MI NC PO Take by mouth. 0 Active Ascorbic Acid (VITAMIN C PO) Take by mouth. 0 Active Multiple Vitamins-Minerals (CENTRUM SILVER PO) Take by mouth. 0 A ctive VOLTAREN 1 % GEL topical 0 09/18/2017 Active albuterol (PROVENTIL HFA;VENTOLIN HFA) 108 (90 Base) MCG/ACT inhaler Inhale 2 puffs into the lungs every 6 (six) hours as needed for wheezing. 1 Inhaler 1 2018 Active lidocaine (LIDODERM) 5 % Place 1 patch onto the skin daily. Remove & Discard patch within 12 hours or as directed by 30 patch 0 05/16/2019 Active atorvastatin (LIPITOR) tablet 20 mg Take 20 mg by mouth. 0 04/11/2019 Active Interferon Beta-1a (AVONEX PEN) 30 MCG/0.5ML AJKT Inject 0.5 mL into the muscle. 0 02/28/2019 Active Blood Glucose Monitoring Suppl (FREESTYLE FREEDOM LITE) w/Device KIT use as directed TO CHECK BLOOD SUGAR EVERY MORNING AND DAILY AFTER LUNCH 0 04/25/2019 Active Blood Glucose Monitoring Suppl (FREESTYLE LITE) PIO Use to check fasting blood glucose every morning and daily after lunch. 0 04/25/2019 Active Lancets (FREESTYLE) lancets Use to check fasting blood glucose every morning and daily after lunch. 0 09/29/2018 Active glucose blood (FREESTYLE LITE) test strip Use to check fasting blood glucose every morning and daily after lunch. 0 09/29/2018 Active glipiZIDE (GLUCOTROL XL) ER 24 hr tablet 10 mg Take 10 mg by mouth every morning with breakfast. 0 04/11/2019 Active Incontinence Supply Disposable (BLADDER CONTROL PADS EX ABSORB) MISC Extra long pads, size large 0 09/02/2018 Active JANUVIA 25 MG tablet Take 25 mg by mouth daily. 0 05/06/2019 Active valACYclovir (VALTREX) 1000 MG tablet Take 2 tablets every 12 hours x 2 doses as directed at onset of lesions 0 09/29/2018 Active Hospital, Clinic, or Other Facility Administered Medication Ordered Dose Route Frequency Start Date End Date Status technetium sestamibi (CARDIOLITE) injection 20 millicurieIndications:Chest tightness,Dyspnea, unspecified type 20 millicurie IV Once 04/14/2022 Activ e Active Problems Problem Noted Date Diagnosed Date Chest pain 04/25/2022 Hyperlipidemia 04/09/2022 Chest tightness 04/09/2022 Dyspnea 04/09/2022 Lumbar radiculopathy 06/15/2019 Diabetic neuropathy 06/15/2019 Neuropathy of left ankle/foot 06/15/2019 Lumbosacral pain 05/16/2019 Left leg pain 05/16/2019 BMI 40.0-44.9, adult 11/30/2017 Chronic left-sided low back pain with sciatica 0 11/30/2017 Smoker 11/30/2017 Acquired leg length discrepancy 11/30/2017 Ulnar neuropathy at elbow 02/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 Carpal tunnel syndrome of right wrist 02/22/2016 Foot drop, right 11/19/2015 Neuropathy involving both lower extremities 11/2015 Suicidal ideations 03/22/2015 Cocaine abuse 03/22/2015 Schizoaffective disorder 03/22/2015 Low back pain 01/22/2015 Chronic pain 01/22/2015 Dysthymic disorder 01/22/2015 DS (disseminated sclerosis) 01/22/2015 MS (multiple sclerosis) Depression Anxiety Gait difficulty Hand numbness Family History Medical History Relation Name Comments Diabetes Brother 1 Harsha Stroke Father Juan Daniel Cancer Mother Skylar Arthritis Other Hypertension Other Cancer Sister 1 Gene Multiple sclerosis Sister 2 Yi Diabetes Sister 3 Leatha Relation Name Status Comments Brother 1 Harsha Alive Brother 2 Kyaw Alive Father Juan Daniel Mother Skylar Other Sister 1 Gene Alive Sister 2 Yi Alive Sister 3 Leatha Alive Social History Tobacco Use Types Packs/Day Years Used Date Smoking Tobacco: Former Cigarettes 1 15 Smokeless Tobacco: Never Tobacco Cessation:Ready to Q uit: No; Counseling Given: No Comments:PER PT TO STRESSED TO QUIT- SMOKES 1/2-1PACK A DAY Alcohol Use Standard Drinks/Week Comments Yes 0 (1 standard drink = 0.6 oz pure alcohol) Pt. admits on drinking but not often. Sex and Gender Information Value Date Recorded Sex Assigned at Female 09/22/2018 7:39 PM EST Gender Identity Not on file Sexual Orientation Not on file Job Start Date Occupation Industry Not on file Not on file Not on file Last Filed Vital Signs Vital Sign Reading Time Taken Comments Blood Pressure 115/50 12/17/2022 4:22 PM EDT Pulse 95 12/17/2022 4:20 PM EDT Temperature 36.8 ??C (98.2 ??F) 12/17/2022 4:20 PM ED T Respiratory Rate 20 12/17/2022 4:20 PM EDT Oxygen Saturation 95% 12/17/2022 4:20 PM EDT Inhaled Oxygen Concentration - - Weight 114.3 kg (252 lb) 12/17/2022 4:20 PM EDT Height 167.6 cm (5' 6 ) 12/17/2022 4:20 PM EDT Body Mass Index 40.67 12/17/2022 4:20 PM EDT Plan of Treatment Health Maintenance Due Date Last Done Comments Depression Screening 1974 BMI Counseling 1980 Preventative Health Evaluation 1980 Tobacco Cessation Counseling 1980 Cervical Cancer Screening (Pap Smear) 1983 Colon Cancer Screening (Colonoscopy) 2007 Breast Cancer Screening (Mammogram) 2012 COVID-19 Vaccine ( season) 2024 06/24/2021, 11/28/2020, 11/07/2020, Additional history exists Influenza Vaccine (#1) 2024 2, 06/24/2021, 04/20/2020, Additional history exists Pneumococcal Vaccine (3 of 3 - PPSV23 or PCV20) 2027 07/08/2019, 12/20/2018, 05/26/2016 DTap / Tdap / Td (2 - Td or Tdap) 04/01/2031 04/01/2021 RSV Adult > 60+ Yrs or (1 - 1-dose 75+ series) 2037 Hepatitis C Screening Completed 05/02/2013 Shingrix-Zoster Vaccine Completed 12/31/2020, 08/08 Hepatitis B Vaccines Aged Out No long er eligible based on patient's age to complete this topic RSV Ped < 20 months Aged Out No longe r eligible based on patient's age to complete this topic Advance Directives For more information, please contact: [phone] Documents on File Type Date Recorded Patient Chart Computer Expl anation Advance Directive and Living Will 03/29/2015 Latest Code Status on File Code Status Date Activated Date Inactivated Comments Full Code 04/25/2022 3:26 AM 04/25/2022 5:02 PM This co de status was ascertained in the following way: discussion with patient . Code Status History Code Status Date Activated Date Inactivated Comments Full Code 03/22/2015 7:26 PM 03/26/2015 9:36 PM This c ode status was ascertained in the following way: per unit protocol. Care Teams Milk Route Supervisor Relationship Specialty Start Date End Date Anay Chandra MD [address] [place] [address] PCP - General 12/16/19
--- OUTSIDE RECORDS SUMMARY | 2024-10-13 17:13 | XMS_ITS | Encounter Summary ---
Author Organization [facility] Address [address] [place] [address] Care Team Providers Care Ball Rolling Machine Operator Name Role Phone Vilma Hollis Unavailable Anay Chandra MD Primary Care Provider Andrei Ruby CORRECTIONAL CASE RECORDS SUPERVISOR Unavailable Unavailabl e Bakari Camilo MD Unavailable [phone] Brenda Almeida APRN Primary Care Provider Anay Chandra MD Unavailable Anay Chandra MD Primary Care Provider Brenda Almeida APRN Unavailable Babak Pickard MD Unavailable [phone] Anay Chandra MD Primary Care Provider [phone] Reason for Visit * Reason Comments Medication Refill Encounter Details Date Type Department Care Team (Late st Contact Info) Description 09/18/[address] [phone] Tosin Cox APRN [address] [place] [id number] Tobacco use Social History Tobacco Use Types [...] Description 12/05/2024 1:30 PM EDT Office Visit [address] [address] Anay Chandra MD [address] [place] [address] 01/04/2025 1:00 PM EDT Office Visit [facility] 100 [facility] [address] [place] [address] Vishnu Hernandez MD [address] [place] [address] documented as of this encounter Goals Goal [...] CICI. Intervention- to be seen today by CORRECTIONAL CASE RECORDS SUPERVISOR and appt at the wound clinic in [place] on 08/23/18. 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 childcare teacher strength B for improved ability to open [...] use documented in this encounter Care Teams Ball Rolling Machine Operator Relationship Specialty Start Date End Date Anay Chandra MD PCP - General Internal Medicine 06/29/19 10/22/21 Brenda Almeida, CORRECTIONAL CASE RECORDS SUPERVISOR [address] [place] [address] PCP - General Adult Health - PA/APNP/CHEMISTRY PROFESSOR/CORRECTIONAL CASE RECORDS SUPERVISOR 10/23/21 12/25/21 Anay Chandra MD [address] [place] [address] PCP - PCM+ Attributed 08/17/21 2 Anay Chandra MD PCP - General Family Medicine 12/26/21 12/30/23 Brenda Almeida, CORRECTIONAL CASE RECORDS SUPERVISOR [address] [place] [address] PCP - [facility] [place] Attributed 09/17/22 06/16/23 Anay Chandra MD [address] [place] [address] PCP - General Family Medicine 12/31/23 Vilma Hollis Emergency Medicine 04/28/18 Andrei Ruby APRN Nurse Practitioner Endocrinology 07/21/19 12/29/23 Bakari Camilo MD Physician Ophthalmology 01/10/20 Babak Pickard MD [address] [place] [address] [place] [address] Surgery, Neurosurgery 02/16/23 documented as of this encounter
--- OUTSIDE RECORDS SUMMARY | 2024-10-13 17:13 | XMS_ITS | Encounter Summary ---
Author Organization [facility] Address [address] [place] [address] Care Team Providers Care Hem Marker Name Role Phone Vilma Hollis Unavailable Anay Chandra MD Primary Care Provider [phone] Andrei Ruby APRN Unavailable Unavailabl e Bakari Camilo MD Unavailable [phone] Brenda Almeida APRN Primary Care Provider [phone] Anay Chandra MD Unavailable Anay Chandra MD Primary Care Provider [phone] Brenda Almeida APRN Unavailable [phone] Babak Pickard MD Unavailable [phone] Anay Chandra MD Primary Care Provider [phone] Reason for Visit * Reason Comments CARDIO GENETICS Encounter Details Date Type Department Care Team (Late st Contact Info) Description 10/22/2020 Telephone [facility] [address] [place] [address] Anay Chandra MD [address] [place] [address] CARDIO GENETICS Social History Tobacco Use Types Packs/Day Years [...] encounter Miscellaneous Notes * Telephone Encounter - Tosin Cox APRN - 10/23/2020 4:39 PM EST Yeah, I would follow up with cardiology, I don't think she needs genetics testing unless recommended and referred by cardiology. Tosin Cox APRN * Telephone Encounter - Lisa Garcia MA - 10/23/2020 2:21 PM EST Pt states she received a call from a lady suggesting cardio genetics testing. She doesn't have any more info as who and why would they call her about that.? Scam. She had to cancel her cardiology appt due to a Covid exposure around appt date, but didn't reschedule. I provided pt phone number to call and reschedule cardio appt. * Telephone Encounter - Tosin Cox APRN - 10/22/2020 3:45 PM EST I need more information. Genetics for what specifically? There is no cardio genetics with [facility], onlycancer genetics. I know [facility] has general genetics testing, not sure if they would be of help. Did she see cardiology as I previously referred? They can probably address most cardiac issues. Tosin Cox APRN * Telephone Encounter - Hilda Spicer MA - 10/22/2020 3:42 PM EST Please advise * Telephone Encounter - Ale Barahona - 10/22/2020 12:52 PM EST SHE WANTS TO BE SET UP WITH CARDIO GENETICS. ANY ? CALL PATIENT AT [phone] documented in this encounter Plan of Treatment Upcoming Encounters Date Type Department Care Team (Late st Contact Info) Description 12/05/2024 1:30 PM EDT Office Visit [address] [address] Anay Chandra MD [address] [place] [address] 01/04/2025 1:00 PM EDT Office Visit [facility] 100 [facility] [address] [place] [address] Vishnu Hernandez MD [address] [place] [address] documented as of this encounter Goals Goal [...] CICI. Intervention- to be seen today by MINISTER ASSISTANT and appt at the wound clinic in [place] on 08/23/18. OT LTG 1 Occupational Therapy No Karina Pendleton, MICHAEL Note: Patient will demonstrate 10 lb increase in recreational director strength B for improved ability to open [...] on filedocumented in this encounter Care Teams Hem Marker Relationship Specialty Start Date End Date Anay Chandra MD PCP - General Internal Medicine 06/29/19 10/22/21 Brenda Almeida, MINISTER ASSISTANT [address] [place] [address] PCP - General Adult Health - PA/APNP/DIABETES SPECIALIST/MINISTER ASSISTANT 10/23/21 12/25/21 Anay Chandra MD [address] [place] [address] PCP - PCM+ Attributed 08/17/21 2 Anay Chandra MD PCP - General Family Medicine 12/26/21 12/30/23 Brenda Almeida, MINISTER ASSISTANT [address] [place] [address] PCP - [facility] [place] Attributed 09/17/22 06/16/23 Anay Chandra MD [address] [place] [address] PCP - General Family Medicine 12/31/23 Vilma Hollis Emergency Medicine 04/28/18 Andrei Ruby APRN Nurse Practitioner Endocrinology 07/21/19 12/29/23 Bakari Camilo MD Physician Ophthalmology 01/10/20 Babak Pickard MD [address] [place] [address] [address] [place] [address] Surgery, Neurosurgery 02/16/23 documented as of this encounter
--- OUTSIDE RECORDS SUMMARY | 2024-10-13 17:13 | XMS_ITS | Encounter Summary ---
Author Organization [facility] Address [address] [place] [address] Care Team Providers Care Forcer Maker Name Role Phone Milka Cueva APRN Primary Care Provider [phone] Vilma Hollis Unavailable Milka Cueva APRN Unavailable [phone] Raisa Pittman MD Primary Care Provid er Anay Chandra MD Primary Care Provider [phone] Andrei Ruby APRN Unavailable Unavailabl e Barry Cornell MD Unavailable [phone] Bakari Camilo MD Unavailable [phone] Brenda Almeida APRN Primary Care Provider [phone] Anay Chandra MD Unavailable [phone] Anay Chandra MD Primary Care Provider [phone] Brenda Almeida APRN Unavailable [phone] Babak Pickard MD Unavailable [phone] Anay Chandra MD Primary Care Provider [phone] Encounter Details Date Type Department Care Team (Late st Contact Info) Description 12/06/2018 Scanned Document [address] [place] [address] Primary Care, Scan Social History Tobacco Use [...] Description 12/05/2024 1:30 PM EDT Office Visit [address] [address] Anay Chandra MD [address] [place] [address] 01/04/2025 1:00 PM EDT Office Visit [facility] Endocrinology [place] 100 [facility] [address] [place] [address] Vishnu Hernandez MD [address] [place] [address] documented as of this encounter Goals Goal [...] CICI. Intervention- to be seen today by CUTTER OUT and appt at the wound clinic in [place] on 08/23/18. documented as of this encounter Visit Diagnoses Not on filedocumented in this encounter Care Teams Forcer Maker Relationship Specialty Start Date End Date Milka Cueva APRN [address] [place] [address] PCP - General Internal Medicine 03/10/17 05/22/19 Milka Cueva APRN 5 [facility] [address] [place] [address] PCP - MSSP Attributed 02/14/19 9 Raisa Pittman MD 5 [facility] [address] [place] [address] PCP - General Family Medicine 05/23/19 06/28/19 Anay Chandra MD 5 [facility] [address] [place] [address] PCP - General Internal Medicine 06/29/19 10/22/21 Brenda Almeida APRN [address] [place], [place] [address] PCP - General Adult Health - PA/APNP/CASUAL SHOE INSPECTOR/CUTTER OUT 10/23/21 12/25/21 Anay Chandra MD [address] [place] [address] PCP - PCMH+ Attributed 08/17/21 2 Anay Chandra MD 5 [facility] [address] [place] [address] PCP - General Family Medicine 12/26/21 12/30/23 Brenda Almeida, CUTTER OUT [address] [place] [address] PCP - [facility] [place] Attributed 09/17/22 06/16/23 Anay Chandra MD [address] [place] [address] PCP - General Family Medicine 12/31/23 Vilma Hollis [address] [place] [address] Emergency Medicine 04/28/18 Andrei Ruby APRN 5 [facility] [address] [address] Nurse Practitioner Endocrinology 07/21/19 12/29/23 Barry Cornell MD 5 [facility] [address] [address] Anesthesiologist Anesthesiology 10/03/19 10/03/19 Bakari Camilo MD 5 [facility] [address] [address] Physician Ophthalmology 01/10/20 Babak Pickard MD [address] [place] [address] [address] [place] [address] Surgery, Neurosurgery 02/16/23 documented as of this encounter
--- OUTSIDE RECORDS SUMMARY | 2024-10-13 17:13 | XMS_ITS | Encounter Summary ---
Author Organization [facility] Address [address] [place] [address] Care Team Providers Care Hospitality Host Name Role Phone Milka Cueva APRN Primary Care Provider [phone] Vilma Hollis Unavailable Milka Cueva APRN Unavailable [phone] Raisa Pittman MD Primary Care Provid er Anay Chandra MD Primary Care Provider [phone] Andrei Ruby APRN Unavailable Unavailabl e Barry Cornell MD Unavailable [phone] Bakari Camilo MD Unavailable [phone] Brenda Almeida APRN Primary Care Provider [phone] Anay Chandra MD Unavailable [phone] Anay Chandra MD Primary Care Provider [phone] Brenda Almeida APRN Unavailable [phone] Babak Pickard MD Unavailable [phone] Anay Chandra MD Primary Care Provider [phone] Encounter Details Date Type Department Care Team (Late st Contact Info) Description 10/08/2017 Scanned Document [address] [address] Provider, Generic Social History Tobacco Use Types [...] Description 12/05/2024 1:30 PM EDT Office Visit [address] [address] Anay Chandra MD [address] [place] [address] 01/04/2025 1:00 PM EDT Office Visit [facility] Endocrinology [address] [address] Vishnu Hernandez MD [address] [place] [address] documented as of this encounter Visit Diagnoses Not on filedocumented in this encounter Care Teams Hospitality Host Relationship Specialty Start Date End Date Milka Cueva APRN [address] [place] [address] PCP - General Internal Medicine 03/10/17 05/22/19 Milka Cueva APRN [address] [address] PCP - MSSP Attributed 02/14/19 9 Raisa Pittman MD [address] [address] PCP - General Family Medicine 05/23/19 06/28/19 Anay Chandra MD 5 [facility] [address] [place] [address] PCP - General Internal Medicine 06/29/19 10/22/21 Brenda Almeida, AUTO COLLISION REPAIR INSTRUCTOR [address] [place], [place] [address] PCP - General Adult Health - PA/APNP/BENEFITS COUNSELOR/AUTO COLLISION REPAIR INSTRUCTOR 10/23/21 12/25/21 Anay Chandra MD [address] [place] [address] PCP - PCMH+ Attributed 08/17/21 2 Anay Chandra MD 5 [facility] [address] [place] [address] PCP - General Family Medicine 12/26/21 12/30/23 Brenda Almeida, AUTO COLLISION REPAIR INSTRUCTOR [address] [place], [place] [address] PCP - [facility] [place] Attributed 09/17/22 06/16/23 Anay Chandra MD [address] [place] [address] PCP - General Family Medicine 12/31/23 Vilma Hollis [address] [place], [place] [address] Emergency Medicine 04/28/18 Andrei Ruby APRN 5 [facility] [address] [place] [address] Nurse Practitioner Endocrinology 07/21/19 12/29/23 Barry Cornell MD 5 [facility] [address] [place] [address] Anesthesiologist Anesthesiology 10/03/19 10/03/19 Bakari Camilo MD 5 [facility] [address] [address] Physician Ophthalmology 01/10/20 Babak Pickard MD [address] [place] [address] [address] [place] [address] Surgery, Neurosurgery 02/16/23 documented as of this encounter
--- OUTSIDE RECORDS SUMMARY | 2024-10-13 17:13 | XMS_ITS | Encounter Summary ---
Author Organization [facility] Address [address] [place] [address] Care Team Providers Care Cost Control Analyst Name Role Phone Milka Cueva APRN Primary Care Provider [phone] Vilma Hollis Unavailable Milka Cueva APRN Unavailable [phone] Raisa Pittman MD Primary Care Provid er Anay Chandra MD Primary Care Provider [phone] Andrei Ruby APRN Unavailable Unavailabl e Barry Cornell MD Unavailable [phone] Bakari Camilo MD Unavailable [phone] Brenda Almeida APRN Primary Care Provider [phone] Anay Chandra MD Unavailable [phone] Anay Chandra MD Primary Care Provider [phone] Brenda Almeida APRN Unavailable [phone] Babak Pickard MD Unavailable [phone] Anay Chandra MD Primary Care Provider [phone] Encounter Details Date Type Department Care Team (Late st Contact Info) Description 10/19/2017 Scanned Document [address] [address] Provider, Generic Social History Tobacco Use Types [...] 12/05/2024 1:30 PM EDT Office Visit [address] [address] Anay Chandra MD [address] [place] [address] 01/04/2025 1:00 PM EDT Office Visit [facility] Endocrinology [address] [address] Vishnu Hernandez MD [address] [place] [address] documented as of this encounter Visit Diagnoses Not on filedocumented in this encounter Care Teams Cost Control Analyst Relationship Specialty Start Date End Date Milka Cueva APRN [address] [place] [address] PCP - General Internal Medicine 03/10/17 05/22/19 Milka Cueva APRN [address] [address] PCP - MSSP Attributed 02/14/19 9 Raisa Pittman MD [address] [address] PCP - General Family Medicine 05/23/19 06/28/19 Anay Chandra MD 5 [facility] [address] [place] [address] PCP - General Internal Medicine 06/29/19 10/22/21 Brenda Almeida, HEATING AND COOLING SYSTEMS ENGINEER [address] [place], [place] [address] PCP - General Adult Health - PA/APNP/SUPERVISING ARCHITECT/HEATING AND COOLING SYSTEMS ENGINEER 10/23/21 12/25/21 Anay Chandra MD [address] [place] [address] PCP - PCMH+ Attributed 08/17/21 2 Anay Chandra MD 5 [facility] [address] [place] [address] PCP - General Family Medicine 12/26/21 12/30/23 Brenda Almeida, HEATING AND COOLING SYSTEMS ENGINEER [address] [place], [place] [address] PCP - [facility] [place] Attributed 09/17/22 06/16/23 Anay Chandra MD [address] [place] [address] PCP - General Family Medicine 12/31/23 Vilma Hollis [address] [place], [place] [address] Emergency Medicine 04/28/18 Andrei Ruby APRN 5 [facility] [address] [place] [address] Nurse Practitioner Endocrinology 07/21/19 12/29/23 Barry Cornell MD 5 [facility] [address] [place] [address] Anesthesiologist Anesthesiology 10/03/19 10/03/19 Bakari Camilo MD 5 [facility] [address] [address] Physician Ophthalmology 01/10/20 Babak Pickard MD [address] [place] [address] [address] [place] [address] Surgery, Neurosurgery 02/16/23 documented as of this encounter
--- OUTSIDE RECORDS SUMMARY | 2024-10-13 17:13 | XMS_ITS | Encounter Summary ---
Author Organization [facility] Address [address] [place] [address] Care Team Providers Care Personal Lines Underwriter Name Role Phone Vilma Hollis Unavailable Anay Chandra MD Primary Care Provider [phone] Andrei Ruby APRN Unavailable Unavailabl e Bakari Camilo MD Unavailable [phone] Brenda Almeida APRN Primary Care Provider Anay Chandra MD Unavailable Anay Chandra MD Primary Care Provider Brenda Almeida APRN Unavailable [phone] Babak Pickard MD Unavailable [phone] Anay Chandra MD Primary Care Provider [phone] Reason for Visit * Reason Comments Referral Medication Refill Encounter Details Date Type Department Care Team (Late st Contact Info) Description 10/29/2020 Telephone [facility] [address] [place] [address] Anay Chandra MD [address] [place] [address] Referral; Medication Refill Social History Tobacco Use Types Packs/Day [...] Description 12/05/2024 1:30 PM EDT Office Visit [address] [address] Anay Chandra MD [address] [place] [address] 01/04/2025 1:00 PM EDT Office Visit [facility] 100 [facility] [address] [place] [address] Vishnu Hernandez MD [address] [place] [address] documented as of this encounter Goals Goal [...] Intervention- to be seen today by CERTIFIED MEDICAL TECHNICIAN and appt at the wound clinic in [place] on 08/23/18. 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 manager nicu strength B for improved ability to open [...] on filedocumented in this encounter Care Teams Personal Lines Underwriter Relationship Specialty Start Date End Date Anay Chandra MD PCP - General Internal Medicine 06/29/19 10/22/21 Brenda Almeida, CERTIFIED MEDICAL TECHNICIAN [address] [place] [address] PCP - General Adult Health - PA/APNP/ASSET PROTECTION ASSISTANT/CERTIFIED MEDICAL TECHNICIAN 10/23/21 12/25/21 Anay Chandra MD [address] [place] [address] PCP - PCM+ Attributed 08/17/21 2 Anay Chandra MD PCP - General Family Medicine 12/26/21 12/30/23 Brenda Almeida, CERTIFIED MEDICAL TECHNICIAN [address] [place] [address] PCP - [facility] [place] Attributed 09/17/22 06/16/23 Anay Chandra MD [address] [place] [address] PCP - General Family Medicine 12/31/23 Vilma Hollis Emergency Medicine 04/28/18 Andrei Ruby APRN Nurse Practitioner Endocrinology 07/21/19 12/29/23 Bakari Camilo MD Physician Ophthalmology 01/10/20 Babak Pickard MD [address] [place] [address] [place] [address] Surgery, Neurosurgery 02/16/23 documented as of this encounter
--- OUTSIDE RECORDS SUMMARY | 2024-10-13 17:13 | XMS_ITS | Encounter Summary ---
Author Organization [facility] Address [address] [place] [address] Care Team Providers Care Habilitative Interventionist Name Role Phone Milka Cueva APRN Primary Care Provider [phone] Vilma Hollis Unavailable Milka Cueva APRN Unavailable [phone] Raisa Pittman MD Primary Care Provid er Anay Chandra MD Primary Care Provider [phone] Andrei Ruby APRN Unavailable Unavailabl e Barry Cornell MD Unavailable [phone] Bakari Camilo MD Unavailable [phone] Brenda Almeida APRN Primary Care Provider [phone] Anay Chandra MD Unavailable [phone] Anay Chandra MD Primary Care Provider [phone] Brenda Almeida APRN Unavailable [phone] Babak Pickard MD Unavailable [phone] Anay Chandra MD Primary Care Provider [phone] Encounter Details Date Type Department Care Team (Late st Contact Info) Description 04/12/2019 Scanned Document [facility] [address] [place] [address] [address] [place] [address] Provider, Generic Social History Tobacco [...] 12/05/2024 1:30 PM EDT Office Visit [address] [address] Anay Chandra MD [address] [place] [address] 01/04/2025 1:00 PM EDT Office Visit [facility] Endocrinology [place] 100 [facility] [address] [place] [address] Vishnu Hernandez MD 100 [facility] [address] [place] [address] documented as of this encounter Goals Goal [...] and appt at the wound clinic in [place] on 08/23/18. documented as of this encounter Visit Diagnoses Not on filedocumented in this encounter Care Teams Habilitative Interventionist Relationship Specialty Start Date End Date Milka Cueva APRN [address] [place] [address] PCP - General Internal Medicine 03/10/17 05/22/19 Milka Cueva APRN 5 [facility] [address] [place] [address] PCP - MSSP Attributed 02/14/19 9 Raisa Pittman MD 5 [facility] [address] [place] [address] PCP - General Family Medicine 05/23/19 06/28/19 Anay Chandra MD 5 [facility] [address] [place] [address] PCP - General Internal Medicine 06/29/19 10/22/21 Brenda Almeida APRN [address] [place] [address] PCP - General Adult Health - PA/APNP/ROOFING LAYER/BEVERAGE HOST 10/23/21 12/25/21 Anay Chandra MD [address] [place] [address] PCP - PCMH+ Attributed 08/17/21 2 Anay Chandra MD 5 [facility] [address] [place] [address] PCP - General Family Medicine 12/26/21 12/30/23 Brenda Almeida APRN [address] [place] [address] PCP - [facility] [place] Attributed 09/17/22 06/16/23 Anay Chandra MD [address] [place] [address] PCP - General Family Medicine 12/31/23 Vilma Hollis [address] [place] [address] Emergency Medicine 04/28/18 Andrei Ruby APRN 5 [facility] [address] [address] Nurse Practitioner Endocrinology 07/21/19 12/29/23 Barry Cornell MD 5 [facility] [address] [address] Anesthesiologist Anesthesiology 10/03/19 10/03/19 Bakari Camilo MD 5 [facility] [address] [address] Physician Ophthalmology 01/10/20 Babak Pickard MD [address] [place] [address] [address] [place] [address] Surgery, Neurosurgery 02/16/23 documented as of this encounter
--- OUTSIDE RECORDS SUMMARY | 2024-10-13 17:13 | XMS_ITS | Encounter Summary ---
Author Organization [facility] Address [address] [place] [address] Care Team Providers Care Energy Consultant Name Role Phone Vilma Hollis Unavailable Anay Chandra MD Primary Care Provider [phone] Andrei Ruby APRN Unavailable Unavailabl e Bakari Camilo MD Unavailable [phone] Brenda Almeida APRN Primary Care Provider Anay Chandra MD Unavailable [phone] Anay Chandra MD Primary Care Provider [phone] Brenda Almeida APRN Unavailable [phone] Babak Pickard MD Unavailable [phone] Anay Chandra MD Primary Care Provider [phone] Encounter Details Date Type Department Care Team (Late st Contact Info) Description 04/15/2021 Scanned Document [facility] EMERGENCY MED SCAN Emergency Medicine, Scan [...] Description 12/05/2024 1:30 PM EDT Office Visit [address] [place] [address] Anay Chandra MD [address] [place] [address] 01/04/2025 1:00 PM EDT Office Visit [facility] 100 [facility] [address] [place] [address] Vishnu Hernandez MD [address] [place] [address] documented as of this encounter Goals Goal [...] and appt at the wound clinic in [place] on 08/23/18. OT LTG 1 Occupational Therapy No Karina Pendleton, MICHAEL Note: Patient will demonstrate 10 lb increase in flight line mechanic strength B for improved ability to open [...] on filedocumented in this encounter Care Teams Energy Consultant Relationship Specialty Start Date End Date Anay Chandra MD PCP - General Internal Medicine 06/29/19 10/22/21 Brenda Almeida, DIRECTOR OF DIGITAL PLATFORMS [address] [place] [address] PCP - General Adult Health - PA/APNP/CARDIOVASCULAR RN/DIRECTOR OF DIGITAL PLATFORMS 10/23/21 12/25/21 Anay Chandra MD [address] [place] [address] PCP - PCM+ Attributed 08/17/21 2 Anay Chandra MD PCP - General Family Medicine 12/26/21 12/30/23 Brenda Almeida, DIRECTOR OF DIGITAL PLATFORMS [address] [place] [address] PCP - [facility] Attributed 09/17/22 06/16/23 Anay Chandra MD [address] [place] [address] PCP - General Family Medicine 12/31/23 Vilma Hollis Emergency Medicine 04/28/18 Andrei Ruby APRN Nurse Practitioner Endocrinology 07/21/19 12/29/23 Bakari Camilo MD Physician Ophthalmology 01/10/20 Babak Pickard MD [address] [place] [address] Surgery, Neurosurgery 02/16/23 documented as of this encounter
--- OUTSIDE RECORDS SUMMARY | 2024-10-13 17:14 | XMS_ITS | Encounter Summary ---
Author Organization Formerly [facility] Address [address] [place] [address] Care Team Providers Care Customer Care Assistant Name Role Phone Vilma Hollis Unavailable Andrei Ruby HIMS MANAGER Unavailable Unavailabl e Bakari Camilo MD Unavailable [phone] Anay Chandra MD Primary Care Provider [phone] Brenda Almeida HIMS MANAGER Unavailable [phone] Babak Pickard MD Unavailable [phone] Anay Chandra MD Primary Care Provider [phone] Encounter Details Date Type Department Care Team (Late st Contact Info) Description 11/18/2022 Scanned Document [facility] PRIMARY CARE SCAN Primary Care, Scan Social [...] suspected to have Coronavirus/COVID-19? No / Unsure 10/23/2022 3:41 PM EST documented as of this encounter Plan of Treatment Upcoming Encounters Date Type Department Care Team (Late st Contact Info) Description 12/05/2024 1:30 PM EDT Office Visit [facility] [address] [place] [phone] Anay Chandra MD [address] [facility], [place] [id number] 01/04/2025 1:00 PM EDT Office Visit [facility] Endocrinology [place] [address] [place] [address] Vishnu Hernandez MD [address] [place] [address] documented as of this encounter Goals Goal [...] and appt at the wound clinic in [place] on 08/23/18. OT LTG 1 Occupational Therapy No Karina Pendleton, MICHAEL Note: Patient will demonstrate 10 lb increase in senior actuarial analyst strength B for improved ability to [...] on filedocumented in this encounter Care Teams Customer Care Assistant Relationship Specialty Start Date End Date Anay Chandra MD PCP - General Family Medicine 12/26/21 12/30/23 Brenda Almeida APRN [address] [place] [address] PCP - [facility] Attributed 09/17/22 06/16/23 Anay Chandra MD [address] [place] [address] PCP - General Family Medicine 12/31/23 Vilma Hollis Emergency Medicine 04/28/18 Andrei Ruby APRN Nurse Practitioner Endocrinology 07/21/19 12/29/23 Bakari Camilo MD Physician Ophthalmology 01/10/20 Babak Pickard MD [address] [place] [address] [place] [address] Surgery, Neurosurgery 02/16/23 documented as of this encounter
--- OUTSIDE RECORDS SUMMARY | 2024-10-13 17:14 | XMS_ITS | Encounter Summary ---
Author Organization [facility] Address [address] [place] [address] Care Team Providers Care Post Manager Name Role Phone Vilma Hollis Unavailable Anay Chandra MD Primary Care Provider [phone] Andrei Ruby APRN Unavailable Unavailabl e Bakari Camilo MD Unavailable [phone] Brenda Almeida APRN Primary Care Provider Anay Chandra MD Unavailable [phone] Anay Chandra MD Primary Care Provider [phone] Brenda Almeida APRN Unavailable [phone] Babak Pickard MD Unavailable [phone] Anay Chandra MD Primary Care Provider [phone] Encounter Details Date Type Department Care Team (Late st Contact Info) Description 06/05/2020 Scanned Document [facility] PRIMARY CARE SCAN Primary Care, Scan [...] Description 12/05/2024 1:30 PM EDT Office Visit [facility] [address] [place] [address] Anay Chandra MD [address] [place] [phone] 01/04/2025 1:00 PM EDT Office Visit [facility] Endocrinology [place] [address] [place] [address] Vishnu Hernandez MD [address] [place] [address] documented as of this encounter Goals Goal [...] CICI. Intervention- to be seen today by BOAT DISPATCHER and appt at the wound clinic in [place] on 08/23/18. 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 manufacturing technician strength B for improved ability to [...] on filedocumented in this encounter Care Teams Post Manager Relationship Specialty Start Date End Date Anay Chandra MD PCP - General Internal Medicine 06/29/19 10/22/21 Brenda Almeida, BOAT DISPATCHER [address] [place] [address] PCP - General Adult Health - PA/APNP/GOLD LEAF ROLLER/BOAT DISPATCHER 10/23/21 12/25/21 Anay Chandra MD [address] [place] [phone] PCP - [facility] Attributed 08/17/21 Anay Chandra MD PCP - General Family Medicine 12/26/21 12/30/23 Brenda Almeida, BOAT DISPATCHER [address] [place] [address] PCP - [facility] [place] Attributed 09/17/22 06/16/23 Anay Chandra MD [address] [place] [address] PCP - General Family Medicine 12/31/23 Vilma Hollis Emergency Medicine 04/28/18 Andrei Ruby APRN Nurse Practitioner Endocrinology 07/21/19 12/29/23 Bakari Camilo MD Physician Ophthalmology 01/10/20 Babak Pickard MD [address] [place] [address] [place] [address] Surgery, Neurosurgery 02/16/23 documented as of this encounter
--- OUTSIDE RECORDS SUMMARY | 2024-10-13 17:14 | XMS_ITS | Encounter Summary ---
Author Organization Formerly [facility] Address [address] [place] [address] Care Team Providers Care Respiratory Tech Name Role Phone Vilma Hollis Unavailable Andrei Ruby APRN Unavailable Unavailabl Bakari Mcclelland MD Unavailable [phone] Anay Chandra MD Primary Care Provider [phone] Babak Pickard MD Unavailable [phone] Anay Chandra MD Primary Care Provider [phone] Reason for Visit * Reason Comments Call Patient Encounter Details Date Type Department Care Team (Late st Contact Info) Description 06/23/[address] [address] Anay Chandra MD [address] [place] [phone] Call Patient Social History Tobacco Use Types [...] encounter Miscellaneous Notes * Telephone Encounter - Hilda Spicer MA - 07/06/2023 4:49 PM EST Form done pt set up for ride * Telephone Encounter - Jennifer Dalal MA - 06/26/2023 10:23 AM EST Pt informed and verbalize understanding. * Telephone Encounter - Anay Chandra MD - 06/26/2023 7:51 AM EST I ordered labs so we can reassess where she stands in terms of blood sugar control (Last A1c was excellent at 5.8) She may be fine waiting until December to see endocrine based on results (Fasting labs) Thanks * Telephone Encounter - Hilda Spicer MA - 06/25/2023 4:30 PM EST Will get [place] form online... Dr Chandra Pt scheduled for Endo in December please advise if ok to wait- documented in this encounter Plan of Treatment Upcoming Encounters Date Type Department Care Team (Late st Contact Info) Description 12/05/2024 1:30 PM EDT Office Visit [address] [address] Anay Chandra MD [address] [place] [address] 01/04/2025 1:00 PM EDT Office Visit [facility] Endocrinology [address] [place] [address] Vishnu Hernandez MD [address] [place], [place] [address] [place] [address] [place] [address] documented as of this encounter Goals Goal [...] CICI. Intervention- to be seen today by STEPDOWN NURSE and appt at the wound clinic in [place] on 08/23/18. 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 file keeper strength B for improved ability to open [...] on filedocumented in this encounter Care Teams Respiratory Tech Relationship Specialty Start Date End Date Anay Chandra MD PCP - General Family Medicine 12/26/21 12/30/23 Anay Chandra MD [address] [place] [address] PCP - General Family Medicine 12/31/23 Vilma Hollis Emergency Medicine 04/28/18 Andrei Ruby APRN Nurse Practitioner Endocrinology 07/21/19 12/29/23 Bakari Camilo MD Physician Ophthalmology 01/10/20 Babak Pickard MD [address] [place] [address] Surgery, Neurosurgery 02/16/23 documented as of this encounter
--- OUTSIDE RECORDS SUMMARY | 2024-10-13 17:14 | XMS_ITS | Encounter Summary ---
Author Organization [facility] Address [address] [place] [address] Care Team Providers Care Plastic Cutter Name Role Phone Vilma Hollis Unavailable Andrei Ruby MARINE SURVEYOR Unavailable Unavailabl e Bakari Camilo MD Unavailable [phone] Anay Chandra MD Primary Care Provider Brenda Almeida MARINE SURVEYOR Unavailable [phone] Babak Pickard MD Unavailable [phone] Anay Chandra MD Primary Care Provider [phone] Encounter Details Date Type Department Care Team (Late st Contact Info) Description 05/01/2023 [facility] [address] [place] [address] Anay Chandra MD [address] [place] [address] Tobacco dependence; Tobacco abuse Social History Tobacco Use Types Packs/Day Years [...] 12/05/2024 1:30 PM EDT Office Visit [address] [place] [address] Anay Chandra MD [address] [place] [phone] 01/04/2025 1:00 PM EDT Office Visit [facility] Endocrinology [place] [address] [place] [address] Vishnu Hernandez MD [address] [place] [address] documented as of this encounter Goals Goal [...] CICI. Intervention- to be seen today by MARINE SURVEYOR and appt at the wound clinic in [place] on 08/23/18. 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 OT LTG 2 Occupational Therapy No Karina Pendleton OT Note: QD score will improve by 10% in 6 weeks. OT LTG 3 Occupational Therapy No Helder, Karina, OT Note: Patient will demonstrate independence with HEP including education in 6 weeks. documented as of this encounter Visit Diagnoses Diagnosis Tobacco dependence Tobacco use disorder Tobacco abuse Tobacco use disorder documented in this encounter Care Teams Plastic Cutter Relationship Specialty Start Date End Date Anay Chandra MD PCP - General Family Medicine 12/26/21 12/30/23 Brenda Almeida APRN [address] [place] [address] PCP - [facility] Attributed 09/17/22 06/16/23 Anay Chandra MD [address] [place] [address] PCP - General Family Medicine 12/31/23 Vilma Hollis Emergency Medicine 04/28/18 Andrei Ruby APRN Nurse Practitioner Endocrinology 07/21/19 12/29/23 Bakari Camilo MD Physician Ophthalmology 01/10/20 Babak Pickard MD [address] [place] [address] [place] [address] Surgery, Neurosurgery 02/16/23 documented as of this encounter
--- OUTSIDE RECORDS SUMMARY | 2024-10-13 17:14 | XMS_ITS | Encounter Summary ---
Author Organization [facility] Address [address] [place] [address] Care Team Providers Care Air Defense Specialist Name Role Phone Vilma Hollis Unavailable Andrei Ruby APRN Unavailable Unavailabl Bakari Mcclelland MD Unavailable [phone] Anay Chandra MD Primary Care Provider [phone] MellyBabak bryson MD Unavailable [phone] Anay Chandra MD Primary Care Provider [phone] Encounter Details Date Type Department Care Team (Late st Contact Info) Description 10/06/2023 [facility] Endocrinology [address] [place] [address] Vishnu Hernandez MD [address] [facility] [address] [place] [address] Type 2 diabetes mellitus with hyperglycemia, without [...] 12/05/2024 1:30 PM EDT Office Visit [address] [place] [address] Anay Chandra MD [address] [place] [address], [place] [address] 01/04/2025 1:00 PM EDT Office Visit [facility] Endocrinology [place] [address] [place] [address] Vishnu Hernandez MD [address] [place] [address] documented as of this encounter Goals Goal [...] CICI. Intervention- to be seen today by PUBLIC EMPLOYMENT MEDIATOR and appt at the wound clinic in [place] on 08/23/18. 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 professor of counseling strength B for improved ability to open [...] (HCC) documented in this encounter Care Teams Air Defense Specialist Relationship Specialty Start Date End Date Anay Chandra MD PCP - General Family Medicine 12/26/21 12/30/23 Anay Chandra MD [address] [place] [address] PCP - General Family Medicine 12/31/23 Vilma Hollis Emergency Medicine 04/28/18 Andrei Ruby APRN Nurse Practitioner Endocrinology 07/21/19 12/29/23 Bakari Camilo MD Physician Ophthalmology 01/10/20 Babak Pickard MD [address] [place] [address] [place] [address] Surgery, Neurosurgery 02/16/23 documented as of this encounter
--- OUTSIDE RECORDS SUMMARY | 2024-10-13 17:14 | XMS_ITS | Encounter Summary ---
Author Organization [facility] Address [address] [place] [address] Care Team Providers Care Shell Molder Name Role Phone Vilma Hollis Unavailable Andrei Ruby APRN Unavailable Unavailabl e Bakari Camilo MD Unavailable [phone] Anay Chandra MD Primary Care Provider [phone] Babak Pickard MD Unavailable [phone] Anay Chandra MD Primary Care Provider [phone] Encounter Details Date Type Department Care Team (Late st Contact Info) Description 07/06/2023 Scanned Document [facility] PRIMARY CARE SCAN Primary Care, Scan Social [...] Description 12/05/2024 1:30 PM EDT Office Visit [address] [phone] Anay Chandra MD [address] [place] [address] [place] [address] 01/04/2025 1:00 PM EDT Office Visit [facility] Endocrinology [place] [address] [facility] [address] [place] [address] Vishnu Hernandez MD [address] [place] [address] documented as of this encounter Goals Goal [...] and appt at the wound clinic in [place] on 08/23/18. OT LTG 1 Occupational Therapy No Karina Pendleton, MICHAEL Note: Patient will demonstrate 10 lb increase in dining room attendant cafeteria strength B for improved ability to open [...] on filedocumented in this encounter Care Teams Shell Molder Relationship Specialty Start Date End Date Anay Chandra MD PCP - General Family Medicine 12/26/21 12/30/23 Anay Chandra MD [address] [place] [address] PCP - General Family Medicine 12/31/23 Vilma Hollis Emergency Medicine 04/28/18 Andrei Ruby APRN Nurse Practitioner Endocrinology 07/21/19 12/29/23 Bakari Camilo MD Physician Ophthalmology 01/10/20 Babak Pickard MD [address] [place] [address] Surgery, Neurosurgery 02/16/23 documented as of this encounter
--- OUTSIDE RECORDS SUMMARY | 2024-10-13 17:14 | XMS_ITS | Encounter Summary ---
Author Organization [facility] Address [address] [place] [address] Care Team Providers Care Head Of Marketing Analytics Name Role Phone Vilma Hollis Unavailable Anay Chandra MD Primary Care Provider [phone] Andrei Ruby APRN Unavailable Unavailabl e Bakari Caimlo MD Unavailable [phone] Brenda Almeida APRN Primary Care Provider [phone] Anay Chandra MD Unavailable Anay Chandra MD Primary Care Provider Brenda Almeida APRN Unavailable [phone] Babak Pickard MD Unavailable [phone] Anay Chandra MD Primary Care Provider [phone] Reason for Visit * Reason Comments Referral [facility]ter Encounter Details Date Type Department Care Team (Late st Contact Info) Description 06/07/[address] [phone] Anay Chandra MD [address] [place] [address] Referral ([facility]) Social History Tobacco Use Types Packs/Day Years [...] Telephone Encounter - Hilda Spicer MA - 06/11/2020 7:55 AM EDT faxed * Telephone Encounter - Anay Chandra MD - 06/08/2020 4:09 PM EDT External referral placed, can you please attach my note from office visit on 10/21/2019 specifically?This details some of her pain issues Thanks * Telephone Encounter - Hilda Spicer MA - 06/08/2020 2:[address] Chandra please advise * Telephone Encounter - Ale Barahona - 06/07/2020 12:15 PM EDT Patient called needs a referral and notes to go to the [facility] [address] [place], [place] [address] [id number] [place] [address] fax number [phone] phone # [phone]. Any ? Please call patient at [phone]. Patient has an appt on 06/13 at 3pm. documented in this encounter Plan of Treatment Upcoming Encounters Date Type Department Care Team (Late st Contact Info) Description 12/05/2024 1:30 PM EDT Office Visit [address] [address] Anay Chandra MD [address] [place] [address] 01/04/2025 1:00 PM EDT Office Visit [facility] [address] [place] [address] Vishnu Hernandez MD [address] [place] [address] documented as of this encounter Goals Goal [...] CICI. Intervention- to be seen today by SURVEYING TECHNICIAN and appt at the wound clinic in [place] on 08/23/18. OT LTG 1 Occupational Therapy No Karina Pendleton, MICHAEL Note: Patient will demonstrate 10 lb increase in manager pricing strength B for improved ability to open [...] on filedocumented in this encounter Care Teams Head Of Marketing Analytics Relationship Specialty Start Date End Date Anay Chandra MD PCP - General Internal Medicine 06/29/19 10/22/21 Brenda Almeida, SURVEYING TECHNICIAN [address] [place] [address] PCP - General Adult Health - PA/APNP/TERMITE INSPECTOR/SURVEYING TECHNICIAN 10/23/21 12/25/21 Anay Chandra MD [address] [place] [phone] PCP - [facility]+ Attributed 08/17/21 2 Anay hCandra MD PCP - General Family Medicine 12/26/21 12/30/23 Brenda Almeida, SURVEYING TECHNICIAN [address] [place] [address] PCP - [facility] [place] Attributed 09/17/22 06/16/23 Anay Chandra MD [address] [place] [phone] PCP - General Family Medicine 12/31/23 Vilma Hollis Emergency Medicine 04/28/18 Andrei Ruyb APRN Nurse Practitioner Endocrinology 07/21/19 12/29/23 Bakari Camilo MD Physician Ophthalmology 01/10/20 Babak Pickard MD [address] [place], [place] [address] Surgery, Neurosurgery 02/16/23 documented as of this encounter
--- OUTSIDE RECORDS SUMMARY | 2024-10-13 17:14 | XMS_ITS | Encounter Summary ---
Author Organization [facility] Address [address] [place] [address] Care Team Providers Care Naval Designer Name Role Phone Vilma Hollis Unavailable Andrei Ruby APRN Unavailable Unavailabl Bakari Mcclelland MD Unavailable [phone] Anay Chandra MD Primary Care Provider [phone] Babak Pickard MD Unavailable [phone] Anay Chandra MD Primary Care Provider [phone] Reason for Visit * Reason Comments MSOT BI Encounter Details Date Type Department Care Team (Late st Contact Info) Description 11/02/[address] [address] Vishnu Hernandez MD [address] [place] [address] MSOT BI Social History Tobacco Use Types [...] * Telephone Encounter - Cinda Wilson - 11/02/2023 11:40 AM EDT Releasing to local pharmacy due to stock issues documented in this encounter Plan of Treatment Upcoming Encounters Date Type Department Care Team (Late st Contact Info) Description 12/05/2024 1:30 PM EDT Office Visit [address] [address] Anay Chandra MD [address] [place] [address] 01/04/2025 1:00 PM EDT Office Visit [facility] [address] [facility] [address] [place] [address] Vishnu Hernandez MD [address] [place] [address] documented as of this encounter Goals Goal [...] and appt at the wound clinic in [place] on 08/23/18. OT LTG 1 Occupational Therapy No Karina Pendleton, MICHAEL Note: Patient will demonstrate 10 lb increase in microelectronics technician strength B for improved ability to [...] on filedocumented in this encounter Care Teams Naval Designer Relationship Specialty Start Date End Date Anay Chandra MD PCP - General Family Medicine 12/26/21 12/30/23 Anay Chandra MD [address] [place] [address] PCP - General Family Medicine 12/31/23 Vilma Hollis Emergency Medicine 04/28/18 Andrei Ruby APRN Nurse Practitioner Endocrinology 07/21/19 12/29/23 Bakari Camilo MD Physician Ophthalmology 01/10/20 Babak Pickard MD [address] [place] [address] Surgery, Neurosurgery 02/16/23 documented as of this encounter
--- OUTSIDE RECORDS SUMMARY | 2024-10-13 17:14 | XMS_ITS | Encounter Summary ---
Author Organization [facility] Address [address] [place] [address] Care Team Providers Care Job Site Superintendent Name Role Phone Vilma Hollis Unavailable Anay Chandra MD Primary Care Provider [phone] Andrei Ruby APRN Unavailable Unavailabl e Bakari Camilo MD Unavailable [phone] Brenda Almeida APRN Primary Care Provider Anay Chandra MD Unavailable [phone] Anay Chandra MD Primary Care Provider [phone] Brenda Almeida APRN Unavailable [phone] Babak Pickard MD Unavailable [phone] Anay Chandra MD Primary Care Provider [phone] Encounter Details Date Type Department Care Team (Late st Contact Info) Description 06/20/2020 Scanned Document [address] [address] Obstetrics And Gynecology, Scan Social History Tobacco Use Types Packs/Day [...] 12/05/2024 1:30 PM EDT Office Visit [address] [address] Anay Chandra MD [address] [place] [address], [place] [address] 01/04/2025 1:00 PM EDT Office Visit [facility] Endocrinology [place] [address] [place] [address] Vishnu Hernandez MD [address] [place] [address] documented as of this encounter Goals Goal [...] and appt at the wound clinic in [place] on 08/23/18. OT LTG 1 Occupational Therapy No Karina Pendleton, MICHAEL Note: Patient will demonstrate 10 lb increase in behavioral science chair strength B for improved ability to open [...] on filedocumented in this encounter Care Teams Job Site Superintendent Relationship Specialty Start Date End Date Anay Chandra MD PCP - General Internal Medicine 06/29/19 10/22/21 Brenda Almeida APRN [address] [place] [address] PCP - General Adult Health - PA/APNP/ERRAND RUNNER/WELT STITCHER 10/23/21 12/25/21 Anay Chandra MD [address] [place] [address] PCP - [facility] Attributed 08/17/21 2 Anay Chandra MD PCP - General Family Medicine 12/26/21 12/30/23 Brenda Almeida APRN [address] [place] [address] PCP - [facility] [place] Attributed 09/17/22 06/16/23 Anay Chandra MD [address] [place] [address] PCP - General Family Medicine 12/31/23 Vilma Hollis Emergency Medicine 04/28/18 Andrei Ruby APRN Nurse Practitioner Endocrinology 07/21/19 12/29/23 Bakari Camilo MD Physician Ophthalmology 01/10/20 Babak Pickard MD [address] [place] [address] [place] [address] Surgery, Neurosurgery 02/16/23 documented as of this encounter
--- OUTSIDE RECORDS SUMMARY | 2024-10-13 17:14 | XMS_ITS | Encounter Summary ---
Author Organization [facility] Address [address] [place] [address] Care Team Providers Care Timber Management Specialist Name Role Phone Vilma Hollis Unavailable Anay Chandra MD Primary Care Provider Andrei Ruby APRN Unavailable Unavailabl e Bakari Camilo MD Unavailable [phone] Brenda Almeida APRN Primary Care Provider Anay Chandra MD Unavailable [phone] Anay Chandra MD Primary Care Provider [phone] Brenda Almeida APRN Unavailable [phone] Babak Pickard MD Unavailable [phone] Anay Chandra MD Primary Care Provider [phone] Encounter Details Date Type Department Care Team (Late st Contact Info) Description 04/01/2021 Scanned Document [facility] URGENT CARE TERRAL [address] [place], [place] [address] Richie Houser PA [address] [place], [place] [address] Social History Tobacco Use Types Packs/Day Years [...] 12/05/2024 1:30 PM EDT Office Visit [address] [address] Anay Chandra MD [address] [place] [address] 01/04/2025 1:00 PM EDT Office Visit [facility] Endocrinology [place] 100 [facility] 101 [place] [address] Vishnu Hernandez MD [address] [address] [place] [address] documented as of this encounter Goals Goal [...] General Improving( 2:36 PM EST) Yes Norma Jnuior, RN Note: Problem- new onset of pain where closed wound is. Goal- concerns of pain to be addressed CICI. Intervention- to be seen today by INGE and appt at the wound clinic in [place] on 08/23/18. 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 manufacturing supervisor strength B for improved ability to open [...] on filedocumented in this encounter Care Teams Timber Management Specialist Relationship Specialty Start Date End Date Anay Chandra MD PCP - General Internal Medicine 06/29/19 10/22/21 Brenda Almeida APRN [address] [place] [address] PCP - General Adult Health - PA/APNP/DISTRIBUTED ENERGY SYSTEMS CONSULTANT/FOUNTAIN BRUSH ASSEMBLER 10/23/21 12/25/21 Anay Chandra MD [address] [place] [address] PCP - PCMH+ Attributed 08/17/21 2 Anay Chandra MD PCP - General Family Medicine 12/26/21 12/30/23 Brenda Almeida APRN [address] [place] [address] PCP - [facility] [place] Attributed 09/17/22 06/16/23 Anay Chandra MD [address] [place] [address] PCP - General Family Medicine 12/31/23 Vilma Hollis Emergency Medicine 04/28/18 Andrei Ruby APRN Nurse Practitioner Endocrinology 07/21/19 12/29/23 Bakari Camilo MD Physician Ophthalmology 01/10/20 Babak Pickard MD [address] [place] [address] [place] [address] Surgery, Neurosurgery 02/16/23 documented as of this encounter
--- OUTSIDE RECORDS SUMMARY | 2024-10-13 17:14 | XMS_ITS | Encounter Summary ---
Author Organization [facility] Address [address] [place] [address] Care Team Providers Care Air Box Tester Name Role Phone Vilma Hollis Unavailable Anay Chandra MD Primary Care Provider [phone] Andrei Ruby APRN Unavailable Unavailabl e Bakari Camilo MD Unavailable [phone] Brenda Almeida APRN Primary Care Provider Anay Chandra MD Unavailable [phone] Anay Chandra MD Primary Care Provider [phone] Brenda Almeida APRN Unavailable [phone] Babak Pickard MD Unavailable [phone] Anay Chandra MD Primary Care Provider [phone] Encounter Details Date Type Department Care Team (Late st Contact Info) Description 08/01/2020 Scanned Document [facility] Endocrinology [address] [phone] Andrei Ruby APRN Social History Tobacco Use [...] have Coronavirus / COVID-19? No / Unsure 08/01/2020 10:22 AM EST documented as of this encounter Plan of Treatment Upcoming Encounters Date Type Department Care Team (Late st Contact Info) Description 12/05/2024 1:30 PM EDT Office Visit [address] [address] Anay Chandra MD [address] [place] [address] 01/04/2025 1:00 PM EDT Office Visit [facility] 100 [facility] [address] [place] [address] Vishnu Hernandez MD [address] [place] [address] [place] [address] documented as of this encounter Goals Goal [...] CICI. Intervention- to be seen today by SPECIAL EDUCATION SUPERVISOR and appt at the wound clinic in [place] on 08/23/18. OT LTG 1 Occupational Therapy No Karina Pendleton, MICHAEL Note: Patient will demonstrate 10 lb increase in front desk officer strength B for improved ability to open [...] on filedocumented in this encounter Care Teams Air Box Tester Relationship Specialty Start Date End Date Anay Chandra MD PCP - General Internal Medicine 06/29/19 10/22/21 Brenda Almeida APRN [address] [place] [address] PCP - General Adult Health - PA/APNP/PRELIMINARY SCHOOL PSYCHOLOGIST/SPECIAL EDUCATION SUPERVISOR 10/23/21 12/25/21 Anay Chandra MD [address] [place] [address] PCP - PCMH+ Attributed 08/17/21 2 Anay Chandra MD PCP - General Family Medicine 12/26/21 12/30/23 Brenda Almeida APRN [address] [place] [address] PCP - [facility] MA Attributed 09/17/22 06/16/23 Anay Chandra MD [address] [place] [address] PCP - General Family Medicine 12/31/23 Vilma Hollis Emergency Medicine 04/28/18 Andrei Ruby APRN Nurse Practitioner Endocrinology 07/21/19 12/29/23 Bakari Camilo MD Physician Ophthalmology 01/10/20 Babak Pickard MD [address] [place] [address] [place] [address] Surgery, Neurosurgery 02/16/23 documented as of this encounter
--- OUTSIDE RECORDS SUMMARY | 2024-10-13 17:14 | XMS_ITS | Encounter Summary ---
Author Organization [facility] Address [address] [place] [address] Care Team Providers Care Post Closing Specialist Name Role Phone Vilma Hollis Unavailable Andrei Ruby EMPLOYMENT ADJUDICATOR Unavailable Unavailabl e Bakari Camilo MD Unavailable [phone] Anay Chandra MD Primary Care Provider [phone] Brenda Almeida EMPLOYMENT ADJUDICATOR Unavailable [phone] Babak Pickard MD Unavailable [phone] Anay Chandra MD Primary Care Provider [phone] Encounter Details Date Type Department Care Team (Late st Contact Info) Description 10/15/2022 Scanned Document [facility] PRIMARY CARE SCAN Primary Care, [...] 12/05/2024 1:30 PM EDT Office Visit [address] [address] Anay Chandra MD [address] [place] [address] 01/04/2025 1:00 PM EDT Office Visit [facility] Endocrinology [place] [address] [place] [address] Vishnu Hernandez MD [address] [address] [place] [address] documented as of this encounter Goals Goal [...] CICI. Intervention- to be seen today by EMPLOYMENT ADJUDICATOR and appt at the wound clinic in [place] on 08/23/18. OT LTG 1 Occupational Therapy No Karina Pendleton, MICHAEL Note: Patient will demonstrate 10 lb increase in pattern changer strength B for improved ability to open [...] filedocumented in this encounter Care Teams Post Closing Specialist Relationship Specialty Start Date End Date Anay Chandra MD PCP - General Family Medicine 12/26/21 12/30/23 Brenda Almeida APRN [address] [place] [address] PCP - [place] Attributed 09/17/22 06/16/23 Anay Chandra MD [address] [place] [address] PCP - General Family Medicine 12/31/23 Vilma Hollis Emergency Medicine 04/28/18 Andrei Ruby APRN Nurse Practitioner Endocrinology 07/21/19 12/29/23 Bakari Camilo MD Physician Ophthalmology 01/10/20 Babak Pickard MD [address] [place] [address] Surgery, Neurosurgery 02/16/23 documented as of this encounter
--- OUTSIDE RECORDS SUMMARY | 2024-10-13 17:14 | XMS_ITS | Encounter Summary ---
Author Organization [facility] Address [address] [place] [address] Care Team Providers Care Administrative Judge Name Role Phone Vilma Hollis Unavailable Andrei Ruby APRN Unavailable Unavailabl Bakari Mcclelland MD Unavailable [phone] Anay Chandra MD Primary Care Provider [phone] MellyBabak bryson MD Unavailable [phone] Anay Chandra MD Primary Care Provider [phone] Encounter Details Date Type Department Care Team (Late Contact Info) Description 12/03/2023 Scanned Document [facility] Endocrinology [address] [place] [address] Vishnu Hernandez MD 100 [facility] 101 [place], [place] [id number] Social History Tobacco Use Types Packs/Day Years [...] Office Visit [facility] 445 [place] [phone] Anay Chandra MD [address] [place] [id number] 01/04/2025 1:00 PM EDT Office Visit [facility] Endocrinology [place] [address] [place] [address] Vishnu Hernandez MD [address] [address] [place] [address] documented as of this encounter Goals Goal [...] CICI. Intervention- to be seen today by SPORTS COORDINATOR and appt at the wound clinic in [place] on 08/23/18. OT LTG 1 Occupational Therapy No Karina Pendleton, MICHAEL Note: Patient will demonstrate 10 lb increase in rail layer strength B for improved ability to open [...] on filedocumented in this encounter Care Teams Administrative Judge Relationship Specialty Start Date End Date Anay Chandra MD PCP - General Family Medicine 12/26/21 12/30/23 Anay Chandra MD [address] [place] [address] PCP - General Family Medicine 12/31/23 Vilma Hollis Emergency Medicine 04/28/18 Andrei Ruby APRN Nurse Practitioner Endocrinology 07/21/19 12/29/23 Bakari Camilo MD Physician Ophthalmology 01/10/20 Babak Pickard MD [address] [place] [address] [place] [address] Surgery, Neurosurgery 02/16/23 documented as of this encounter
--- OUTSIDE RECORDS SUMMARY | 2024-10-13 17:14 | XMS_ITS | Encounter Summary ---
Author Organization [facility] Address [address] [place] [address] Care Team Providers Care Porcelain Finisher Name Role Phone Vilma Hollis Unavailable Andrei Ruby APRN Unavailable Unavailabl e Bakari Camilo MD Unavailable [phone] Anay Chandra MD Primary Care Provider [phone] Babak Pickard MD Unavailable [phone] Anay Chandra MD Primary Care Provider [phone] Encounter Details Date Type Department Care Team (Late st Contact Info) Description 08/24/2023 Scanned Document [facility] PULMONOLGY SCAN Pulmonology, Scan Social History Tobacco Use Types Packs/Day [...] Description 12/05/2024 1:30 PM EDT Office Visit [address] [phone] Anay Chandra MD [address] [place] [address] 01/04/2025 1:00 PM EDT Office Visit [facility] Endocrinology [place] [address] [place] [address] Vishnu Hernandez MD [address] [place] [address] [place] [address] documented as of this encounter Goals Goal [...] CICI. Intervention- to be seen today by RESIDENTIAL MENTAL HEALTH WORKER and appt at the wound clinic in [place] on 08/23/18. OT LTG 1 Occupational Therapy No Karina Pendleton, MICHAEL Note: Patient will demonstrate 10 lb increase in migratory game bird biologist strength B for improved ability to open [...] on filedocumented in this encounter Care Teams Porcelain Finisher Relationship Specialty Start Date End Date Anay Chandra MD PCP - General Family Medicine 12/26/21 12/30/23 Anay Chandra MD [address] [place] [address] PCP - General Family Medicine 12/31/23 Vilma Hollis Emergency Medicine 04/28/18 Andrei Ruby APRN Nurse Practitioner Endocrinology 07/21/19 12/29/23 Bakari Camilo MD Physician Ophthalmology 01/10/20 Babak Pickard MD [address] [place] [address] Surgery, Neurosurgery 02/16/23 documented as of this encounter
--- OUTSIDE RECORDS SUMMARY | 2024-10-13 17:14 | XMS_ITS | Encounter Summary ---
Author Organization [facility] [place] [facility] Address [address] [place] [address] Care Team Providers Care Software Engineering Manager Name Role Phone Vilma Hollis Unavailable Bakari Camilo MD Unavailable [phone] Babak Pickard MD Unavailable [phone] Anay Chandra MD Primary Care Provider [phone] Reason for Visit * Reason Comments MSOT BI Encounter Details Date Type Department Care Team (Late st Contact Info) Description 12/31/[address] [address] Vishnu Hernandez MD [address] [place] [address] MSOT BI Social History Tobacco Use Types [...] * Telephone Encounter - Cinda Wilson - 12/31/2023 1:35 PM EDT Releasing to phamacy on file due to stock issues documented in this encounter Plan of Treatment Upcoming Encounters Date Type Department Care Team (Late st Contact Info) Description 12/05/2024 1:30 PM EDT Office Visit [address] [place] [address] Anay Chandra MD [address] [place] [address], [place] [address] 01/04/2025 1:00 PM EDT Office Visit [facility] 100 [facility] [address] [place] [address] Vishnu Hernandez MD [address] [place] [address] documented as of this encounter Goals Goal [...] CICI. Intervention- to be seen today by CABLE INSTALLATION MANAGER and appt at the wound clinic in [place] on 08/23/18. OT LTG 1 Occupational Therapy No Karina Pendleton, OT Note: Patient will demonstrate 10 lb increase in tube man strength B for improved ability to [...] on filedocumented in this encounter Care Teams Software Engineering Manager Relationship Specialty Start Date End Date Anay Chandra MD [address] [place] [address] PCP - General Family Medicine 12/31/23 Vilma Hollis Emergency Medicine 04/28/18 Bakari Camilo MD Physician Ophthalmology 01/10/20 Babak Pickard MD [address] [place] [address] [address] [place] [address] Surgery, Neurosurgery 02/16/23 documented as of this encounter
--- OUTSIDE RECORDS SUMMARY | 2024-10-13 17:14 | XMS_ITS | Encounter Summary ---
Author Organization [facility] Address [address] [place] [address] Care Team Providers Care Dealer Relationship Manager Name Role Phone Vilma Hollis Unavailable Andrei Ruby BEATER MACHINE OPERATOR Unavailable Unavailabl e Bakari Camilo MD Unavailable Anay Chandra MD Primary Care Provider [phone] Brenda Almeida BEATER MACHINE OPERATOR Unavailable [phone] Babak Pickard MD Unavailable [phone] Anay Chandra MD Primary Care Provider [phone] Reason for Visit * Reason Comments Medical Complaint Encounter Details Date Type Department Care Team (Late st Contact Info) Description 01/09/[address] [address] Anay Chandra MD [address] [place] [id number] Medical Complaint Social History Tobacco Use Types Packs/Day Years [...] encounter Miscellaneous Notes * Telephone Encounter - Ada Arzate RN - 01/09/2023 4:23 PM EDT Patient informed - verbalized understanding. * Telephone Encounter - Anay Chandra MD - 01/09/2023 4:19 PM EDT I sent in clindamycin RX, may just need a longer antibiotic course Elevate leg Needs to be re-evaluated if doesn't improve after this antibiotic course * Telephone Encounter - Ada Arzate RN - 01/09/2023 1:22 PM EDT Patient states she was in the ER 12/17 for right leg redness/swelling/pain - was diagnosed w/ cellulitis and prescribed doxy. Patient states the doxy resolved most of the symptoms - states there was still residual redness. Patient states the redness has returned on the right foot - states the skin isalso shiny. Patient states she occasionally gets sharp shooting pains and burning pains on the right foot. Denies any open or draining areas on the foot. Denies any swelling or warmth. Patient askingwhat pcp would advise her to do. documented in this encounter Plan of Treatment Upcoming Encounters Date Type Department Care Team (Late st Contact Info) Description 12/05/2024 1:30 PM EDT Office Visit [address] [address] Anay Chandra MD [address] [place] [address] 01/04/2025 1:00 PM EDT Office Visit [facility] Endocrinology [place] 100 [facility] [address] [place] [address] Vishnu Hernandez MD [address] [place] [address] documented as of this encounter Goals Goal [...] CICI. Intervention- to be seen today by BEATER MACHINE OPERATOR and appt at the wound clinic in [place] on 08/23/18. 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 suspension cord tier strength B for improved ability to open [...] on filedocumented in this encounter Care Teams Dealer Relationship Manager Relationship Specialty Start Date End Date Anay Chandra MD PCP - General Family Medicine 12/26/21 12/30/23 Brenda Almeida APRN [address] [place] [address] PCP - [facility] MA Attributed 09/17/22 06/16/23 Anay Chandra MD [address] [place] [address] PCP - General Family Medicine 12/31/23 Vilma Hollis Emergency Medicine 04/28/18 Andrei Ruby APRN Nurse Practitioner Endocrinology 07/21/19 12/29/23 Bakari Camilo MD Physician Ophthalmology 01/10/20 Babak Pickard MD [address] [place] [address] [address] [place] [address] Surgery, Neurosurgery 02/16/23 documented as of this encounter
--- OUTSIDE RECORDS SUMMARY | 2024-10-13 17:14 | XMS_ITS | Encounter Summary ---
Author Organization [facility] Address [address] [place] [address] Care Team Providers Care Anodizer Name Role Phone Vilma Hollis Unavailable Anay Chandra MD Primary Care Provider [phone] Andrei Ruby APRN Unavailable Unavailabl e Bakari Camilo MD Unavailable [phone] Brenda Almeida APRN Primary Care Provider [phone] Anay Chandra MD Unavailable [phone] Anay Chandra MD Primary Care Provider [phone] Brenda Almeida APRN Unavailable [phone] Babak Pickard MD Unavailable [phone] Anay Chandra MD Primary Care Provider [phone] Encounter Details Date Type Department Care Team (Late st Contact Info) Description 01/18/2021 Scanned Document [facility] EMERGENCY MED SCAN Emergency Medicine, Scan [...] have Coronavirus / COVID-19? No / Unsure 01/09/2021 11:35 AM EDT documented as of this encounter Plan of Treatment Upcoming Encounters Date Type Department Care Team (Late st Contact Info) Description 12/05/2024 1:30 PM EDT Office Visit [address] [place] [address] Anay Chandra MD [address] [place] [address] 01/04/2025 1:00 PM EDT Office Visit [facility] 100 [facility] [address] [place] [address] Vishnu Hernandez MD [address] [place] [address] documented as of this encounter Goals Goal [...] and appt at the wound clinic in [place] on 08/23/18. OT LTG 1 Occupational Therapy No Karina Pendleton, MICHAEL Note: Patient will demonstrate 10 lb increase in quantitative consultant strength B for improved ability to [...] on filedocumented in this encounter Care Teams Anodizer Relationship Specialty Start Date End Date Anay Chandra MD PCP - General Internal Medicine 06/29/19 10/22/21 Brenda Almeida, MANAGER SUPPORT [address] [place] [address] PCP - General Adult Health - PA/APNP/BANK SALES AND SERVICE MANAGER/MANAGER SUPPORT 10/23/21 12/25/21 Anay Chandra MD [address] [place] [address] PCP - PCM+ Attributed 08/17/21 2 Anay Chandra MD PCP - General Family Medicine 12/26/21 12/30/23 Brenda Almeida, MANAGER SUPPORT [address] [place] [address] PCP - [facility] Attributed 09/17/22 06/16/23 Anay Chandra MD [address] [place] [address] PCP - General Family Medicine 12/31/23 Vilma Hollis Emergency Medicine 04/28/18 Andrei Ruby APRN Nurse Practitioner Endocrinology 07/21/19 12/29/23 Bakari Camilo MD Physician Ophthalmology 01/10/20 Babak Pickard MD [address] [place] [address] Surgery, Neurosurgery 02/16/23 documented as of this encounter
--- OUTSIDE RECORDS SUMMARY | 2024-10-13 17:14 | XMS_ITS | Encounter Summary ---
Author Organization [facility] [place] [facility] Address [address] [place] [address] Care Team Providers Care Professor Of Physical Education Name Role Phone Vilma Hollis Unavailable Anay Chandra MD Primary Care Provider [phone] Andrei Ruby APRN Unavailable Unavailabl e Bakari Camilo MD Unavailable [phone] Brenda Almeida APRN Primary Care Provider [phone] Anay Chandra MD Unavailable [phone] Anay Chandra MD Primary Care Provider Brenda Almeida APRN Unavailable [phone] Babak Pickard MD Unavailable [phone] Anay Chandra MD Primary Care Provider [phone] Encounter Details Date Type Department Care Team (Late st Contact Info) Description 08/07/[address] [address] Anay Chandra MD [address] [place] [address] Social History Tobacco Use Types Packs/Day [...] have Coronavirus / COVID-19? No / Unsure 08/07/2020 12:45 PM EST documented as of this encounter Miscellaneous Notes * Telephone Encounter - Anay Chandra MD - 08/07/2020 1:33 PM EST She has flonase and claritin already- I can see the medications in her chart...she can continue with both of these, ok to take together Thanks * Telephone Encounter - Ciarra Pathak - 08/07/2020 1:10 PM EST Pt is stating that she will be going for Covid testing on Thursday for the sneezing and slight congestion. She is requesting something be called into the local pharmacy for her allergies. Pt is scheduled for a virtual appt for 08/14/20 first available appt. documented in this encounter Plan of Treatment Upcoming Encounters Date Type Department Care Team (Late st Contact Info) Description 12/05/2024 1:30 PM EDT Office Visit [address] [phone] Anay Chandra MD [address] [place] [address] 01/04/2025 1:00 PM EDT Office Visit [facility] Endocrinology [address] [place] [phone] Vishnu Hernandez MD [address] [place] [address] documented as of this encounter Goals Goal [...] CICI. Intervention- to be seen today by MINE SAFETY MANAGER and appt at the wound clinic in [place] on 08/23/18. OT LTG 1 Occupational Therapy Karina Rodriguez OT Note: Patient will demonstrate 10 lb increase in chief cloth finishing range operator strength B for improved ability to [...] on filedocumented in this encounter Care Teams Professor Of Physical Education Relationship Specialty Start Date End Date Anay Chandra MD PCP - General Internal Medicine 06/29/19 10/22/21 Brenda Almeida APRN [address] [place] [address] PCP - General Adult Health - PA/APNP/MEDICATION TECH/MINE SAFETY MANAGER 10/23/21 12/25/21 Anay Chandra MD [address] [place] [address] PCP - PCM+ Attributed 08/17/21 2 Anay Chandra MD PCP - General Family Medicine 12/26/21 12/30/23 Brenda Almeida APRN [address] [place] [address] PCP - [facility] [place] Attributed 09/17/22 06/16/23 Anay Chandra MD [address] [place], [place] [address] PCP - General Family Medicine 12/31/23 Vilma Hollis Emergency Medicine 04/28/18 Andrei Ruby APRN Nurse Practitioner Endocrinology 07/21/19 12/29/23 Bakari Camilo MD Physician Ophthalmology 01/10/20 Babak Pickard MD [address] [place] [address] [place] [address] Surgery, Neurosurgery 02/16/23 documented as of this encounter
--- OUTSIDE RECORDS SUMMARY | 2024-10-13 17:14 | XMS_ITS | Encounter Summary ---
Author Organization [facility] Address [address] [place] [address] Care Team Providers Care C S S Representative Name Role Phone Vilma Hollis Unavailable Andrei Ruby FLATBED TRUCK DRIVER Unavailable Unavailabl e Bakari Camilo MD Unavailable [phone] Anay Chandra MD Primary Care Provider [phone] Brenda Almeida FLATBED TRUCK DRIVER Unavailable [phone] Babak Pickard MD Unavailable [phone] Anay Chandra MD Primary Care Provider [phone] Reason for Visit * Reason Comments Referral Encounter Details Date Type Department Care Team (Late st Contact Info) Description 01/20/[address] [address] Anay Chandra MD [address] [place] [phone] Referral Social History Tobacco Use Types Packs/Day [...] Telephone Encounter - Ada Arzate RN - 01/22/2023 9:39 AM EDT Unable to reach patient, detailed message left. * Telephone Encounter - Ada Arzate RN - 01/21/2023 10:54 AM EDT Unable to reach patient, unable to leave message, 2nd attempt. * Telephone Encounter - Ada Arzate RN - 01/20/2023 3:36 PM EDT Orders placed. Unable to reach patient - voicemail box full unable to leave message, 1st attempt. * Telephone Encounter - Anya Chandra MD - 01/20/2023 3:21 PM EDT Ok to order, thanks documented in this encounter Plan of Treatment Upcoming Encounters Date Type Department Care Team (Late st Contact Info) Description 12/05/2024 1:30 PM EDT Office Visit [address] [address] Anay Chandra MD [address] [place] [address] 01/04/2025 1:00 PM EDT Office Visit [facility] End[facility] [address] [place] [id number] Vishnu Hernandez MD [address] [place] [address] [place] [address] [place] [address] [place] [address] Scheduled Orders Name Type Priority Associated Diagnoses Orde r Schedule MM Mammogram diagnostic-Bilateral Imaging Routine Encounter for screening mammogram for malignant neoplasm of breast Personal risk factor for disease Expected: 01/20/2023, Expires: 07/22/2024 US Breast diagnostic complete-Bilateral Imaging Routine Encounter for screening mammogram for malignant neoplasm of breast Personal risk factor for disease Inconclusive mammography Expected: 01/20/2023, Expires: 07/22/2024 documented as of this encounter Goals Goal [...] CICI. Intervention- to be seen today by FLATBED TRUCK DRIVER and appt at the wound clinic in [place] on 08/23/18. OT LTG 1 Occupational Therapy No Karina Pendleton, MICHAEL Note: Patient will demonstrate 10 lb increase in home delivery driver strength B for improved ability to open containers in 6 weeks. OT LTG 2 Occupational Therapy No Karina Pendleton, OT Note: QD score will improve by 10% in 6 weeks. OT LTG 3 Occupational Therapy No Karina Pendleton, OT Note: Patient will demonstrate independence with HEP including education in 6 weeks. documented as of this encounter Visit Diagnoses Diagnosis Encounter for screening mammogram for malignant neoplasm of breast- Primary Personal risk factor for disease Inconclusive mammography Inconclusive mammogram documented in this encounter Care Teams C S S Representative Relationship Specialty Start Date End Date Anay Chandra MD PCP - General Family Medicine 12/26/21 12/30/23 Brenda Almeida APRN [address] [place] [address] PCP - [facility] Attributed 09/17/22 06/16/23 Anay Chandra MD [address] [place] [id number] PCP - General Family Medicine 12/31/23 Vilma Hollis Emergency Medicine 04/28/18 Andrei Ruby APRN Nurse Practitioner Endocrinology 07/21/19 12/29/23 Bakari Camilo MD Physician Ophthalmology 01/10/20 Babak Pickard MD [address] [place] [id number] Surgery, Neurosurgery 02/16/23 documented as of this encounter
--- OUTSIDE RECORDS SUMMARY | 2024-10-13 17:14 | XMS_ITS | Encounter Summary ---
Author Organization [facility] Address [address] [place] [address] Care Team Providers Care Associate Director Career Services Name Role Phone Vilma Hollis Unavailable Andrei Ruby TELECOMMUNICATIONS ENGINEER Unavailable Unavailabl e Bakari Camilo MD Unavailable [phone] Anay Chandra MD Primary Care Provider [phone] Brenda Almeida TELECOMMUNICATIONS ENGINEER Unavailable [phone] Babak Pickard MD Unavailable [phone] Anay Chandra MD Primary Care Provider [phone] Reason for Visit * Reason Comments Referral Encounter Details Date Type Department Care Team (Late st Contact Info) Description 05/21/[address] [address] Anay Chandra MD [address] [place] [phone] Referral Social History Tobacco Use Types Packs/Day [...] Telephone Encounter - Ada Arzate RN - 05/25/2023 5:26 PM EDT Patient informed. * Telephone Encounter - Ada Arzate RN - 05/25/2023 10:34 AM EDT Unable to reach patient, unable to leave message, 2nd attempt. * Telephone Encounter - Ada Arzate RN - 05/22/2023 10:41 AM EDT Unable to reach patient, unable to leave message - voicemail box full, 1st attempt. * Telephone Encounter - Anay Chandra MD - 05/21/2023 4:23 PM EDT She is a current endocrine pt of the [facility] -- had refills sent [facility] [place] She can call [place] location to schedule with a new provider and request refills for the lancets/strips Thanks * Telephone Encounter - Ada Arzate RN - 05/21/2023 3:09 PM EDT Patient asking for a referral to [facility] endo in [place] - was previously a patient of but wants to go to [place] office, patient states she needs a new referral. Patient also needs refills of Accu-check lancets and test strips. documented in this encounter Plan of Treatment Upcoming Encounters Date Type Department Care Team (Late st Contact Info) Description 12/05/2024 1:30 PM EDT Office Visit [facility] [address] [place] [address] Anay Chandra MD [address] [facility], [place] [phone] 01/04/2025 1:00 PM EDT Office Visit [facility] End[facility]in[facility] [place] [address] [place] [address] Vishnu Hernandez MD [address] [place] [address] [place] [address] documented as of this encounter Goals Goal [...] CICI. Intervention- to be seen today by TELECOMMUNICATIONS ENGINEER and appt at the wound clinic in [place] on 08/23/18. OT LTG 1 Occupational Therapy No Karina Pendleton, MICHAEL Note: Patient will demonstrate 10 lb increase in greenskeeper laborer strength B for improved ability to [...] filedocumented in this encounter Care Teams Associate Director Career Services Relationship Specialty Start Date End Date Anay Chandra MD PCP - General Family Medicine 12/26/21 12/30/23 Brenda Almeida APRN [address] [place] [phone] PCP - [facility] Attributed 09/17/22 06/16/23 Anay Chandra MD [address] [place] [phone] PCP - General Family Medicine 12/31/23 Vilma Hollis Emergency Medicine 04/28/18 Andrei Ruby APRN Nurse Practitioner Endocrinology 07/21/19 12/29/23 Bakari Camilo MD Physician Ophthalmology 01/10/20 Babak Pickard MD [address] [place] [address] [place] [id number] Surgery, Neurosurgery 02/16/23 documented as of this encounter
--- OUTSIDE RECORDS SUMMARY | 2024-10-13 17:14 | XMS_ITS ---
Author Name [facility] Organization Unknown Results Test Name/Text Value Interpretation Date Range Source RBC DISTRIBUTION WIDTH 13.7% Normal 11.6 - 14.8 [facility] AUTO NRBC % 0% Normal 0 - [address] [facility] [address]. 5.610*3/uL Normal 1. 4 - 6.[address] [facility] [address] 0.610*3/uL Normal 0.2 - 0.8 [facility] MCHC 31.7g/dL Below low normal 32 - 36 [facility] MCH 30.7pg Normal 26 - 34 [facility] IMMATURE GRANULOCYTE % 0.5% Normal 0 - 0.6 [facility] EOSINOPHIL % 2.3% Normal 0 - [address] [facility] [address] 0.110*3/uL Normal 0 - 0 .2 [facility] MCV 96.7fL Normal 80 - 100 [facility] PLATELET COUNT 98068*3/uL Normal 150 - 440 [facility] BASOPHILS % 0.7% Normal 0 - [address] [facility] [address] 2.110*3/uL Normal 0. 7 - 4.[address] [facility] [address] 0.210*3/uL Normal 0 - 0.3 [facility] HEMATOCRIT 41.6% Normal 35 - 47 [facility] WHITE CELL COUNT 8.610*3/uL Normal 3.6 - 11 [facility] RED CELL COUNT 4.310*6/???L Normal 3.8 - 5.2 [facility] MONOCYTE % 6.8% Normal 4 - 12 [facility] NEUTROPHIL % 65% Normal 40 - 70 [facility] HEMOGLOBIN 13.2g/dL Normal 12 - 16 [facility] LYMPHOCYTE % 24.7% Normal 20 - 50 [facility] ALT (SGPT) 15U/L Normal 8 - 39 [facility] PROTEIN TOTAL 6.3g/dL Normal 6.2 - 8.1 [facility] AST (SGOT) 11U/L Below low normal 17 - 35 [facility] BILIRUBIN, TOTAL 0.3mg/dL Normal 0.1 - 1.2 [facility] ALKALINE PHOSPHATASE 59U/L Normal 39 - 1 13 [facility] BILIRUBIN, DIRECT 0.1mg/dL Normal 0 - 0.5 [facility] ALBUMIN, AUTOMATED 4.1g/dL Normal 3.8 - 5. 3 [facility] VITAMIN D, 25H 79ng/mL Normal - [facility] History of Medication Use Medication Directions Dispensed Refills Start Date End Date Status naproxen (NAPROSYN) 375 mg tablet Take 1 tablet (375 mg total) by mouth 2 (two) times daily with breakfast and dinner for 7 days. 5 active oxyCODONE (ROXICODONE) 15 MG immediate release tablet 5 active celeCOXIB (CeleBREX) 400 MG capsule TAKE 1 CAPSULE(400 MG) BY MOUTH TWICE DAILY 5 active norethindrone-ethi nyl estradiol (Blisovi FE 09/05) 1-20 MG-MCG per tablet Take 1 tablet by mouth daily. 5 active lidocaine (LIDODERM) 5 % patch Place 2 patches on the skin daily. Apply patch and leave on for 12 hours then remove. Patch may remain on skin for 12 hours per day. 5 active glipiZIDE (GLUCOTROL) 5 MG tablet Take 1 tablet (5 mg total) by mouth every morning before breakfast. Take it with breakfast. 4 active dulaglutide (TRULICITY) 3 mg/0.5 mL prefilled pen injection Inject 3 mg under the skin once a week. 4 active atorvastatinTakeNo d ate recordedNo form recordedNo frequency recordedNo route recordedNo set duration recordedNo set duration amount recordedactiveNo dosage strength recordedNo dosage strength units of measure recorded active clindamycin (CLEOCIN) 150 MG capsule Take 1 capsule (150 mg total) by mouth 3 times daily (every 8 hours). 1 active lidocaine (Lidoderm) 5 % patch Apply 1 patch topically in the morning. Remove & discard patch within 12 hours or as directed by .. 1 023 active baclofenTake (oral)[id number] frequency recordedoralNo set duration recordedNo set duration amount [id number] 4 active triamcinolone (KENALOG) 0.1 % cream Apply 1 application topically. 0 active cyanocobalamin 1,000 mcg tablet Take 1,000 mcg by mouth daily. active amitriptyline (ELAVIL) 10 mg tablet Take 1 tablet (10 mg total) by mouth nightly as needed for insomnia. 3 024 active oxyCODONE (ROXICODONE) 15 MG immediate release tablet Take 1 tablet (15 mg total) by mouth 4 (four) times a day. 3 active predniSONE (DELTASONE) 50 mg tablet PLEASE TAKE 25 PILLS OF 50 MG OF PREDNISONE DAY FOR A MS RELAPSE, [place] 1250 mg/day take zantac as well. THIS IS THE STANDARD DOSE- 1 022 active Trulicity 1.5 mg/0.5 mL subcutaneous pen injector ADMINISTER 1.5 MG UNDER THE SKIN 1 TIME A WEEK 024 completed baclofen 20 mg tablet TAKE 1 TABLET BY MOUTH FOUR TIMES DAILY active glipizide 10 mg tablet active Trulicity 0.75 MG/0.5ML prefilled pen injection ADMINISTER 0.75 MG UNDER THE SKIN 1 TIME A WEEK 2 active amitriptyline (ELAVIL) 10 MG tablet 3 active OMEprazole (PriLOSEC) 40 MG capsule Take 1 capsule (40 mg total) by mouth daily. 9 active oxyCODONETake (oral)[id number] frequency recordedoralNo set duration recordedNo set duration amount [id number] 4 active Blood Glucose Monitoring Suppl (Accu-Chek Guide) w/Device Kit 1 each by Does not apply route See Admin Instructions. USE TO CHECK BLOOD GLUCOSE TWICE DAILY 3 active polyethylene glycol (miraLAx) 17 g packet Take 1 packet (17 g total) by mouth daily. 0 active DermacinRx Lidocan 5 % topical patch active progesterone (PROMETRIUM) 200 MG capsule Take 1 capsule (200 mg total) by mouth daily. activ e naloxone (NARCAN) 4 mg/0.1 mL Liquid nasal spray device [place] contents (4mg) into one nostril once. May repeat every 2 to 3 minutes in alternating nostrils. Call 911 immediately after use. 0 active hydrOXYzine HCl (ATARAX) 50 MG tablet Take 1 tablet (50 mg total) by mouth nightly as needed for sedation. 2 023 aborted carBAMazepine XR (TEGretol XR) 200 mg 12 hr tablet TAKE 3 TABLETS(600 MG) BY MOUTH TWICE DAILY 1 023 active clotrimazole-betam ethasone (LOTRISONE) 1-0.05 % cream Apply topically 2 (two) times daily. 4 024 active fluconazoleTakeNo da te recordedNo form recordedNo frequency recordedNo route recordedNo set duration recordedNo set duration amount recordedsuspendedNo dosage strength recordedNo dosage strength units of measure recorded suspended chlorhexidine (PERIDEX) 0.12 % oral solution Apply 15 mL to the mouth or throat 2 (two) times a day. 1 active clindamycin-benzoy l peroxide (BENZACLIN) 1-5 % external gel APPLY TO ENTIRE AFFECTED AREA AT BEDTIME 0 active oxyCODONE (ROXICODONE) 10 mg immediate release tablet Take 1 tablet (10 mg total) by mouth 4 (four) times a day. 2 active tamsulosin (FLOMAX) 0.4 MG capsule take 1 capsule by mouth 30 MINUTES FOLLOWING THE SAME MEAL DAILY 8 active trazodoneTakeNo date recordedNo form recordedNo frequency recordedNo route recordedNo set duration recordedNo set duration amount recordedactiveNo dosage strength recordedNo dosage strength units of measure recorded active ascorbic acid (VITAMIN C) 250 MG tablet Take 1 tablet (250 mg total) by mouth. active traZODone (DESYREL) 100 MG tablet 1 active valACYclovir (VALTREX) 1000 MG tablet Take 2 tablets every 12 hours for 1 day at initial onset of cold sore symptoms. 1 active ranitidine (Zantac 75) 75 mg tablet Take 1 tablet (75 mg total) by mouth 2 (two) times a day. 1 022 active montelukast (SINGULAIR) 10 MG tablet 8 active oxybutyninTakeNo kori e recordedNo form recordedNo frequency recordedNo route recordedNo set duration recordedNo set duration amount recordedactiveNo dosage strength recordedNo dosage strength units of measure recorded active TECFIDERA 240 MG Capsule Delayed Release 0 active biotin 5,000 mcg tablet,disintegrat ing Take by mouth. active bupropion HBrTakeNo date recordedNo form recordedNo frequency recordedNo route recordedNo set duration recordedNo set duration amount recordedactiveNo dosage strength recordedNo dosage strength units of measure recorded active ascorbic acid, vitamin C, 500 mg tablet,chewable Take 500 mg by mouth daily. active varenicline (CHANTIX JARRED) 0.5 MG X 11 & 1 MG X 42 tablet Take one 0.5 mg tab by mouth once daily for 3 days, then take one 0.5 mg tab twice daily for 4 days, then take one 1 mg tab twice daily. 2 active CarafateTake 1 Table t (oral) 4 times per [id number] times per dayoralNo set duration recordedNo set duration amount [id number] 3 suspended sucralfate (CARAFATE) 100 mg/mL suspension 3 024 active nortriptyline (PAMELOR) 10 MG capsule 1 active nystatinTakeNo date recordedNo form recordedNo frequency recordedNo route recordedNo set duration recordedNo set duration amount recordedactiveNo dosage strength recordedNo dosage strength units of measure recorded active carBAMazepine XR (TEGretol XR) 200 mg 12 hr tablet Take 3 tablets (600 mg total) by mouth 2 (two) times a day. 1 021 completed buPROPion (WELLBUTRIN SR) 200 MG 12 hr tablet Take 1 tablet (200 mg total) by mouth daily. 8 active polyethylene glycoL 3350Take (oral)[id number] frequency recordedoralNo set duration recordedNo set duration amount qrksjhxcceguse68mruz/do se 4 active clotrimazole (LOTRIMIN) 1 % cream Apply topically 2 (two) times a day. 022 aborted estradiol (CLIMARA) 0.025 mg/24hr patch APPLY 1 PATCH TOPICALLY TO THE SKIN 1 TIME A WEEK 2 023 active pregabalinTakeNo kori e recordedNo form recordedNo frequency recordedNo route recordedNo set duration recordedNo set duration amount recordedsuspendedNo dosage strength recordedNo dosage strength units of measure recorded suspended amitriptyline 10 mg tablet 024 completed sucralfate (CARAFATE) 1 GM/10ML suspension SHAKE LIQUID AND TAKE 10 ML(1 GRAM) BY MOUTH FOUR TIMES DAILY BEFORE MEALS AND AT NIGHT ON AN EMPTY STOMACH 2 active dimethyl fumarate 240 mg capsule,delayed release(DR/EC) TAKE 1 CAPSULE (240MG) BY MOUTH TWICE DAILY 0 021 aborted polyethylene glycol (miraLAx) 17 GM/SCOOP powder 2 active atorvastatin (LIPITOR) 20 mg tablet Take 20 mg by mouth daily. 9 active clonazepam 0.5 mg tablet active aspirin 81 MG chewable tablet Chew 1 tablet (81 mg total) daily. 1 active Melatonin 3 MG Cap Take 3 mg by mouth. 2 023 active loratadineTakeNo kori e recordedNo form recordedNo frequency recordedNo route recordedNo set duration recordedNo set duration amount recordedsuspendedNo dosage strength recordedNo dosage strength units of measure recorded suspended dulaglutide (TRULICITY) 1.5 MG/0.5ML prefilled pen injection Inject 1.5 mg under the skin once a week. 3 active wmijmrwm-mqi-jqsar us gluconate (multivitamin with iron-minerals) 9 mg iron/15 mL liquid Take 1 tablet by mouth daily. active melatonin 3 mg capsule Take 3 mg by mouth nightly. 2 023 active omega-3 acid ethyl esters (LOVAZA) 1 G capsule TAKE 1 CAPSULE BY MOUTH EVERY DAY 2 active progesteroneTakeNo d ate recordedNo form recordedNo frequency recordedNo route recordedNo set duration recordedNo set duration amount recordedsuspendedNo dosage strength recordedNo dosage strength units of measure recorded suspended oxyCODONE (ROXICODONE) 10 mg tablet Take 10 mg by mouth. 2 active fluticasone (FloNASE) 50 mcg/spray nasal spray 2 sprays into each nostril daily. active naloxoneTakeNo date recordedNo form recordedNo frequency recordedNo route recordedNo set duration recordedNo set duration amount recordedsuspendedNo dosage strength recordedNo dosage strength units of measure recorded suspended capsaicin (ZOSTRIX) 0.025 % cream Apply topically 2 (two) times a day. To Affected Area. 1 active lidocaine (XYLOCAINE) 5 % ointment 1 active nicotine (polacrilex)TakeNo date recordedNo form recordedNo frequency recordedNo route recordedNo set duration recordedNo set duration amount recordedsuspendedNo dosage strength recordedNo dosage strength units of measure recorded suspended capsaicin (ZOSTRIX) 0.025 % cream APPLY TOPICALLY TO THE AFFECTED AREA TWICE DAILY 2 023 active BACLOFEN ORAL Take 20 mg by mouth. active Chantix Starting Month 0.5 mg (11)-1 mg (42) tablets in dose pack One 0.5 mg POI x 3 days, then BID x 4 days, the 1mg BID x 3 weeks 4 024 active Blisovi FE 09/05 1-20 MG-MCG per tablet Take 1 tablet by mouth daily. 2 023 aborted dulaglutide (TRULICITY) 0.75 MG/0.5ML prefilled pen injection Inject 0.75 mg under the skin once a week. Inject 0.75mg weekly for 2 weeks then 2 injection of 0.75 mg to make it total of 1.5mg under the skin once a week 4 active busPIRone (BUSPAR) 15 mg tablet Take 15 mg by mouth 2 (two) times a day. active lidocaine (JASON-MAX) 4 % cream APPLY TOPICALLY NEEDED FOR MILD PAIN(1-3) 3 024 active atorvastatin 20 mg tablet active oxybutynin (DITROPAN-XL) 10 MG 24 hr tablet take 1 tablet by mouth twice a day 7 active glipiZIDE (GLUCOTROL) 10 MG tablet TAKE 1 TABLET(10 MG) BY MOUTH EVERY EVENING WITH DINNER 4 active oxyCODONE (ROXICODONE) 15 mg immediate release tablet Take 15 mg by mouth in the morning and 15 mg before bedtime. 2 active albuterol sulfate HFA 90 mcg/actuation aerosol inhaler INHALE 2 PUFFS BY MOUTH EVERY 4 HOURS NEEDED NO SOONER THAN EVERY 4 HOURS 024 completed DULoxetine (CYMBALTA) 20 mg capsule Take 1 capsule (20 mg total) by mouth in the morning. 2 023 aborted celecoxib (CeleBREX) 400 mg capsule Take 400 mg by mouth. 2 active valACYclovir (VALTREX) 1 gram tablet take 2 tablets by mouth every 12 hours for 2 DOSES DIRECTED AT ONSET OF LESIONS 9 021 aborted baclofen (LIORESAL) 20 mg tablet Take 2 tablets (40 mg total) by mouth 3 (three) times a day. 2 022 active ibuprofen (MOTRIN) 800 mg tablet Take 1 tablet (800 mg total) by mouth 3 times daily (every 8 hours) as needed for mild pain. 1 active famotidine 40 mg tablet TAKE 1 TABLET BY MOUTH EVERY DAY active FREESTYLE LITE strip 1 test strip by Other (specify) route 2 (two) times a day. Use to check fasting blood glucose every morning and daily after lunch. 0 active Problems Problem Status Onset Date Problem Type Date of Resolution Source Spastic bladder active 2017-05-27 ProblemAct [facility] Swelling of right lower extremity active 2019-08-12 ProblemAct [facility] COPD (chronic obstructive pulmonary disease) ([facility]) active EncounterDiagnosisAct [facility] Asthma active EncounterDiagnosisAct [facility] Anxiety disorder, unspecified active ProblemAct [facility] Tobacco abuse active 2017-09-15 ProblemAct [facility] T Lumbar radiculopathy active 2019-06-15 ProblemAct [facility] Local infection of the skin and subcutaneous tissue, unspecified active 2023-11-30 ProblemAct [facility] Otalgia, left ear active EncounterDiagnosisAct [facility] TMJ tenderness, left active EncounterDiagnosisA ct [facility] Left otitis media, unspecified otitis media type active 2024-07-28 ProblemAct [facility] Diabetic neuropathy active 2019-06-15 ProblemAct [facility] MS (multiple sclerosis) active 2016-10-06 ProblemAct [facility] Type 2 diabetes mellitus with hyperglycemia active 2018-01-28 ProblemAct [facility] Lumbar disc herniation active 2018-02-01 ProblemAct [facility] Depression active 2016-10-06 ProblemAct [facility] Chronic bilateral low back pain with bilateral sciatica active 2017-11-30 ProblemAct [facility] Chronic pain of both knees active 2019-04-11 ProblemAct [facility] Hidradenitis active 2019-03-10 ProblemAct [facility] Tobacco dependence active 2018-12-27 ProblemAct [facility] Body mass index 40.0-44.9, adult active 2017-09-15 ProblemAct [facility] Abscess active 2018-02-01 ProblemAct [facility] Chronic pain active 2015-01-22 ProblemAct [facility] Schizoaffective disorder active 2015-03-22 ProblemAct [facility] History of cocaine abuse active 2015-03-22 ProblemAct [facility] Lumbosacral pain active 2019-05-16 ProblemAct [facility] Adjacent segment disease with spinal stenosis active 2018-08-27 ProblemAct [facility] Foot drop, right active 2015-11-19 ProblemAct [facility] Gait difficulty active 2018-09-06 ProblemAct [facility] Chronic non-seasonal allergic rhinitis active 2017-09-15 ProblemAct [facility] Pain active 2018-08-27 ProblemAct [facility] At risk for abuse of opiates active 2017-04-21 ProblemAct [facility] Mixed hyperlipidemia active 2018-12-27 ProblemAct [facility] Anxiety active 2016-10-06 ProblemAct [facility] Vaginal dryness, menopausal active 2020-12-06 ProblemAct [facility] Spinal stenosis active 2018-02-[address] [facility] Multiple sclerosis active 2022-02-05 ProblemAct [facility] Anxiety active 2018-06-22 ProblemAct [facility] Postmenopausal postcoital bleeding active 2020-12-06 ProblemAct [facility] Localized superficial swelling, mass, or lump active 2018-03-23 ProblemAct [facility] Chronic left-sided low back pain with sciatica active 2017-11-30 ProblemAct [facility] Left leg pain active 2019-05-16 ProblemAct [facility] Type 2 diabetes mellitus without complication, without long-term current use of insulin active 2018-01-28 ProblemAct [facility] Cocaine abuse active 2015-03-22 ProblemAct [facility] Urge incontinence active EncounterDiagnosisAct [facility] Neuropathy of left ankle active 2019-06-15 ProblemAct [facility] Impaired functional mobility, balance, gait, and endurance active 2020-02-15 ProblemAct [facility] Patellofemoral arthritis of left knee active 2020-06-11 ProblemAct [facility] Depression active 2018-06-22 ProblemAct [facility] Hereditary and idiopathic neuropathy, unspecified active ProblemAct [facility] Type 2 diabetes mellitus without complications active ProblemAct [facility] Chronic obstructive pulmonary disease, unspecified active ProblemAct [facility] Multiple sclerosis active ProblemAct [facility] Hypercholesterolemia , unspecified active ProblemAct [facility] Diabetes mellitus active 2023-12-28 ProblemAct [facility] Foot-drop active 2023-12-28 ProblemAct [facility] Multiple sclerosis active 2023-12-28 ProblemAct [facility] Immunizations Vaccine Date Source Lot Number Status Influenza, Quadrivalent (FLU AD) Adjuvanted Preservative Free IM 65 years and older 04/20/2020 [facility] completed Pneumococcal Conjugate 13-Valent 05/26/2016 [facility] [id number] completed Covid-19 MRNA Vaccine - Pfiz er 12+ (Purple Cap) 11/07/2020 [facility] [id number] completed Tdap 04/01/2021 CC [id number] completed RSV, Recombinant, Protein Subunit RSV Prefusion F (AREXVY), Adjuvant Recon 0.5 mL PF 08/25/2023 [facility] [id number] completed Influenza, Quadrivalent (FLUCELVAX) MDCK, Preservative Free IM 06/25/2023 [facility] [id number] completed Pneumococcal Polysaccharide 23-Valent 07/08/2019 [facility] [id number] completed Zoster Vaccine Recombinant (Shingrix) 08/08/2020 [id number] Influenza, Quadrivalent (FLUARIX, AFLURIA, FLULAVAL, FLUZONE) Preservative Free IM 05/22/2022 [facility] [id number] co mpleted Tdap 11/30/2023 CCT [id number] completed Influenza Split Preservative Free ID 06/24/2021 [facility] completed Covid-19 MRNA Vaccine - Pfiz er 12+ (Purple Cap) 11/28/2020 [facility] [id number] completed Influenza, Quadrivalent (FLUARIX, AFLURIA, FLULAVAL, FLUZONE) Preservative Free IM 06/24/2021 [facility] [id number] co mpleted Zoster Vaccine Recombinant (Shingrix) 12/31/2020 [facility] [id number] completed Influenza Virus Trivalent Sp lit Vaccine (MDV) IM 05/19/2018 [facility] [id number] - FLUARIX 0.5 completed Influenza Virus Trivalent Sp lit Vaccine (MDV) IM 06/17/2017 [facility] [id number] - FLUARIX 0.5 completed Influenza, Unspecified 07/17/2014 [facility] [id number] co mpleted Covid-19 MRNA Vaccine - Pfiz er 12+ (Purple Cap) 09/30/2020 [facility] completed Influenza, Quadrivalent (FLUCELVAX) MDCK, Preservative Free IM 05/22/2022 [facility] [id number] completed Influenza, Quadrivalent (FLUARIX, AFLURIA, FLULAVAL, FLUZONE) Preservative Free IM 04/20/2020 [facility] [id number] co mpleted [employer] SARS-CoV-2 COVID-19, mRNA, LNP-S, preservative free 06/24/2021 [facility] [id number] [facility] ompleted Influenza TIV (IM) 06/17/2017 [facility] [id number] - F LUARIX 0.5 ML SYRINGE completed Influenza (IM) Preservative Free 05/26/2016 [facility] [id number] completed Influenza TIV (IM) 04/20/2020 [facility] comple maisha Influenza (AFLURIA/FLUZONE) Inactivated/Split Quadrivalent with Preservative IM 06/17/2017 [facility] [id number] - FLUARIX 0.5 ML SYRINGE completed Influenza (AFLURIA/FLUZONE) Inactivated/Split Quadrivalent with Preservative IM 05/19/2018 [facility] [id number] - FLUARIX 0.5 ML SYRINGE completed Influenza Virus Trivalent Sp lit Vaccine (MDV) IM 08/04/2019 [facility] [id number] completed Pneumococcal Conjugate 13-Valent 12/20/2018 [facility] [id number] completed Influenza, Unspecified 05/26/2016 [facility] [id number] co mpleted Influenza TIV (IM) [facility]04/[facility] [id number] comple maisha Influenza (IM) Preservative Free 07/17/2014 [facility] [id number] completed Influenza TIV (IM) 05/19/2018 [facility] [id number] - F LUARIX 0.5 ML SYRINGE completed Influenza Inactivated/Split Preservative Free IM 04/20/2020 [facility] completed COVID-19, mRNA, LNP-S, PF, 3 0 mcg/0.3 mL dose, florence-sucrose 01/03/2022 [facility] [id number] co mpleted COVID-19, mRNA, LNP-S, bivalent, PF, 30 mcg/0.3 mL dose 05/28/2022 [facility] [id number] completed COVID-19, mRNA, LNP-S, PF, florence-sucrose, 30 mcg/0.3 mL 06/25/2023 [facility] [id number] comp leted
--- OUTSIDE RECORDS SUMMARY | 2024-10-13 17:14 | XMS_ITS | Encounter Summary ---
Author Organization [facility] Address [address] [place] [address] Care Team Providers Care Customer Service Specialist Name Role Phone Vilma Hollis Unavailable Andrei Ruby RAMP BOSS Unavailable Unavailabl e Bakari Camilo MD Unavailable [phone] Anay Chandra MD Primary Care Provider [phone] Brenda Almeida RAMP BOSS Unavailable [phone] Babak Pickard MD Unavailable [phone] Anay Chandra MD Primary Care Provider [phone] Reason for Visit * Reason Comments Advice Only Encounter Details Date Type Department Care Team (Late Contact Info) Description 12/31/[address] [address] Edi Blanchard MD Needs valid address Advice Only Social History Tobacco Use Types Packs/Day Years [...] Description 12/05/2024 1:30 PM EDT Office Visit [facility] [address] [place] [id number] Anay Chandra MD [address] [place] [address], [place] [id number] 01/04/2025 1:00 PM EDT Office Visit [facility] Endocrinology [place] [address] [place] [address] Vishnu Hernandez MD [address] [place] [address] documented as of this encounter Goals Goal [...] CICI. Intervention- to be seen today by RAMP BOSS and appt at the wound clinic in [place] on 08/23/18. OT LTG 1 Occupational Therapy No Karina Pendleton, MICHAEL Note: Patient will demonstrate 10 lb increase in community assistant strength B for improved ability to open [...] filedocumented in this encounter Care Teams Customer Service Specialist Relationship Specialty Start Date End Date Anay Chandra MD PCP - General Family Medicine 12/26/21 12/30/23 Brenda Almeida APRN [address] [place] [id number] PCP - [place] [facility] Attributed 09/17/22 06/16/23 Anay Chandra MD [address] [place] [id number] PCP - General Family Medicine 12/31/23 Vilma Hollis Emergency Medicine 04/28/18 Andrei Ruby APRN Nurse Practitioner Endocrinology 07/21/19 12/29/23 Bakari Camilo MD Physician Ophthalmology 01/10/20 Babak Pickard MD [address] [place] [address] [place] [id number] Surgery, Neurosurgery 02/16/23 documented as of this encounter
--- OUTSIDE RECORDS SUMMARY | 2024-10-13 17:14 | XMS_ITS | Encounter Summary ---
Author Organization [facility]ly [facility] Address [address] [place] [address] Care Team Providers Care Conservation Scientist Name Role Phone Vilma Hollis Unavailable Anay Chandra MD Primary Care Provider [phone] nAdrei Ruby APRN Unavailable Unavailabl e Bakari Camilo MD Unavailable [phone] Brenda Almeida APRN Primary Care Provider Anay Chandra MD Unavailable [phone] Anay Chandra MD Primary Care Provider [phone] Brenda Almeida APRN Unavailable [phone] Babak Pickard MD Unavailable [phone] Anay Chandra MD Primary Care Provider [phone] Encounter Details Date Type Department Care Team (Late st Contact Info) Description 02/24/2020 Scanned Document [facility] PRIMARY CARE SCAN Primary Care, Scan Social History Tobacco Use Types Packs/Day Years Used Date Smoking Tobacco: Every Day Cigarettes 1 30 Started: 04/02/1988; Last attempted [...] have Coronavirus / COVID-19? No / Unsure 02/20/2020 10:30 AM EDT documented as of this encounter Plan of Treatment Upcoming Encounters Date Type Department Care Team (Late st Contact Info) Description 12/05/2024 1:30 PM EDT Office Visit [address] [address] Anay Chandra MD [address] [place] [address] 01/04/2025 1:00 PM EDT Office Visit [facility] [address] [facility] [address] [place] [address] Vishnu Hernandez MD [address] [place] [address] documented as of this encounter Goals Goal [...] and appt at the wound clinic in [place] on 08/23/18. OT LTG 1 Occupational Therapy No Karina Pendleton, MICHAEL Note: Patient will demonstrate 10 lb increase in helper teacher strength B for improved ability to [...] on filedocumented in this encounter Care Teams Conservation Scientist Relationship Specialty Start Date End Date Anay Chandra MD PCP - General Internal Medicine 06/29/19 10/22/21 Brenda Almeida, SIDER MECHANIC [address] [place] [address] PCP - [facility] Adult Health - PA/APNP/TOP ICER/SIDER MECHANIC 10/23/21 12/25/21 Anay Chandra MD [address] [place] [address] PCP - PCM+ Attributed 08/17/21 2 Anay Chandra MD PCP - General Family Medicine 12/26/21 12/30/23 Brenda Almeida, SIDER MECHANIC [address] [place] [address] PCP - [facility] Attributed 09/17/22 06/16/23 Anay Chandra MD [address] [place] [address] PCP - General Family Medicine 12/31/23 Vilma Hollis Emergency Medicine 04/28/18 Andrei Ruby APRN Nurse Practitioner Endocrinology 07/21/19 12/29/23 Bakari Camilo MD Physician Ophthalmology 01/10/20 Babak Pickard MD [address] [place] [address] Surgery, Neurosurgery 02/16/23 documented as of this encounter
--- OUTSIDE RECORDS SUMMARY | 2024-10-13 17:14 | XMS_ITS | Encounter Summary ---
Author Organization [facility] Address [address] [place] [address] Care Team Providers Care Tinner Automatic Name Role Phone Vilma Hollis Unavailable Anay Chandra MD Primary Care Provider [phone] Andrei Ruby APRN Unavailable Unavailabl e Bakari Camilo MD Unavailable [phone] Brenda Almeida APRN Primary Care Provider [phone] Anay Chandra MD Unavailable Anay Chandra MD Primary Care Provider Brenda Almeida APRN Unavailable [phone] Babak Pickard MD Unavailable [phone] Anay Chandra MD Primary Care Provider [phone] Reason for Visit * Reason Comments Advice Only Encounter Details Date Type Department Care Team (Late st Contact Info) Description 08/06/2020 Telephone [place] [id number] [place] [address] Anay Chandra MD [address] [place], [place] [id number] Advice Only Social History Tobacco Use Types [...] Telephone Encounter - Mary Corral LPN - 08/07/2020 9:21 AM EST Per pt she hasn't had test yet she is going Thursday she will call back once its complete * Telephone Encounter - Anay Chandra MD - 08/07/2020 8:59 AM EST I do not see any COVID results in her chart Where/when did she go for testing? Can she upload through my chart and we can email? Thanks * Telephone Encounter - Mary Corral LPN - 08/07/2020 8:49 AM EST Can we send her results for her ? * Telephone Encounter - Mary Corral LPN - 08/07/2020 8:48 AM EST You would need to send the COVID results to [email or web address] * Telephone Encounter - Mary Corral LPN - 08/06/2020 3:05 PM EST Email sent to Kisha * Telephone Encounter - Supriya Spicer - 08/06/2020 1:57 PM EST Patient states she wants us to call kisha to see what patient needs to do in order to use their service again ?? Please advise. documented in this encounter Plan of Treatment Upcoming Encounters Date Type Department Care Team (Late st Contact Info) Description 12/05/2024 1:30 PM EDT Office Visit [address] [address] Anay Chandra MD [address] [place] [address] 01/04/2025 1:00 PM EDT Office Visit [facility] [address] [place] [address] Vishnu Hernandez MD [address] [place] [address] documented as of this encounter Goals Goal [...] and appt at the wound clinic in [place] on 08/23/18. 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 packaging assembler strength B for improved ability to open [...] on filedocumented in this encounter Care Teams Tinner Automatic Relationship Specialty Start Date End Date Anay Chandra MD PCP - General Internal Medicine 06/29/19 10/22/21 Brenda Almeida, FLYER BUILDER [address] [place] [address] PCP - General Adult Health - PA/APNP/ECONOMIC DEVELOPMENT MANAGER/FLYER BUILDER 10/23/21 12/25/21 Anay Chandra MD [address] [place] [address] PCP - [facility] Attributed 08/17/21 2 Anay Chandra MD PCP - General Family Medicine 12/26/21 12/30/23 Brenda Almeida, FLYER BUILDER [address] [place] [address] PCP - [facility] Attributed 09/17/22 06/16/23 Anay Chandra MD [address] [place] [address] PCP - General Family Medicine 12/31/23 Vilma Hollis Emergency Medicine 04/28/18 Andrei Ruby APRN Nurse Practitioner Endocrinology 07/21/19 12/29/23 Bakari Camilo MD Physician Ophthalmology 01/10/20 Babak Pickard MD [address] [place] [address] [address] [place] [address] Surgery, Neurosurgery 02/16/23 documented as of this encounter
--- OUTSIDE RECORDS SUMMARY | 2024-10-13 17:14 | XMS_ITS | Encounter Summary ---
Author Organization [facility] Address [address] [place] [address] Care Team Providers Care Assistant Professor Of Philosophy Name Role Phone Vilma Hollis Unavailable Anay Chandra MD Primary Care Provider [phone] Andrei Ruby APRN Unavailable Unavailabl e Bakari Camilo MD Unavailable [phone] Brenda Almeida APRN Primary Care Provider Anay Chandra MD Unavailable [phone] Anay Chandra MD Primary Care Provider [phone] Brenda Almeida APRN Unavailable [phone] Babak Pickard MD Unavailable [phone] Anay Chandra MD Primary Care Provider [phone] Encounter Details Date Type Department Care Team (Late st Contact Info) Description 01/30/2021 Scanned Document [address] [address] Provider, Generic Social History Tobacco Use Types [...] 12/05/2024 1:30 PM EDT Office Visit [address] [address] Anay Chandra MD [address] [place] [address] 01/04/2025 1:00 PM EDT Office Visit [facility] [address] [facility] [address] [place] [address] Vishnu Hernandez MD [address] [place] [address] documented as of this encounter Goals Goal [...] Intervention- to be seen today by MANAGER DATABASE ADMINISTRATION and appt at the wound clinic in [place] on 08/23/18. 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 environmental web crawler strength B for improved ability to open [...] on filedocumented in this encounter Care Teams Assistant Professor Of Philosophy Relationship Specialty Start Date End Date Anay Chandra MD PCP - General Internal Medicine 06/29/19 10/22/21 Brenda Almeida, MANAGER DATABASE ADMINISTRATION [address] [place] [address] PCP - General Adult Health - PA/APNP/AIR SUPPORT CONTROL OFFICER/MANAGER DATABASE ADMINISTRATION 10/23/21 12/25/21 Anay Chandra MD [address] [place] [address] PCP - PC[facility]+ Attributed 08/17/21 2 Anay Chandra MD PCP - General Family Medicine 12/26/21 12/30/23 Brenda Almeida, MANAGER DATABASE ADMINISTRATION [address] [place] [address] PCP - [facility] [place] Attributed 09/17/22 06/16/23 Anay Chandra MD [address] [place] [address] PCP - General Family Medicine 12/31/23 Vilma Hollis Emergency Medicine 04/28/18 Andrei Ruby APRN Nurse Practitioner Endocrinology 07/21/19 12/29/23 Bakari Camilo MD Physician Ophthalmology 01/10/20 Babak Pickard MD [address] [place] [address] [place] [address] Surgery, Neurosurgery 02/16/23 documented as of this encounter
--- OUTSIDE RECORDS SUMMARY | 2024-10-13 17:14 | XMS_ITS | Encounter Summary ---
Author Organization [facility] Address [address] [place] [address] Care Team Providers Care Produce Wrapper Name Role Phone Vilma Hollis Unavailable Anay Chandra MD Primary Care Provider [phone] Andrei Ruby APRN Unavailable Unavailabl e Bakari Camilo MD Unavailable Brenda Alemida APRN Primary Care Provider Anay Chandra MD Unavailable [phone] Anay Chandra MD Primary Care Provider [phone] Brenda Almeida APRN Unavailable [phone] Babak Pickard MD Unavailable [phone] Anay Chandra MD Primary Care Provider [phone] Encounter Details Date Type Department Care Team (Late st Contact Info) Description 04/02/2020 Scanned Document [facility] PRIMARY CARE SCAN Primary Care, Scan [...] have Coronavirus / COVID-19? No / Unsure 03/08/2020 6:32 PM EDT documented as of this encounter Plan of Treatment Upcoming Encounters Date Type Department Care Team (Late st Contact Info) Description 12/05/2024 1:30 PM EDT Office Visit [address] [address] Anay Chandra MD [address] [place] [address] 01/04/2025 1:00 PM EDT Office Visit [facility] [address] [facility] [address] [place] [address] Vishnu Hernandez MD [address] [place] [address] documented as of this encounter Goals Goal [...] and appt at the wound clinic in [place] on 08/23/18. OT LTG 1 Occupational Therapy No Karina Pendleton, MICHAEL Note: Patient will demonstrate 10 lb increase in laborer heading strength B for improved ability to open [...] on filedocumented in this encounter Care Teams Produce Wrapper Relationship Specialty Start Date End Date Anay Chandra MD PCP - General Internal Medicine 06/29/19 10/22/21 Brenda Almeida, COOK NIGHT [address] [place] [address] PCP - [facility] Adult Health - PA/APNP/SNOW REMOVING SUPERVISOR/COOK NIGHT 10/23/21 12/25/21 Anay Chandra MD [address] [place] [address] PCP - PCM+ Attributed 08/17/21 2 Anay Chandra MD PCP - General Family Medicine 12/26/21 12/30/23 Brenda Almeida, COOK NIGHT [address] [place] [address] PCP - [facility] Attributed 09/17/22 06/16/23 Anay Chandra MD [address] [place] [address] PCP - General Family Medicine 12/31/23 Vilma Hollis Emergency Medicine 04/28/18 Andrei Ruby APRN Nurse Practitioner Endocrinology 07/21/19 12/29/23 Bakari Camilo MD Physician Ophthalmology 01/10/20 Babak Pickard MD [address] [place] [address] Surgery, Neurosurgery 02/16/23 documented as of this encounter
--- OUTSIDE RECORDS SUMMARY | 2024-10-13 17:14 | XMS_ITS | Encounter Summary ---
Author Organization [facility] Address [address] [place] [address] Care Team Providers Care Offset Lithographic Press Operator Name Role Phone Vilma Hollis Unavailable Anay Chandra MD Primary Care Provider [phone] Andrei Ruby APRN Unavailable Unavailabl e Bakari Camilo MD Unavailable [phone] Brenda Almeida APRN Primary Care Provider [phone] Anay Chandra MD Unavailable [phone] Anay Chandra MD Primary Care Provider [phone] Brenda Almeida APRN Unavailable [phone] Babak Pickard MD Unavailable [phone] Anay Chandra MD Primary Care Provider [phone] Encounter Details Date Type Department Care Team (Late st Contact Info) Description 01/18/2021 Scanned Document [facility] EMERGENCY MED SCAN Emergency Medicine, Scan Social [...] 12/05/2024 1:30 PM EDT Office Visit [address] [place] [address] Anay Chandra MD [address] [place] [address] 01/04/2025 1:00 PM EDT Office Visit [facility] [address] [facility] [address] [place] [address] Vishnu Hernandez MD [address] [place] [address] documented as of this encounter Goals Goal [...] and appt at the wound clinic in [place] on 08/23/18. OT LTG 1 Occupational Therapy No Karina Pendleton, MIHCAEL Note: Patient will demonstrate 10 lb increase in background check coordinator strength B for improved ability to [...] on filedocumented in this encounter Care Teams Offset Lithographic Press Operator Relationship Specialty Start Date End Date Anay Chandra MD PCP - General Internal Medicine 06/29/19 10/22/21 Brenda Almeida, GENETICS PHYSICIAN [address] [place] [address] PCP - General Adult Health - PA/APNP/HEAD OF BIOLOGY/GENETICS PHYSICIAN 10/23/21 12/25/21 Anay Chandra MD [address] [place] [address] PCP - PCM+ Attributed 08/17/21 2 Anay Chandra MD PCP - General Family Medicine 12/26/21 12/30/23 Brenda Almeida, GENETICS PHYSICIAN [address] [place] [address] PCP - [facility] Attributed 09/17/22 06/16/23 Anay Chandra MD [address] [place] [address] PCP - General Family Medicine 12/31/23 Vilma Hollis Emergency Medicine 04/28/18 Andrei Ruby APRN Nurse Practitioner Endocrinology 07/21/19 12/29/23 Bakari Camilo MD Physician Ophthalmology 01/10/20 Babak Pickard MD [address] [place] [address] Surgery, Neurosurgery 02/16/23 documented as of this encounter
--- OUTSIDE RECORDS SUMMARY | 2024-10-13 17:14 | XMS_ITS | Encounter Summary ---
Author Organization [facility] Address [address] [place] [address] Care Team Providers Care Pumper Gager Apprentice Name Role Phone Vilma Hollis Unavailable Anay Chandra MD Primary Care Provider [phone] Andrei Ruby APRN Unavailable Unavailabl e Bakari Camilo MD Unavailable [phone] Brenda Almeida APRN Primary Care Provider [phone] Anay Chandra MD Unavailable [phone] Anay Chandra MD Primary Care Provider [phone] Brenda Almeida APRN Unavailable [phone] Babak Pickard MD Unavailable [phone] Anay Chandra MD Primary Care Provider [phone] Encounter Details Date Type Department Care Team (Late st Contact Info) Description 01/29/2021 Scanned Document [facility] PULMONOLGY SCAN Pulmonary, Scan Social History [...] 12/05/2024 1:30 PM EDT Office Visit [address] [place] [address] Anay Chandra MD [address] [place] [address] 01/04/2025 1:00 PM EDT Office Visit [facility] Endocrinology [place] 100 [facility] [address] [place] [address] Vishnu Hernandez MD [address] [place] [address] documented as of this encounter Goals Goal [...] appt at the wound clinic in [place] on 08/23/18. OT LTG 1 Occupational Therapy No Karina Pendleton, MICHAEL Note: Patient will demonstrate 10 lb increase in medical office clerk strength B for improved ability to open containers in 6 weeks. OT LTG 2 Occupational Therapy No Karina Pendleton OT Note: QD score will improve by 10% in 6 weeks. OT LTG 3 Occupational Therapy No Karina Pednleton OT Note: Patient will demonstrate independence with HEP including education in 6 weeks. documented as of this encounter Visit Diagnoses Not on filedocumented in this encounter Care Teams Pumper Gager Apprentice Relationship Specialty Start Date End Date Anay Chandra MD PCP - General Internal Medicine 06/29/19 10/22/21 Brenda Almeida, INVESTIGATIVE RESEARCH SPECIALIST [address] [place] [address] PCP - General Adult Health - PA/APNP/ASSOCIATE PROFESSOR OF ARCHAEOLOGY/INVESTIGATIVE RESEARCH SPECIALIST 10/23/21 12/25/21 Anay Chandra MD [address] [place] [address] PCP - PCM+ Attributed 08/17/21 2 Anay Chandra MD PCP - General Family Medicine 12/26/21 12/30/23 Brenda Almeida, INVESTIGATIVE RESEARCH SPECIALIST [address] [place] [address] PCP - [facility] Attributed 09/17/22 06/16/23 Anay Chandra MD [address] [place] [address] PCP - General Family Medicine 12/31/23 Vilma Hollis Emergency Medicine 04/28/18 Andrei Ruby APRN Nurse Practitioner Endocrinology 07/21/19 12/29/23 Bakari Camilo MD Physician Ophthalmology 01/10/20 Babak Pickard MD [address] [place] [address] Surgery, Neurosurgery 02/16/23 documented as of this encounter
--- OUTSIDE RECORDS SUMMARY | 2024-10-13 17:14 | XMS_ITS | Encounter Summary ---
Author Organization [facility] Address [address] [place] [address] Care Team Providers Care Programming Instructor Name Role Phone Vilma Hollis Unavailable Andrei Ruby TEACHER OF THE HANDICAPPED Unavailable Unavailabl e Bakari Camilo MD Unavailable [phone] Anay Chandra MD Primary Care Provider Brenda Almeida TEACHER OF THE HANDICAPPED Unavailable [phone] Babak Pickard MD Unavailable [phone] Anay Chandra MD Primary Care Provider [phone] Reason for Visit * Reason Comments Referral Encounter Details Date Type Department Care Team (Late st Contact Info) Description 06/09/[address] [address] Anay Chandra MD [address] [place] [id number] Referral Social History Tobacco Use Types Packs/Day [...] encounter Miscellaneous Notes * Telephone Encounter - Glenis Miller LPN - 06/10/2023 10:44 AM EDT Pt informed * Telephone Encounter - Anay Chandra MD - 06/10/2023 7:43 AM EDT This was ordered in March and sent to [facility] She can call to schedule thanks documented in this encounter Plan of Treatment Upcoming Encounters Date Type Department Care Team (Late st Contact Info) Description 12/05/2024 1:30 PM EDT Office Visit [address] [address] Anay Chandra MD [address] [place] [address] 01/04/2025 1:00 PM EDT Office Visit [facility] Endocrinology [place] 100 [facility] [address] [place] [address] Vishnu Hernandez MD [address] [place] [address] documented as of this encounter Goals Goal [...] and appt at the wound clinic in [place] on 08/23/18. OT LTG 1 Occupational Therapy Karina Rodriguez OT Note: Patient will demonstrate 10 lb increase in tobacco weigher strength B for improved ability to open [...] on filedocumented in this encounter Care Teams Programming Instructor Relationship Specialty Start Date End Date Anay Chandra MD PCP - General Family Medicine 12/26/21 12/30/23 Brenda Almeida APRN [address] [place] [address] PCP - [facility] [place] Attributed 09/17/22 06/16/23 Anay Chandra MD [address] [place] [address] PCP - General Family Medicine 12/31/23 Vilma Hollis Emergency Medicine 04/28/18 Andrei Ruby APRN Nurse Practitioner Endocrinology 07/21/19 12/29/23 Bakari Camilo MD Physician Ophthalmology 01/10/20 Babak Pickard MD [address] [facility] [address] [place] [address] Surgery, Neurosurgery 02/16/23 documented as of this encounter
--- OUTSIDE RECORDS SUMMARY | 2024-10-13 17:14 | XMS_ITS | Encounter Summary ---
Author Organization [facility] Address [address] [place] [address] Care Team Providers Care Technical Spec Name Role Phone Vilma Hollis Unavailable Anay Chandra MD Primary Care Provider [phone] Andrei Ruby APRN Unavailable Unavailabl e Bakari Camilo MD Unavailable [phone] Brenda Almeida APRN Primary Care Provider [phone] Anay Chandra MD Unavailable [phone] Anay Chandra MD Primary Care Provider [phone] Brenda Almeida APRN Unavailable [phone] Babak Pickard MD Unavailable [phone] Anay Chandra MD Primary Care Provider [phone] Encounter Details Date Type Department Care Team (Late st Contact Info) Description 04/17/[address] [id number] Anay Chandra MD [address] [place] [address] Tobacco use Social History Tobacco Use Types [...] Description 12/05/2024 1:30 PM EDT Office Visit [address] [address] Anay Chandra MD [address] [place] [address] 01/04/2025 1:00 PM EDT Office Visit [facility] [address] [facility] [address] [place] [address] Vishnu Hernandez MD [address] [place] [address] documented as of this encounter Goals Goal [...] CICI. Intervention- to be seen today by PAI GOW DEALER and appt at the wound clinic in [place] on 08/23/18. OT LTG 1 Occupational Therapy No Karina Pendleton, OT Note: Patient will demonstrate 10 lb increase in compressed gas plant worker strength B for improved ability to open [...] use documented in this encounter Care Teams Technical Spec Relationship Specialty Start Date End Date Anay Chandra MD PCP - General Internal Medicine 06/29/19 10/22/21 Brenda Almeida, PAI GOW DEALER [address] [place] [address] PCP - General Adult Health - PA/APNP/MANAGER ROOFING/PAI GOW DEALER 10/23/21 12/25/21 Anay Chandra MD [address] [place] [address] PCP - PCM+ Attributed 08/17/21 2 Anay Chandra MD PCP - General Family Medicine 12/26/21 12/30/23 Brenda Almeida, PAI GOW DEALER [address] [place] [address] PCP - [facility] [place] Attributed 09/17/22 06/16/23 Anay Chandra MD [address] [place], [place] [address] PCP - General Family Medicine 12/31/23 Vilma Hollis Emergency Medicine 04/28/18 Andrei Ruby APRN Nurse Practitioner Endocrinology 07/21/19 12/29/23 Bakari Camilo MD Physician Ophthalmology 01/10/20 Babak Pickard MD [address] [place] [address] [place] [address] Surgery, Neurosurgery 02/16/23 documented as of this encounter
--- OUTSIDE RECORDS SUMMARY | 2024-10-13 17:14 | XMS_ITS | Encounter Summary ---
Author Organization [facility] Address [address] [place] [address] Care Team Providers Care Migrant Leader Name Role Phone Vilma [place] Unavailable Andrei Ruby APRN Unavailable Unavailabl Bakari Mcclelland MD Unavailable [phone] Anay Chandra MD Primary Care Provider [phone] Babak Pickard MD Unavailable [phone] Anay Chandra MD Primary Care Provider [phone] Encounter Details Date Type Department Care Team (Late st Contact Info) Description 08/25/[address] [phone] Anay Chandra MD [address] [place] [address] [phone] Social History Tobacco Use Types Packs/Day Years [...] encounter Miscellaneous Notes * Telephone Encounter - Elena Orozco - 08/25/2023 12:59 PM EST Patient called back- she said that she is planning to get her blood work done - she says the 1.5 plus the glipizide is perfect- her b/s is not running below 93 - and up to 173 Today it is 147 * Telephone Encounter - Ada Arzate RN - 08/25/2023 12:36 PM EST Unable to reach patient, voicemail left, 1st attempt. * Telephone Encounter - Anay Chandra MD - 08/25/2023 12:25 PM EST Yes, please remind pt to get blood work done as I may adjust the dose of trulicity Thanks * Telephone Encounter - Cathryn Anderson - 08/25/2023 12:10 PM EST PT called and asked if there is something else she can use until the trulicity was back in stock documented in this encounter Plan of Treatment Upcoming Encounters Date Type Department Care Team (Late st Contact Info) Description 12/05/2024 1:30 PM EDT Office Visit [address] [phone] Anay Chandra MD [address] [place] [address] 01/04/2025 1:00 PM EDT Office Visit [facility] Endocrinology [address] [place] [address] Vishnu Hernandez MD [address] [place] [address] documented as of this encounter Goals Goal [...] CICI. Intervention- to be seen today by BUTTON BREAKER OPERATOR and appt at the wound clinic in [place] on 08/23/18. OT LTG 1 Occupational Therapy No Karina Pendleton, MICHAEL Note: Patient will demonstrate 10 lb increase in package checker strength B for improved ability to open [...] on filedocumented in this encounter Care Teams Migrant Leader Relationship Specialty Start Date End Date nAay Chandra MD PCP - General Family Medicine 12/26/21 12/30/23 Anay Chandra MD [address] [place] [address] PCP - General Family Medicine 12/31/23 Vilma [place] Emergency Medicine 04/28/18 Andrei Ruby APRN Nurse Practitioner Endocrinology 07/21/19 12/29/23 Bakari Camilo MD Physician Ophthalmology 01/10/20 Babak Pickard MD [address] [place] [address] [place] [address] Surgery, Neurosurgery 02/16/23 documented as of this encounter
--- OUTSIDE RECORDS SUMMARY | 2024-10-13 17:14 | XMS_ITS | Encounter Summary ---
Author Organization [facility] Address [address] [place] [address] Care Team Providers Care Maintenance Coordinator Name Role Phone Vilma [place] Unavailable Andrei Ruby APRN Unavailable Unavailabl e Bakari Camilo MD Unavailable [phone] Anay Chandra MD Primary Care Provider [phone] Babak Pickard MD Unavailable [phone] Anay Chandra MD Primary Care Provider [phone] Encounter Details Date Type Department Care Team (Late st Contact Info) Description 07/08/2023 Scanned Document [facility] PRIMARY CARE SCAN Primary Care, Scan [...] 12/05/2024 1:30 PM EDT Office Visit [address] [phone] Anay Chandra MD [address] [place] [address] [place] [address] 01/04/2025 1:00 PM EDT Office Visit [facility] Endocrinology [place] 100 [facility] [address] [place] [address] Vishnu Hernandez MD [address] [place] [address] documented as of this encounter Goals Goal [...] CICI. Intervention- to be seen today by TANK SETTER HELPER and appt at the wound clinic in [place] on 08/23/18. OT LTG 1 Occupational Therapy No Karina Pendleton, MICHAEL Note: Patient will demonstrate 10 lb increase in translator strength B for improved ability to open [...] on filedocumented in this encounter Care Teams Maintenance Coordinator Relationship Specialty Start Date End Date Anay Chandra MD PCP - General Family Medicine 12/26/21 12/30/23 Anay Chandra MD [address] [place] [address] PCP - General Family Medicine 12/31/23 Vilma [place] Emergency Medicine 04/28/18 Andrei Ruby APRN Nurse Practitioner Endocrinology 07/21/19 12/29/23 Bakari Camilo MD Physician Ophthalmology 01/10/20 Babak Pickard MD [address] [place] [address] Surgery, Neurosurgery 02/16/23 documented as of this encounter
--- OUTSIDE RECORDS SUMMARY | 2024-10-13 17:14 | XMS_ITS | Encounter Summary ---
Author Organization [facility] Address [address] [place] [address] Care Team Providers Care Carton Stenciler Name Role Phone Vilma [place] Unavailable Anay Chandra MD Primary Care Provider [phone] Andrei Ruby APRN Unavailable Unavailabl e Bakari Camilo MD Unavailable [phone] Brenda Almeida APRN Primary Care Provider Anay Chandra MD Unavailable [phone] Anay Chandra MD Primary Care Provider [phone] Brenda Almeida APRN Unavailable [phone] Babak Pickard MD Unavailable [phone] Anay Chandra MD Primary Care Provider [phone] Encounter Details Date Type Department Care Team (Late st Contact Info) Description 06/12/2020 Scanned Document [address] [phone] Provider, Generic Social History Tobacco [...] 12/05/2024 1:30 PM EDT Office Visit [address] [address] Anay Chandra MD [address] [place] [address] 01/04/2025 1:00 PM EDT Office Visit [facility] [address] [place] [address] Vishnu Hernandez MD [address] [place] [address] documented as of this encounter Goals Goal [...] CICI. Intervention- to be seen today by AUTOMOBILE BODY REPAIR SUPERVISOR and appt at the wound clinic in [place] on 08/23/18. OT LTG 1 Occupational Therapy No Karina Pendleton, MICHAEL Note: Patient will demonstrate 10 lb increase in kettle skimmer strength B for improved ability to open [...] on filedocumented in this encounter Care Teams Carton Stenciler Relationship Specialty Start Date End Date Anay Chandra MD PCP - General Internal Medicine 06/29/19 10/22/21 Brenda Almeida, AUTOMOBILE BODY REPAIR SUPERVISOR [address] [place] [address] PCP - General Adult Health - PA/APNP/METAL ANNEALER/AUTOMOBILE BODY REPAIR SUPERVISOR 10/23/21 12/25/21 Anay Chandra MD [address] [place], [place] [id number] PCP - [facility]+ Attributed 08/17/21 2 Anay Chandra MD PCP - General Family Medicine 12/26/21 12/30/23 Brenda Almeida, AUTOMOBILE BODY REPAIR SUPERVISOR [address] [place] [address] PCP - [place] [facility] MA Attributed 09/17/22 06/16/23 Anay Chandra MD [address] [place], [place] [id number] PCP - General Family Medicine 12/31/23 Vilma [place] Emergency Medicine 04/28/18 Andrei Ruby APRN Nurse Practitioner Endocrinology 07/21/19 12/29/23 Bakari Camilo MD Physician Ophthalmology 01/10/20 Babak Pickard MD [address] [place] [address] Surgery, Neurosurgery 02/16/23 documented as of this encounter
--- OUTSIDE RECORDS SUMMARY | 2024-10-13 17:14 | XMS_ITS | Encounter Summary ---
Author Organization [facility] Address [address] [place] [address] Care Team Providers Care Bitumastic Applier Name Role Phone Vilma [place] Unavailable Andrei Ruby THERMOSTAT MAKER Unavailable Unavailabl e Bakari Camilo MD Unavailable [phone] Anay Chandra MD Primary Care Provider Brenda Almeida THERMOSTAT MAKER Unavailable [phone] Babak Pickard MD Unavailable [phone] Anay Chandra MD Primary Care Provider [phone] Reason for Visit * Reason Comments Other Encounter Details Date Type Department Care Team (Late st Contact Info) Description 12/17/[address] [address] Anay Chandra MD [address] [place] [address] [id number] Other Social History Tobacco Use Types Packs/Day [...] Telephone Encounter - Glenis Miller LPN - 12/18/2022 11:51 AM EDT Pt informed * Telephone Encounter - Anay Chandra MD - 12/18/2022 9:00 AM EDT Thanks for the update I sent in [facility] documented in this encounter Plan of Treatment Upcoming Encounters Date Type Department Care Team (Late st Contact Info) Description 12/05/2024 1:30 PM EDT Office Visit [address] [address] Anay Chandra MD [address] [place] [address] 01/04/2025 1:00 PM EDT Office Visit [facility] Endocrinology [place] 100 [facility] [address] [place] [address] Vishnu Hernandez MD [address] [facility] [address] [place] [address] documented as of this encounter Goals Goal [...] and appt at the wound clinic in [place] on 08/23/18. 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 wood processing worker strength B for improved ability to [...] on filedocumented in this encounter Care Teams Bitumastic Applier Relationship Specialty Start Date End Date Anay Chandra MD PCP - General Family Medicine 12/26/21 12/30/23 Brenda Almeida APRN [address] [place] [address] PCP - [place] [facility] MA Attributed 09/17/22 06/16/23 Anay Chandra MD [address] [place] [address] PCP - General Family Medicine 12/31/23 Vilma [place] Emergency Medicine 04/28/18 Andrei Ruby APRN Nurse Practitioner Endocrinology 07/21/19 12/29/23 Bakari Camilo MD Physician Ophthalmology 01/10/20 Babak Pickard MD [address] [place] [address] [address] [place] [address] Surgery, Neurosurgery 02/16/23 documented as of this encounter
--- OUTSIDE RECORDS SUMMARY | 2024-10-13 17:14 | XMS_ITS | Encounter Summary ---
Author Organization [facility] Address [address] [place] [address] Care Team Providers Care Scientific Affairs Manager Name Role Phone Vilma [place] Unavailable Andrei Ruby THERAPEUTIC RADIOLOGIST Unavailable Unavailabl e Bakari Camilo MD Unavailable [phone] Anay Chandra MD Primary Care Provider [phone] Brenda Almeida THERAPEUTIC RADIOLOGIST Unavailable [phone] Babak Pickard MD Unavailable [phone] Anay Chandra MD Primary Care Provider [phone] Encounter Details Date Type Department Care Team (Late st Contact Info) Description 02/18/2023 Scanned Document [facility] PULMONOLGY SCAN Pulmonary, Scan Social History [...] suspected to have Coronavirus/COVID-19? No / Unsure 02/03/2023 5:21 PM EDT documented as of this encounter Plan of Treatment Upcoming Encounters Date Type Department Care Team (Late st Contact Info) Description 12/05/2024 1:30 PM EDT Office Visit [facility] [address] [facility] [place] [phone] Anay Chandra MD [address] [facility], [place] [phone] 01/04/2025 1:00 PM EDT Office Visit [facility] Endocrinology [place] [address] [place] [address] Vishnu Hernandez MD [address] [place] [address] documented as of this encounter Goals Goal [...] CICI. Intervention- to be seen today by THERAPEUTIC RADIOLOGIST and appt at the wound clinic in [place] on 08/23/18. OT LTG 1 Occupational Therapy No Karina Pendleton, MICHAEL Note: Patient will demonstrate 10 lb increase in engineering director strength B for improved ability to [...] on filedocumented in this encounter Care Teams Scientific Affairs Manager Relationship Specialty Start Date End Date Anay Chandra MD PCP - General Family Medicine 12/26/21 12/30/23 Brenda Almeida APRN [address] [place] [address] PCP - [facility] Attributed 09/17/22 06/16/23 Anay Chandra MD [address] [place] [address] PCP - General Family Medicine 12/31/23 Vilma [place] Emergency Medicine 04/28/18 Andrei Ruby APRN Nurse Practitioner Endocrinology 07/21/19 12/29/23 Bakari Camilo MD Physician Ophthalmology 01/10/20 Babak Pickard MD [address] [place] [address] [place] [address] Surgery, Neurosurgery 02/16/23 documented as of this encounter
--- OUTSIDE RECORDS SUMMARY | 2024-10-13 17:14 | XMS_ITS | Encounter Summary ---
Author Organization [facility] Address [address] [place] [address] Care Team Providers Care Steam Setter Name Role Phone Vilma [place] Unavailable Anay Chandra MD Primary Care Provider [phone] Andrei Ruby APRN Unavailable Unavailabl e Bakari Camilo MD Unavailable [phone] Brenda Almeida APRN Primary Care Provider [phone] Anay Cahndra MD Unavailable [phone] Anay Chandra MD Primary Care Provider [phone] Brenda Almeida APRN Unavailable [phone] Babak Pickard MD Unavailable [phone] Anay Chandra MD Primary Care Provider [phone] Encounter Details Date Type Department Care Team (Late st Contact Info) Description 07/20/2020 Scanned Document [address] [phone] Provider, Generic Social History Tobacco [...] Description 12/05/2024 1:30 PM EDT Office Visit [address] [address] Anay Chandra MD [address] [place] [address] 01/04/2025 1:00 PM EDT Office Visit [facility] [address] [place] [address] Vishnu Hernandez MD [address] [place] [address] documented as of this encounter Goals Goal [...] CICI. Intervention- to be seen today by SPINNING LATHE OPERATOR HYDRAULIC and appt at the wound clinic in [place] on 08/23/18. OT LTG 1 Occupational Therapy No Karina Pendleton, MICHAEL Note: Patient will demonstrate 10 lb increase in hook up driver strength B for improved ability to [...] on filedocumented in this encounter Care Teams Steam Setter Relationship Specialty Start Date End Date Anay Chandra MD PCP - General Internal Medicine 06/29/19 10/22/21 Brenda Almeida, SPINNING LATHE OPERATOR HYDRAULIC [address] [place] [address] PCP - General Adult Health - PA/APNP/TIMBER GRADER/SPINNING LATHE OPERATOR HYDRAULIC 10/23/21 12/25/21 Anay Chandra MD [address] [place], [place] [phone] PCP - [facility]+ Attributed 08/17/21 2 Anay Chandra MD PCP - General Family Medicine 12/26/21 12/30/23 Brenda Almeida, SPINNING LATHE OPERATOR HYDRAULIC [address] [place] [address] PCP - [place] [facility] MA Attributed 09/17/22 06/16/23 Anay Chandra MD [address] [place], [place] [phone] PCP - General Family Medicine 12/31/23 Vilma [place] Emergency Medicine 04/28/18 Andrei Ruby APRN Nurse Practitioner Endocrinology 07/21/19 12/29/23 Bakari Camilo MD Physician Ophthalmology 01/10/20 Babak Pickard MD [address] [place] [address] Surgery, Neurosurgery 02/16/23 documented as of this encounter
--- OUTSIDE RECORDS SUMMARY | 2024-10-13 17:14 | XMS_ITS | Encounter Summary ---
Author Organization [facility] Address [address] [place] [address] Care Team Providers Care Broom Stitcher Name Role Phone Vilma [place] Unavailable Anay Chandra MD Primary Care Provider Andrei Ruby APRN Unavailable Unavailabl e Bakari Camilo MD Unavailable [phone] Brenda Almeida APRN Primary Care Provider Anay Chandra MD Unavailable Anay Chandra MD Primary Care Provider [phone] Brenda Almeida APRN Unavailable [phone] Babak Pickard MD Unavailable [phone] Anay Chandra MD Primary Care Provider [phone] Reason for Visit * Reason Comments Medication Refill Encounter Details Date Type Department Care Team (Late st Contact Info) Description 06/14/[address] [phone] Anay Chandra MD [address] [place] [phone] Tobacco use Social History Tobacco Use Types [...] 12/05/2024 1:30 PM EDT Office Visit [address] [address] Anay Chandra MD [address] [place] [address] 01/04/2025 1:00 PM EDT Office Visit [facility] 100 [facility] [address] [place] [address] Vishnu Hernandez MD [address] [place] [address] documented as of this encounter Goals Goal [...] CICI. Intervention- to be seen today by GEOGRAPHIC ANALYST and appt at the wound clinic in [place] on 08/23/18. 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 gamer strength B for improved ability to open [...] use documented in this encounter Care Teams Broom Stitcher Relationship Specialty Start Date End Date Anay Chandra MD PCP - General Internal Medicine 06/29/19 10/22/21 Brenda Almeida, GEOGRAPHIC ANALYST [address] [place] [address] PCP - General Adult Health - PA/APNP/SODA ROOM OPERATOR/GEOGRAPHIC ANALYST 10/23/21 12/25/21 Anay Chandra MD [address] [place] [address] PCP - PCM+ Attributed 08/17/21 2 Anay Chandra MD PCP - General Family Medicine 12/26/21 12/30/23 Brenda Almeida, GEOGRAPHIC ANALYST [address] [place] [address] PCP - [facility] MA Attributed 09/17/22 06/16/23 Anay Chandra MD [address] [place] [address] PCP - General Family Medicine 12/31/23 Vilma [place] Emergency Medicine 04/28/18 Andrei Ruby APRN Nurse Practitioner Endocrinology 07/21/19 12/29/23 Bakari Camilo MD Physician Ophthalmology 01/10/20 Babak Pickard MD [address] [place] [address] [place] [address] Surgery, Neurosurgery 02/16/23 documented as of this encounter
--- OUTSIDE RECORDS SUMMARY | 2024-10-13 17:14 | XMS_ITS | Encounter Summary ---
Author Organization [facility] Address [address] [place] [address] Care Team Providers Care Engine Repair Supervisor Name Role Phone Vilma [place] Unavailable Andrei Ruby APRN Unavailable Unavailabl Bakari Mcclelland MD Unavailable [phone] Anay Chandra MD Primary Care Provider [phone] Babak Pickard MD Unavailable [phone] Anay Chandra MD Primary Care Provider [phone] Encounter Details Date Type Department Care Team (Late st Contact Info) Description 12/17/2023 Telephone [facility] [address] [place] [address] Jim Gutierrez V, RADHA [address] [place] [address] Social History Tobacco Use Types Packs/Day Years [...] Description 12/05/2024 1:30 PM EDT Office Visit [facility] [address] [place] [phone] Anay Chandra MD [address] [place] [address], [place] [phone] 01/04/2025 1:00 PM EDT Office Visit [facility] Endocrinology [place] [address] [place] [address] Vishnu Hernandez MD [address] [place] [address] documented as of this encounter Goals Goal [...] CICI. Intervention- to be seen today by PHOTO CHECKER AND ASSEMBLER and appt at the wound clinic in [place] on 08/23/18. OT LTG 1 Occupational Therapy No Karina Pendleton, MICHAEL Note: Patient will demonstrate 10 lb increase in country manager strength B for improved ability to [...] on filedocumented in this encounter Care Teams Engine Repair Supervisor Relationship Specialty Start Date End Date Anay Chandra MD PCP - General Family Medicine 12/26/21 12/30/23 Anay Chandra MD [address] [place] [address] PCP - General Family Medicine 12/31/23 Vilma [place] Emergency Medicine 04/28/18 Andrei Ruby APRN Nurse Practitioner Endocrinology 07/21/19 12/29/23 Bakari Camilo MD Physician Ophthalmology 01/10/20 Babak Pickard MD [address] [place] [address] [address] [place] [address] Surgery, Neurosurgery 02/16/23 documented as of this encounter
--- OUTSIDE RECORDS SUMMARY | 2024-10-13 17:15 | XMS_ITS | Clinical Summary ---
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 AM EST us Latrice Norris MD LAB PATHOLOGY/CYTOLOGY RADHA CONNER Final Result [facility] [address] [place] [address], from Last 3 Months or Most Recently Relevant to Health Maintenance Insurance MEDICAID HUSKY C EV[place]ARE MEDICAID JUMANA C EVERCARE Advance Directives For more information, please contact: [phone] Documents on File Type Date Recorded 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 Advance Directives 05/04/2018 2:01 PM * Full Code (Latest Code Status on File) Date Activated Date Inactivated Comments 03/26/2021 8:44 PM 03/27/2021 8:09 PM * Full Code Date Activated Date Inactivated Comments 03/26/2021 8:19 PM 03/26/2021 8:44 PM * Full Code Date Activated Date Inactivated Comments 03/26/2021 7:52 PM 03/26/2021 8:19 PM Care Teams Fruit Culler Relationship Specialty Start Date End Date Anay Chandra [address] [place] [address] PCP - General 09/01/19 Anay Chandra [address] [place] [address] PCP - Insurance Payer PCP 06/15/23 Latrice Norris MD 1 [facility] [address] [facility] [place] [address] Consulting Physician Obstetrics and Gynecology 04/19/21 Tom Adame MD [address] [facility] [place] [address] Consulting Physician Neurology 08/19/21
--- OUTSIDE RECORDS SUMMARY | 2024-10-13 17:15 | XMS_ITS | Encounter Summary ---
Author Organization [facility] Address [address] [place] [address] Care Team Providers Care Floor Layer Tile Name Role Phone Milka Cueva APRN Primary Care Provider [phone] Vilma Hollis Unavailable Milka Cueva APRN Unavailable [phone] Raisa Pittman MD Primary Care Provid er Anay Chandra MD Primary Care Provider [phone] Andrei Ruby APRN Unavailable Unavailabl e Barry Cornell MD Unavailable [phone] Bakari Camilo MD Unavailable [phone] Brenda Almeida APRN Primary Care Provider [phone] Anay Chandra MD Unavailable [phone] Anay Chandra MD Primary Care Provider [phone] Brenda Almeida APRN Unavailable [phone] Babak Pickard MD Unavailable [phone] Anay Chandra MD Primary Care Provider [phone] Encounter Details Date Type Department Care Team (Late st Contact Info) Description 10/06/2018 Scanned Document [address] [address] Milka Cueva APRN 5 [facility] [address] [address] Social History Tobacco Use Types Packs/Day Years [...] Description 12/05/2024 1:30 PM EDT Office Visit [address] [address] Anay Chandra MD [address] [place] [address] 01/04/2025 1:00 PM EDT Office Visit [address] [phone] Vishnu Hernandez MD [address] [place] [address] documented as of this encounter Goals Goal [...] Improving(01/ 2:36 PM EST) Yes Norma Junior, RN Note: Problem- new onset of pain where closed wound is. Goal- concerns of pain to be addressed CICI. Intervention- to be seen today by INGE and appt at the wound clinic in [place] on 08/23/18. documented as of this encounter Visit Diagnoses Not on filedocumented in this encounter Care Teams Floor Layer Tile Relationship Specialty Start Date End Date Milka Cueva APRN [address] [place] [address] PCP - General Internal Medicine 03/10/17 05/22/19 Milka Cueva APRN 5 [facility] [address] [address] PCP - MSSP Attributed 02/14/19 9 Raisa Pittman MD 5 [facility] [address] [place] [address] PCP - General Family Medicine 05/23/19 06/28/19 Anay Chandra MD 5 [facility] [address] [address] PCP - General Internal Medicine 06/29/19 10/22/21 Brenda Almeida APRN [address] [place] [address] PCP - General Adult Health - PA/APNP/DIESEL TRAILER MECHANIC/CUSTOMER DATA TECHNICIAN 10/23/21 12/25/21 Anay Chandra MD [address] [place] [address] PCP - PCMH+ Attributed 08/17/21 2 Anay Chandra MD [address] [address] [place] [address] PCP - General Family Medicine 12/26/21 12/30/23 Brenda Almeida APRN [address] [place] [address] PCP - [facility] Attributed 09/17/22 06/16/23 Anay Chandra MD [address] [place] [address] PCP - General Family Medicine 12/31/23 Vilma Hollis [address] [place] [address] Emergency Medicine 04/28/18 Andrei Ruby APRN [address] [facility] [address] [place] [address] Nurse Practitioner Endocrinology 07/21/19 12/29/23 Barry Cornell MD [address] [facility] [address] [place] [address] Anesthesiologist Anesthesiology 10/03/19 10/03/19 Bakari Camilo MD [address] [address] [place] [address] Physician Ophthalmology 01/10/20 Babak Pickard MD [address] [place] [address] [address] [place] [address] Surgery, Neurosurgery 02/16/23 documented as of this encounter
--- OUTSIDE RECORDS SUMMARY | 2024-10-13 17:15 | XMS_ITS | Encounter Summary ---
Author Organization [facility] Address [address] [place] [address] Care Team Providers Care Process Inspector Name Role Phone Milka Cueva APRN Primary Care Provider [phone] Vilma Hollis Unavailable Milka Cueva APRN Unavailable [phone] Raisa Pittman MD Primary Care Provid er Anay Chandra MD Primary Care Provider [phone] Andrei Ruby APRN Unavailable Unavailabl e Barry Cornell MD Unavailable [phone] Bakari Camilo MD Unavailable [phone] Brenda Almeida APRN Primary Care Provider [phone] Anay Chandra MD Unavailable [phone] Anay Chandra MD Primary Care Provider [phone] Brenda Almeida APRN Unavailable [phone] Babak Pickard MD Unavailable [phone] Anay Chandra MD Primary Care Provider [phone] Encounter Details Date Type Department Care Team (Late st Contact Info) Description 09/22/2018 Scanned Document [address] [address] Milka Cueva APRN 5 [facility] [address] [address] Social History Tobacco Use Types Packs/Day Years [...] 12/05/2024 1:30 PM EDT Office Visit [address] [address] Anay Chandra MD [address] [place] [address] 01/04/2025 1:00 PM EDT Office Visit [address] [phone] Vishnu Hernandez MD [address] [place] [address] documented as of this encounter Goals Goal [...] and appt at the wound clinic in [place] on 08/23/18. documented as of this encounter Visit Diagnoses Not on filedocumented in this encounter Care Teams Process Inspector Relationship Specialty Start Date End Date Milka Cueva APRN [address] [place] [address] PCP - General Internal Medicine 03/10/17 05/22/19 Milka Cueva APRN 5 [facility] [address] [address] PCP - MSSP Attributed 02/14/19 9 Raisa Pittman MD 5 [facility] [address] [place] [address] PCP - General Family Medicine 05/23/19 06/28/19 Anay Chandra MD 5 [facility] [address] [address] PCP - General Internal Medicine 06/29/19 10/22/21 Brenda Almeida APRN [address] [place] [address] PCP - General Adult Health - PA/APNP/SLIP COVER CUTTER/LINING STUFFER 10/23/21 12/25/21 Anay Chandra MD [address] [place] [address] PCP - PCMH+ Attributed 08/17/21 2 Anay Chandra MD [address] [facility] [address] [place] [address] PCP - General Family Medicine 12/26/21 12/30/23 Brenda Almeida APRN [address] [place] [address] PCP - [facility] Attributed 09/17/22 06/16/23 Anay Chandra MD [address] [place] [address] PCP - General Family Medicine 12/31/23 Vilma Hollis [address] [place] [address] Emergency Medicine 04/28/18 Andrei Ruby APRN [address] [facility] [address] [place] [address] Nurse Practitioner Endocrinology 07/21/19 12/29/23 Barry Cornell MD [address] [facility] [address] [place] [address] Anesthesiologist Anesthesiology 10/03/19 10/03/19 Bakari Camilo MD [address] [facility] [address] [place] [address] Physician Ophthalmology 01/10/20 Babak Pickard MD [address] [place] [address] [address] [place] [address] Surgery, Neurosurgery 02/16/23 documented as of this encounter
--- OUTSIDE RECORDS SUMMARY | 2024-10-13 17:15 | XMS_ITS | Encounter Summary ---
Author Organization [facility] Address [address] [place] [address] Care Team Providers Care Banquet Stewardess Name Role Phone Vilma Hollis Unavailable Anay Chandra MD Primary Care Provider [phone] Andrei Ruby APRN Unavailable Unavailabl e Bakari Camilo MD Unavailable [phone] Brenda Almeida APRN Primary Care Provider Anay Chandra MD Unavailable [phone] Anay Chandra MD Primary Care Provider [phone] Brenda Almeida APRN Unavailable [phone] Babak Pickard MD Unavailable [phone] Anay Chandra MD Primary Care Provider [phone] Encounter Details Date Type Department Care Team (Late st Contact Info) Description 12/23/2019 Scanned Document [facility] EMERGENCY MED SCAN Emergency Medicine, Scan [...] 12/05/2024 1:30 PM EDT Office Visit [address] [place] [address] Anay Chandra MD [address] [place] [address] 01/04/2025 1:00 PM EDT Office Visit [facility] Endocrinology [place] [address] [place] [address] Vishnu Hernandez MD [address] [place] [address] documented as of this encounter Goals Goal [...] CICI. Intervention- to be seen today by JAVA SCALA DEVELOPER and appt at the wound clinic in [place] on 08/23/18. 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 B for improved ability to open [...] on filedocumented in this encounter Care Teams Banquet Stewardess Relationship Specialty Start Date End Date Anay Chandra MD PCP - General Internal Medicine 06/29/19 10/22/21 Brenda Almeida, JAVA SCALA DEVELOPER [address] [place] [address] PCP - General Adult Health - PA/APNP/FRAME RUNNER/JAVA SCALA DEVELOPER 10/23/21 12/25/21 Anay Chandra MD [address] [place] [address] PCP - PCM+ Attributed 08/17/21 2 Anya Chandra MD PCP - General Family Medicine 12/26/21 12/30/23 Brenda Almeida, JAVA SCALA DEVELOPER [address] [place] [address] PCP - [facility] [place] Attributed 09/17/22 06/16/23 Anay Chandra MD [address] [place] [address] PCP - General Family Medicine 12/31/23 Vilma Hollis Emergency Medicine 04/28/18 Andrei Ruby APRN Nurse Practitioner Endocrinology 07/21/19 12/29/23 Bakari Camilo MD Physician Ophthalmology 01/10/20 Babak Pickard MD [address] [place] [address] [place] [address] Surgery, Neurosurgery 02/16/23 documented as of this encounter
--- OUTSIDE RECORDS SUMMARY | 2024-10-13 17:15 | XMS_ITS | Encounter Summary ---
Author Organization [facility] Address [address] [place] [address] Care Team Providers Care Chocolatier Name Role Phone Milka Cueva APRN Primary Care Provider [phone] Vilma Hollis Unavailable Milka Cueva APRN Unavailable [phone] Raisa Pitt[place] MD Primary Care Provid er Anay Chandra MD Primary Care Provider [phone] Andrei Ruby APRN Unavailable Unavailabl e Barry Cornell MD Unavailable [phone] Bakari Camilo MD Unavailable [phone] Brenda Almeida APRN Primary Care Provider [phone] Anay Chandra MD Unavailable [phone] Anay Chandra MD Primary Care Provider [phone] Brenda Almeida APRN Unavailable [phone] Babak Pickard MD Unavailable [phone] Anay Chandra MD Primary Care Provider [phone] Encounter Details Date Type Department Care Team (Late st Contact Info) Description 07/12/[address] [address] Milka Cueva APRN [address] [address] [address] Social History Tobacco Use Types Packs/Day Years [...] Telephone Encounter - Sherice Longo RN - 07/12/2018 2:35 PM EST S/w pt - med was already refilled on 07/05/18 - pt will check with her pharm * Telephone Encounter - Stormy Burks - 07/12/2018 2:13 PM EST CHANTIX CONTINUING MONTH JARRED 1 MG tablet Patient [facility] on [facility] documented in this encounter Plan of Treatment Upcoming Encounters Date Type Department Care Team (Late st Contact Info) Description 12/05/2024 1:30 PM EDT Office Visit [address] [address] Anay Chandra MD [address] [place] [address] 01/04/2025 1:00 PM EDT Office Visit [facility] Endocrinology [address] [place] [address] Vishnu Hernandez MD [address] [address] documented as of this encounter Visit Diagnoses Diagnosis Tobacco abuse Tobacco use disorder documented in this encounter Care Teams Chocolatier Relationship Specialty Start Date End Date Milka Cueva APRN [address] [place] [address] PCP - General Internal Medicine 03/10/17 05/22/19 Milka Cueva APRN 5 [facility] [address] [place] [address] PCP - MSSP Attributed 02/14/19 9 Raisa [place] MD 5 [facility] [address] [address] PCP - General Family Medicine 05/23/19 06/28/19 Anay Chandra MD 5 [facility] [address] [address] PCP - General Internal Medicine 06/29/19 10/22/21 Brenda Almeida APRN [address] [place] [address] PCP - General Adult Health - PA/APNP/HUMAN RESOURCES OPERATIONS MANAGER/ADMISSIONS MANAGER RN 10/23/21 12/25/21 Anay Chandra MD [address] [place] [address] PCP - PCMH+ Attributed 08/17/21 2 Anay Chandra MD 5 [facility] [address] [address] PCP - General Family Medicine 12/26/21 12/30/23 Brenda Almeida APRN [address] [place] [address] PCP - [facility] [place] Attributed 09/17/22 06/16/23 Anay Chandra MD [address] [place] [address] PCP - General Family Medicine 12/31/23 Vilma Hollis [address] [place] [address] Emergency Medicine 04/28/18 Andrei Ruby APRN [address] [address] Nurse Practitioner Endocrinology 07/21/19 12/29/23 Barry Cornell MD [address] [address] Anesthesiologist Anesthesiology 10/03/19 10/03/19 Bakari Camilo MD [address] [address] Physician Ophthalmology 01/10/20 Babak Pickard MD [address] [place] [address] [address] [place] [address] Surgery, Neurosurgery 02/16/23 documented as of this encounter
--- OUTSIDE RECORDS SUMMARY | 2024-10-13 17:15 | XMS_ITS | Encounter Summary ---
Author Organization [facility] Address [address] [place] [address] Care Team Providers Care Online Marketing Strategist Name Role Phone Vilma Hollis Unavailable Anay Chandra MD Primary Care Provider [phone] Andrei Ruby APRN Unavailable Unavailabl e Bakari Camilo MD Unavailable [phone] Brenda Almeida APRN Primary Care Provider Anay Chandra MD Unavailable [phone] Anay Chandra MD Primary Care Provider [phone] Brenda Almeida APRN Unavailable [phone] Babak Pickard MD Unavailable [phone] Anay Chandra MD Primary Care Provider [phone] Reason for Visit * Reason Comments Medication Refill Encounter Details Date Type Department Care Team (Late st Contact Info) Description 02/07/2020 Telephone [facility] Endocrinology [address] [address] Andrei Ruby APRN Medication Refill Social History Tobacco Use Types [...] have Coronavirus / COVID-19? No / Unsure 02/08/2020 10:11 AM EDT documented as of this encounter Miscellaneous Notes * Telephone Encounter - Dulce Maria Montes De Oca LPN - 02/07/2020 4:07 PM EDT Prior authorization for Januvia was approved.Telephone call to Michael.Advised Michael prior authorization was approved. * Telephone Encounter - Dulce Maria Montes De Oca LPN - 02/07/2020 11:04 AM EDT Will await determination for prior authorization for Januvia 25mg one tablet po TID. * Telephone Encounter - Dulce Maria Montes De Oca LPN - 02/07/2020 10:43 AM EDT Received fax from [employer] stating Januvia 25mg take one tablet po TID is not covered as max qty is 1 tablet per day. Submitted prior authorization via [employer] for Januvia 25mg one tablet poTID as Januva is not commercially available in 75mg tablets. * Telephone Encounter - Dulce Maria Montes De Oca LPN - 02/07/2020 9:40 AM EDT Telephone call to pt. Advised pt her prescriptions were sent to Michael documented in this encounter Plan of Treatment Upcoming Encounters Date Type Department Care Team (Late st Contact Info) Description 12/05/2024 1:30 PM EDT Office Visit [facility] [address] [place] [address] Anay Chandra MD [address] [place] [address] 01/04/2025 1:00 PM EDT Office Visit [facility] Endocrinology [place] [address] [place] [address] Vishnu Hernandez MD [address] [place] [address] documented as of this encounter Goals Goal [...] CICI. Intervention- to be seen today by SOFTWARE PRODUCT SPECIALIST and appt at the wound clinic in [place] on 08/23/18. OT LTG 1 Occupational Therapy No Karina Pendleton, MICHAEL Note: Patient will demonstrate 10 lb increase in hat measurer strength B for improved ability to open [...] (HCC) documented in this encounter Care Teams Online Marketing Strategist Relationship Specialty Start Date End Date Anay Chandra MD PCP - General Internal Medicine 06/29/19 10/22/21 Brenda Almeida, SOFTWARE PRODUCT SPECIALIST [address] [place] [address] PCP - General Adult Health - PA/APNP/TACK CLEANER/SOFTWARE PRODUCT SPECIALIST 10/23/21 12/25/21 Anay Chandra MD [address] [place], [place] [address] PCP - PCMH+ Attributed 08/17/21 2 Anay Chandra MD PCP - General Family Medicine 12/26/21 12/30/23 Brenda Almeida, SOFTWARE PRODUCT SPECIALIST [address] [place] [address] PCP - [facility] [place] Attributed 09/17/22 06/16/23 Anay Chandra MD [address] [place] [address] PCP - General Family Medicine 12/31/23 Vilma Hollis Emergency Medicine 04/28/18 Andrei Ruby APRN Nurse Practitioner Endocrinology 07/21/19 12/29/23 Bakari Camilo MD Physician Ophthalmology 01/10/20 Babak Pickard MD [address] [place] [address] Surgery, Neurosurgery 02/16/23 documented as of this encounter
--- OUTSIDE RECORDS SUMMARY | 2024-10-13 17:15 | XMS_ITS | Encounter Summary ---
Author Organization [facility] Address [address] [place] [address] Care Team Providers Care Magento Web Developer Name Role Phone Milka Cueva APRN Primary Care Provider [phone] Vilma Hollis Unavailable Milka Cueva APRN Unavailable [phone] Raisa Pittman MD Primary Care Provid er Anay Chandra MD Primary Care Provider [phone] Andrei Ruby APRN Unavailable Unavailabl e Barry Cornell MD Unavailable [phone] Bakari Camilo MD Unavailable [phone] Brenda Almeida APRN Primary Care Provider [phone] Anay Chandra MD Unavailable [phone] Anay Chandra MD Primary Care Provider [phone] Brenda Almeida APRN Unavailable [phone] Babak Pickard MD Unavailable [phone] Anay Chandra MD Primary Care Provider [phone] Encounter Details Date Type Department Care Team (Late st Contact Info) Description 08/26/2018 Scanned Document [address] [address] Provider, Generic Social History Tobacco Use Types [...] Description 12/05/2024 1:30 PM EDT Office Visit [address] [address] Anay Chandra MD [address] [place] [address] 01/04/2025 1:00 PM EDT Office Visit [facility] Endocrinology [place] [address] [facility] [address] [place] [address] Vishnu Hernandez MD [address] [place] [address] documented as of this encounter Goals Goal [...] CICI. Intervention- to be seen today by SKIVER HEEL TAP and appt at the wound clinic in [place] on 08/23/18. documented as of this encounter Visit Diagnoses Not on filedocumented in this encounter Care Teams Magento Web Developer Relationship Specialty Start Date End Date Milka Cueva APRN [address] [place] [address] PCP - General Internal Medicine 03/10/17 05/22/19 Milka Cueva APRN 5 [facility] [address] [place] [address] PCP - MSSP Attributed 02/14/19 9 Raisa Pitt[place] MD 5 [facility] [address] [place] [address] PCP - General Family Medicine 05/23/19 06/28/19 Anay Chandra MD 5 [facility] [address] [place] [address] PCP - General Internal Medicine 06/29/19 10/22/21 Brenda Almeida APRN [address] [place] [address] PCP - General Adult Health - PA/APNP/INSURANCE ADVISER/SKIVER HEEL TAP 10/23/21 12/25/21 Anay Chandra MD [address] [place] [address] PCP - PCMH+ Attributed 08/17/21 2 Anay Chandra MD 5 [facility] [address] [place] [address] PCP - General Family Medicine 12/26/21 12/30/23 Brenda Almeida APRN [address] [place] [address] PCP - [facility] [place] Attributed 09/17/22 06/16/23 Anay Chandra MD [address] [place] [address] PCP - General Family Medicine 12/31/23 Vilma Hollis [address] [place] [address], [place] [address] Emergency Medicine 04/28/18 Andrei Ruby APRN 5 [facility] [address] [place] [address] Nurse Practitioner Endocrinology 07/21/19 12/29/23 Barry Cornell MD 5 [facility] [address] [address] Anesthesiologist Anesthesiology 10/03/19 10/03/19 Bakari Camilo MD 5 [facility] [address] [address] Physician Ophthalmology 01/10/20 Babak Pickard MD [address] [place] [address] [address] [place] [address] Surgery, Neurosurgery 02/16/23 documented as of this encounter
--- OUTSIDE RECORDS SUMMARY | 2024-10-13 17:15 | XMS_ITS | Encounter Summary ---
Author Organization [facility] Address [address] [place] [address] Care Team Providers Care Pipe Smoking Machine Operator Name Role Phone Milka Cueva APRN Primary Care Provider [phone] Vilma Hollis Unavailable Milka Cueva APRN Unavailable [phone] Raisa Pittman MD Primary Care Provid er Anay Chandra MD Primary Care Provider [phone] Andrei Ruby APRN Unavailable Unavailabl e Barry Cornell MD Unavailable [phone] Bakari Camilo MD Unavailable [phone] Brenda Almeida APRN Primary Care Provider [phone] Anay Chandra MD Unavailable [phone] Anay Chandra MD Primary Care Provider [phone] Brenda Almeida APRN Unavailable [phone] Babak Pickard MD Unavailable [phone] Anay Chandra MD Primary Care Provider [phone] Encounter Details Date Type Department Care Team (Late st Contact Info) Description 09/22/2018 Scanned Document [address] [address] Provider, Generic Social History Tobacco Use Types [...] 12/05/2024 1:30 PM EDT Office Visit [address] [address] Anay Chandra MD [address] [place] [address] 01/04/2025 1:00 PM EDT Office Visit [facility] Endocrinology [place] [address] [facility] [address] [place] [address] Vishnu Hernandez MD [address] [place] [address] documented as of this encounter Goals Goal [...] CICI. Intervention- to be seen today by FRENCH EDGE OPERATOR and appt at the wound clinic in [place] on 08/23/18. documented as of this encounter Visit Diagnoses Not on filedocumented in this encounter Care Teams Pipe Smoking Machine Operator Relationship Specialty Start Date End Date Milka Cueva APRN [address] [place] [address] PCP - General Internal Medicine 03/10/17 05/22/19 Milka Cueva APRN 5 [facility] [address] [place] [address] PCP - MSSP Attributed 02/14/19 9 Raisa Pittman MD 5 [facility] [address] [place] [address] PCP - General Family Medicine 05/23/19 06/28/19 Anay Chandra MD 5 [facility] [address] [place] [address] PCP - General Internal Medicine 06/29/19 10/22/21 Brenda Almeida APRN [address] [place] [address] PCP - General Adult Health - PA/APNP/CLINIC COORDINATOR/FRENCH EDGE OPERATOR 10/23/21 12/25/21 Anay Chandra MD [address] [place] [address] PCP - PCMH+ Attributed 08/17/21 2 Anay Chandra MD 5 [facility] [address] [place] [address] PCP - General Family Medicine 12/26/21 12/30/23 Brenda Almeida APRN [address] [place] [address] PCP - [facility] [place] Attributed 09/17/22 06/16/23 Anay Chandra MD [address] [place] [address] PCP - General Family Medicine 12/31/23 Vilma Hollis [address] [place] [address], [place] [address] Emergency Medicine 04/28/18 Andrei Ruby APRN 5 [facility] [address] [place] [address] Nurse Practitioner Endocrinology 07/21/19 12/29/23 Barry Cornell MD 5 [facility] [address] [address] Anesthesiologist Anesthesiology 10/03/19 10/03/19 Bakari Camilo MD 5 [facility] [address] [address] Physician Ophthalmology 01/10/20 Babak Pickard MD [address] [place] [address] [address] [place] [address] Surgery, Neurosurgery 02/16/23 documented as of this encounter
--- OUTSIDE RECORDS SUMMARY | 2024-10-13 17:15 | XMS_ITS | Encounter Summary ---
Author Organization [facility] Address [address] [place] [address] Care Team Providers Care Presentation Designer Name Role Phone Vilma Hollis Unavailable Andrei Ruby COMMUNITY FUNDRAISER Unavailable Unavailabl e Bakari Camilo MD Unavailable [phone] Anay Chandra MD Primary Care Provider [phone] Brenda Almeida COMMUNITY FUNDRAISER Unavailable [phone] Babak Pickard MD Unavailable [phone] Anay Chandra MD Primary Care Provider [phone] Encounter Details Date Type Department Care Team (Late st Contact Info) Description 10/01/2022 Scanned Document [facility] PRIMARY CARE SCAN Primary Care, Scan [...] Description 12/05/2024 1:30 PM EDT Office Visit [facility] [address] [place] [address] Anay Chandra MD 445 [facility], [place] [address] 01/04/2025 1:00 PM EDT Office Visit [facility] Endocrinology [place] [address] [place] [address] Vishnu Hernandez MD [address] [place] [address] documented as of this encounter Goals Goal [...] and appt at the wound clinic in [place] on 08/23/18. 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 for improved ability to [...] on filedocumented in this encounter Care Teams Presentation Designer Relationship Specialty Start Date End Date Anay Chandra MD PCP - General Family Medicine 12/26/21 12/30/23 Brenda Almeida APRN [address] [place] [address] PCP - [facility] Attributed 09/17/22 06/16/23 Anay Chandra MD [address] [place] [address] PCP - General Family Medicine 12/31/23 Vilma Hollis Emergency Medicine 04/28/18 Andrei Ruby APRN Nurse Practitioner Endocrinology 07/21/19 12/29/23 Bakari Camilo MD Physician Ophthalmology 01/10/20 Babak Pickard MD [address] [place] [address] [place] [address] Surgery, Neurosurgery 02/16/23 documented as of this encounter
--- OUTSIDE RECORDS SUMMARY | 2024-10-13 17:15 | XMS_ITS | Encounter Summary ---
Author Organization [facility] Address [address] [place] [address] Care Team Providers Care Ceo & Co Founder Name Role Phone Milka Cueva APRN Primary Care Provider [phone] Vilma Hollis Unavailable Milka Cueva APRN Unavailable [phone] Raisa Pittman MD Primary Care Provid er Anay Chandra MD Primary Care Provider [phone] Adnrei Ruby APRN Unavailable Unavailabl e Barry Cornell MD Unavailable [phone] Bakari Camilo MD Unavailable [phone] Brenda Almeida APRN Primary Care Provider [phone] Anay Chandra MD Unavailable [phone] Anay Chandra MD Primary Care Provider [phone] Brenda Almeida APRN Unavailable [phone] Babak Pickard MD Unavailable [phone] Anay Chandra MD Primary Care Provider [phone] Encounter Details Date Type Department Care Team (Late st Contact Info) Description 09/10/2018 Scanned Document [facility] Home [address] [place] [address] [address] [place] [address] Primary Care, Scan Social History Tobacco Use [...] Description 12/05/2024 1:30 PM EDT Office Visit [address] [address] Anay Chandra MD [address] [place] [address] 01/04/2025 1:00 PM EDT Office Visit [facility] Endocrinology [place] [address] [facility] [address] [place] [address] Vishnu Hernandez MD [address] [place] [address] documented as of this encounter Goals Goal [...] CICI. Intervention- to be seen today by HAND GLUER AND SLICER and appt at the wound clinic in [place] on 08/23/18. documented as of this encounter Visit Diagnoses Not on filedocumented in this encounter Care Teams Ceo & Co Founder Relationship Specialty Start Date End Date Milka Cueva APRN [address] [place] [address] PCP - General Internal Medicine 03/10/17 05/22/19 Milka Cueva APRN 5 [facility] [address] [place] [address] PCP - MSSP Attributed 02/14/19 9 Raisa Pittman MD 5 [facility] [address] [place] [address] PCP - General Family Medicine 05/23/19 06/28/19 Anay Chandra MD 5 [facility] [address] [place] [address] PCP - General Internal Medicine 06/29/19 10/22/21 Brenda Almeida APRN [address] [place], [place] [address] PCP - General Adult Health - PA/APNP/INFORMATION SYSTEMS ARCHITECT/HAND GLUER AND SLICER 10/23/21 12/25/21 Anay Chandra MD [address] [place] [address] PCP - PCMH+ Attributed 08/17/21 2 Anay Chandra MD 5 [facility] [address] [place] [address] PCP - General Family Medicine 12/26/21 12/30/23 Brenda Almeida APRN [address] [place] [address] PCP - [facility] [place] Attributed 09/17/22 06/16/23 Anay Chandra MD [address] [place] [address] PCP - General Family Medicine 12/31/23 Vilma Hollis [address] [place] [address] Emergency Medicine 04/28/18 Andrei Ruby APRN [address] [address] Nurse Practitioner Endocrinology 07/21/19 12/29/23 Barry Cornell MD 5 [facility] [address] [address] Anesthesiologist Anesthesiology 10/03/19 10/03/19 Bakari Camilo MD [address] [address] Physician Ophthalmology 01/10/20 Babak Pickard MD [address] [place] [address] [address] [place] [address] Surgery, Neurosurgery 02/16/23 documented as of this encounter
--- OUTSIDE RECORDS SUMMARY | 2024-10-13 17:15 | XMS_ITS | Encounter Summary ---
Author Organization [facility] Address [address] [place] [address] Care Team Providers Care French Binding Folder Name Role Phone Manan Perez MD Primary Care Provider [phone] Encounter Details Date Type Department Care Team ([facility] st Contact Info) Description 06/04/2022 Scanned Document [facility] [address] [address] Tatiana Rosenbaum MD [address] [place] [phone] Social History Tobacco Use Types Packs/Day Years Used Date Smoking Tobacco: Every Day Cigarettes Alcohol Use Standard Drinks/Week Comments Yes 0 (1 standard drink = 0.6 oz pur e alcohol) Comments Unknown Sex and Gender Information Value Date Recorded Sex Assigned at Not on file Legal Sex Female 9:37 AM EST Gender Identity Not on file Sexual Orientation Not on file documented as of this encounter Plan of Treatment Not on file documented as of this encounter Visit Diagnoses Not on filedocumented in this encounter Care Teams French Binding Folder Relationship Specialty Start Date End Date Manan Perez MD [address] [place] [address] PCP - General Internal Medicine 12/10/11 documented as of this encounter
--- OUTSIDE RECORDS SUMMARY | 2024-10-13 17:15 | XMS_ITS | Encounter Summary ---
Author Organization [facility] Address [address] [place] [address] Care Team Providers Care Adventure Therapist Name Role Phone Milka Cueva APRN Primary Care Provider [phone] Vilma Hollis Unavailable Milka Cueva APRN Unavailable [phone] Raisa Pittman MD Primary Care Provid er Anay Chandra MD Primary Care Provider [phone] Andrei Ruby APRN Unavailable Unavailabl e Barry Cornell MD Unavailable [phone] Bakari Camilo MD Unavailable [phone] Brenda Almeida APRN Primary Care Provider [phone] Anay Chandra MD Unavailable [phone] Anay Chandra MD Primary Care Provider [phone] Brenda Almeida APRN Unavailable [phone] Babak Pickard MD Unavailable [phone] Anay Chandra MD Primary Care Provider [phone] Reason for Visit * Reason Onset Date Comments ORDER FOR SHOWER CHAIR 06/08/2018 Encounter Details Date Type Department Care Team (Late st Contact Info) Description 06/08/[address] [place] [address] Milka Cueva APRN [address] [place], [place] [address] [address] ORDER FOR SHOWER CHAIR Social History Tobacco Use Types Packs/Day Years [...] encounter Miscellaneous Notes * Telephone Encounter - Linh Last MA - 06/22/2018 9:20 AM EST tct pt lm tcb re: shower chair. * Telephone Encounter - Milka Cueva APRN - 06/09/2018 6:51 PM EDT It's in my box * Telephone Encounter - Christy Hillman MA - 06/09/2018 6:29 PM EDT See request. * Telephone Encounter - Aileen Rivera - 06/08/2018 1:09 PM EDT Patient is requesting a transfer shower chair. She stated the paperwork has been faxed to the office and is pending completion. Patient is currently in pain due to the open wound and looking for pain medication. documented in this encounter Plan of Treatment Upcoming Encounters Date Type Department Care Team (Late st Contact Info) Description 12/05/2024 1:30 PM EDT Office Visit [facility] [address] [place] [address] Anay Chandra MD [address] [place] [address] 01/04/2025 1:00 PM EDT [facility] End[facility]ology [place] 100 [facility] [address] [place] [address] Vishnu Hernandez MD 100 [facility] [place] [address] [address] documented as of this encounter Visit Diagnoses Not on filedocumented in this encounter Care Teams Adventure Therapist Relationship Specialty Start Date End Date Milka Cueva APRN [address] [place] [address] PCP - General Internal Medicine 03/10/17 05/22/19 Milka Cueva APRN [address] [address] PCP - MSSP Attributed 02/14/19 9 Raisa Pittman MD [address] [facility] [address] [address] PCP - General Family Medicine 05/23/19 06/28/19 Anay Chandra MD [address] [address] PCP - General Internal Medicine 06/29/19 10/22/21 Brenda Almeida MEDICINE WORKER [address] [place] [address] PCP - General Adult Health - PA/APNP/DIRECTOR CRITICAL CARE/MEDICINE WORKER 10/23/21 12/25/21 Anay Chandra MD [address] [place] [address] PCP - PCMH+ Attributed 08/17/21 2 Anay Chandra MD [address] [address] [place] [address] PCP - General Family Medicine 12/26/21 12/30/23 Brenda Almeida, MEDICINE WORKER [address] [place] [address] PCP - [facility] [place] Attributed 09/17/22 06/16/23 Anay Chandra MD [address] [place] [address] PCP - General Family Medicine 12/31/23 Vilma Hollis [address] [place] [address] Emergency Medicine 04/28/18 Andrei Ruby APRN [address] [facility] [address] [place] [address] Nurse Practitioner Endocrinology 07/21/19 12/29/23 Barry Cornell MD [address] [facility] [address] [place] [address] Anesthesiologist Anesthesiology 10/03/19 10/03/19 Bakari Camilo MD [address] [address] [place] [address] Physician Ophthalmology 01/10/20 Babak Pickard MD 360 [facility] [address] [place] [address] Surgery, Neurosurgery 02/16/23 documented as of this encounter
--- OUTSIDE RECORDS SUMMARY | 2024-10-13 17:15 | XMS_ITS | Encounter Summary ---
Author Organization [facility] Address [address] [place] [address] Care Team Providers Care Blood Bank Laboratory Technician Name Role Phone Vilma Hollis Unavailable Andrei Ruby BRUSH HOLDER INSPECTOR Unavailable Unavailabl e Bakari Camilo MD Unavailable [phone] Anay Chandra MD Primary Care Provider [phone] Brenda Almeida BRUSH HOLDER INSPECTOR Unavailable [phone] Babak Pickard MD Unavailable [phone] Anay Chandra MD Primary Care Provider [phone] Encounter Details Date Type Department Care Team (Late st Contact Info) Description 10/06/2022 Scanned Document [facility] PRIMARY CARE SCAN Primary Care, [...] Description 12/05/2024 1:30 PM EDT Office Visit [facility] [address] [place] [address] Anay Chandra MD [address] [facility], [place] [address] 01/04/2025 1:00 PM EDT Office Visit [facility] Endocrinology [place] [address] [place] [address] Vishnu Hernandez MD [address] [place] [address] documented as of this encounter Goals Goal [...] and appt at the wound clinic in [place] on 08/23/18. 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 for improved ability to [...] on filedocumented in this encounter Care Teams Blood Bank Laboratory Technician Relationship Specialty Start Date End Date Anay Chandra MD PCP - General Family Medicine 12/26/21 12/30/23 Brenda Almeida APRN [address] [place] [address] PCP - [facility] Attributed 09/17/22 06/16/23 Anay Chandra MD [address] [place] [address] PCP - General Family Medicine 12/31/23 Vilma Hollis Emergency Medicine 04/28/18 Andrei Ruby APRN Nurse Practitioner Endocrinology 07/21/19 12/29/23 Bakari Camilo MD Physician Ophthalmology 01/10/20 Babak Pickard MD [address] [place] [address] [place] [address] Surgery, Neurosurgery 02/16/23 documented as of this encounter
--- OUTSIDE RECORDS SUMMARY | 2024-10-13 17:15 | XMS_ITS | Encounter Summary ---
Author Organization [facility] Address [address] [place] [address] Care Team Providers Care Special Makeup Fx Artist Instructor Name Role Phone Vilma Hollis Unavailable Anay Chandra MD Primary Care Provider [phone] Andrei Ruby APRN Unavailable Unavailabl e Bakari Camilo MD Unavailable Brenda Almeida APRN Primary Care Provider [phone] Anay Chandra MD Unavailable [phone] Anay Chandra MD Primary Care Provider [phone] Brenda Almeida APRN Unavailable [phone] Babak Pickard MD Unavailable [phone] Anay Chandra MD Primary Care Provider [phone] Reason for Visit * Reason Comments Medication Refill Encounter Details Date Type Department Care Team (Late st Contact Info) Description 02/13/2020 Refill [facility] Endocrinology [address] [address] Andrei Ruby APRN Mixed hyperlipidemia Social History Tobacco Use Types Packs/Day Years [...] have Coronavirus / COVID-19? 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 OT LTG 2 Occupational Therapy No Karina Pendleton OT Note: QD score will improve by 10% in 6 weeks. OT LTG 3 Occupational Therapy No Karina Pendleton OT Note: Patient will demonstrate independence with HEP including education in 6 weeks. documented as of this encounter Visit Diagnoses Diagnosis Mixed hyperlipidemia documented in this encounter Care Teams Special Makeup Fx Artist Instructor Relationship Specialty Start Date End Date Anay Chandra MD PCP - General Internal Medicine 06/29/19 10/22/21 Brenda Almeida, INGE [address] [place] [address] PCP - General Adult Health - PA/APNP/PAPER REWINDER/COOK HELPER VEGETABLE 10/23/21 12/25/21 Anay Chandra MD [address] [place] [address] PCP - PCMH+ Attributed 08/17/21 2 Anay Chandra MD PCP - General Family Medicine 12/26/21 12/30/23 Brenda Almeida APRN [address] [place] [address] PCP - [facility] [place] Attributed 09/17/22 06/16/23 Anay Chandra MD [address] [place] [address] PCP - General Family Medicine 12/31/23 Vilma Hollis Emergency Medicine 04/28/18 Andrei Ruby APRN Nurse Practitioner Endocrinology 07/21/19 12/29/23 Bakari Camilo MD Physician Ophthalmology 01/10/20 Babak Pickard MD [address] [place] [address] [place] [address] Surgery, Neurosurgery 02/16/23 documented as of this encounter
--- OUTSIDE RECORDS SUMMARY | 2024-10-13 17:15 | XMS_ITS | Encounter Summary ---
Author Organization [facility] Address [address] [place] [address] Care Team Providers Care Pick Pulling Machine Operator Name Role Phone Milka Cueva APRN Primary Care Provider [phone] Vilma Hollis Unavailable Milka Cueva APRN Unavailable [phone] Raisa Pittman MD Primary Care Provid er Anay Chandra MD Primary Care Provider [phone] Andrei Ruby APRN Unavailable Unavailabl e Barry Cornell MD Unavailable [phone] Bakari Camilo MD Unavailable [phone] Brenda Almeida APRN Primary Care Provider [phone] Anay Chandra MD Unavailable [phone] Anay Chandra MD Primary Care Provider [phone] Brenda Almeida APRN Unavailable [phone] Babak Pickard MD Unavailable [phone] Anay Chandra MD Primary Care Provider [phone] Encounter Details Date Type Department Care Team (Late st Contact Info) Description 08/27/2018 Scanned Document [facility] [address] [place] [address] [address] [place] [address] Provider, Generic Social History Tobacco [...] 12/05/2024 1:30 PM EDT Office Visit [address] [address] Aany Chandra MD [address] [place] [address] 01/04/2025 1:00 PM EDT Office Visit [facility] 100 [facility] [address] [place] [address] Vishnu Hernandez MD [address] [place] [address] documented as of this encounter Goals Goal [...] Intervention- to be seen today by MINE GEOLOGIST and appt at the wound clinic in [place] on 08/23/18. documented as of this encounter Visit Diagnoses Not on filedocumented in this encounter Care Teams Pick Pulling Machine Operator Relationship Specialty Start Date End Date Milka Cueva APRN [address] [place] [address] PCP - General Internal Medicine 03/10/17 05/22/19 Milka Cueva APRN 5 [facility] [address] [place] [address] PCP - MSSP Attributed 02/14/19 9 Raisa Pittman MD 5 [facility] [address] [place] [address] PCP - General Family Medicine 05/23/19 06/28/19 Anay Chandra MD 5 [facility] [address] [place] [address] PCP - General Internal Medicine 06/29/19 10/22/21 Brenda Almeida APRN [address] [place] [address] PCP - General Adult Health - PA/APNP/MUNITIONS WORKER/MINE GEOLOGIST 10/23/21 12/25/21 Anay Chandra MD [address] [place] [address] PCP - PCMH+ Attributed 08/17/21 2 Anay Chandra MD 5 [facility] [address] [place] [address] PCP - General Family Medicine 12/26/21 12/30/23 Brenda Almeida APRN [address] [place] [address] PCP - [facility] [place] Attributed 09/17/22 06/16/23 Anay Chandra MD [address] [place] [address] PCP - General Family Medicine 12/31/23 Vilma Hollis [address] [place] [address] Emergency Medicine 04/28/18 Andrei Ruby APRN [address] [address] Nurse Practitioner Endocrinology 07/21/19 12/29/23 Barry Cornell MD [address] [address] Anesthesiologist Anesthesiology 10/03/19 10/03/19 Bakari Camilo MD [address] [address] Physician Ophthalmology 01/10/20 Babak Pickard MD [address] [place] [address] [address] [place] [address] Surgery, Neurosurgery 02/16/23 documented as of this encounter
--- OUTSIDE RECORDS SUMMARY | 2024-10-13 17:15 | XMS_ITS | Encounter Summary ---
Author Organization [facility] Address [address] [place] [address] Care Team Providers Care Record Label Intern Name Role Phone Milka Cueva APRN Primary Care Provider [phone] Vilma Hollis Unavailable Milka Cueva APRN Unavailable [phone] Raisa Pittman MD Primary Care Provid er Anay Chandra MD Primary Care Provider [phone] Andrei Ruby APRN Unavailable Unavailabl e Barry Cornell MD Unavailable [phone] Bakari Camilo MD Unavailable [phone] Brenda Almeida APRN Primary Care Provider [phone] Anay Chandra MD Unavailable [phone] Anay Chandra MD Primary Care Provider [phone] Brenda Almeida APRN Unavailable [phone] Babak Pickard MD Unavailable [phone] Anay Chadnra MD Primary Care Provider [phone] Encounter Details Date Type Department Care Team (Late st Contact Info) Description 08/06/2018 Scanned Document [address] [address] Provider, Generic Social History Tobacco Use Types [...] 12/05/2024 1:30 PM EDT Office Visit [address] [address] Anay Chandra MD [address] [place] [address] 01/04/2025 1:00 PM EDT Office Visit [facility] Endocrinology [place] [address] [phone] Vishnu Hernandez MD [address] [address] documented as of this encounter Visit Diagnoses Not on filedocumented in this encounter Care Teams Record Label Intern Relationship Specialty Start Date End Date Milka Cueva APRN [address] [place] [address] PCP - General Internal Medicine 03/10/17 05/22/19 Milka Cueva APRN [address] [address] PCP - MSSP Attributed 02/14/19 9 Raisa Pittman MD [address] [place] [address] PCP - General Family Medicine 05/23/19 06/28/19 Anay Chandra MD [address] [place] [address] PCP - General Internal Medicine 06/29/19 10/22/21 Brenda Almeida, OIL SEPARATOR [address] [place], [place] [address] PCP - General Adult Health - PA/APNP/STUFFER/OIL SEPARATOR 10/23/21 12/25/21 Anay Chandra MD [address] [place], [place] [phone] PCP - PCMH+ Attributed 08/17/21 2 Anay Chandra MD [address] [place] [address] PCP - General Family Medicine 12/26/21 12/30/23 Brenda Almeida, OIL SEPARATOR [address] [place] [address] PCP - [facility] [place] Attributed 09/17/22 06/16/23 Anay Chandra MD [address] [place] [address] PCP - General Family Medicine 12/31/23 Vilma Hollis [address] [place], [place] [id number] Emergency Medicine 04/28/18 Andrei Ruby APRN [address] [place] [address] Nurse Practitioner Endocrinology 07/21/19 12/29/23 Barry Cornell MD [address] [place] [address] Anesthesiologist Anesthesiology 10/03/19 10/03/19 Bakari Camilo MD [address] [place] [address] Physician Ophthalmology 01/10/20 Babak Pickard MD [address] [place] [address] [address] [place] [address] Surgery, Neurosurgery 02/16/23 documented as of this encounter
--- OUTSIDE RECORDS SUMMARY | 2024-10-13 17:15 | XMS_ITS | Encounter Summary ---
Author Organization [facility] Address [address] [place] [address] Care Team Providers Care Bingo Clerk Name Role Phone Milka Cueva APRN Primary Care Provider [phone] Vilma Hollis Unavailable Milka Cueva APRN Unavailable [phone] Raisa Pittman MD Primary Care Provid er Anay Chandra MD Primary Care Provider [phone] Andrei Ruby APRN Unavailable Unavailabl e Barry Cornell MD Unavailable [phone] Bakari Camilo MD Unavailable [phone] Brenda Almeida APRN Primary Care Provider [phone] Anay Chandra MD Unavailable [phone] Anay Chandra MD Primary Care Provider [phone] Brenda Almeida APRN Unavailable [phone] Babak Pickard MD Unavailable [phone] Anay Chandra MD Primary Care Provider [phone] Encounter Details Date Type Department Care Team (Late st Contact Info) Description 06/09/2018 Scanned Document [facility] Home [address] [place] [address] [address] [place] [address] Primary Care, Scan Social History [...] Description 12/05/2024 1:30 PM EDT Office Visit [address] [address] Anay Chandra MD [address] [place] [id number] 01/04/2025 1:00 PM EDT Office Visit [facility] Endocrinology [place] [address] [phone] Vishnu Hernandez MD [address] [address] documented as of this encounter Procedures Procedure Name Priority Date/Time Associated Diagnosis Comments HX PHYSICIAN ORDER 06/09/2018 documented in this encounter Results * HX PHYSICIAN ORDER (06/09/2018) Scan Primary Care HX AMB PROCEDURES documented in this encounter Visit Diagnoses Not on filedocumented in this encounter Care Teams Bingo Clerk Relationship Specialty Start Date End Date Milka Cueva APRN [address] [place] [address] PCP - General Internal Medicine 03/10/17 05/22/19 Milka Cueva APRN [address] [place] [address] PCP - MSSP Attributed 02/14/19 9 Raisa Pittman MD [address] [place] [address] PCP - General Family Medicine 05/23/19 06/28/19 Anay Chandra MD [address] [place] [address] PCP - General Internal Medicine 06/29/19 10/22/21 Brenda Almeida, SHIPPING CHECKER [address] [place] [address] PCP - General Adult Health - PA/APNP/OUTSIDE OPERATOR/SHIPPING CHECKER 10/23/21 12/25/21 Anay Chandra MD [address] [place] [address] PCP - PCMH+ Attributed 08/17/21 2 Anay Chandra MD 5 [facility] [address] [place] [address] PCP - General Family Medicine 12/26/21 12/30/23 Brenda Almeida, SHIPPING CHECKER [address] [place] [address] PCP - [facility] [place] Attributed 09/17/22 06/16/23 Anay Chandra MD [address] [place] [address] PCP - General Family Medicine 12/31/23 Vilma Hollis [address] [place] [address] Emergency Medicine 04/28/18 Andrei Ruby APRN 5 [facility] [address] [address] Nurse Practitioner Endocrinology 07/21/19 12/29/23 Barry Cornell MD 5 [facility] [address] [address] Anesthesiologist Anesthesiology 10/03/19 10/03/19 Bakari Camilo MD [address] [address] Physician Ophthalmology 01/10/20 Babak Pickard MD [address] [place] [address] [address] [place] [address] Surgery, Neurosurgery 02/16/23 documented as of this encounter
--- OUTSIDE RECORDS SUMMARY | 2024-10-13 17:15 | XMS_ITS | Clinical Summary ---
Author Organization [facility] Address [address] [place] [address] Care Team Providers Care Rug Dry Room Attendant Name Role Phone Kong Julio Primary Care Provider Unav ailable Social History Tobacco Use Types Packs/Day Years Used Date Smoking Tobacco: Never Assessed Comments Unknown Sex and Gender Information Value Date Recorded Sex Assigned at Not on file Legal Sex Female 4:45 PM EDT Gender Identity Not on file Sexual Orientation Not on file Plan of Treatment Health Maintenance Due Date Last Done Comments Hepatitis C Screening 1962 Pap Smear 1978 DTaP/Tdap/Td (1 - Tdap) 1980 Mammogram/Breast Imaging 2002 Pneumococcal 50+ years (1 of 1 - PCV) 2012 Zoster (Shingrix) (1 of 2) 2012 COVID-19 Vaccine ( - 2023-2 5 season) 2024 Influenza (#1) 2024 RSV (1 - 1-dose 75+ series) 2037 HPV Vaccine Aged Out No longer eligi ble based on patient's age to complete this topic Hep A Aged Out No longer eligi ble based on patient's age to complete this topic Hep B Aged Out No longer eligi ble based on patient's age to complete this topic Hib Aged Out No longer eligi ble based on patient's age to complete this topic Meningococcal ACWY Aged Out No longer eligible based on patient's age to complete this topic Zoster (Zostavax) Discontinued Care Teams Rug Dry Room Attendant Relationship Specialty Start Date End Date Kong Julio PCP - General 03/23/23
--- OUTSIDE RECORDS SUMMARY | 2024-10-13 17:15 | XMS_ITS | Encounter Summary ---
Author Organization [facility] Address [address] [place] [address] Care Team Providers Care Art Education Professor Name Role Phone Milka Cueva APRN Primary Care Provider [phone] Vilma Hollis Unavailable Milka Cueva APRN Unavailable [phone] Raisa Pittman MD Primary Care Provid er Anay Chandra MD Primary Care Provider [phone] Andrei Ruby APRN Unavailable Unavailabl e Barry Cornell MD Unavailable [phone] Bakari Camilo MD Unavailable [phone] Brenda Almeida APRN Primary Care Provider [phone] Anay Chandra MD Unavailable [phone] Anay Chandra MD Primary Care Provider [phone] Brenda Almeida APRN Unavailable [phone] Babak Pickard MD Unavailable [phone] Anay Chandra MD Primary Care Provider [phone] Encounter Details Date Type Department Care Team (Late st Contact Info) Description 08/05/2018 Scanned Document [address] [address] Milka Cueva APRN 5 [facility] [address] [address] Social History Tobacco Use Types Packs/Day Years [...] 12/05/2024 1:30 PM EDT Office Visit [address] [address] Anay Chandra MD [address] [place] [address] 01/04/2025 1:00 PM EDT Office Visit [facility] Endocrinology [address] [address] Vishnu Hernandez MD [address] [address] documented as of this encounter Visit Diagnoses Not on filedocumented in this encounter Care Teams Art Education Professor Relationship Specialty Start Date End Date Milka Cueva APRN [address] [place] [address] PCP - General Internal Medicine 03/10/17 05/22/19 Milka Cueva APRN 5 [facility] [address] [address] PCP - MSSP Attributed 02/14/19 9 Raisa Pittman MD [address] [place] [address] PCP - General Family Medicine 05/23/19 06/28/19 Anay Chandra MD [address] [place] [address] PCP - General Internal Medicine 06/29/19 10/22/21 Brenda Almeida, CHARRER [address] [place] [address] PCP - General Adult Health - PA/APNP/JUVENILE OFFICER/CHARRER 10/23/21 12/25/21 Anay Chandra MD [address] [place] [address] PCP - PCMH+ Attributed 08/17/21 2 Anay Chandra MD [address] [place] [address] PCP - General Family Medicine 12/26/21 12/30/23 Brenda Almeida, CHARRER [address] [place] [address] PCP - [facility] [place] Attributed 09/17/22 06/16/23 Anay Chandra MD [address] [place] [address] PCP - General Family Medicine 12/31/23 Vilma Hollis [address] [place] [address] Emergency Medicine 04/28/18 Andrei Ruby APRN 5 [facility] [address] [place] [address] Nurse Practitioner Endocrinology 07/21/19 12/29/23 Barry Cornell MD 5 [facility] [address] [address] Anesthesiologist Anesthesiology 10/03/19 10/03/19 Bakari Camilo MD 5 [facility] [address] [address] Physician Ophthalmology 01/10/20 Babak Pickard MD [address] [place] [address] [address] [place] [address] Surgery, Neurosurgery 02/16/23 documented as of this encounter
--- OUTSIDE RECORDS SUMMARY | 2024-10-13 17:15 | XMS_ITS | Encounter Summary ---
Author Organization [facility] Address [address] [place] [address] Care Team Providers Care Grain Packer Name Role Phone Milka Cueva APRN Primary Care Provider [phone] Vilma Hollis Unavailable Milka Cueva APRN Unavailable [phone] Raisa Pittman MD Primary Care Provid er Anay Chandra MD Primary Care Provider [phone] Andrei Ruby APRN Unavailable Unavailabl e Barry Cornell MD Unavailable [phone] Bakari Camilo MD Unavailable [phone] Brenda Almeida APRN Primary Care Provider [phone] Anay Chandra MD Unavailable [phone] Anay Chandra MD Primary Care Provider [phone] Brenda Almeida APRN Unavailable [phone] Babak Pickard MD Unavailable [phone] Anay Chandra MD Primary Care Provider [phone] Reason for Visit * Reason Comments Medication Refill Encounter Details Date Type Department Care Team (Late st Contact Info) Description 10/21/[address] [place] [address] Aileen Santos, CHIEF PRIVACY OFFICER [address] [place] [address] Type 2 diabetes mellitus without complication, without [...] 12/05/2024 1:30 PM EDT Office Visit [address] [address] Anay Chandra MD [address] [place] [address] 01/04/2025 1:00 PM EDT Office Visit [facility] Endocrinology [address] [address] Vishnu Hernandez MD [address] [place] [address] documented as of this encounter Goals Goal [...] CICI. Intervention- to be seen today by CHIEF PRIVACY OFFICER and appt at the wound clinic in [place] on 08/23/18. documented as of this encounter Visit Diagnoses Diagnosis Type 2 diabetes mellitus without complication, without long-term current use of insulin (HCC) documented in this encounter Care Teams Grain Packer Relationship Specialty Start Date End Date Milka Cueva APRN [address] [place] [address] PCP - General Internal Medicine 03/10/17 05/22/19 Milka Cueva APRN [address] [place] [phone] PCP - MSSP Attributed 02/14/19 9 Raisa Pittman MD [address] [address] PCP - General Family Medicine 05/23/19 06/28/19 Anay Chandra MD [address] [address] PCP - General Internal Medicine 06/29/19 10/22/21 Brenda Almeida APRN [address] [place] [address] PCP - General Adult Health - PA/APNP/NEWS COPY EDITOR/CHIEF PRIVACY OFFICER 10/23/21 12/25/21 Anay Chandra MD [address] [place] [address] PCP - PCM+ Attributed 08/17/21 2 Anay Chandra MD 5 [facility] [address] [place] [address] PCP - General Family Medicine 12/26/21 12/30/23 Brenda Almeida, CHIEF PRIVACY OFFICER [address] [place] [address] PCP - [facility] [place] Attributed 09/17/22 06/16/23 Anay Chandra MD [address] [place] [address] PCP - General Family Medicine 12/31/23 Vilma Hollis [address] [place] [address] Emergency Medicine 04/28/18 Andrei Ruby APRN 5 [facility] [address] [place] [address] Nurse Practitioner Endocrinology 07/21/19 12/29/23 Barry Cornell MD 5 [facility] [address] [place] [address] Anesthesiologist Anesthesiology 10/03/19 10/03/19 Bakari Camilo MD 5 [facility] [address] [place] [address] Physician Ophthalmology 01/10/20 Babak Pickard MD [address] [place] [address] [address] [place] [address] Surgery, Neurosurgery 02/16/23 documented as of this encounter
--- OUTSIDE RECORDS SUMMARY | 2024-10-13 17:15 | XMS_ITS | Encounter Summary ---
Author Organization [facility] Address [address] [place] [address] Phone Care Team Providers Care Cash Posting Representative Name Role Phone Manan Perez MD Primary Care Provider [phone] Reason for Visit * Reason Comments Ear Pain Pt presents today c/ o Lt ear pain x's 6 days. Denies fevers Encounter Details Date Type Department Care Team (Late st Contact Info) Description 10/06/2024 7:30 PM EST Office Visit [facility] [place] [address] [place] [address] Darius Dobson PA [address] [place] [phone] Otalgia, left ear (Primary Dx); TMJ tenderness, left Social History Tobacco Use Types Packs/Day Years Used Date Smoking Tobacco: Former Cigarettes Tobacco Cessation:Counseling Given: Not Answered Alcohol Use Standard Drinks/Week Comments Yes 0 (1 standard drink = 0.6 oz pur e alcohol) occiasionally Comments Unknown Sex and Gender Information Value Date Recorded Sex Assigned at Not on file Legal Sex Female 9:37 AM EST Gender Identity Not on file Sexual Orientation Not on file documented as of this encounter Last Filed Vital Signs Vital Sign Reading Time Taken Comments Blood Pressure 120/74 10/06/2024 5:37 PM EST Pulse 82 10/06/2024 5:37 PM EST Temperature 36.8 ??C (98.3 ??F) 10/06/2024 5:37 PM ES T Respiratory Rate 18 10/06/2024 5:37 PM EST Oxygen Saturation 96% 10/06/2024 5:37 PM EST Inhaled Oxygen Concentration - - Weight 104.5 kg (230 lb 6.4 oz) 10/06/2024 5:37 PM EST Height 167.6 cm (5' 6 ) 10/06/2024 5:37 PM EST Body Mass Index 37.19 10/06/2024 5:37 PM EST documented in this encounter Patient Instructions * Patient Instructions* Darius Dobson PA - 10/06/2024 7:30 PM EST Patient Education Temporomandibular Joint (TMJ) Disorders Discharge Instructions About this topic The temporomandibular joint is also called the TMJ. It is the joint in front of your ear. It connects your lower jaw to the side of your head. This joint is flexible and lets the jaw move up and downand side to side so you can talk, chew, and yawn. When you have a problem with your jaw, jaw joint,or other facial muscles you have temporomandibular disorder or TMD. Injury to your jaw, grinding orclenching your teeth, arthritis, and stress are some of the causes of TMD. Doctors treat this problem with drugs, mouth guards, and therapy. Sometimes, surgery is needed to remove fluid in the joint. What care is needed at home? Ask your doctor what you need to do when you go home. Make sure you ask questions if you do not understand what the doctor says. This way you will know what you need to do. Eat soft foods to lessen the pain in your jaw. Place an ice pack or a bag of frozen peas wrapped in a towel over the painful part. Never put ice right on your skin. Do not leave the ice on for more than 10 to 15 minutes at a time. Avoid strong movements of your jaw like wide yawning, loud singing, and gum chewing. Your doctor may teach you ways to relax and lower stress. Do jaw stretching and relaxing exercises to help with jaw movement. Wear a bite guard to lessen the effects of clenching or grinding your teeth. Visit your dentist to check for any problems with your teeth. Keep your teeth slightly apart to lessen pressure on your jaw. If fluid was removed from the joint: Clean and change your bandage as told by your doctor. Ask your doctor when you may go back to your normal activities like work or driving. Ask your doctor if you have any dietary restrictions after your procedure. What follow-up care is needed? Your doctor may ask you to make visits to the office to check on your progress. Be sure to keep these visits. Your doctor may have you see a therapist. What drugs may be needed? The doctor may order drugs to: Help with pain and swelling Help to relax your muscles Will physical activity be limited? You may have to limit your activities. Talk to your doctor about the right amount of activity for you. Do not play sports that might cause more harm to your jaw. Ask your doctor when it is safe to play sports. What can be done to prevent this health problem? Use protective headgear like helmets or mouthguards when playing sports. Wear a helmet when skiing, snowboarding, biking, riding a motorcycle, and roller blading. Always wear your seat belt. When do I need to call the doctor? Fever Very bad pain or swelling Splint or mouth guard is out of place, broken, or damaged Trouble swallowing, speaking, breathing, eating, or drinking Trouble opening or closing your mouth Teach Back: Helping You Understand The Teach Back Method helps you understand the information we are giving you. After you talk with the staff, tell them in your own words what you learned. This helps to make sure the staff has described each thing clearly. It also helps to explain things that may have been confusing. Before going home, make sure you can do these: I can tell you about my condition. I can tell you what may help ease my pain. I can tell you what I will do if I have more pain; trouble swallowing, speaking, breathing, eating,or drinking; or problems opening or closing my mouth. Where can I learn more? National [place] [employer] https://www.nidcr.nih.gov/health-info/tmj/more-info National Institutes of Health https://www.nidcr.nih.gov/sites/default/files/2017-07/tmj-disorders.pdf Last Reviewed Date 2020-05-28 Consumer Information Use and Disclaimer This generalized information is a limited summary of diagnosis, treatment, and/or medication information. It is not meant to be comprehensive and should be used as a tool to help the user understand and/or assess potential diagnostic and treatment options. It does NOT include all information about conditions, treatments, medications, side effects, or risks that may apply to a specific patient. Itis not intended to be medical advice or a substitute for the medical advice, diagnosis, or treatment of a health care provider based on the health care provider's examination and assessment of a patient???s specific and unique circumstances. Patients must speak with a health care provider for complete information about their health, medical questions, and treatment options, including any risks orbenefits regarding use of medications. This information does not endorse any treatments or medications as safe, effective, or approved for treating a specific patient. [employer] and its affiliates disclaim any warranty or liability relating to this information or the use thereof. The use of this information is governed by the Terms of Use, available at https://www.YR Free.CheapFlightsFinder/en/know/xewdtudy-tmyvafokhqprx-vtxqb Copyright Copyright ?? 2022 [employer] and its affiliates and/or licensors. All rights reserved. documented in this encounter Progress Notes * Darius Dobson PA - 10/06/2024 7:30 PM EST Subjective: Ear Pain (Pt presents today c/o Lt ear pain x's 6 days. Denies fevers ) History provided by: self 64-year-old female with history of MS and diabetic peripheral neuropathy presents to the urgent care with complaints of left ear pain when she has had for several days. No flu or COVID symptoms. No fever. History: No Known Allergies Past Medical History: Diagnosis Date Anxiety Asthma GERD (gastroesophageal reflux disease) Multiple sclerosis (HC Code) Past Surgical History: Procedure Laterality Date CHOLECYSTECTOMY KNEE SURGERY x6 knee SPINE SURGERY Current Outpatient Medications on File Prior to Visit Medication Sig ARMODAFINIL (NUVIGIL ORAL) Take by mouth. BACLOFEN ORAL Take by mouth. BUPROPION HCL (WELLBUTRIN ORAL) Take by mouth. BUSPIRONE HCL (BUSPAR ORAL) Take by mouth. CLONAZEPAM (KLONOPIN ORAL) Take by mouth. ESOMEPRAZOLE MAGNESIUM (NEXIUM ORAL) Take by mouth. ESTROGEN,CON/M-PROGEST ACET (PREMPRO ORAL) Take by mouth. HYDROXYZINE PAMOATE (VISTARIL ORAL) Take by mouth. MONTELUKAST SODIUM (SINGULAIR ORAL) Take by mouth. OMEGA-3 ACID ETHYL ESTERS (LOVAZA ORAL) Take by mouth. OXYBUTYNIN TD Place onto the skin. PREGABALIN (LYRICA ORAL) Take by mouth. RANITIDINE HCL (ZANTAC ORAL) Take by mouth. SPIRONOLACTONE ORAL Take by mouth. TIOTROPIUM BROMIDE (SPIRIVA WITH HANDIHALER INHL) Inhale into the lungs. TRIAMCINOLONE ACETONIDE (NASACORT AQ NASL) by Nasal route. Objective: BP 120/74 (Site: l a, Position: Sitting, Cuff Size: Large) Pulse 82 Temp 98.3 ??F (36.8 ??C) (Oral) Resp 18 Ht 5' 6 (1.676 m) Wt 104.5 kg SpO2 96% BMI 37.19 kg/m?? Physical Exam Vitals and nursing note reviewed. Constitutional: General: She is not in acute distress. Appearance: Normal appearance. She is not ill-appearing or toxic-appearing. HENT: Head: Normocephalic and atraumatic. Right Ear: Tympanic membrane, ear canal and external ear normal. Left Ear: There is impacted cerumen. Nose: Nose normal. Mouth/Throat: Mouth: Mucous membranes are moist. Pharynx: Oropharynx is clear. No oropharyngeal exudate or posterior oropharyngeal erythema. Eyes: Extraocular Movements: Extraocular movements intact. Conjunctiva/sclera: Conjunctivae normal. Pupils: Pupils are equal, round, and reactive to light. Pulmonary: Effort: Pulmonary effort is normal. Musculoskeletal: Cervical back: Normal range of motion and neck supple. Skin: General: Skin is warm and dry. Capillary Refill: Capillary refill takes less than 2 seconds. Neurological: General: No focal deficit present. Mental Status: She is alert and oriented to person, place, and time. Mental status is at baseline. Psychiatric: Mood and Affect: Mood normal. Behavior: Behavior normal. Thought Content: Thought content normal. Judgment: Judgment normal. Results No results found for this visit on 10/06/24. No orders to display No orders of the defined types were placed in this encounter. Procedures Assessment & Plan: Encounter Diagnoses Code Name Primary? H92.02 Otalgia, left ear Yes M26.622 TMJ tenderness, left Requested Prescriptions Signed Prescriptions Disp Refills naproxen (NAPROSYN) 375 mg tablet 14 tablet 0 Sig: Take 1 tablet (375 mg total) by mouth 2 (two) times daily with breakfast and dinner for 7 days. Medical Decision Makin-year-old female with multiple medical problems presents with left ear pain with normal ear exam she is known to have TMJ on the left as well and this may certainly be the cause of her pain over the last few days. Plan is Naprosyn 375 mg b.i.d. follow up with primary carephysician if symptoms persist or worsen. Electronically Signed by RADHA Prajapati, October 06, 2024 documented in this encounter Plan of Treatment Not on file documented as of this encounter Visit Diagnoses Diagnosis Otalgia, left ear- Primary TMJ tenderness, left documented in this encounter Care Teams Cash Posting Representative Relationship Specialty Start Date End Date Manan Perez MD [address] [place] [phone] PCP - General Internal Medicine 12/10/11 documented as of this encounter
--- OUTSIDE RECORDS SUMMARY | 2024-10-13 17:15 | XMS_ITS | Encounter Summary ---
Author Organization [facility] Address [address] [place] [address] Care Team Providers Care Administrative Sales Assistant Name Role Phone Milka Cueva APRN Primary Care Provider [phone] Vilma Hollis Unavailable Milka Cueva APRN Unavailable [phone] Raisa Pittman MD Primary Care Provid er Anay Chandra MD Primary Care Provider [phone] Andrei Ruby APRN Unavailable Unavailabl e Barry Cornell MD Unavailable [phone] Bakari Camilo MD Unavailable [phone] Brenda Almeida APRN Primary Care Provider [phone] Anay Chandra MD Unavailable [phone] Anay Chandra MD Primary Care Provider [phone] Brenda Almeida APRN Unavailable [phone] Babak Pickard MD Unavailable [phone] Anay Chandra MD Primary Care Provider [phone] Encounter Details Date Type Department Care Team (Late st Contact Info) Description 07/09/2018 Scanned Document [address] [address] Provider, Generic Social History Tobacco Use Types [...] 12/05/2024 1:30 PM EDT Office Visit [address] [address] Anay Chandra MD [address] [place] [address] 01/04/2025 1:00 PM EDT Office Visit [facility] Endocrinology [place] [address] [phone] Vishnu Hernandez MD [address] [address] documented as of this encounter Visit Diagnoses Not on filedocumented in this encounter Care Teams Administrative Sales Assistant Relationship Specialty Start Date End Date Milka Cueva APRN [address] [place] [address] PCP - General Internal Medicine 03/10/17 05/22/19 Milka Cueva APRN 5 [facility] [address] [address] PCP - MSSP Attributed 02/14/19 9 Raisa Pittman MD [address] [place] [address] PCP - General Family Medicine 05/23/19 06/28/19 Anay Chandra MD [address] [place] [address] PCP - General Internal Medicine 06/29/19 10/22/21 Brenda Almeida, SALES REPRESENTATIVE [employer] [address] [place], [place] [address] PCP - General Adult Health - PA/APNP/SLICING MACHINE TENDER/SALES REPRESENTATIVE [employer] 10/23/21 12/25/21 Anay Chandra MD [address] [place] [id number] PCP - PCMH+ Attributed 08/17/21 2 Anay Chandra MD [address] [place] [address] PCP - General Family Medicine 12/26/21 12/30/23 Brenda Almeida, SALES REPRESENTATIVE [employer] [address] [place], [place] [id number] PCP - [facility] [place] Attributed 09/17/22 06/16/23 Anay Chandra MD [address] [place] [address] PCP - General Family Medicine 12/31/23 Vilma Hollis [address], [place] [id number] Emergency Medicine 04/28/18 Andrei Ruby APRN 5 [facility] [address] [place] [address] Nurse Practitioner Endocrinology 07/21/19 12/29/23 Barry Cornell MD 5 [facility] [address] [place] [address] Anesthesiologist Anesthesiology 10/03/19 10/03/19 Bakari Camilo MD 5 [facility] [address] [place] [address] Physician Ophthalmology 01/10/20 Babak Pickard MD [address] [place] [address] [address] [place] [address] Surgery, Neurosurgery 02/16/23 documented as of this encounter
--- OUTSIDE RECORDS SUMMARY | 2024-10-13 17:15 | XMS_ITS | Encounter Summary ---
Author Organization [facility] Address [address] [place] [address] Care Team Providers Care Tourist Escort Name Role Phone Milka Cueva APRN Primary Care Provider [phone] Vilma Hollis Unavailable Milka Cueva APRN Unavailable [phone] Raisa Pittman MD Primary Care Provid er Anay Chandra MD Primary Care Provider [phone] Andrei Ruby APRN Unavailable Unavailabl e Barry Cornell MD Unavailable [phone] Bakari Camilo MD Unavailable [phone] Brenda Almeida APRN Primary Care Provider [phone] Anay Chandra MD Unavailable [phone] Anay Chandra MD Primary Care Provider [phone] Brenda Almeida APRN Unavailable [phone] Babak Pickard MD Unavailable [phone] Anay Chandra MD Primary Care Provider [phone] Encounter Details Date Type Department Care Team (Late st Contact Info) Description 08/06/2018 Scanned Document [address] [address] Provider, Generic Social History Tobacco Use Types [...] 12/05/2024 1:30 PM EDT Office Visit [address] [address] Anay Chandra MD [address] [place] [address] 01/04/2025 1:00 PM EDT Office Visit [facility] Endocrinology [facility] [address] [phone] Vishnu Hernandez MD [address] [address] documented as of this encounter Visit Diagnoses Not on filedocumented in this encounter Care Teams Tourist Escort Relationship Specialty Start Date End Date Milka Cueva APRN [address] [facility] [place] [address] PCP - General Internal Medicine 03/10/17 05/22/19 Milka Cueva APRN [address] [address] PCP - MSSP Attributed 02/14/19 9 Rasia Pittman MD [address] [place] [address] PCP - General Family Medicine 05/23/19 06/28/19 Anay Chandra MD [address] [place] [address] PCP - General Internal Medicine 06/29/19 10/22/21 Brenda Almeida, ETHNOLOGY PROFESSOR [address] [place], [place] [address] PCP - General Adult Health - PA/APNP/PIANO REFINISHER/ETHNOLOGY PROFESSOR 10/23/21 12/25/21 Anay Chandra MD [address] [place], [place] [id number] PCP - PCMH+ Attributed 08/17/21 2 Anay Chandra MD [address] [place] [address] PCP - General Family Medicine 12/26/21 12/30/23 Brneda Almeida, ETHNOLOGY PROFESSOR [address] [place] [address] PCP - [facility] [place] Attributed 09/17/22 06/16/23 Anay Chandra MD [address] [place] [address] PCP - General Family Medicine 12/31/23 Vilma Hollis [address], [place] [phone] Emergency Medicine 04/28/18 Andrei Ruby APRN [address] [place] [address] Nurse Practitioner Endocrinology 07/21/19 12/29/23 Barry Cornell MD [address] [place] [address] Anesthesiologist Anesthesiology 10/03/19 10/03/19 Bakari Camilo MD 5 [facility] [address] [place] [address] Physician Ophthalmology 01/10/20 Babak Pickard MD [address] [place] [address] [address] [place] [address] Surgery, Neurosurgery 02/16/23 documented as of this encounter
--- OUTSIDE RECORDS SUMMARY | 2024-10-13 17:15 | XMS_ITS | Encounter Summary ---
Author Organization [facility] Address [address] [place] [address] Care Team Providers Care Government Relations Analyst Name Role Phone Vilma Hollis Unavailable Anay Chandra MD Primary Care Provider [phone] Andrei Ruby APRN Unavailable Unavailabl e Bakari Camilo MD Unavailable [phone] Brenda Almeida APRN Primary Care Provider Anay Chandra MD Unavailable [phone] Anay Chandra MD Primary Care Provider [phone] Brenda Almeida APRN Unavailable [phone] Babak Pickard MD Unavailable [phone] Anay Chandra MD Primary Care Provider [phone] Encounter Details Date Type Department Care Team (Late st Contact Info) Description 02/16/2020 Scanned Document [facility] PRIMARY CARE SCAN Primary Care, [...] 12/05/2024 1:30 PM EDT Office Visit [address] [address] Anay Chandra MD [address] [place] [address] 01/04/2025 1:00 PM EDT Office Visit [facility] 100 [facility] [address] [place] [address] Vishnu Hernandez MD [address] [place] [address] documented as of this encounter Goals Goal [...] and appt at the wound clinic in [place] on 08/23/18. 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 Adult Health - PA/APNP/PIPE CONNECTOR/PLANNER INTERNSHIP 10/23/21 12/25/21 Anay Chandra MD [address] [place] [address] PCP - PCM+ Attributed 08/17/21 2 Anay Chandra MD PCP - General Family Medicine 12/26/21 12/30/23 Brenda Almeida, PLANNER INTERNSHIP [address] [place] [address] PCP - [facility] Attributed 09/17/22 06/16/23 Anay Chandra MD [address] [place] [address] PCP - General Family Medicine 12/31/23 Vilma Hollis Emergency Medicine 04/28/18 Andrei Ruby APRN Nurse Practitioner Endocrinology 07/21/19 12/29/23 Bakari Camilo MD Physician Ophthalmology 01/10/20 Babak Pickard MD [address] [place] [address] Surgery, Neurosurgery 02/16/23 documented as of this encounter
--- OUTSIDE RECORDS SUMMARY | 2024-10-13 17:15 | XMS_ITS | Encounter Summary ---
Author Organization [facility] Address [address] [place] [address] Care Team Providers Care Microbiology Lab Manager Name Role Phone Vilma Hollis Unavailable Andrei Ruby KIER BOILER Unavailable Unavailabl e Bakari Camilo MD Unavailable [phone] Anay Chandra MD Primary Care Provider [phone] Brenda Almeida KIER BOILER Unavailable [phone] Babak Pickard MD Unavailable [phone] Anay Chandra MD Primary Care Provider [phone] Encounter Details Date Type Department Care Team (Late st Contact Info) Description 10/03/2022 Scanned Document [facility] PRIMARY CARE SCAN Primary Care, [...] Description 12/05/2024 1:30 PM EDT Office Visit [facility] [address] [place] [phone] Anay Chandra MD [address] [facility], [place] [phone] 01/04/2025 1:00 PM EDT Office Visit [facility] Endocrinology [place] [address] [place] [address] Vishnu Hernandez MD [address] [place] [address] documented as of this encounter Goals Goal [...] and appt at the wound clinic in [place] on 08/23/18. 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 ability to [...] filedocumented in this encounter Care Teams Microbiology Lab Manager Relationship Specialty Start Date End Date Anay Chandra MD PCP - General Family Medicine 12/26/21 12/30/23 Brenda Almeida APRN [address] [place] [address] PCP - [facility] Attributed 09/17/22 06/16/23 Anay Chandra MD [address] [place] [address] PCP - General Family Medicine 12/31/23 Vilma Hollis Emergency Medicine 04/28/18 Andrei Ruby APRN Nurse Practitioner Endocrinology 07/21/19 12/29/23 Bakari Camilo MD Physician Ophthalmology 01/10/20 Babak Pickard MD [address] [place] [address] [place] [address] Surgery, Neurosurgery 02/16/23 documented as of this encounter
--- OUTSIDE RECORDS SUMMARY | 2024-10-13 17:15 | XMS_ITS | Clinical Summary ---
Author Organization [address] Address [address] [place] [id number] Care Team Providers Care Pathology Tech Name Role Phone Manan Perez MD Primary Care Provider [phone] Allergies No known active allergies Medications BUSPIRONE HCL (BUSPAR ORAL)Indication s:Pain in joint, lower leg Take by mouth. Activ e BACLOFEN ORALIndications :Pain in joint, lower leg Take by mouth. Activ e SPIRONOLACTONE ORALIndications :Pain in joint, lower leg Take by mouth. Activ e BUPROPION HCL (WELLBUTRIN ORAL)Indication s:Pain in joint, lower leg Take by mouth. Activ e ESOMEPRAZOLE MAGNESIUM (NEXIUM ORAL)Indication s:Pain in joint, lower leg Take by mouth. Activ e MONTELUKAST SODIUM (SINGULAIR ORAL)Indication s:Pain in joint, lower leg Take by mouth. Activ e ARMODAFINIL (NUVIGIL ORAL)Indication s:Pain in joint, lower leg Take by mouth. Activ e HYDROXYZINE PAMOATE (VISTARIL ORAL)Indication s:Pain in joint, lower leg Take by mouth. Activ e PREGABALIN (LYRICA ORAL)Indication s:Pain in joint, lower leg Take by mouth. Activ e OXYBUTYNIN TDIndications:P ain in joint, lower leg Place onto the skin. Active CLONAZEPAM (KLONOPIN ORAL)Indication s:Pain in joint, lower leg Take by mouth. Activ e RANITIDINE HCL (ZANTAC ORAL)Indication s:Pain in joint, lower leg Take by mouth. Activ e TRIAMCINOLONE ACETONIDE (NASACORT AQ NASL)Indication s:Pain in joint, lower leg by Nasal route. Active ESTROGEN,CON/M- PROGEST ACET (PREMPRO ORAL)Indication s:Pain in joint, lower leg Take by mouth. Activ e TIOTROPIUM BROMIDE (SPIRIVA WITH HANDIHALER INHL)Indication s:Pain in joint, lower leg Inhale into the lungs. Active OMEGA-3 ACID ETHYL ESTERS (LOVAZA ORAL)Indication s:Pain in joint, lower leg Take by mouth. Activ e naproxen (NAPROSYN) 375 mg tabletIndicatio ns:Otalgia, left ear,TMJ tenderness, left Take 1 tablet (375 mg total) by mouth 2 (two) times daily with breakfast and dinner for 7 days. 14 tablet 10/13/19 25 Active Active Problems Problem Noted Date Diagnosed Date Left otitis media, unspecified otitis media type 07/28/2024 Encounters Date Type Department Care Team Description 10/06/2024 7:30 PM EST Office Visit [facility] [address] [place] [address] Darius Dobson PA Otalgia, left ear (Primary Dx); TMJ tenderness, left 08/02/2024 3:15 PM EST Office Visit [facility] [address] [place] [address] Talha Marques PA Left otitis media, unspecified otitis media type (Primary Dx) 07/28/2024 4:45 PM EST Office Visit [facility] [address] [place] [address] Dio Fernandez PA Left otitis media, unspecified otitis media type (Primary Dx) from Last 3 Months Family History Relation Name Status Comments Father Mother Social History Tobacco Use Types Packs/Day Years [...] Mass Index 37.19 10/06/2024 5:37 PM EST Plan of Treatment Health Maintenance Due Date Last Done Comments HIV screening 1975 Hepatitis C screening 1980 Lipid disorder screening 2002 Colon cancer screening, Colonoscopy 2007 Diabetes screening 2007 Influenza vaccine 03/17/2024 06/25/2023, , 06/24/2021, Additional history exists Covid-19 vaccine series ( season) 2024 06/25/2023, 05/28/2022, 01/03/2022, Additional history exists Breast cancer screening 07/07/2025 07/07/20, 07/07/2023, 07/07/2023, Additional history exists Pneumococcal Vaccine (50+ years) (3 of 3 - PPSV23 or PCV20) 2027 07/08/2019, 12/20/2018, 05/26/2016 Cervical cancer screening 09/13/20292024, 01/14/2024, 08/22/2019 Tetanus adult (Td q 10,TDAP once) 11/29/2033 11/30/2023, 04/01/2021 Lung Cancer Screening Discontinued 08/09/2019 Shingles vaccine (Shingrix) Completed 12/31/2020, 1 10/09/2019 RSV Discussion Completed 08/25/2023 Meningococcal Vaccine Aged Out No cricket jaquan eligible based on patient's age to complete this topic Insurance [place] Member Subscriber Plan / Payer (Ef fective 2024-Present) Name:Daysi Washburn Relation to Subscriber:Self Name:Daysi Washburn Payer ID:[id number] Group ID:Not on file Type:Not on file Address: [facility] [address] [place]ID [place] Member Subscriber Plan / Payer (Ef fective 2024-Present) Name:Daysi Washburn Relation to Subscriber:Self Name:Daysi Washburn Payer ID:[id number] Group ID:Not on file Type:Not on file Address: [address] [place] [address] MEDICAID [place] [facility] Care Teams Pathology Tech Relationship Specialty Start Date End Date Manan Perez MD [address] [place] [id number] PCP - General Internal Medicine 12/10/11
== END 2024-10-13 14:45 | disposition home or self-care (01) ==
PROVIDERS: Visit Provider Anesthesiology
DX: G89.4 Chronic pain syndrome (principal); M96.1 Postlaminectomy syndrome, not elsewhere classified; E11.42 Type 2 diabetes mellitus with diabetic polyneuropathy; Z79.891 Long term (current) use of opiate analgesic; F14.11 Cocaine abuse, in remission
CPT/HCPCS: 99203

== ENCOUNTER → 2024-10-13 14:08 | Outpatient (BNVA) | payer MEDICARE, SELFPAY | PROVIDERS: Visit Provider Anesthesiology | DX: M96.1 Postlaminectomy syndrome, not elsewhere classified (principal); E11.42 Type 2 diabetes mellitus with diabetic polyneuropathy; F14.11 Cocaine abuse, in remission; F11.11 Opioid abuse, in remission; G89.4 Chronic pain syndrome; Z79.891 Long term (current) use of opiate analgesic | CPT/HCPCS: 99202 ==